=== PATIENT | male | born 1990 | race Caucasian/White ===

== ENCOUNTER 2019-11-11 06:18 | Day surgery (SDC) | payer OTHER, SELFPAY ==
[2019-11-04 14:25] VITALS: BMI 26.6
--- NOTE | 2019-11-10 10:25 | HO.ANESPROP2 ---
Documented by User: Destiny Venegas 11/10/19 10:27 HPI - Anesthesia Eval Consult details Narrative: 29yo M for hemmorhoidectomy [facility] Past Medical History Medical History Anemia Back pain Depression Hx of motion sickness Lab test negative for COVID-19 virus Murmur Post-operative nausea and vomiting Surgical History Surgical History H/O wisdom tooth extraction History of tonsillectomy Social History Social History Smoking Status: Former smoker Smoked in Last 30 Days: No Smoking Quit Date: 2017 Use of substances other than those prescribed or required for medical reasons: Yes Substance Use Frequency: Daily Advance Directives Information Provided: No Recently lost weight without trying: No Meds Allergies Allergy/AdvReac Type Severity Reaction Status Date / Time No Known Allergies Allergy Verified 11/04/19 14:45 Home Medications Medication Instructions Recorded Confirmed Type omeprazole [Prilosec] 20 mg PO DAILY 11/04/19 11/11/19 History Exam Exam Date and Time: November 10, 2019 1025 Height,Weight and Vital Signs: Height 5 ft 8 in Weight 79.379 kg Pertinent Lab Results Pertinent Lab Results: Laboratory Tests 08/06/19 08/06/19 08/20/19 15:48 15:48 11:47 WBC 7.1 Hgb 13.3 L Hct 40.3 L Plt Count 304 Sodium 139 Potassium 4.7 Chloride 105 Bicarbonate 27 Anion Gap 12 BUN 16 Creatinine 1.11 Estimated Creat Clear 95.0 Est GFR (Non-Af Amer) > 60 Total Bilirubin 0.5 Direct Bilirubin 0.3 AST 20 ALT 20 Alkaline Phosphatase 52 Total Protein 7.2 Albumin 4.6 Lipase 12 Coronavirus (PCR) NEGATIVE Assessment and Plan Assessment Anesthesia Assessment: Chart Reviewed Documented by User: Cooper Montanez 11/11/19 07:21 [facility] Past Medical History Medical History Anemia Back pain Depression Hx of motion sickness Lab test negative for COVID-19 virus Murmur Post-operative nausea and vomiting Surgical History Surgical History H/O wisdom tooth extraction History of tonsillectomy Social History Social History Smoking Status: Former smoker Smoked in Last 30 Days: No Smoking Quit Date: 2017 Use of substances other than those prescribed or required for medical reasons: Yes Substance Use Frequency: Daily Advance Directives Information Provided: No Recently lost weight without trying: No Meds Allergies Allergy/AdvReac Type Severity Reaction Status Date / Time No Known Allergies Allergy Verified 11/04/19 14:45 Home Medications Medication Instructions Recorded Confirmed Type omeprazole [Prilosec] 20 mg PO DAILY 11/04/19 11/11/19 History Exam Airway Mallampati Class: II TM Dist: >3cm Neck ROM: Full Heart: RRR
[2019-11-11] VITALS (7 sets, daily range): BP systolic 100–129; BP diastolic 43–85; PULSE 57–91; RESP 16; TEMP 36.2–36.8; O2SAT 95–100
[2019-11-11] MEDS: Scopolamine 1.5 MG PATCH.TD.3 TRANSDERMA (06:50)
[2019-11-11] MEDS: Lactated Ringers 1,000 ML 100 ML IVCONT (07:00)
--- NOTE | 2019-11-11 07:29 | MHC.SHP ---
Surgical H&P Section A The patient is an INPATIENT: Yes Changes since office visit: Yes Patient answered all questions; No Cold of Flu in the past 2 weeks, No New Medical Problems and No Changes in Medication The History & Physical has been completed within 30 days and I have reviewed it.: No Section B Chief Complaint: INTERNAL AND EXTERNAL HEMORRHOIDS Details of Present Illness: pain and bleeding with hemorrhoids for several months Relevant Family History (Specify if Yes): No Relevant Social History: None Present Medications: see Short Stay Collaborative assessment Medical History: No relevant PMH History of Previous Operations: No relevant previous surgery Allergies: Allergies Allergy/AdvReac Type Severity Reaction Status Date / Time No Known Allergies Allergy Verified 11/04/19 14:45 Review of Systems Sugical H&P ROS: Negative: Constitution, Cardiovascular, Respiratory, Neurological, Psychiatric, Hem-Onc, Allergic/Immunologic, Gastrointestinal, Genitourinary, Musculoskeletal, Integumentary, Endocrine and Eyes/Ears/Nose/Throat Exam Surgical H&P Exam: Normal: HEENT, Normal: Heart, Normal: Lungs, Normal: Extremities, Normal: Abdomen, Normal: Skin and Normal: Neurological Exam Comment: internal and external hemorrhoids Plan Diagnosis/Plan: Unchanged Patient has been examined and remains a candidate for the planned procedure
--- NOTE | 2019-11-11 08:28 | PM.OP ---
Brief Operative Note Date of procedure: 11/11/19 Pre-op diagnosis: hemorrhoids Post-op diagnosis: other (hemorrhoids, anal fissure) Procedure: EUA, hemorrhoidectomy, right lateral internal sphincterotomy Anesthesia: GLMA Surgeon: Alexander Hodge Estimated blood loss (mL): 10 Pathology: other (hemorrhoids, fissure biopsy) Condition: stable Disposition: PACU
[2019-11-11] MEDS: oxyCODONE HCl Immed Release 5 MG TABLET PO ×2 (09:01→09:08)
--- NOTE | 2019-11-11 09:47 | HO.POSTANES ---
Post Anesthesia Evaluation Post Anesthesia Evaluation Vital Signs: Vital Signs Temp Pulse Resp BP Pulse Ox 11/11/19 09:15 98.3 F 65 16 109/58 L 100 11/11/19 09:00 91 16 129/64 100 11/11/19 08:46 74 16 122/85 100 11/11/19 08:42 79 16 100/50 L 96 11/11/19 08:33 71 16 119/43 L 95 11/11/19 08:32 97.1 F 57 16 115/50 L 95 11/11/19 06:40 98.0 F 61 16 126/47 L 99 Anesthesia: General LMA Mental Status: Awake Pain Control: Satisfactory Nausea/Vomiting: None Hydration: Adequate Anesthesia-Related Issues: No Anes. Related Issues
--- NOTE | 2019-11-11 19:58 | OP_ITS ---
SURGEON: Alexander Hodge MD INDICATIONS: The patient is a 29-year-old male, who has had problems with pain with bowel movements as well as bleeding. Examination did show internal and external hemorrhoids and initial exam in the office showed these hemorrhoids on anoscopy. In view of his chronic symptoms he wanted to proceed with hemorrhoidectomy. He understood the technique of procedure. The patient is aware of the risks, benefits, and alternatives. PREOPERATIVE DIAGNOSIS: Internal and external hemorrhoids with bleeding and pain. POSTOPERATIVE DIAGNOSIS: PROCEDURE PERFORMED: Exam under anesthesia, hemorrhoidectomy, right lateral internal sphincterotomy, and biopsy of posterior midline anal fissure. ESTIMATED BLOOD LOSS: COMPLICATIONS: ANESTHESIA: ASSISTANTS: SPECIMENS: POSTOPERATIVE DIAGNOSES: 1. Internal and external hemorrhoids. 2. Posterior midline anal fissure. DESCRIPTION OF PROCEDURE: He was brought to the operating room and placed in prone Dago-Knife position under general anesthesia via endotracheal tube. The buttocks were retracted with white tape laterally. The surgical time-out was done. The perianal was prepped and draped in usual sterile fashion. The examination of the anal orifice revealed external hemorrhoidal column on the left side. I retracted the anal verge, and this showed a posterior midline fissure in the distal anoderm. I inserted a James-Lottie retractor and examined the anal canal circumferentially. Again, the hemorrhoidal column, a mix of internal and external, on the left side was seen. The posterior midline fissure was again noted in the distal anoderm just at the verge. There were no other lesions seen. There were no polyps or any indurated areas. I proceeded to therefore apply a grasper at the hemorrhoidal column on the left side. This Duenas grasper was used for retracting the hemorrhoidal column out of the field. I made a pamqew-ph-uogqu stitch at the pedicle of this column just past the dentate line using chromic 3-0 stitch. We made incision around this hemorrhoidal column of the perianal skin using blade #15. I excised this hemorrhoidal column above the plane of sphincters along this incision using Metzenbaum scissors with care being taken so as to make sure that we were staying above the plane of sphincters. This hemorrhoidal column was completely excised and sent as specimen. I closed this incision with running chromic 3-0 stitch. Hemostasis was ensured by additional hemostatic acsbth-ht-jswbu sutures as well. Since the patient had complained of significant pain with bowel movements, I decided to do a sphincterotomy because of the presence of posterior midline fissure, which appeared to be deep and scared. There was note of some sentinel pile as well distal to this fissure. I proceeded to palpate for the intersphincteric groove on the right anal verge. I made an incision in the perianal skin overlying this intersphincteric groove using blade #15. This was a short 5 mm incision. I bluntly dissected through the skin to define the internal sphincter fibers. I proceeded to apply this hemostat in the intersphincteric plane to protect the external sphincters and divided the intersphincteric muscles using a needle-tip cautery down to the level of the dentate line. I closed the short incision with running chromic 3-0 stitch. I then proceeded to biopsy the anal fissure by taking out part of the margin of the fissure itself using Metzenbaum scissors. I cauterized this with use of cautery to achieve hemostasis on this biopsy site. I then observed the entire canal for hemostasis. Once hemostasis was ensured, I have infiltrated the perianal area with Marcaine 0.5% for postop analgesia and the procedure was completed. The patient tolerated the procedure well and there were no complications noted. Initial and final counts sponge and instruments were correct. Estimated blood loss was minimal. The patient was extubated without difficulty in the operating room and transferred to the recovery room with stable vital signs. MD CANELO Tan/MONIQUE / [id number] REGINALDO
== END 2019-11-11 10:01 | disposition home or self-care (01) ==
PROVIDERS: Visit Provider Surgery
PROC: (CPT 46257; principal; 2019-11-11 07:30)
DX: K64.8 Other hemorrhoids (principal); K64.4 Residual hemorrhoidal skin tags; K60.2 Anal fissure, unspecified; D64.9 Anemia, unspecified; K21.9 Gastro-esophageal reflux disease without esophagitis; Z87.891 Personal history of nicotine dependence; Z79.899 Other long term (current) drug therapy
CPT/HCPCS: 46257; 46200; 88304; J0131; J1100; J1885; J2250; J2405; J3010

== ENCOUNTER 2020-01-31 12:22 | Emergency (ER) | payer MEDICAID, SELFPAY ==
[2020-01-31 12:54] VITALS: BP 156/91; PULSE 75; RESP 17; TEMP 36.4; O2SAT 98; BMI 26.6
--- NOTE | 2020-01-31 13:42 | XR_ITS ---
EXAMINATION: XR KNEE, LEFT CLINICAL INFORMATION: Infection COMPARISON: None TECHNIQUE: Four views of the left knee. FINDINGS: Bones and soft tissues are normal. No fracture or joint effusion. Alignment is anatomic. Joint spaces are well maintained. No abnormal soft tissue calcification. XR/XR knee LT 4V IMPRESSION: Normal left knee.
--- NOTE | 2020-01-31 13:43 | ED.EXTPRO ---
HPI - Extremity Problem General Chief complaint: Extremity Injury, Lower Stated complaint: knee pain, ?infected Time Seen by Provider: 01/31/20 13:42 Source: patient Mode of arrival: ambulatory Limitations: no limitations History of Present Illness HPI Narrative: Patient is a 29-year-old male no significant past medical history who states he has 3 days of left knee pain, swelling and redness. He states he thinks he has an infection. States he can walk on it but it is getting more painful each day. Denies trauma or previous injury or infection. Denies fevers. Related Data Home Medications Medication Instructions Recorded Confirmed omeprazole 20 mg PO DAILY 11/04/19 11/11/19 Previous Rx's Medication Instructions Recorded docusate sodium [Colace] 100 mg PO BID #60 cap 11/11/19 ibuprofen 600 mg PO Q6-8H PRN #30 tab 11/11/19 oxycodone-acetaminophen [Percocet] 1 tab PO Q4-6H PRN #30 tab 11/11/19 zmlmkmocz-vkmgenjbtcucqc-iwsa vera 1 applic FL BID #100 g 11/12/19 2.8 %-0.55 % rectal gel Allergies Allergy/AdvReac Type Severity Reaction Status Date / Time No Known Allergies Allergy Verified 11/04/19 14:45 Review of Systems Review of Systems: Yes all other systems are reviewed and are negative PMFSH Past Medical History Medical History Anemia Back pain Depression Hx of motion sickness Lab test negative for COVID-19 virus Murmur Post-operative nausea and vomiting Surgical History H/O wisdom tooth extraction History of tonsillectomy Social History Social History Smoking Status: Former smoker Advance Directives: No Advance Directives Information Provided: No Physical Exam Vital Signs: Vital Signs: Last Vital Signs Temp 97.5 F 01/31/20 12:54 Pulse 75 01/31/20 12:54 Resp 17 01/31/20 12:54 BP 156/91 H 01/31/20 12:54 Pulse Ox 98 01/31/20 12:54 Body Mass Index 26.6 Const: General: cooperative, healthy appearing, comfortable, no acute distress and well developed Nutritional Appearance: average body habitus and well nourished Orientation/consciousness: patient oriented x3 Eyes: General: appearance normal, both eyes and all related structures Resp: Effort & Inspection: normal respiratory effort and able to speak in complete sentences Neuro: General: patient oriented x3 Extrem: Left lower extremity: knee Details: abnormal to inspection, tenderness, swelling, abnormal ROM Details: pain with active ROM Details: with extension and with flexion and warmth; no lacerations and no ecchymosis Course Course Course Narrative: A 29-year-old male with no significant past medical history presenting with 3 days of left knee pain, warmth and tenderness. A likely a cellulitis but will get a x-ray and basic labs to rule out joint infection. Discharge Plan Discharge Prescriptions: No Action tcalpumrg-dkfhvfjtvatozp-tpbe 2.8-0.55 % gel 1 applic FL BID Qty: 100 RF: 0 omeprazole 20 mg Capsule,Delayed Release(Dr/Ec) 20 mg PO DAILY RF: 0 oxycodone-acetaminophen [Percocet] 5-325 mg tablet 1 tab PO Q4-6H PRN (Reason: pain) Qty: 30 RF: 0 ibuprofen 600 mg tablet 600 mg PO Q6-8H PRN (Reason: pain) Qty: 30 RF: 0 docusate sodium [Colace] 100 mg capsule 100 mg PO BID Qty: 60 RF: 2
[2020-01-31 14:09] LABS: Basophils Percent Auto 0.3 % (0-2); Eosinophils Absolute Auto 0.1 X10*3/uL (0.0-0.4); Eosinophils Percent Auto 0.7 % (0-4); Hematocrit 41.5 % (42-52); Hemoglobin 13.3 g/dl (14.0-18.0); Imm Gran Abs Auto 0.03 X10*3/uL (0.00-0.03); Imm Gran Pct Auto 0.3 % (0.0-0.4); Lymphocytes Absolute Auto 1.6 X10*3/uL (1.2-4.9); Lymphocytes Percent Auto 14.8 % (20-40); MANUAL DIFF FLAG NO; Mean Corpuscular Hemoglobin 30.1 pg (27.0-33.0); Mean Corpuscular Volume 93.9 fL (80-98); Mean Platelet Volume 10.1 fL (9.4-12.4); Monocytes Absolute Auto 0.9 X10*3/uL (0.1-1.2); Monocytes Percent Auto 8.3 % (2-11); Neutrophils Percent Auto 75.6 % (45-73); Platelet Count 260 X10*3/uL (160-400); Red Blood Count 4.42 X10*6/uL (4.60-5.80); Red Cell Distribution Width 12.3 % (11.0-16.0); White Blood Count 10.5 X10*3/uL (4.8-10.8)
[2020-01-31 14:34] LABS: Anion Gap 11 (12-20); Blood Urea Nitrogen 13 mg/dL (9-16); Calcium 9.2 mg/dL (8.4-10.2); Carbon Dioxide 30 mmol/L (22-29); Chloride 103 mmol/L (96-108); Creatinine Clr Calc Pharmacy 106.5; Estimated Glomerular Filt Rate > 60; Glucose Random 96 mg/dL (60-115); Potassium 4.9 mmol/l (3.3-5.1); Sodium 139 mmol/L (135-145)
== END 2020-01-31 15:24 | disposition home or self-care (01) ==
PROVIDERS: Physician Assistant; Emergency Provider Emergency Medicine Emergency Medical Services
DX: L03.116 Cellulitis of left lower limb (principal); M25.562 Pain in left knee
CPT/HCPCS: 36415; 73564; 80048; 85025; 99283

== ENCOUNTER 2020-03-19 13:35 | Outpatient (REF) | payer MEDICAID, SELFPAY ==
--- NOTE | ~2020-03-19 | XR_ITS ---
EXAMINATION: XR SHOULDER, LEFT CLINICAL INFORMATION: Strain COMPARISON: None TECHNIQUE: AP external rotation, Grashey, scapular Y, and axillary views of the left shoulder. FINDINGS: The bones and soft tissues are normal. No fracture. Glenohumeral and acromioclavicular alignment is anatomic with normal joint space. No abnormal soft tissue calcifications. XR/XR shoulder LT min 2V IMPRESSION: Normal left shoulder.
== END 2020-03-19 13:36 | disposition home or self-care (01) ==
LOC: HO.XRAY 13:35
PROVIDERS: Visit Provider Emergency Medicine
DX: S46.912A Strain of unspecified muscle, fascia and tendon at shoulder and upper arm level, left arm, initial encounter (principal)
CPT/HCPCS: 73030

== ENCOUNTER 2020-03-23 12:08 | Emergency (ER) | payer MEDICAID, SELFPAY ==
--- NOTE | ~2020-03-23 | CT_ITS ---
EXAMINATION: CT CERVICAL SPINE WITHOUT CONTRAST CLINICAL INFORMATION: Fall, trauma COMPARISON: CT head 03/23/2020, 09/07/2017 TECHNIQUE: Multidetector volumetric CT imaging of the cervical spine is performed without contrast in the axial plane. Additional 2D reformatted coronal and sagittal images are generated on the CT workstation and uploaded to PACS. This CT examination was performed using dose optimization techniques as appropriate, variously including the following: *Automated exposure control *Adjustment of mA and/or kV according to patient size (this includes techniques or standardized protocols for targeted exams where dose is matched to indication/reason for exam; i.e. extremities or head) *Use of iterative reconstruction technique DLP: 541 mGy-cm FINDINGS: There is no vertebral compression fracture, fracture line, spondylolisthesis, or prevertebral soft tissue swelling. The craniocervical junction appears normal. The odontoid appears intact. There is straightening of the cervical lordosis. There are no significant degenerative changes. There is no apical pneumothorax. CT/CT cervical spine wo con IMPRESSION: 1. No acute bony abnormality or prevertebral soft tissue swelling. 2. Straightening cervical lordosis which may related to mild muscle spasm.
--- NOTE | ~2020-03-23 | CT_ITS ---
EXAMINATION: CT HEAD WITHOUT CONTRAST CLINICAL INFORMATION: Fall, trauma COMPARISON: CT head noncontrast 09/07/2017 TECHNIQUE: Contiguous axial imaging was performed from the skull base to vertex without intravenous administration of contrast. Additional 2-D coronal and sagittal reformatted images are generated on the CT workstation and uploaded to PACS. This CT examination was performed using dose optimization techniques as appropriate, variously including the following: *Automated exposure control *Adjustment of mA and/or kV according to patient size (this includes techniques or standardized protocols for targeted exams where dose is matched to indication/reason for exam; i.e. extremities or head) *Use of iterative reconstruction technique DLP: 687 mGy-cm FINDINGS: There is no intracranial hemorrhage, hematoma, or extra-axial fluid collection. The ventricles are normal in size. There is no hydrocephalus, edema, or mass effect. The fitzgerald-white matter differentiation appears symmetric. There is no visible acute territorial infarct or mass lesion. The calvarium appears intact. There is no pneumocephalus or orbital emphysema. The visualized sinuses and middle ears and mastoid air cells show no significant mucosal thickening. There are no air-fluid levels. CT/CT head/brain wo con IMPRESSION: No acute intracranial abnormality.
[2020-03-23 12:15] VITALS: BP 139/74; PULSE 73; RESP 18; TEMP 36.4; O2SAT 95; BMI 26.6
--- NOTE | 2020-03-23 12:58 | ED_ITS ---
HPI - Fall General Chief Complaint: Fall <BRINA Feliz Last Filed: 03/23/20 18:11> Stated Complaint: FELL DOWN STAIRS NECK HEAD BACK INJ <BRINA Feliz Last Filed: 03/23/20 18:11> Time Seen by Provider: 03/23/20 12:58 <BRINA Feliz - Last Filed: 03/23/20 18:11> History of Present Illness HPI Narrative: Patient slipped and fell this morning sliding on ice and falling back hitting his head and neck against concrete steps, so complains of headache, neck pain as well as some low back pain, no numbness no weakness no tingling no changes to bowel or bladder no loss consciousness no vomiting no dizziness <BRINA Feliz Last Filed: 03/23/20 18:11> Related Data Home Medications: Home Medications Medication Instructions Recorded Confirmed omeprazole 20 mg PO DAILY 11/04/19 11/11/19 Previous Rx's Medication Instructions Recorded docusate sodium [Colace] 100 mg PO BID #60 cap 11/11/19 ibuprofen 600 mg PO Q6-8H PRN #30 tab 11/11/19 oxycodone-acetaminophen [Percocet] 1 tab PO Q4-6H PRN #30 tab 11/11/19 mkkgsnhow-bmmtzmcnxejsea-ufmj vera 1 applic MS BID #100 g 11/12/19 2.8 %-0.55 % rectal gel cephalexin [Keflex] 500 mg PO Q8H #20 cap 01/31/20 doxycycline hyclate 100 mg PO BID #14 cap 01/31/20 cyclobenzaprine 5 mg PO TID PRN #10 tab 03/23/20 ibuprofen 600 mg PO Q6H PRN #20 tab 03/23/20 oxycodone 5 mg PO Q6H PRN #10 cap 03/23/20 <BRINA Feliz Last Filed: 03/23/20 18:11> Allergies/Adverse Reactions: Allergies Allergy/AdvReac Type Severity Reaction Status Date / Time No Known Allergies Allergy Verified 03/23/20 12:15 <BRINA Feliz Last Filed: 03/23/20 18:11> Review of Systems Review of Systems: Positive for headache neck pain and back pain Negatives are no weakness no dizziness no confusion no loss of consciousness no retrograde amnesia no vision change no nausea no vomiting no numbness weakness o r paresthesias, no changes to bowel or bladder, no fever no chills no chest pain no shortness of breath no dysuria no abdominal pain <BRINA Feliz - Last Filed: 03/23/20 18:11> Yes all other systems are reviewed and are negative <BRINA Feliz - Last Filed: 03/23/20 18:11> PMFSH Past Medical History Source: nursing notes reviewed <BRINA Feliz - Last Filed: 03/23/20 18:11> Medical History: Medical History Anemia Back pain Depression Hx of motion sickness Lab test negative for COVID-19 virus Murmur Post-operative nausea and vomiting <BRINA Feliz - Last Filed: 03/23/20 18:11> Surgical History: Surgical History H/O wisdom tooth extraction History of tonsillectomy <BRINA Feliz - Last Filed: 03/23/20 18:11> Social History Social History: Social History Smoking Status: Former smoker Advance Directives: No Advance Directives Information Provided: Yes <BRINA Feliz - Last Filed: 03/23/20 18:11> Physical Exam Vital Signs: Vital Signs: Last Vital Signs Temp 97.6 F 03/23/20 12:15 Pulse 73 03/23/20 12:15 Resp 18 03/23/20 12:15 BP 139/74 03/23/20 12:15 Pulse Ox 95 03/23/20 12:15 Body Mass Index 26.6 <BRINA Feliz - Last Filed: 03/23/20 18:11> Vital Signs: Last Vital Signs Temp 97.6 F 03/23/20 12:15 Pulse 73 03/23/20 12:15 Resp 18 03/23/20 12:15 BP 139/74 03/23/20 12:15 Pulse Ox 95 03/23/20 12:15 Body Mass Index 26.6 <Brant Apodaca MD - Last Filed: 03/29/20 07:17> General appearance is no acute distress, cooperative, a and O x3 The head is normocephalic atraumatic there are no raccoon eyes no Hodgson signs no scalp hematoma, pupils equal round react to light, extraocular motions intact The neck has diffuse posterior tenderness and pain with movement the posterior tenderness includes the midline, no palpable deformities The chest is clear to auscultation bilaterally with full symmetric equal breath sounds, no chest wall tenderness no rib tenderness no pain with deep breath The heart rate and rhythm regular no murmur The abdomen is soft and nontender Extremities full range of motion x4 without tenderness swelling or deformity The skin no lacerations, no rashes Neuro cranial nerves 2-12 intact as tested, no facial asymmetry, cerebellar exam is normal, gait is normal balance is normal verbal interaction and comprehension are normal, there is no unilateral weakness, motor is 5/5 x4 in sensation is intact and symmetrical <BRINA Feliz - Last Filed: 03/23/20 18:11> Course Course Course Narrative: CT scan of head and neck were normal, and patient was discharged with diagnosis of concussion and neck strain and ambulated easily from the department <BRINA Feliz - Last Filed: 03/23/20 18:11> I have reviewed the chart <Brant Apodaca MD - Last Filed: 03/29/20 07:17> Discharge Plan Discharge Clinical Impression: Neck strain, Concussion with loss of consciousness <BRINA Feliz - Last Filed: 03/23/20 18:11> Patient Disposition: Home, Self-Care <BRINA Feliz - Last Filed: 03/23/20 18:11> Additional Instructions: CT scans of head and neck did not reveal any dangerous or concerning injury Follow with primary doctor as needed, physical therapy and chiropractor a sometimes helpful if neck pain continues but this will often get better on its own in just a few days Return any time any worse condition or any concerns <BRINA Feliz - Last Filed: 03/23/20 18:11> Prescriptions: New cyclobenzaprine 5 mg tablet 5 mg PO TID PRN (Reason: muscle spasm) Qty: 10 RF: 0 ibuprofen 600 mg tablet 600 mg PO Q6H PRN (Reason: pain) Qty: 20 RF: 0 oxycodone 5 mg capsule 5 mg PO Q6H PRN (Reason: pain) Qty: 10 RF: 0 No Action nfvsgfusf-litjlazpymvqke-lucr 2.8-0.55 % gel 1 applic MS BID Qty: 100 RF: 0 omeprazole 20 mg Capsule,Delayed Release(Dr/Ec) 20 mg PO DAILY RF: 0 oxycodone-acetaminophen [Percocet] 5-325 mg tablet 1 tab PO Q4-6H PRN (Reason: pain) Qty: 30 RF: 0 ibuprofen 600 mg tablet 600 mg PO Q6-8H PRN (Reason: pain) Qty: 30 RF: 0 docusate sodium [Colace] 100 mg capsule 100 mg PO BID Qty: 60 RF: 2 doxycycline hyclate 100 mg capsule 100 mg PO BID Qty: 14 RF: 0 cephalexin [Keflex] 500 mg capsule 500 mg PO Q8H Qty: 20 RF: 0 <BRINA Feliz - Last Filed: 03/23/20 18:11> Interventions: ED Discharge Assessment Last Done: 03/23/20 15:00 <BRINA Feliz - Last Filed: 03/23/20 18:11> Discharge Date/Time: 03/23/20 15:00 <BRINA Feliz - Last Filed: 03/23/20 18:11>
== END 2020-03-23 15:00 | disposition home or self-care (01) ==
PROVIDERS: Emergency Provider Emergency Medicine
DX: S16.1XXA Strain of muscle, fascia and tendon at neck level, initial encounter (principal); S06.0X9A Concussion with loss of consciousness of unspecified duration, initial encounter; W00.0XXA Fall on same level due to ice and snow, initial encounter; Y93.89 Activity, other specified; Y92.480 Sidewalk as the place of occurrence of the external cause; Y99.9 Unspecified external cause status
CPT/HCPCS: 70450; 72125; 99283; 99284

== ENCOUNTER → 2020-05-13 09:26 | Outpatient (BNVA) | payer MEDICAID, SELFPAY | PROVIDERS: PCP Nurse Practitioner Family; Visit Provider Physician Assistant | DX: M75.22 Bicipital tendinitis, left shoulder (principal) | CPT/HCPCS: 99202 ==

== ENCOUNTER 2020-07-01 07:00 | Outpatient (RCR) | payer MEDICAID, SELFPAY ==
--- NOTE | 2020-06-03 10:00 | MHC.PT.EP ---
[facility] [place] Office [place] Office [place] Office [address] Ella Ulloa [address] [phone] F: [phone] F: [phone] F: [phone] F: [phone] Physical Therapy Plan of Care Date of Evaluation: Date of Surgery: Diagnosis: left shoulder pain. Assessment: The patient arrived with reduced shoulder ROM, strength in his left UE, chest musculature, and with pressing and pushing motions. He has an asymmetrical clavicular/1st rib joint, and some muscle atrophy noted in the pec minor/major area. He is showing signs of a pectoralis minor/major strain. He was educated on posture improvements, movements, and positions to avoid to decrease aggravating his symptoms, and we will begin conservative treatment for a pectoralis muscle strain. Frequency and Duration: The patient will be seen 2x/week x 4 weeks Short Term Goals: . Pt to be able to report 50% improvement in functional reaching. - Pt to be able to report 50% less pain with getting dressed. Custodial Goals: 4 weeks - The patient to have greater than 160 degrees of flexion and abduction to show improved functional ROM. 4 weeks ? The patient to have 5/5 strength with flexion and abduction to demonstrate functional strength 4 weeks ? The patient to be able to return to all functional reaching, self care ADL's without any limitation from pain or loss of ROM. Treatment Plan: Modalities to reduce pain, spasms and effusion. Manual therapy to restore motion and function. Therapeutic exercise to improve strength and flexibility. Neuromuscular re-education for posture and balance. Therapeutic activities to return to functional activities of daily living. Electronically signed by: Natasha Cast PT DPT Please sign and return to therapist. Thank you for your referral.
--- NOTE | 2020-09-30 09:42 | MHC.PT.DC ---
[facility] [place] [facility] [place] [facility] [place] [facility] [address] Ella Ulloa [address] [facility] [phone] F: [phone] F: [phone] F: [phone] F: [phone] Physical Therapy Discharge Report Diagnosis: left shoulder pain. Date of Surgery: Date of Evaluation: 06/03/20 Date of Discharge: 09/05/20 Treatments to Date: 6 Cancellations to Date: No Shows to Date: Discharge Status: Patient Elected to Stop Recommend MD Follow-up Discharge Summary: The patient arrived frustrated by lack of progress. However, upon exam he has great muscular symmetry, great PROM, and relatively pain free motion without resistance. I am suspicious of thoracic or lower cervical disc derangement based on his pain presentation, and his improvement with cervical retractions and retraction with extension. He was given seated cervical retraction with extension. Electronically signed by: Natasha Cast PT DPT Please sign and return to therapist. Thank you for your referral.
== END 2020-09-30 07:00 | disposition home or self-care (01) ==
LOC: HO.PT 07:00
PROVIDERS: PCP General Practice; Visit Provider Physician Assistant
DX: M75.22 Bicipital tendinitis, left shoulder (principal)
CPT/HCPCS: 97110; 97112; 97140; 97162; 97530

== ENCOUNTER 2020-07-03 20:33 | Emergency (ER) | payer MEDICAID, SELFPAY ==
--- NOTE | ~2020-07-03 | XR_ITS ---
EXAMINATION: XR CHEST CLINICAL INFORMATION: Chest pain. COMPARISON: Chest x-ray 11/18/2018 TECHNIQUE: 2 views of the chest were obtained. FINDINGS: No significant abnormality is noted involving the heart, lungs, mediastinum, bony thorax or soft tissues. XR/XR chest 2V IMPRESSION: Unremarkable examination.
--- NOTE | ~2020-07-03 | XR_ITS ---
EXAMINATION: XR SHOULDER, LEFT CLINICAL INFORMATION: Pain. COMPARISON: Left shoulder radiographs dated 03/19/2020. TECHNIQUE: AP, Grashey, scapular Y views of the left shoulder. FINDINGS: The bones and soft tissues are normal. No fracture. Glenohumeral and acromioclavicular alignment is anatomic with normal joint space. No abnormal soft tissue calcifications. XR/XR shoulder LT min 2V IMPRESSION: Unremarkable examination.
[2020-07-03 20:34] VITALS: BP 142/58; PULSE 70; RESP 16; TEMP 36.9; O2SAT 99; BMI 26.6
--- NOTE | 2020-07-03 21:21 | ED.GENADULT ---
HPI - General Adult General Chief complaint: General Medical Stated complaint: shoulder pain Time Seen by Provider: 07/03/20 22:03 Source: patient Mode of arrival: ambulatory Limitations: no limitations History of Present Illness HPI narrative: 30-year-old male with past medical history of anemia, depression, being treated by Physical therapy for clavicular pain presents with arm and chest pain after physical therapy session. He does not report any chest pressure, shortness of breath, shortness of breath on exertion, worsening decreased range of motion, abdominal pain, abdominal distention, dysuria, hematuria, fevers, chills, nausea, vomiting, diarrhea, constipation, or edema. Onset (ago): week(s) Location: chest and upper extremity Radiation: non-radiation Severity: moderate Severity scale (1-10): 6 Quality: aching Pain Consistency: constant Relieving factors: immobilization and rest Exacerbating factors: movement Associated symptoms: denies other symptoms Treatments prior to arrival: other (Physical therapy) Related Data Home Medications Medication Instructions Recorded Confirmed omeprazole 20 mg PO DAILY 11/04/19 11/11/19 Previous Rx's Medication Instructions Recorded docusate sodium [Colace] 100 mg PO BID #60 cap 11/11/19 ibuprofen 600 mg PO Q6-8H PRN #30 tab 11/11/19 qfwjgxuye-chccopdqtsbgkd-qmkq vera 1 applic NV BID #100 g 11/12/19 2.8 %-0.55 % rectal gel cephalexin [Keflex] 500 mg PO Q8H #20 cap 01/31/20 doxycycline hyclate 100 mg PO BID #14 cap 01/31/20 ibuprofen 600 mg PO Q6H PRN #20 tab 03/23/20 Allergies Allergy/AdvReac Type Severity Reaction Status Date / Time No Known Allergies Allergy Verified 05/13/20 09:47 Review of Systems Review of Systems: Constitutional: No Fever, No Chills ENT/Mouth: No Ear Pain, No Hoarseness, No sore throat Eyes: No Eye Pain, No Swelling, No Redness, No Foreign Body Cardiovascular: No Chest Pain, No SOB Respiratory: No Cough, No Dyspnea Gastrointestinal: No Nausea, No Vomiting, No Diarrhea, No abdominal Pain Genitourinary: No Dysuria, No Hematuria Musculoskeletal: positive shoulder and pectoral pain, No Myalgias, No Joint Swelling Skin: No Skin lacerations, No rash Neuro: No Weakness, No Numbness, No Paresthesias, No Loss of Consciousness, No Dizziness, No Headache Psych: No Anxiety/Panic, No Depression Heme/Lymph: no easy bruising, no Lymphadenopathy Endocrine: No Polyuria, No Polydipsia Yes all other systems are reviewed and are negative [facility] Past Medical History Attestation statement: The following information was validated with the patient. Source: old records reviewed Medical History Anemia Back pain Depression Hx of motion sickness Lab test negative for COVID-19 virus Murmur Post-operative nausea and vomiting Surgical History H/O wisdom tooth extraction History of tonsillectomy Social History Social History Alcohol intake: unknown Patient Tobacco Use Status: Current everyday Tobacco user Smoked in Last 30 Days: Yes Use of substances other than those prescribed or required for medical reasons: Yes Substance Use Type: Marijuana Substance Use Frequency Other:: QUIT Advance Directives: No Current occupational status: unemployed Current occupation: rght handed Physical Exam Vital Signs: Vital Signs: Last Vital Signs Temp 98.5 F 07/03/20 20:34 Pulse 70 07/03/20 20:34 Resp 16 07/03/20 20:34 BP 142/58 H 07/03/20 20:34 Pulse Ox 99 07/03/20 20:34 Body Mass Index 26.6 Appearance: Alert. Oriented X3. No acute distress. Eyes: Pupils equal, round and reactive to light. ENT: Pharynx normal. Neck: Normal inspection. Neck supple. CVS: Normal heart rate and rhythm. Pulses normal. Respiratory: No respiratory distress. Breath sounds normal. Abdomen: Soft and nontender. Skin: Skin warm and dry. Normal skin color. Normal skin turgor. Extremities: No lower extremity edema. Neuro: No motor deficit. No sensory deficit. Course Course Course Narrative: 30-year-old male presents with shoulder and pectoral pain after physical therapy. Will order x-rays of shoulder, chest, and order an EKG. Chest and shoulder are negative for acute findings. EKG indicates Kathie Parkinson's White. When compared to prior EKG in 2019, EKG is with the same. 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 Patient was referred to physical therapist. Patient verbalizes understanding of and agrees plan of care discharge home. Medical Decision Making Differential Diagnosis Differential Diagnosis: Musculoskeletal pain Medical Records Medical records reviewed: Yes I reviewed the patient's medical records. Lab Data Lab results reviewed: Yes I reviewed the patient's lab results. Imaging Data Chest x-ray: Attestation: I personally reviewed and interpreted this imaging study as follows: Radiologist's impression: EXAMINATION: XR CHEST CLINICAL INFORMATION: Chest pain. COMPARISON: Chest x-ray 11/18/2018 TECHNIQUE: 2 views of the chest were obtained. FINDINGS: No significant abnormality is noted involving the heart, lungs, mediastinum, bony thorax or soft tissues. XR/XR chest 2V IMPRESSION: Unremarkable examination. Shoulder x-ray: Attestation: I personally reviewed and interpreted this imaging study as follows: Radiologist's impression: EXAMINATION: XR SHOULDER, LEFT CLINICAL INFORMATION: Pain. COMPARISON: Left shoulder radiographs dated 03/19/2020. TECHNIQUE: AP, Grashey, scapular Y views of the left shoulder. FINDINGS: The bones and soft tissues are normal. No fracture. Glenohumeral and acromioclavicular alignment is anatomic with normal joint space. No abnormal soft tissue calcifications. XR/XR shoulder LT min 2V IMPRESSION: Unremarkable examination. ECG Data Attestation: I personally reviewed and interpreted this ECG as follows: Prior ECG tracings: available for review Discharge Plan Discharge Clinical Impression: Musculoskeletal chest pain, Fcmss-Gjrkefdjn-Mctcy (WPW) syndrome Patient Disposition: Home, Self-Care Instructions: Musculoskeletal Pain (ED), Hnsug-Zprfyqkal-Qlhup Syndrome (ED) Additional Instructions: You were evaluated for chest and shoulder musculoskeletal pain. X-rays of the chest and shoulder are negative for acute findings. We did an EKG, EKG indicates Petar-Pvvtrkjyf-Chwwz syndrome. You must follow-up with Cardiology. Your EKG is the same as it was in 2019. Please follow-up with physical therapy as needed. Thank you for choosing this emergency department for evaluation. Please follow-up with primary care physician as needed. Return to the emergency department for any new, concerning, or worsening symptoms. Prescriptions: No Action bggxbilah-cwdfmoazvxmfxo-yrlm 2.8-0.55 % gel 1 applic NV BID Qty: 100 RF: 0 omeprazole 20 mg Capsule,Delayed Release(Dr/Ec) 20 mg PO DAILY RF: 0 ibuprofen 600 mg tablet 600 mg PO Q6-8H PRN (Reason: pain) Qty: 30 RF: 0 docusate sodium [Colace] 100 mg capsule 100 mg PO BID Qty: 60 RF: 2 doxycycline hyclate 100 mg capsule 100 mg PO BID Qty: 14 RF: 0 cephalexin [Keflex] 500 mg capsule 500 mg PO Q8H Qty: 20 RF: 0 ibuprofen 600 mg tablet 600 mg PO Q6H PRN (Reason: pain) Qty: 20 RF: 0 Referrals: Ney King MD [Physician] - 2 days (Drtld-Rvpbfxxal-Iaqsj syndrome) Discharge Date/Time: 07/03/20 23:06
--- NOTE | 2020-07-03 21:22 | ECG_ITS ---
Test Reason : CHEST WALL PAIN Blood Pressure : / mmHG Vent. Rate : 063 BPM Atrial Rate : 063 BPM P-R Int : 106 ms QRS Dur : 132 ms QT Int : 410 ms P-R-T Axes : 029 001 064 degrees QTc Int : 419 ms Normal sinus rhythm with sinus arrhythmia Tuzeq-Lbrnqdbgb-Pnbnv Abnormal ECG No significant changes when compared with the previous EKG of 03 jul 2020 Referred By: Veronica Lee Electronically Signed By:ALESSIA MCDERMOTT
--- NOTE | 2020-07-03 22:35 | PC.NURSE ---
PT EVALED BY PROVIDER. LUNGS CLEAR, RESP UNLABORED. CXR TAKEN. EKG TAKEN AND REVIEWED.
== END 2020-07-03 23:06 | disposition home or self-care (01) ==
PROVIDERS: Emergency Provider Internal Medicine
DX: M25.512 Pain in left shoulder (principal); M25.511 Pain in right shoulder; I45.6 Pre-excitation syndrome; R07.89 Other chest pain; F17.200 Nicotine dependence, unspecified, uncomplicated; Z71.6 Tobacco abuse counseling; F12.90 Cannabis use, unspecified, uncomplicated; Z79.899 Other long term (current) drug therapy
CPT/HCPCS: 71046; 73030; 93005; 99284

== ENCOUNTER → 2020-07-27 13:33 | Outpatient (BNVA) | payer MEDICAID, SELFPAY | PROVIDERS: Visit Provider Nurse Practitioner Family ==

== ENCOUNTER → 2020-07-29 09:29 | Outpatient (REF) | payer MEDICAID, SELFPAY ==
--- NOTE | 2020-07-29 11:43 | ECG_ITS ---
Hook-up date: 2020-07-29 09:40:00 Duration: 25:44:00 Test Indications: PRE-EXCITATION SYNDROME Medications: [id number] QRS complexes 1 Ventricular ectopics which represent <1 % of total QRS comp. * Supraventricular ectopics which represent % of total QRS comp. * Paced QRS complexs which represent % of total QRS comp. VENTRICULAR ECTOPY 1 Isolated 0 Bigeminal Cycles 0 Couplets 0 Runs 0 Beats in Runs * Beats LONGEST at * BPM at :: -- * Beats FASTEST at * BPM at :: -- SUPRAVENTRICULAR ECTOPY * Isolated * Couplets * Runs * Beats in Runs * Beats LONGEST at * BPM at :: -- * Beats FASTEST at * BPM at :: -- HEART RATES 46 MIN at 03:36:30 2020-07-30 81 AVG 209 MAX at 14:58:14 2020-07-29 LONGEST RR 1.5520 secs at 06:24:33 2020-07-30 S-T LEVELS Channel 1 - 128 mm at 09:40:00 2020-07-29 - 128 mm at 09:40:00 2020-07-29 Channel 2 - 128 mm at 09:40:00 2020-07-29 - 128 mm at 09:40:00 2020-07-29 Channel 3 - 128 mm at 02:85:91 -- - 128 mm at 02:85:91 Basic rhythm Normal sinus rhythm Qrqdq-Ebshatgxq-Cyztn pattern noted Narrow complex tachycardia noted, due to artefact p waves are not well identified. Patient did not report any symptoms in the diary Referred By: Nasrin Domingo Overread By: LIZ HARMON MD
== END ==
LOC: HO.CARD 09:29
PROVIDERS: Visit Provider Nurse Practitioner Family
DX: I45.6 Pre-excitation syndrome (principal)
CPT/HCPCS: 93226

== ENCOUNTER → 2020-08-03 14:07 | Outpatient (REF) | payer MEDICAID, SELFPAY ==
--- NOTE | 2020-08-03 14:38 | HM_ITS ---
TEST PERFORMED: Cardiac event monitoring. ENROLLMENT PERIOD: 08/03/2020 to 09/02/2020-30 days. INDICATION: Preexcitation syndrome. FINDINGS: In the above monitoring period, underlying rhythm was sinus. The rates ranged from 68 beats per minute to 125 beats per minute. There is a pre-excitation pattern seen in the EKG strips. There are several symptoms noted during this time including shortness of breath, palpitations, chest pain at different times. These primarily show sinus rhythm during the time of symptoms. There is some sinus tachycardia noted but otherwise no supraventricular or ventricular arrhythmias during the entire monitoring. CONCLUSION: Study shows underlying sinus rhythm, sinus tachycardia but no other arrhythmias. The patient's symptoms including chest pain, shortness of breath, palpitations correlate with sinus rhythm/sinus tachycardia. Ney King MD HS/MODL / [id number]
== END ==
LOC: HO.CARD 14:07
PROVIDERS: Visit Provider Nurse Practitioner Family
DX: I45.6 Pre-excitation syndrome (principal)
CPT/HCPCS: 93270

== ENCOUNTER → 2020-08-04 11:03 | Outpatient (REF) | payer MEDICAID, SELFPAY ==
--- NOTE | 2020-08-04 11:06 | CA_ITS ---
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 The visually estimated ejection fraction is between 55-60%. Diastolic function is normal for age. Right Ventricle Normal right ventricular cavity size and systolic function. Atria Both atria are normal in size. There is no evidence of interatrial shunt. Aortic Valve Normal aortic valve structure and function. There is no aortic valve stenosis. There is no aortic valve regurgitation. Mitral Valve Normal mitral valve structure and function. There is no mitral valve regurgitation. There is no mitral valve stenosis. Pulmonic Valve The pulmonic valve is likely normal. There is trace pulmonic valve regurgitation. Tricuspid Valve Normal tricuspid valve structure. There is trace tricuspid valve regurgitation. Tricuspid regurgitation envelope is inadequate for calculation of right ventricular systolic pressure. Great Vessels All visible segments of the aorta are normal in size. The pulmonary artery was not well visualized. Venous The inferior vena cava is normal in size and collapses greater than 50% with inspiration. Pericardium/Pleural There is no evidence of pericardial effusion. Prior Study Comparison No prior study available for comparison. Measurements M-Mode Liner Measurements Normals - Women/Men AOV Cusps: 2.30 1.5-2.6 cm/m2 2D Linear Measurements IVSd: 0.80 0.6-0.9/0.6-1.0 cm LVIDd: 5.81 3.9-5.3/4.2-5.9 cm LVIDd Index: 2.99 2.4-3.2/2.2-3.1 cm/m2 LVIDs: 3.93 2.0-3.6 cm LVPWd: 0.75 0.7-1.1 cm Ao Root: 2.60 2.1-3.5 cm LA Diam: 3.40 2.7-3.8/3.0-4.0 cm LAIDs Index: 1.75 1.5-2.3 cm/m2 LV Mass: 210.16 67-162/88-224 g LV Mass Index: 108.33 43-95/49-115 g/m2 LVOT Diam: 2.00 3.0+(-)1.3 cm 2D Systolic Function EF 4C: 54.80 >55% EF 2C: 57.30 >55% EF BiP: 56.90 >55% Mitral Valve MV Pk E: 0.83 MV PK A: 0.48 MV Decel Time: 218.00 E/A: 1.70 E'Lateral: 18.00 E'Medial: 9.90 E/E' Med: 8.40 E/E' Lat: 4.60 PHT: 64.00 MVA PHT: 3.44 Decel [place]: 3.79 Aortic Valve AoV Pk Yayo: 1.35 AoV Mn Yayo: 0.94 AoV VTI: 0.28 AoV Pk Grad: 7.00 Aov Mn Grad: 4.00 SAGE Cont.VTI: 2.17 LVOT LVOT Pk Yayo: 0.98 LVOT Mn Yayo: 0.73 LVOT VTI: 0.19 LVOT Pk Grad: 4.00 LVOT Mn Grad: 2.00 LVOT Diam: 2.00 LVOT Area: 3.14 Diastolic Function MV Pk E: 0.83 MV Pk A: 0.48 E/A: 1.70 E'Medial: 9.90 E/E' Med: 8.40 E' Laterial: 18.00 E/E' Lat: 4.60 Tricuspid Valve RA Press: 3.00 Great Vessels Aorta Ao Root-2D: 2.60 2.0-3.7 cm Ao Asc: 2.30 2.1-3.4 cm Ao Arch: 2.10 Pulmonary Valve PV Pk Yayo: 1.14 Peak PV Grad: 5.00 Updated in Other Vendor System with Status of Final Mario Oneal MD electronically signed on 08/04/2020 3:25:14 PM with status of Final
== END ==
LOC: HO.CARD 11:03
PROVIDERS: Visit Provider Nurse Practitioner Family
DX: I45.6 Pre-excitation syndrome (principal)
CPT/HCPCS: 93306

== ENCOUNTER 2020-08-05 18:38 | Outpatient (REF) | payer MEDICAID, SELFPAY ==
--- NOTE | ~2020-08-05 | MR_ITS ---
EXAMINATION: MRI LEFT SHOULDER WITHOUT CONTRAST CLINICAL INFORMATION: Left muscle strain COMPARISON: None. TECHNIQUE: MRI of the shoulder without contrast is performed on a 1.5 Marina high-field scanner. FINDINGS: ROTATOR CUFF: Intact. No muscle atrophy or fatty infiltration. BICEPS: Normal. CORACOACROMIAL ARCH: The undersurface of the acromion is flat with no subacromial spur. The acromioclavicular joint is normal. LABRUM/CAPSULE: No definite labral tear. There is a meniscoid variant of the superior labrum with a portion of the meniscal undersurface draped over the superior glenoid. There is also prominent capsular thickening projecting into the anterior aspect of the joint. This is demonstrated on axial image 15 and sagittal image 14. GLENOHUMERAL JOINT/MARROW: The humeral head is slightly subluxed posteriorly. No joint effusion. No fracture. ADDITIONAL FINDINGS: None. MR/MR shoulder LT wo con IMPRESSION: Anterior inferior capsular thickening projecting into the glenohumeral joint with slight posterior subluxation of the humeral head, correlate for symptoms of impingement. There is mild edema at the superior aspect, and a probable variant of the superior labrum with the undersurface draped over the superior glenoid. No rotator cuff tear. No acute abnormality.
== END 2020-08-05 18:39 | disposition home or self-care (01) ==
LOC: HO.MRI 18:38
PROVIDERS: Visit Provider Nurse Practitioner Primary Care
DX: S46.912D Strain of unspecified muscle, fascia and tendon at shoulder and upper arm level, left arm, subsequent encounter (principal)
CPT/HCPCS: 73221

== ENCOUNTER → 2020-09-16 14:07 | Outpatient (BNVA) | payer MEDICAID, SELFPAY | PROVIDERS: PCP Nurse Practitioner Family; Visit Provider Internal Medicine Cardiovascular Disease | DX: I45.6 Pre-excitation syndrome (principal); R07.89 Other chest pain; R00.2 Palpitations; F17.200 Nicotine dependence, unspecified, uncomplicated | CPT/HCPCS: 99212 ==

== ENCOUNTER 2020-10-01 13:14 | Outpatient (REF) | payer MEDICAID, SELFPAY ==
--- NOTE | ~2020-10-01 | XR_ITS ---
EXAMINATION: XR CLAVICLE, LEFT CLINICAL INFORMATION: Sternoclavicular joint pain COMPARISON: MRI left shoulder 08/05/2020, left shoulder radiographs 07/03/2020 TECHNIQUE: Two views of the left clavicle. FINDINGS: The clavicle is intact. The bones and soft tissues are normal. No fracture. Acromioclavicular joint alignment is anatomic. XR/XR clavicle LT IMPRESSION: Normal left clavicle.
== END 2020-10-01 13:15 | disposition home or self-care (01) ==
LOC: HO.XRAY 13:14
PROVIDERS: Absent Provider Nurse Practitioner Family; PCP Nurse Practitioner Family; Visit Provider Physician Assistant
DX: M89.8X1 Other specified disorders of bone, shoulder (principal); M79.18 Myalgia, other site; M75.22 Bicipital tendinitis, left shoulder
CPT/HCPCS: 73000; 99212

== ENCOUNTER 2020-11-14 13:15 | Emergency (ER) | payer MEDICAID, SELFPAY ==
--- NOTE | ~2020-11-14 | XR_ITS ---
EXAMINATION: RIGHT HAND AND RIGHT FOREARM. CLINICAL INFORMATION: Pain and swelling and injury. COMPARISON: None TECHNIQUE: 3 views right hand and 2 views right forearm FINDINGS: Right hand: There is no visible acute fracture, dislocation or subluxation. The soft tissues are normal. Right forearm: There is no visible acute fracture, dislocation or subluxation. The soft tissues are normal. XR/XR hand RT min 3V IMPRESSION: Unremarkable right hand and right forearm exam
--- NOTE | ~2020-11-14 | XR_ITS ---
EXAMINATION: RIGHT HAND AND RIGHT FOREARM. CLINICAL INFORMATION: Pain and swelling and injury. COMPARISON: None TECHNIQUE: 3 views right hand and 2 views right forearm FINDINGS: Right hand: There is no visible acute fracture, dislocation or subluxation. The soft tissues are normal. Right forearm: There is no visible acute fracture, dislocation or subluxation. The soft tissues are normal. XR/XR forearm RT 2V IMPRESSION: Unremarkable right hand and right forearm exam
[2020-11-14 13:23] VITALS: BP 133/70; PULSE 90; RESP 18; TEMP 37; O2SAT 99; BMI 28.8
--- NOTE | 2020-11-14 15:33 | ED_ITS ---
HPI - Extremity Problem General Chief complaint: Extremity Injury, Upper Stated complaint: rt hand injury Time Seen by Provider: 11/14/20 15:01 Source: patient Mode of arrival: ambulatory Limitations: no limitations History of Present Illness HPI Narrative: Patient presents to ED for right hand/right forearm pain after being hit by fast ball but trying to hit a baseball. 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 Patient denies hitting head or falling to the ground. Patient denies any loss of consciousness. Related Data Previous Rx's Medication Instructions Recorded naproxen 500 mg tablet 500 mg PO BID PRN #20 tab 11/14/20 Allergies Allergy/AdvReac Type Severity Reaction Status Date / Time No Known Allergies Allergy Verified 11/14/20 13:29 Review of Systems Review of Systems: Yes all other systems are reviewed and are negative Constitutional: Constitutional: Reports as per HPI and Reports no additional constitutional complaints Eyes: Eyes: Reports as per HPI and Reports no additional eye complaints ENT: Reports system reviewed and no additional complaints, except as documented and Reports as per HPI Cardiovascular: Cardiovascular: Reports as per HPI and Reports no additional cardiovascular complaints Respiratory: Respiratory: Reports as per HPI and Reports no additional respiratory complaints Genitourinary: Genitourinary: Reports no additional male genitourinary complaints and Reports as per HPI Musculoskeletal: Musculoskeletal: Reports no additional musculoskeletal complaints, Reports as per HPI and Reports arthralgias (right hand/forearm) Integumentary/Breasts: Skin/Breast: Reports system reviewed and no additional complaints, except as docu and Reports as per HPI Neurologic: Reports system reviewed and no additional complaints, except as documented and Reports as per HPI Psychiatric: Psychiatric: Reports no additional psychiatric complaints and Reports as per HPI [facility] Past Medical History Medical History Anemia Back pain Depression Hx of motion sickness Lab test negative for COVID-19 virus Murmur Post-operative nausea and vomiting WPW (Wothx-Difoglveg-Kdgjy syndrome) Surgical History H/O wisdom tooth extraction History of tonsillectomy Family History Family History Maternal Grandfather No problems noted. Maternal Grandmother No problems noted. Social History Social History Alcohol intake: unknown Patient Tobacco Use Status: Current everyday Tobacco user Advance Directives: No Advance Directives Information Provided: No Current occupational status: unemployed Current occupation: rght handed Physical Exam Vital Signs: Vital Signs: Last Vital Signs Temp 98.6 F 11/14/20 13:23 Pulse 90 11/14/20 13:23 Resp 18 11/14/20 13:23 BP 133/70 11/14/20 13:23 Pulse Ox 99 11/14/20 13:23 Body Mass Index 28.8 Const: General: cooperative, healthy appearing, comfortable, no acute distress, well developed, alert, awake and Physically active Orientation/consciousness: patient oriented x3 HENMT: Head: Yes normal to inspection, Yes No palpable skull fracture present, Yes normocephalic, Yes atraumatic and No abrasion Eyes: General: appearance normal, both eyes and all related structures Neck: Neck: Yes normal visual inspection, Yes full ROM, Yes no lymphadenopathy, Yes no meningeal signs, Yes trachea midline, Yes supple and No tender Chest: Chest palpation & inspection: normal inspection of the chest and normal palpation of entire chest wall Resp: Effort & Inspection: normal respiratory effort and able to speak in complete sentences Auscultation: clear to auscultation bilaterally Cardio: Jugular venous distension: no JVD Heart sounds: S1 normal heart sound present and S2 normal heart sound present GI: Inspection: Yes normal to inspection and No abdominal wall ecchymosis Palpation (GI): Soft to palpation, not firm, nontender, no guarding and not rigid : General: No CVA tenderness and Yes no CVA tenderness Back/Spine/Pelvis: Back: no CVA tenderness, No CVA tenderness and No ecchymosis Skin: General skin exam: no rashes or lesions noted and elasticity normal Neuro: General: patient oriented x3, gait normal, no meningeal signs and CN's II-XI intact bilaterally Cranial nerves: Yes CN's II-XII intact bilaterally Extrem: Hand/finger images: 1. abraions. Right upper extremity motor/neuro/vascular exam intact 2. ecchymosis/slight swelling 3. small subungal hematoma Psych: Appearance: grossly normal, well kempt and not disheveled Course Course Course Narrative: Patient sent for x-rays Reevaluation(s) Reevaluation #1: Forearm and hand x-ray came back negative for fracture. D iagnosis contusion and subungual hematoma. Patient placed in Marvin wrap and given NSAIDs. MDM - Extremity (Nontraumatic) MDM Narrative Medical decision making narrative: Subungual hematoma. Contusion Discharge Plan Discharge Clinical Impression: Contusion, Subungual hematoma of finger Patient Disposition: Home, Self-Care Instructions: Subungual Hematoma (ED), Contusion in Adults (ED) Additional Instructions: X-rays came back negative for fracture. Recommend rest, elevation, and ice. You will be discharged with NSAIDs. Return to the ED immediately for worsening pain, swelling, redness, fever, chills, bluish black discoloration, chest pain, shortness of breath, or any other concerning symptoms. Please follow up with PCP. Prescriptions: New naproxen 500 mg tablet 500 mg PO BID PRN (Reason: pain) Qty: 20 RF: 0 Stand Alone Forms: Work/School Release Interventions: ED Discharge Assessment Last Done: 11/14/20 16:53 Discharge Date/Time: 11/14/20 16:56 Print Language: Chinese
[2020-11-14] MEDS: Ibuprofen 800 MG TABLET PO (16:47)
== END 2020-11-14 16:56 | disposition home or self-care (01) ==
PROVIDERS: Emergency Provider Internal Medicine
DX: S60.10XA Contusion of unspecified finger with damage to nail, initial encounter (principal); W21.03XA Struck by baseball, initial encounter; Y93.64 Activity, baseball; Y92.9 Unspecified place or not applicable; Y99.9 Unspecified external cause status
CPT/HCPCS: 73090; 73130; 96372; 99283; 99284

== ENCOUNTER 2021-03-04 12:16 | Outpatient (REF) | payer MEDICAID, SELFPAY ==
--- NOTE | ~2021-03-04 | XR_ITS ---
EXAMINATION: XR WRIST, RIGHT CLINICAL INFORMATION: Pain right wrist. COMPARISON: None TECHNIQUE: PA, lateral, and oblique views of the right wrist. FINDINGS: The bones and soft tissues are normal. No fracture. Alignment is anatomic with normal joint spaces. No erosions or abnormal soft tissue calcifications. XR/XR wrist RT min 3V IMPRESSION: Unremarkable right wrist exam
== END 2021-03-04 12:17 | disposition home or self-care (01) ==
LOC: HO.XRAY 12:16
PROVIDERS: Absent Provider Nurse Practitioner Family; PCP Nurse Practitioner Family; Visit Provider Family Medicine
DX: M25.531 Pain in right wrist (principal)
CPT/HCPCS: 73110

== ENCOUNTER → 2021-04-18 10:55 | Outpatient (BNVA) | payer MEDICAID, SELFPAY | PROVIDERS: PCP Nurse Practitioner Family; Referring Provider Nurse Practitioner Family; Visit Provider Internal Medicine Cardiovascular Disease | DX: I45.6 Pre-excitation syndrome (principal) | CPT/HCPCS: 99212 ==

== ENCOUNTER 2022-02-12 17:02 | Emergency (ER) | payer BC, SELFPAY ==
--- NOTE | ~2022-02-12 | XR_ITS ---
EXAMINATION: XR SHOULDER, RIGHT CLINICAL INFORMATION: Right shoulder pain. COMPARISON: None TECHNIQUE: AP external rotation, Grashey, scapular Y, and axillary views of the right shoulder. FINDINGS: The bones and soft tissues are normal. No fracture. Glenohumeral and acromioclavicular alignment is anatomic with normal joint space. No abnormal soft tissue calcifications. XR/XR shoulder RT min 2V IMPRESSION: Normal right shoulder radiographs.
--- NOTE | ~2022-02-12 | XR_ITS ---
EXAMINATION: XR RIBS, RIGHT CLINICAL INFORMATION: right rib/side pain COMPARISON: None TECHNIQUE: 3 views of the right ribs were obtained. PA view of the chest. FINDINGS: Lungs are clear. No consolidation, pneumothorax, or pleural effusion. The cardiomediastinal silhouette and pulmonary vasculature are normal. Osseous structures are unremarkable. Ribs are intact. No fractures are identified. XR/XR ribs RT min 3V w CXR1V IMPRESSION: Normal chest and rib radiographs. No appreciable rib fractures.
[2022-02-12 17:18] VITALS: BP 138/63; PULSE 95; RESP 16; O2SAT 99; BMI 23.6
--- NOTE | 2022-02-12 17:18 | ED.GENADULT ---
HPI - General Adult General Chief complaint: Back Pain/Injury <BRINA Mathis - Last Filed: 02/12/22 17:24> Stated complaint: body pain <BRINA Mathis - Last Filed: 02/12/22 17:24> Time Seen by Provider: 02/12/22 18:37 <BRINA Mathis - Last Filed: 02/12/22 17:24> Source: patient <Veronica Lee NP - Last Filed: 02/12/22 22:41> Mode of arrival: ambulatory <Veronica Lee NP - Last Filed: 02/12/22 22:41> Limitations: no limitations <Veronica Lee NP - Last Filed: 02/12/22 22:41> History of Present Illness HPI narrative: 31-year-old male presents with 6 weeks of abnormal muscular skeletal pain, abnormal bruising, and unintentional weight loss. He does have a history of Enohj-Vaogvhsrn-Eirtj, and had a full workup with Cardiology. Patient states that he has not been able to workout in several weeks because of the pain, does not report any traumatic injury that would explain his bruising. <Veronica Lee NP - Last Filed: 02/12/22 22:41> Onset (ago): week(s) (6) <Veronica Lee NP - Last Filed: 02/12/22 22:41> Severity: moderate <Veronica Lee NP - Last Filed: 02/12/22 22:41> Quality: aching <Veronica Lee NP - Last Filed: 02/12/22 22:41> Pain Consistency: constant <Veronica Lee NP - Last Filed: 02/12/22 22:41> Relieving factors: none <Veronica Lee NP - Last Filed: 02/12/22 22:41> Exacerbating factors: movement <Veronica Lee NP - Last Filed: 02/12/22 22:41> Associated symptoms: denies other symptoms <Veronica Lee NP - Last Filed: 02/12/22 22:41> Treatments prior to arrival: none <Veronica Lee NP - Last Filed: 02/12/22 22:41> Related Data Home medications: Home Medications Medication Instructions Recorded Confirmed cholecalciferol (vitamin D3) 50 50 mcg PO DAILY 04/18/21 04/18/21 mcg (2,000 unit) capsule Previous Rx's Medication Instructions Recorded naproxen 500 mg tablet 500 mg PO BID PRN pain #20 tabs 11/14/20 <BRINA Mathis - Last Filed: 02/12/22 17:24> Allergies/adverse reactions: Allergies Allergy/AdvReac Type Severity Reaction Status Date / Time No Known Allergies Allergy Verified 11/14/20 13:29 <BRINA Mathis - Last Filed: 02/12/22 17:24> Review of Systems Review of Systems: Constitutional: No Fever, No Chills Cardiovascular: No Chest Pain, No SOB Respiratory: No Cough, No Dyspnea Gastrointestinal: No Nausea, No Vomiting, No Diarrhea, No abdominal Pain Genitourinary: No Dysuria, No Hematuria Musculoskeletal: positive muscular skeletal pain, positive Myalgias, No Joint Swelling Skin: No Skin lacerations, No rash Neuro: No Weakness, positive muscular under the right arm and chest wall Numbness, No Paresthesias, No Dizziness, No Headache Heme/Lymph: Positive easy bruising, no Lymphadenopathy Endocrine: No Polyuria, No Polydipsia <Veronica Lee NP - Last Filed: 02/12/22 22:41> Yes all other systems are reviewed and are negative <Veronica Lee NP - Last Filed: 02/12/22 22:41> PMFSH Past Medical History Attestation statement: The following information was validated with the patient. <Veronica Lee NP - Last Filed: 02/12/22 22:41> Source: old records reviewed <Veronica Lee NP - Last Filed: 02/12/22 22:41> Medical History: Medical History Anemia Back pain Depression Hx of motion sickness Lab test negative for COVID-19 virus Murmur Post-operative nausea and vomiting WPW (Gmnbt-Niakxogcz-Ztoct syndrome) <BRINA Mathis - Last Filed: 02/12/22 17:24> Surgical History: Surgical History H/O wisdom tooth extraction History of tonsillectomy <BRINA Mathis - Last Filed: 02/12/22 17:24> Family History Family History: Family History Maternal Grandfather No problems noted. Maternal Grandmother No problems noted. <BRINA Mathis - Last Filed: 02/12/22 17:24> Social History Social History: Social History Alcohol intake: unknown Patient Tobacco Use Status: Current everyday Tobacco user Advance Directives: No Advance Directives Information Provided: No Current occupational status: unemployed Current occupation: rght handed <BRINA Mathis - Last Filed: 02/12/22 17:24> Physical Exam ED Vital Signs: Vital Signs - 24 hr 02/12/22 17:18 Pulse Rate 95 Respiratory Rate 16 Blood Pressure 138/63 Pulse Oximetry 99 Oxygen Delivery Method Room Air BMI result Body Mass Index 23.6 <BRINA Mathis - Last Filed: 02/12/22 17:24> Vital Signs - 24 hr 02/12/22 17:18 Pulse Rate 95 Respiratory Rate 16 Blood Pressure 138/63 Pulse Oximetry 99 Oxygen Delivery Method Room Air BMI result Body Mass Index 23.6 <Veronica Lee NP - Last Filed: 02/12/22 22:41> Appearance: Alert. Oriented X3. No acute distress. Eyes: Pupils equal, round and reactive to light. ENT: Pharynx normal. Neck: Normal inspection. Neck supple. CVS: Normal heart rate and rhythm. Pulses normal. Respiratory: No respiratory distress. Breath sounds normal. Abdomen: Soft and nontender. Skin: Multiple linear petechial like bruising to his chest wall, arm, and back. Skin warm and dry. Normal skin turgor. Extremities: No lower extremity edema. Full range of motion to all extremities. Gait well-balanced well coordinated. Neuro: No motor deficit. No sensory deficit. Cranial nerves 2-12 intact. <Veronica Lee NP - Last Filed: 02/12/22 22:41> Course Course Course Narrative: RME17:18PM 31yoM presenting to the ED c c/o right axillary pain radiating to right anterior chest/right back area for weeks. Reports it feels numb . No dizziness, CP/SOB, palpitations, weakness or any other symptoms complaints or concerns at this time. Reports he has worked up by multiple people including physical therapy and they report is muscular. Although patient reports he thinks it is something else. Plan: Will obtain basic labs, right shoulder x-ray, right rib x-ray, EKg and PATIENT CAN BE SENT BACK TO THE WAITING ROOM TO BE EVALUATED IN THE ED <BRINA Mathis - Last Filed: 02/12/22 17:24> RME17:18PM 31yoM presenting to the ED c c/o right axillary pain radiating to right anterior chest/right back area for weeks. Reports it feels numb . No dizziness, CP/SOB, palpitations, weakness or any other symptoms complaints or concerns at this time. Reports he has worked up by multiple people including physical therapy and they report is muscular. Although patient reports he thinks it is something else. Plan: Will obtain basic labs, right shoulder x-ray, right rib x-ray, EKg and PATIENT CAN BE SENT BACK TO THE WAITING ROOM TO BE EVALUATED IN THE ED 31-year-old male presents for muscular skeletal concerns. States that he was evaluated at [facility] for a muscle strain to the chest wall and shoulder several weeks ago. He states that the pain has persisted and now is throughout his body. He also noted that he has lost some weight, and that he has some abnormal bruising to his upper body. His lab values are unremarkable, he does have a history of Oazkj-Qqyddafud-Khjkx, he was evaluated at his estate conservator, had a Holter monitor, Cardiology suggested ablation however he did not feel that he needed such an extreme measure at this time. After the lengthy discussion with his estate conservator, plan is for him to follow-up for monitoring. Over the past 6 weeks he is unable to work out, he does not smoke, does not drink alcohol, does not participate in illicit drugs, does not use anabolic steroids. He is concerned about the bruising, his inability to hold weight, and his overall feeling of unwellness. He does not have a primary care physician, I will refer to Dr. Adhikari to establish care. Considering patient's labs are unremarkable, with the exception of a mildly elevated CPK at 204, I feel that this patient would benefit from a sports medicine consult. I did inform is patient to search for Sports Medicine Facility as a specialize in athletes. It is concerning that he has these abnormal bruising, however he does not have a laboratory panel indicating leukemia multiple myeloma. I did discuss in detail, that he may need to wait several months prior to seeing a primary care physician. He does understand that if he has any cardiac concerns that he should return to the emergency department immediately. X-rays are negative for acute findings. Patient verbalized understanding of and agrees to plan of care discharge home. Verbalized understanding signs and symptoms indicating need for emergent intervention. <Veronica Lee NP - Last Filed: 02/12/22 22:41> Medical Decision Making Differential Diagnosis Differential Diagnoses: The differential diagnosis associated with the presentation includes <Veronica Lee NP - Last Filed: 02/12/22 22:41> Muscle strain, rhabdo <Veronica Lee NP - Last Filed: 02/12/22 22:41> Lab Data MDM Lab Attestation statement: I reviewed the patient's lab results. <Veronica Lee NP - Last Filed: 02/12/22 22:41> Result Diagrams: 02/12/22 17:50 02/12/22 17:50 <BRINA Mathis - Last Filed: 02/12/22 17:24> Labs: Lab Results 02/12/22 02/12/22 Range/Units 17:50 17:50 WBC 9.5 (4.8-10.8) X10*3/uL RBC 4.86 (4.60-5.80) X10*6/uL Hgb 14.5 (14.0-18.0) g/dl Hct 43.7 (42.0-52.0) % MCV 89.9 (80.0-98.0) fL MCH 29.8 (27.0-33.0) pg MCHC 33.2 (31.0-36.0) g/dl RDW 12.0 (11.0-16.0) % Plt Count 294 (160-400) X10*3/uL MPV 9.9 (9.4-12.4) fL Immature Gran % (Auto) 0.2 (0.0-0.4) % Neut % (Auto) 70.7 (45-73) % Lymph % (Auto) 21.9 (20-40) % [place] % (Auto) 6.2 (2-11) % Eos % (Auto) 0.4 (0-4) % Baso % (Auto) 0.6 (0-2) % Lymph # (Auto) 2.1 (1.2-4.9) X10*3/uL [place] # (Auto) 0.6 (0.1-1.2) X10*3/uL Eos # (Auto) 0.0 (0.0-0.4) X10*3/uL Baso # (Auto) 0.1 (0.0-0.2) X10*3/uL Abs Immat Gran (auto) 0.02 (0.00-0.03) X10*3/uL Absolute Neuts (auto) 6.7 (2.0-8.3) x10*3/uL Absolute Nucleated RBC 0.000 (0.0-0.012) X10*3/uL Nucleated RBC % (auto) 0.0 (0.0-0.2) /100WBC Sodium 141 (135-145) mmol/L Potassium 4.4 (3.3-5.1) mmol/L Chloride 104 (96-108) mmol/L Carbon Dioxide 29 (22-29) mmol/L Anion Gap 12 (12-20) BUN 17 H (9-16) mg/dL Creatinine 1.12 (0.5-1.4) mg/dL Estim Creat Clear Calc 92.4 Estimated GFR > 60 Random Glucose 95 (60-115) mg/dL Calcium 10.5 H D (8.4-10.2) mg/dL Magnesium 2.0 (1.6-2.6) mg/dL Total Bilirubin 1.0 (0.0-1.0) mg/dL AST 21 (5-37) U/L ALT 22 (0-40) U/L Alkaline Phosphatase 37 L (39-117) U/L Total Creatine Kinase 204 H (38-174) U/L Total Protein 7.7 (6.5-8.0) g/dL Albumin 5.1 H (3.5-5.0) g/dL <BRINA Mathis - Last Filed: 02/12/22 17:24> Lab Results 02/12/22 02/12/22 Range/Units 17:50 17:50 WBC 9.5 (4.8-10.8) X10*3/uL RBC 4.86 (4.60-5.80) X10*6/uL Hgb 14.5 (14.0-18.0) g/dl Hct 43.7 (42.0-52.0) % MCV 89.9 (80.0-98.0) fL MCH 29.8 (27.0-33.0) pg MCHC 33.2 (31.0-36.0) g/dl RDW 12.0 (11.0-16.0) % Plt Count 294 (160-400) X10*3/uL MPV 9.9 (9.4-12.4) fL Immature Gran % (Auto) 0.2 (0.0-0.4) % Neut % (Auto) 70.7 (45-73) % Lymph % (Auto) 21.9 (20-40) % [place] % (Auto) 6.2 (2-11) % Eos % (Auto) 0.4 (0-4) % Baso % (Auto) 0.6 (0-2) % Lymph # (Auto) 2.1 (1.2-4.9) X10*3/uL [place] # (Auto) 0.6 (0.1-1.2) X10*3/uL Eos # (Auto) 0.0 (0.0-0.4) X10*3/uL Baso # (Auto) 0.1 (0.0-0.2) X10*3/uL Abs Immat Gran (auto) 0.02 (0.00-0.03) X10*3/uL Absolute Neuts (auto) 6.7 (2.0-8.3) x10*3/uL Absolute Nucleated RBC 0.000 (0.0-0.012) X10*3/uL Nucleated RBC % (auto) 0.0 (0.0-0.2) /100WBC Sodium 141 (135-145) mmol/L Potassium 4.4 (3.3-5.1) mmol/L Chloride 104 (96-108) mmol/L Carbon Dioxide 29 (22-29) mmol/L Anion Gap 12 (12-20) BUN 17 H (9-16) mg/dL Creatinine 1.12 (0.5-1.4) mg/dL Estim Creat Clear Calc 92.4 Estimated GFR > 60 Random Glucose 95 (60-115) mg/dL Calcium 10.5 H D (8.4-10.2) mg/dL Magnesium 2.0 (1.6-2.6) mg/dL Total Bilirubin 1.0 (0.0-1.0) mg/dL AST 21 (5-37) U/L ALT 22 (0-40) U/L Alkaline Phosphatase 37 L (39-117) U/L Total Creatine Kinase 204 H (38-174) U/L Total Protein 7.7 (6.5-8.0) g/dL Albumin 5.1 H (3.5-5.0) g/dL <Veronica Lee NP - Last Filed: 02/12/22 22:41> Independent Interpretation I performed an independent interpretation of an: EKG and Plain X-Ray <Veronica Lee NP - Last Filed: 02/12/22 22:41> Interpretation: Vent. rate 62 BPM MI interval 88 ms QRS duration 128 ms QT/QTc 388/393 ms P-R-T axes 42 19 15 Sinus rhythm with short MI Non-specific intra-ventricular conduction block Nonspecific T wave abnormality Abnormal ECG When compared with ECG of 03-JUL-2020 22:00, Wizbo-Juzqzxwkr-Gjnyf is no longer Present 12-FEB-2022 17:42:08 <Veronica Lee NP - Last Filed: 02/12/22 22:41> Radiology Impression Discussion of test interpretation with radiology: I have reviewed the radiologist's reading. <Veronica Lee NP - Last Filed: 02/12/22 22:41> Radiologist Impression: EXAMINATION: XR SHOULDER, RIGHT CLINICAL INFORMATION: Right shoulder pain.? COMPARISON: None? TECHNIQUE: AP external rotation, Grashey, scapular Y, and axillary views of the right shoulder. FINDINGS: The bones and soft tissues are normal. No fracture. Glenohumeral and acromioclavicular alignment is anatomic with normal joint space. No abnormal soft tissue calcifications.? XR/XR shoulder RT min 2V IMPRESSION: Normal right shoulder radiographs. EXAMINATION: XR RIBS, RIGHT CLINICAL INFORMATION: right rib/side pain COMPARISON: None TECHNIQUE: 3 views of the right ribs were obtained. PA view of the chest. FINDINGS: Lungs are clear. No consolidation, pneumothorax, or pleural effusion. The cardiomediastinal silhouette and pulmonary vasculature are normal. Osseous structures are unremarkable. Ribs are intact. No fractures are identified. XR/XR ribs RT min 3V w CXR1V IMPRESSION: Normal chest and rib radiographs. No appreciable rib fractures <Veronica Lee NP - Last Filed: 02/12/22 22:41> External Record Review External record reviewed: Outpatient record and Prior outpatient labs <Veronica Lee NP - Last Filed: 02/12/22 22:41> Discharge Plan Discharge Clinical Impression: Myofascial pain, Abnormal weight loss, Abnormal bruising <BRINA Mathis - Last Filed: 02/12/22 17:24> Patient Disposition: Home, Self-Care <BRINA Mathis - Last Filed: 02/12/22 17:24> Instructions: Musculoskeletal Pain (ED) <BRINA Mathis - Last Filed: 02/12/22 17:24> Additional Instructions: You were evaluated for multiple concerns. Your x-rays of her shoulder and ribs are negative for acute findings. Your EKG does not indicate ST elevation or depression. Your lab unremarkable. You do have an elevated CPK level of 204. This is a mildly elevated level. I have referred you to Dr. Adhikari at the [place] [facility] on [facility] for primary care establishment. It is important that you follow-up with a primary care physician for Afaua-Rfifxnrpm-Sexjw, as well as your ongoing concerns of muscles pain, abnormal weight loss, and abnormal bruising. It may take a few months to get in to primary care physician, please be patient with this process. You may consider following up with a team sports sales associate. Sports medicine specialists are designed to assist athlete's. Thank you for choosing this emergency department for evaluation. Please follow-up with primary care physician as needed. Return to the emergency department for any new, concerning, or worsening symptoms. <BRINA Mathis - Last Filed: 02/12/22 17:24> Prescriptions: No Action naproxen 500 mg tablet 500 mg PO BID PRN (Reason: pain) Qty: 20 0RF cholecalciferol (vitamin D3) 50 mcg (2,000 unit) capsule 50 mcg PO DAILY <BRINA Mathis - Last Filed: 02/12/22 17:24> Referrals: Tk Adhikari MD [Physician] - 2 weeks (Establish primary care) <BRINA Mathis - Last Filed: 02/12/22 17:24> Interventions: ED Discharge Assessment Last Done: 02/12/22 19:16 <BRINA Mathis - Last Filed: 02/12/22 17:24> Discharge Date/Time: 02/12/22 19:17 <BRINA Mathis - Last Filed: 02/12/22 17:24>
--- NOTE | 2022-02-12 17:23 | ECG_ITS ---
Test Reason : RGHT SHOULDER NUMBNESS Blood Pressure : / mmHG Vent. Rate : 062 BPM Atrial Rate : 062 BPM P-R Int : 088 ms QRS Dur : 128 ms QT Int : 388 ms P-R-T Axes : 042 019 015 degrees QTc Int : 393 ms Atrial fibrillation preexcitation present - WPW syndrome Abnormal ECG When compared with ECG of 03-JUL-2020 22:00, Atrial fibrillation Present Referred By: Melinda Conway Electronically Signed By:Vivek Mercado
[2022-02-12 17:54] LABS: MANUAL DIFF FLAG NO
--- OUTSIDE RECORDS SUMMARY | 2022-02-12 17:54 | XMS_ITS | Continuity of Care Document ---
:1990 Author Organization [facility] Care Team Providers Name Role Phone DOD-[facility] Unavailable Unavailable Allergies, Adverse Reactions, Alerts Combined list of allergies from Department of Defense and Veterans Affairs facilities. It does not include entries that were removed or entered in error. Substance Category Reaction Severity Reaction Status Date Comments S ource type Reported No Known Drug Drug active Gen Allergies allergy allergy 6 Leonar d (disorder) (disorder) [place], [place] Immunizations Combined list of available immunizations from the Department of Defense and Veterans [facility] facilities. Immunization Series Date Administered Site Reaction Lot CVX Drug St atus Comments Source Given By Number Code Social Security Specialist varicella 2 02/13/ [id number] 21 Merck (MSD) complet varicella DoD virus vaccine 2017 ed virus vaccine measles, 1 12/09/ UNK 03 Unknown (UNK) Not [facility] mumps and 2016 Given mumps and rubella virus rubell a vaccine virus vaccine poliovirus 1 12/09/ [id number] 10 Sanofi complet rajwinder ioviru DoD vaccine, 2016 Pasteur (PMC) ed s inactivated vaccine, inactivat ed varicella 1 12/09/ [id number] 21 Merck (MSD) complet varicella DoD virus vaccine 2016 ed virus vaccine hepatitis B 1 UNK 43 Unknown (UNK) Not hepatitis DoD vaccine, 2016 Given B adult dosage vaccine , adult dosage hepatitis A 1 12/09/ MB3Y2 52 SmithKline complet hepatitis DoD vaccine, 2016 (SKB) ed A adult dosage vaccine , adult dosage meningococcal 1 12/09/ [id number] 114 Sanofi complet meningoco DoD polysaccharid 2016 Pasteur (PMC) ed ccal e (groups A, polysac ch C, Y and aride W-135) (groups diphtheria A, C, Y toxoid and conjugate W-135) vaccine diphtheri (MCV4P) a toxoid conjugate vaccine (MCV4P) tetanus 1 12/09/ [id number] 115 SmithKline complet teta nus DoD toxoid, 2015 (SKB) ed toxoid, reduced reduced diphtheria diphtheri toxoid, and a toxoid , acellular and pertu is acellular vaccine, pertussis adsorbed vaccine, adsorbed Influenza, 1 12/09/ [id number] 141 Seqirus (SEQ) comp let Influenza DoD seasonal, 2016 1A ed , injectable seasonal, injectabl e Encounters Combined list of: 1) Encounters from Department of Veterans Affairs facilities going back up to the last 18 months. 2) Encounters from the Department of Defense facilities going back up to 280 months. Location Location Encounter Encounter Reason Attending ADM DC Stat us Disposition Source Details Type Number For Provider Date Date Visit OUTPATIENT [id number] Notes CRYSTAL, 12/07 Releas ed w/o General Entered Limitations Moshe kt by: JAMES Canales Dec [place](IEP [address] [place] ------- s ------- Initial ------- Entry) ------- -- 81691 B3 DAY 1 OUTPATIENT [id number] Notes LISA, 12/07 Released w/o General Entered Limitations Le onard by: Susan Silva ISJENNI Pritchard Dec, 0720 [place] ------- Optomet ------- ry) ------- ------- -- OPTOMET RY SCREENI NG OUTPATIENT [id number] [facility], 12/08 Release d w/o General IDANIA Limitations Jaciel Hinson, [place](IEP Hearing Conserv ation Exam) OUTPATIENT [id number] Lisa ROJAS, 12/09 Releas ed w/o General Entered Limitations Moshe kt by: JAMES Canales S Dec [place](IEP 0[address] [place] ------- s ------- Initial ------- Entry) ------- -- 88565 B3 DAY 3 OUTPATIENT [id number] Lisa NOLAND 12/28 12/28 Releas ed w/o General Entered RAMONA Ward Limitations Moshe kt by: JOVANY Ferreira Dec [place] [address] [place], [address] [place](C-TM ------- C Er ------- Module) ------- ------- -- COLD SYMPTOM S OUTPATIENT [id number] Lisa CALDERON 01/03 01/03 Release d w/o General Entered Limitations Moshe kt by: JAMES Santa Dec, 0856 [place](C[place] ------- C Er ------- Module) ------- ------- -- FOOT PAIN/BA CK PAIN OUTPATIENT [id number] Lisa JACOBS 02/13 Released w/o General Entered Limitations Malinda rd by: JAMES Denise Feb [place](IEP 0746 [place] ------- s ------- Initial ------- Entry) ------- -- A CO 2-10 VARI OUTPATIENT [id number] Notes LIO LOGAN 04/29 04/29 Relea nuha General Entered with [place] by: Work/Duty Sravan HOFFMAN Limitations [facility] Y,JOVANY Apr, 0848 [place](C-[place] ------- C Er ------- Module) ------- ------- -- R KNEE PAIN Procedures Combined list of: 1) Procedures from Department of Veterans Affairs facilities going back up to the last 18 months, not all VA non-surgical procedures are included; 2) All procedures from the Department of Defense facilities. Procedure Procedure Type Code Date Perfomer Comments Sour e IMMUNIZATION DoD ADMINISTRATION 7 (INCLUDES PERCUTANEOUS, INTRADERMAL, SUBCUTANEOUS, OR INTRAMUSCULAR INJECTIONS); 1 VACCINE (SINGLE OR COMBINATION VACCINE/TOXOID) DISCHARGE DoD MEDICATIONS 6 RECONCILED WITH THE CURRENT MEDICATION LIST IN OUTPATIENT MEDICAL RECORD (COA) (RYAN) THERAPEUTIC, DoD PROPHYLACTIC, OR 6 DIAGNOSTIC INJECTION (SPECIFY SUBSTANCE OR DRUG); SUBCUTANEOUS OR INTRAMUSCULAR PURE TONE DoD AUDIOMETRY 6 (THRESHOLD); AIR ONLY SCREENING TEST OF Do D VISUAL ACUITY, 6 QUANTITATIVE, BILATERAL COLLECTION OF [facility] VENOUS BLOOD BY 6 VENIPUNCTURE Immunization Immunization 20968 Jen JACOBS Administration By Administration By 7 FUAD ISABEL Injection, One Injection, One Vaccine Vaccine Vaccines Viral Vaccines Viral 69599 Jen JACOBS Varicella (Active) Varicella (Active) 7 FUAD ISABEL A e /Interv Assess/Interv [id number] NUZHAT [facility] Discharge Meds Discharge Meds 6 TOBEN R Reconciled W/ Reconciled W/ Current Meds List Current Meds List Vaccines Adenovirus Vaccines Adenovirus 09523 Jen ROJAS Type 7 Live, For Type 7 Live, For 6 ASIA Oral Use Oral Use Vaccines Adenovirus Vaccines Adenovirus 98533 Jen ROJAS Type 4 Live, For Type 4 Live, For 6 ASIA Oral Use Oral Use Influenza Split CRYSTALJen PANCHAL Virus Vaccine 0.5mL 6 ASIA Dosage Intramuscular Vaccines Viral Vaccines Viral 45310 CRYSTALJen PANCHAL Polio, Inactivated Polio, Inactivated 6 [place] Physician Physician 99750 CRYSTALJen PANCHAL Supervised Supervised 6 ASIA Injection Injection Intramuscular Intramuscular Antibiotic Antibiotic Tdap Vaccine Tdap Vaccine 21367 CRYSTALJen PANCHAL 6 ASIA Vaccines Viral Vaccines Viral 97673 CRYSTALJen PANCHAL Varicella (Active) Varicella (Active) 6 ASIA Hepatitis A Vaccine Hepatitis A Vaccine 49035 Jen ROJAS Adult Dosage Adult Dosage 6 ASIA (Intramuscular Use) (Intramuscular Use) Immunization Immunization 55826 Jen ROJAS Administration By Administration By 6 ASIA Injection, Each Injection, Each Additional Vaccine Additional Vaccine Immunization Immunization 89260 Jen ROJAS Administration By Administration By 6 ASIA Injection, One Injection, One Vaccine Vaccine Meningococcal Jen ROJAS Polysaccharide 6 ASIA Diphtheria Toxoid Conjugate Vaccine Threshold Audiogram Threshold Audiogram 06537 Jen JIMENES (Pure Tone) (Pure Tone) 6 IDANIA M Venipuncture Venipuncture 96777 Jen ROJAS 6 AS[place] [address] Jen GONZALEZ Visual Acuity, Visual Acuity, 6 JOSH B Quantitative, Quantitative, Bilateral Bilateral Social History Combined list of available smoking, tobacco, and other social history from Department of Defense andVeterans Affairs facilities. Social History Type Response Date Comment Source This section is an empty social history section. DoD
--- OUTSIDE RECORDS SUMMARY | 2022-02-12 17:54 | XMS_ITS ---
:1990 Author Care Team Providers Name Role Phone WiseMinTyler Yao Primary Care Provider Unavailable Allergies Code Code System Name Reaction Severity Status Onset NKDA ? Medications Name Status Start Date Stop Date ? ? amoxicillin Active ? Not available azithromycin 250 mg tablet Active ? Not a vailable 4 tabs po Bactrim DS 800 mg-160 mg tablet Completed ? 06/01/2021 Take 1 tablet every 12 hours by oral route for 10 days. ceftriaxone 500 mg solution for injection Active ? Not available Take 500 mg by injection route. Problems None recorded. Procedures None recorded. Results Lab Results Date Name Specimen Result Interpretation Description Value Range Status Address ? 06/01/2021 CT + NG DNA, ? C.trachomatis ? (neg) Final [facility] PCR, Amp Probe Referen ce [facility]ervical Labor[facility] skye: [address], [place] ? ? ? N.gonorrhoeae ? (neg) Final [facility] Amp Probe Referen ce Laboratori es: [address], [place] ? ? ? chlam/GC Amp penis ? Final [facility] Probe Spec Refere nce Type Laboratori es: [address], [place] 06/01/2021 Culture, Urine ? Specimen clean ? Final [facility] Urine clean Description catch Refer ence catch (urine) Laborator ies: [address], [place] ? ? Urine ? Special none ? Final [facility] clean Requests Referenc e catch Laboratori es: [address], [place] ? ? Urine ? Culture no ? Final [facility] clean growth Reference catch Laboratori es: [address], [place] ? ? Urine ? Report Status final ? Final [facility] clean Reference catch 022 Laboratori es: [address], [place] 06/01/2021 Urinalysis, ? Leukocytes Negativ ? ? [facility] Dipstick e [place]: [address] [facility] ? ? ? Nitrite negativ ? ? [facility]st [facility] [place]: [address], [place] ? ? ? Urobilinogen 0.2-Nor ? ? By [facility] mal [place]: [address], [place] ? ? ? Protein 30 + ? ? [facility]st [facility] [place]: [address], [place] ? ? ? Ph 5.0 ? ? [facility] [place]: [address], [place] ? ? ? Blood Negativ ? ? Byst [facility] e(non-h [place] : [address], d) [place] ? ? ? Specific 1.025 ? ? [facility]st [facility] [place] : [address], [place] ? ? ? Ketone Large ? ? Byst [facility] (160) [place]: [address], [place] ? ? ? Bilirubin Negativ ? ? [facility]st [facility] e [place]: [address], [place] ? ? ? Glucose Negativ ? ? Byst [facility] e [place]: [address], [place] ? ? ? Appearance clear ? ? [facility] [place]: [address], [place] ? ? ? Color dark ? ? Byst [facility] yellow [place]: [address], [place] 02/20/2021 Culture, Abscess ? Specimen swab ? Final [facility] Superficial Description tailbon Reference Wound e Laboratori es: [address], [place] ? ? Abscess ? Special none ? Final [facility] Requests Referenc e Laboratori es: [address], [place] ? ? Abscess ? gram Stain ? ? Final [facility] Reference Laboratori es: [address], [place] ? ? Abscess ABNORMA Culture ? ? Final [facility] te L Reference Laboratori es: [address], [place] ? ? Abscess ? Report Status final ? Final [facility] Reference 022 Laboratori es: [address], [place] ? ? Abscess ? Organism ? ? Final [facility] te Reference Laboratori es: [address], [place] ? ? Abscess ? Method method ? Final [facility] min. Reference inhib. Laboratori es: conc. [address], ) [place] ? ? Abscess Suscept Ciprofloxacin ciprofl ? Final [facility] ible oxacin Reference suscept Laborator ies: ible [address], [place] ? ? Abscess Resista Clindamycin clindam ? Final [facility] nt ycin Reference resista Laborator ies: nt [address], [place] ? ? Abscess Resista Erythromycin erythro ? Final [facility] nt mycin Reference resista Laborator ies: nt [address], [place] ? ? Abscess Suscept Levofloxacin levoflo ? Final [facility] ible xacin Reference suscept Laborator ies: ible [address], [place] ? ? Abscess Suscept Linezolid linezol ? Final [facility] ible id Reference suscept Laborator ies: ible [address], [place] ? ? Abscess Resista Oxacillin oxacill ? Final [facility] nt in Reference resista Laborator ies: nt [address], [place] ? ? Abscess Suscept Rifampin ? ? Final [facility] ible Reference Laboratori es: [address], [place] ? ? Abscess Suscept Tetracycline tetracy ? Final [facility] ible wu Reference suscept Laborator ies: ible [address], [place] ? ? Abscess Suscept Trimeth/sulfa trimeth ? [facility] Reference ethox Laboratori es: suscept [address], [place] ? ? Abscess Suscept Vancomycin vancomy ? [facility] Reference suscept Laborator ies: ible [address], [place] Past Encounters Encounter Date Diagnosis Provider 06/01/2021 Increased Frequency of Urination; Tyler Wise MD: [address] [place] [address], Ph. 02/20/2021 Abscess Jaclyn olivas NP: [address] [place] [address], Ph. Social History Tobacco Smoking Status Never Smoker Vaccine List Notes: Not Covid Vaccinated Plan of Care Reminders Provider Appointments None recorded. ? ? Lab None recorded. ? ? Referral None recorded. ? ? Procedures None recorded. ? ? Surgeries None recorded. ? ? Imaging None recorded. ? ? Vitals 06/01/2021 09:43AM Established Patient Blood Pressure 137/80 mm[Hg] 02/20/2021 01:20PM New Patient Blood Pressure 131/71 mm[Hg]
[2022-02-12 17:57] LABS: Basophils Absolute Auto 0.1 X10*3/uL (0.0-0.2); Basophils Percent Auto 0.6 % (0-2); Eosinophils Percent Auto 0.4 % (0-4); Hematocrit 43.7 % (42.0-52.0); Hemoglobin 14.5 g/dl (14.0-18.0); Imm Gran Abs Auto 0.02 X10*3/uL (0.00-0.03); Imm Gran Pct Auto 0.2 % (0.0-0.4); Lymphocytes Absolute Auto 2.1 X10*3/uL (1.2-4.9); Lymphocytes Percent Auto 21.9 % (20-40); Mean Corpuscular HGB Conc 33.2 g/dl (31.0-36.0); Mean Corpuscular Hemoglobin 29.8 pg (27.0-33.0); Mean Corpuscular Volume 89.9 fL (80.0-98.0); Mean Platelet Volume 9.9 fL (9.4-12.4); Monocytes Absolute Auto 0.6 X10*3/uL (0.1-1.2); Monocytes Percent Auto 6.2 % (2-11); Neutrophils Absolute Auto 6.7 x10*3/uL (2.0-8.3); Neutrophils Percent Auto 70.7 % (45-73); Platelet Count 294 X10*3/uL (160-400); Red Blood Count 4.86 X10*6/uL (4.60-5.80); White Blood Count 9.5 X10*3/uL (4.8-10.8)
[2022-02-12 18:11] LABS: Alanine Aminotransferase 22 U/L (0-40); Albumin Level 5.1 g/dL (3.5-5.0); Alkaline Phosphatase 37 U/L (39-117); Anion Gap 12 (12-20); Aspartate Amino Transferase 21 U/L (5-37); Blood Urea Nitrogen 17 mg/dL (9-16); Calcium 10.5 mg/dL (8.4-10.2); Carbon Dioxide 29 mmol/L (22-29); Chloride 104 mmol/L (96-108); Creatinine Clr Calc Pharmacy 92.4; Estimated Glomerular Filt Rate > 60; Glucose Random 95 mg/dL (60-115); Potassium 4.4 mmol/L (3.3-5.1); Sodium 141 mmol/L (135-145); Total Protein 7.7 g/dL (6.5-8.0)
== END 2022-02-12 19:17 | disposition home or self-care (01) ==
PROVIDERS: Physician Assistant Medical; Emergency Provider Internal Medicine
DX: M54.50 Low back pain, unspecified (principal); M79.10 Myalgia, unspecified site; M25.511 Pain in right shoulder; R07.81 Pleurodynia; F17.200 Nicotine dependence, unspecified, uncomplicated; Z71.6 Tobacco abuse counseling; Z79.899 Other long term (current) drug therapy
CPT/HCPCS: 36415; 71101; 73030; 80053; 82550; 83735; 85025; 93005; 99284

== ENCOUNTER 2022-06-15 11:25 | Emergency (ER) | payer BC, SELFPAY ==
--- NOTE | ~2022-06-15 | XR_ITS ---
EXAMINATION: XR CHEST CLINICAL INFORMATION: Chest pain. COMPARISON: Chest radiograph on 09/24/2022. TECHNIQUE: Frontal view of the chest was obtained. FINDINGS: New focal hazy opacities in the left lower lobe. Otherwise, clear lungs. No pleural effusion or pneumothorax. Normal cardiomediastinal silhouette. No acute osseous abnormalities. XR/XR chest 1V IMPRESSION: New focal hazy opacities in the left lower lobe concerning for aspiration or pneumonia in the appropriate clinical context.
--- NOTE | 2022-06-15 11:33 | ECG_ITS ---
Test Reason : chest pain Blood Pressure : / mmHG Vent. Rate : 080 BPM Atrial Rate : 080 BPM P-R Int : 110 ms QRS Dur : 126 ms QT Int : 396 ms P-R-T Axes : 058 011 062 degrees QTc Int : 456 ms Normal sinus rhythm with sinus arrhythmia [id number] Abnormal ECG When compared with ECG of 12-FEB-2022 17:42, Wnzcf-[id number]-Wsnsj is now Present Referred By: Generic ED Physician Electronically Signed By:ALESSIA MCDERMOTT
--- NOTE | 2022-06-15 11:33 | MHC.EDTECH ---
EKG is delayed due to problems with machine, RN aware
[2022-06-15 11:34] VITALS: BP 121/70; PULSE 74; RESP 17; TEMP 36.7; O2SAT 97; BMI 25.7
--- NOTE | 2022-06-15 11:36 | ED.CHESTPAIN ---
HPI - Chest Pain General Chief Complaint: Chest Pain <BRINA Robertson Last Filed: 06/15/22 11:37> Stated Complaint: chest pain <BRINA Robertson Last Filed: 06/15/22 11:37> Time Seen by Provider: 06/15/22 12:14 <BRINA Robertson Last Filed: 06/15/22 11:37> Source: patient, RN notes reviewed and old records reviewed <BRINA Jean Baptiste Last Filed: 06/16/22 11:40> Mode of arrival: ambulatory <BRINA Jean Baptiste Last Filed: 06/16/22 11:40> History of Present Illness HPI narrative: 32-year-old male with a past medical history of anemia, WPW, SVT, presenting to the ED complaining substernal/right-sided chest pain/pressure with associated RUE numbness/tingling beginning around 07:30AM. Admits pain initially associated with SOB and lightheadedness, symptoms have been intermittent, improved at present. Denies fever, chills, cough, abdominal pain, nausea/vomiting, pedal edema <BRINA Jean Baptiste Last Filed: 06/16/22 11:40> MD complaint: chest heaviness and chest discomfort <BRINA Jean Baptiste Last Filed: 06/16/22 11:40> Related Data Home Medications: Home Medications Medication Instructions Recorded Confirmed cholecalciferol (vitamin D3) 50 50 mcg PO DAILY 04/18/21 04/18/21 mcg (2,000 unit) capsule Previous Rx's Medication Instructions Recorded naproxen 500 mg tablet 500 mg PO BID PRN pain #20 tabs 11/14/20 amoxicillin 500 mg capsule 1,000 mg PO TID 7 days #42 caps 06/15/22 azithromycin 250 mg tablet 250 mg PO DAILY 4 days #4 tabs 06/15/22 <BRINA Robertson Last Filed: 06/15/22 11:37> Allergies/Adverse Reactions: Allergies Allergy/AdvReac Type Severity Reaction Status Date / Time No Known Allergies Allergy Verified 11/14/20 13:29 <BRINA Robertson Last Filed: 06/15/22 11:37> Review of Systems Review of Systems: Constitutional: No Fever, No Chills, No Fatigue, No Malaise ENT/Mouth: No Ear Pain, No Nasal Congestion, No Sinus Pain, No Hoarseness, No sore throat, No Rhinorrhea, No Swallowing Difficulty Eyes: No Eye Pain, No Swelling, No Redness, No Vision Changes Cardiovascular: + Chest Pain, + SOB, No Dyspnea on Exertion, No Orthopnea, No Edema, No Palpitations Respiratory: No Cough, No Sputum, No Dyspnea Gastrointestinal: No Nausea, No Vomiting, No Diarrhea, No Constipation, No Abdominal pain Musculoskeletal: No joint pain, No Myalgias, No Joint Swelling Skin: No Skin Lesions, No rash Neuro: No Weakness, + Numbness, + Paresthesias, No Loss of Consciousness, No Dizziness, No Headache <BRINA Jean Baptiste - Last Filed: 06/16/22 11:40> Yes all other systems are reviewed and are negative <BRINA Jean Baptiste - Last Filed: 06/16/22 11:40> Constitutional: Constitutional: Reports as per HPI <BRINA Jean Baptiste - Last Filed: 06/16/22 11:40> [facility] Past Medical History Attestation statement: The following information was validated with the patient. <BRINA Jean Baptiste - Last Filed: 06/16/22 11:40> Source: old records reviewed <BRINA Jean Baptiste - Last Filed: 06/16/22 11:40> Medical History: Medical History Anemia Back pain Depression Hx of motion sickness Lab test negative for COVID-19 virus Murmur Post-operative nausea and vomiting WPW (Kvaxt-Rgehgdwpa-Qtbuh syndrome) <BRINA Robertson - Last Filed: 06/15/22 11:37> Surgical History: Surgical History H/O wisdom tooth extraction History of tonsillectomy <BRINA Robertson Last Filed: 06/15/22 11:37> Family History Family History: Family History Maternal Grandfather No problems noted. Maternal Grandmother No problems noted. <BRINA Robertson - Last Filed: 06/15/22 11:37> Social History Social History: Social History Alcohol intake: unknown Patient Tobacco Use Status: Current everyday Tobacco user Advance Directives: No Current occupational status: unemployed Current occupation: rght handed <BRINA Robertson - Last Filed: 06/15/22 11:37> Physical Exam Vital Signs: Vital Signs: Last Vital Signs Temp 97.7 F 06/15/22 16:00 Pulse 72 06/15/22 16:00 Resp 16 06/15/22 16:00 BP 124/70 06/15/22 16:00 Pulse Ox 97 06/15/22 16:00 O2 Del Method Room Air 06/15/22 16:00 BMI result Body Mass Index 25.7 <BRINA Robertson - Last Filed: 06/15/22 11:37> Vital Signs: Last Vital Signs Temp 97.7 F 06/15/22 16:00 Pulse 72 06/15/22 16:00 Resp 16 06/15/22 16:00 BP 124/70 06/15/22 16:00 Pulse Ox 97 06/15/22 16:00 O2 Del Method Room Air 06/15/22 16:00 BMI result Body Mass Index 25.7 <BRINA Jean Baptiste - Last Filed: 06/16/22 11:40> Const: General: cooperative, healthy appearing and no acute distress <BRINA Jean Baptiste - Last Filed: 06/16/22 11:40> Orientation/consciousness: patient oriented x3 <BRINA Jean Baptiste - Last Filed: 06/16/22 11:40> Limitations: no limitations <BRINA Jean Baptiste - Last Filed: 06/16/22 11:40> HEENT: Head: Yes normal to inspection and Yes atraumatic <BRINA Jean Baptiste Last Filed: 06/16/22 11:40> Ears: hearing grossly normal bilaterally <BRINA Jean Baptiste Last Filed: 06/16/22 11:40> General nose exam: Normal external nose present <BRINA Jean Baptiste - Last Filed: 06/16/22 11:40> Face and sinus: Yes normal facial exam <Elana Norton PA - Last Filed: 06/16/22 11:40> Eyes: General: appearance normal, both eyes and all related structures <Elana Norton PA - Last Filed: 06/16/22 11:40> EOM: EOMs intact bilaterally <Elana Norton PA - Last Filed: 06/16/22 11:40> Neck: Neck: Yes normal visual inspection and Yes no meningeal signs <Elana Norton PA - Last Filed: 06/16/22 11:40> Resp: Effort & Inspection: normal respiratory effort and no respiratory distress <Elana Norton PA - Last Filed: 06/16/22 11:40> Auscultation: clear to auscultation bilaterally, no crackles, no rhonchi and no wheezes <Elana Norton PA - Last Filed: 06/16/22 11:40> Cardio: Rate: regular rate <Elana Norton PA - Last Filed: 06/16/22 11:40> Heart sounds: S1 normal heart sound present and S2 normal heart sound present <Elana Norton PA - Last Filed: 06/16/22 11:40> GI: Inspection: Yes normal to inspection <BRINA Jean Baptiste - Last Filed: 06/16/22 11:40> Palpation (GI): Soft to palpation, nontender, no guarding and not rigid <Elana Norton PA - Last Filed: 06/16/22 11:40> Skin: Rashes: no rashes <Elana Norton PA - Last Filed: 06/16/22 11:40> Wounds: no wounds <Elana Norton PA - Last Filed: 06/16/22 11:40> Neuro: General: patient oriented x3, tone normal and no meningeal signs <Elana Norton PA - Last Filed: 06/16/22 11:40> Gait exam (Neuro): Normal gait present <Elana Norton PA - Last Filed: 06/16/22 11:40> Extrem: General: Yes normal to inspection, Yes no pedal edema and Yes no calf tenderness <BRINA Jean Baptiste - Last Filed: 06/16/22 11:40> Course Course Course Narrative: This is an RME: Additional HPI, ROS, PE not included below will be deferred to primary provider. 32 year old male hx of WPW ( untreated), SVT presents w/ substernal CP non radiating X few hours unable to to tell me what makes it better or worse. Patient smoke marijuanna. Plan- labs, ekg, trop <BRINA Robertson - Last Filed: 06/15/22 11:37> This is an RME: Additional HPI, ROS, PE not included below will be deferred to primary provider. 32 year old male hx of WPW ( untreated), SVT presents w/ substernal CP non radiating X few hours unable to to tell me what makes it better or worse. Patient smoke marijuanna. Plan- labs, ekg, trop -1313--no leukocytosis. Labs otherwise reassuring. Initial troponin negative XR chest 1V IMPRESSION: New focal hazy opacities in the left lower lobe concerning for aspiration or pneumonia in the appropriate clinical context. ? > will give p.o. Amoxicillin and Zithromax -1554-- repeat troponin equivocal, [place] unlikely Results discussed with patient including worrisome signs and symptoms and strict return precautions, and when to return to the emergency department. They verbalized understanding and feel safe for discharge at this time. <BRINA Jean Baptiste - Last Filed: 06/16/22 11:40> Medications Administered Discontinued Medications Generic Name Dose Route Start Last Admin Trade Name Freq PRN Reason Stop Dose Admin Amoxicillin 1,000 mg 06/15/22 13:15 06/15/22 13:35 Amoxicillin 500 Mg Capsule PO 06/15/22 13:16 1,000 mg ONCE ONE Administration Azithromycin 500 mg 06/15/22 13:15 06/15/22 13:35 Azithromycin 500 Mg Tablet PO 06/15/22 13:16 500 mg ONCE ONE Administration <BRINA Robertson - Last Filed: 06/15/22 11:37> Medications Administered Discontinued Medications Generic Name Dose Route Start Last Admin Trade Name Freq PRN Reason Stop Dose Admin Amoxicillin 1,000 mg 06/15/22 13:15 06/15/22 13:35 Amoxicillin 500 Mg Capsule PO 06/15/22 13:16 1,000 mg ONCE ONE Administration Azithromycin 500 mg 06/15/22 13:15 06/15/22 13:35 Azithromycin 500 Mg Tablet PO 06/15/22 13:16 500 mg ONCE ONE Administration <BRINA Jean Baptiste - Last Filed: 06/16/22 11:40> Medical Decision Making Medical Decision Making [facility] Narrative: 32-year-old male with a past medical history of anemia, WPW, SVT, presenting to the ED complaining substernal/right-sided chest pain/pressure with associated RUE numbness/tingling beginning around 07:30AM. On exam vital signs stable, NAD, nontoxic appearing, lungs CTA, abdomen soft/nontender, no pedal edema. EKG showing sinus rhythm with WPW. Concern for arrhythmia vs ACS. Lower suspicion for PE/CHF Patient states he used to follow with labor relations supervisor who recommended cardiac ablation however patient refused, does not currently take any medication, has not followed up in a while Plan: EKG, labs, CXR Please refer to course for remaining clinical decision making, interpretation of labs/imaging results, and discussions with consultants and/or family members. <BRNIA Jean Baptiste - Last Filed: 06/16/22 11:40> Differential Diagnosis Differential Diagnoses: The differential diagnosis associated with the presentation includes <BRINA Jean Baptiste - Last Filed: 06/16/22 11:40> As above <BRINA Jean Baptiste - Last Filed: 06/16/22 11:40> Lab Data [facility] Lab Attestation statement: I reviewed the patient's lab results. <BRINA Jean Baptiste - Last Filed: 06/16/22 11:40> Result Diagrams: 06/15/22 11:57 06/15/22 11:57 <BRINA Robertson - Last Filed: 06/15/22 11:37> Labs: Lab Results 06/15/22 06/15/22 06/15/22 Range/Units 11:57 11:57 11:57 WBC 5.7 (4.8-10.8) X10*3/uL RBC 4.75 (4.60-5.80) X10*6/uL Hgb 14.2 (14.0-18.0) g/dl Hct 42.1 (42.0-52.0) % MCV 88.6 (80.0-98.0) fL MCH 29.9 (27.0-33.0) pg MCHC 33.7 (31.0-36.0) g/dl RDW 11.7 (11.0-16.0) % Plt Count 277 (160-400) X10*3/uL MPV 9.9 (9.4-12.4) fL Immature Gran % (Auto) 0.3 (0.0-0.4) % Neut % (Auto) 49.0 (45-73) % Lymph % (Auto) 39.5 (20-40) % [place] % (Auto) 8.5 (2-11) % Eos % (Auto) 1.7 (0-4) % Baso % (Auto) 1.0 (0-2) % Lymph # (Auto) 2.3 (1.2-4.9) X10*3/uL [place] # (Auto) 0.5 (0.1-1.2) X10*3/uL Eos # (Auto) 0.1 (0.0-0.4) X10*3/uL Baso # (Auto) 0.1 (0.0-0.2) X10*3/uL Abs Immat Gran (auto) 0.02 (0.00-0.03) X10*3/uL Absolute Neuts (auto) 2.8 (2.0-8.3) x10*3/uL Absolute Nucleated RBC 0.000 (0.0-0.012) X10*3/uL Nucleated RBC % (auto) 0.0 (0.0-0.2) /100WBC Sodium 140 (135-145) mmol/L Potassium 4.1 (3.3-5.1) mmol/L Chloride 105 (96-108) mmol/L Carbon Dioxide 29 (22-29) mmol/L Anion Gap 10 L (12-20) BUN 20 H (9-16) mg/dL Creatinine 1.03 (0.5-1.4) mg/dL Estim Creat Clear Calc 99.6 Estimated GFR > 60 Random Glucose 90 (60-115) mg/dL Calcium 9.8 D (8.4-10.2) mg/dL Magnesium 1.9 (1.6-2.6) mg/dL Total Bilirubin 1.0 (0.0-1.0) mg/dL AST 24 (5-37) U/L ALT 26 (0-40) U/L Alkaline Phosphatase 39 (39-117) U/L Troponin I High Sens < 2.7 (<3.5-35.0) ng/L Total Protein 7.5 (6.5-8.0) g/dL Albumin 4.9 (3.5-5.0) g/dL Urine Opiates Screen (Not Detect) Urine Fentanyl Screen (Not Detect) Ur Barbiturates Screen (Not Detect) Ur Phencyclidine Scrn (Not Detect) Ur Amphetamines Screen (Not Detect) U Benzodiazepines Scrn (Not Detect) Urine Cocaine Screen (Not Detect) U Marijuana (THC) Screen (Not Detect) 06/15/22 06/15/22 Range/Units 13:39 15:03 WBC (4.8-10.8) X10*3/uL RBC (4.60-5.80) X10*6/uL Hgb (14.0-18.0) g/dl Hct (42.0-52.0) % MCV (80.0-98.0) fL MCH (27.0-33.0) pg MCHC (31.0-36.0) g/dl RDW (11.0-16.0) % Plt Count (160-400) X10*3/uL MPV (9.4-12.4) fL Immature Gran % (Auto) (0.0-0.4) % Neut % (Auto) (45-73) % Lymph % (Auto) (20-40) % [place] % (Auto) (2-11) % Eos % (Auto) (0-4) % Baso % (Auto) (0-2) % Lymph # (Auto) (1.2-4.9) X10*3/uL [place] # (Auto) (0.1-1.2) X10*3/uL Eos # (Auto) (0.0-0.4) X10*3/uL Baso # (Auto) (0.0-0.2) X10*3/uL Abs Immat Gran (auto) (0.00-0.03) X10*3/uL Absolute Neuts (auto) (2.0-8.3) x10*3/uL Absolute Nucleated RBC (0.0-0.012) X10*3/uL Nucleated RBC % (auto) (0.0-0.2) /100WBC Sodium (135-145) mmol/L Potassium (3.3-5.1) mmol/L Chloride (96-108) mmol/L Carbon Dioxide (22-29) mmol/L Anion Gap (12-20) BUN (9-16) mg/dL Creatinine (0.5-1.4) mg/dL Estim Creat Clear Calc Estimated GFR Random Glucose (60-115) mg/dL Calcium (8.4-10.2) mg/dL Magnesium (1.6-2.6) mg/dL Total Bilirubin (0.0-1.0) mg/dL AST (5-37) U/L ALT (0-40) U/L Alkaline Phosphatase (39-117) U/L Troponin I High Sens < 2.7 (<3.5-35.0) ng/L Total Protein (6.5-8.0) g/dL Albumin (3.5-5.0) g/dL Urine Opiates Screen Not Detected (Not Detect) Urine Fentanyl Screen Not Detected (Not Detect) Ur Barbiturates Screen Not Detected (Not Detect) Ur Phencyclidine Scrn Not Detected (Not Detect) Ur Amphetamines Screen Not Detected (Not Detect) U Benzodiazepines Scrn Not Detected (Not Detect) Urine Cocaine Screen Not Detected (Not Detect) U Marijuana (THC) Screen POSITIVE H (Not Detect) <BRINA Robertson - Last Filed: 06/15/22 11:37> Lab Results 06/15/22 06/15/22 06/15/22 Range/Units 11:57 11:57 11:57 WBC 5.7 (4.8-10.8) X10*3/uL RBC 4.75 (4.60-5.80) X10*6/uL Hgb 14.2 (14.0-18.0) g/dl Hct 42.1 (42.0-52.0) % MCV 88.6 (80.0-98.0) fL MCH 29.9 (27.0-33.0) pg MCHC 33.7 (31.0-36.0) g/dl RDW 11.7 (11.0-16.0) % Plt Count 277 (160-400) X10*3/uL MPV 9.9 (9.4-12.4) fL Immature Gran % (Auto) 0.3 (0.0-0.4) % Neut % (Auto) 49.0 (45-73) % Lymph % (Auto) 39.5 (20-40) % [place] % (Auto) 8.5 (2-11) % Eos % (Auto) 1.7 (0-4) % Baso % (Auto) 1.0 (0-2) % Lymph # (Auto) 2.3 (1.2-4.9) X10*3/uL [place] # (Auto) 0.5 (0.1-1.2) X10*3/uL Eos # (Auto) 0.1 (0.0-0.4) X10*3/uL Baso # (Auto) 0.1 (0.0-0.2) X10*3/uL Abs Immat Gran (auto) 0.02 (0.00-0.03) X10*3/uL Absolute Neuts (auto) 2.8 (2.0-8.3) x10*3/uL Absolute Nucleated RBC 0.000 (0.0-0.012) X10*3/uL Nucleated RBC % (auto) 0.0 (0.0-0.2) /100WBC Sodium 140 (135-145) mmol/L Potassium 4.1 (3.3-5.1) mmol/L Chloride 105 (96-108) mmol/L Carbon Dioxide 29 (22-29) mmol/L Anion Gap 10 L (12-20) BUN 20 H (9-16) mg/dL Creatinine 1.03 (0.5-1.4) mg/dL Estim Creat Clear Calc 99.6 Estimated GFR > 60 Random Glucose 90 (60-115) mg/dL Calcium 9.8 D (8.4-10.2) mg/dL Magnesium 1.9 (1.6-2.6) mg/dL Total Bilirubin 1.0 (0.0-1.0) mg/dL AST 24 (5-37) U/L ALT 26 (0-40) U/L Alkaline Phosphatase 39 (39-117) U/L Troponin I High Sens < 2.7 (<3.5-35.0) ng/L Total Protein 7.5 (6.5-8.0) g/dL Albumin 4.9 (3.5-5.0) g/dL Urine Opiates Screen (Not Detect) Urine Fentanyl Screen (Not Detect) Ur Barbiturates Screen (Not Detect) Ur Phencyclidine Scrn (Not Detect) Ur Amphetamines Screen (Not Detect) U Benzodiazepines Scrn (Not Detect) Urine Cocaine Screen (Not Detect) U Marijuana (THC) Screen (Not Detect) 06/15/22 06/15/22 Range/Units 13:39 15:03 WBC (4.8-10.8) X10*3/uL RBC (4.60-5.80) X10*6/uL Hgb (14.0-18.0) g/dl Hct (42.0-52.0) % MCV (80.0-98.0) fL MCH (27.0-33.0) pg MCHC (31.0-36.0) g/dl RDW (11.0-16.0) % Plt Count (160-400) X10*3/uL MPV (9.4-12.4) fL Immature Gran % (Auto) (0.0-0.4) % Neut % (Auto) (45-73) % Lymph % (Auto) (20-40) % [place] % (Auto) (2-11) % Eos % (Auto) (0-4) % Baso % (Auto) (0-2) % Lymph # (Auto) (1.2-4.9) X10*3/uL [place] # (Auto) (0.1-1.2) X10*3/uL Eos # (Auto) (0.0-0.4) X10*3/uL Baso # (Auto) (0.0-0.2) X10*3/uL Abs Immat Gran (auto) (0.00-0.03) X10*3/uL Absolute Neuts (auto) (2.0-8.3) x10*3/uL Absolute Nucleated RBC (0.0-0.012) X10*3/uL Nucleated RBC % (auto) (0.0-0.2) /100WBC Sodium (135-145) mmol/L Potassium (3.3-5.1) mmol/L Chloride (96-108) mmol/L Carbon Dioxide (22-29) mmol/L Anion Gap (12-20) BUN (9-16) mg/dL Creatinine (0.5-1.4) mg/dL Estim Creat Clear Calc Estimated GFR Random Glucose (60-115) mg/dL Calcium (8.4-10.2) mg/dL Magnesium (1.6-2.6) mg/dL Total Bilirubin (0.0-1.0) mg/dL AST (5-37) U/L ALT (0-40) U/L Alkaline Phosphatase (39-117) U/L Troponin I High Sens < 2.7 (<3.5-35.0) ng/L Total Protein (6.5-8.0) g/dL Albumin (3.5-5.0) g/dL Urine Opiates Screen Not Detected (Not Detect) Urine Fentanyl Screen Not Detected (Not Detect) Ur Barbiturates Screen Not Detected (Not Detect) Ur Phencyclidine Scrn Not Detected (Not Detect) Ur Amphetamines Screen Not Detected (Not Detect) U Benzodiazepines Scrn Not Detected (Not Detect) Urine Cocaine Screen Not Detected (Not Detect) U Marijuana (THC) Screen POSITIVE H (Not Detect) <BRINA Jean Baptiste Last Filed: 06/16/22 11:40> Independent Interpretation I performed an independent interpretation of an: EKG (EKG normal sinus rhythm with sinus arrhythmia at a rate of 80. MI interval 110. WPW appreciated. No STEMI) <BRINA Jean Baptiste Last Filed: 06/16/22 11:40> Radiology Impression Discussion of test interpretation with radiology: I have reviewed the radiologist's reading. <BRINA Jean Baptiste Last Filed: 06/16/22 11:40> External Record Review External record reviewed: Inpatient record, Office record, Outpatient record, Prior outpatient labs, Prior outpatient radiology, Primary care record and Outside ED record <BRINA Jean Baptiste Last Filed: 06/16/22 11:40> Tests considered The following testing was considered but not selected: As above <BRINA Jean Baptiste - Last Filed: 06/16/22 11:40> Discharge Plan Discharge Clinical Impression: Atypical chest pain, Pneumonia <BRINA Robertson Last Filed: 06/15/22 11:37> Patient Disposition: Home, Self-Care <BRINA Robertson Last Filed: 06/15/22 11:37> Instructions: Community Acquired Pneumonia (DC), Noncardiac Chest Pain (ED) <BRINA Robertson Last Filed: 06/15/22 11:37> Additional Instructions: your blood work is reassuring. x-ray is suggestive of pneumonia. Amoxicillin and Zithromax are antibiotics please take as prescribed please follow-up with your lap winder If symptoms persist, recur, have shortness of breath, weakness return to the ED <BRINA Robertson - Last Filed: 06/15/22 11:37> Prescriptions: New amoxicillin 500 mg capsule 1,000 mg PO TID 7 Days Qty: 42 0RF azithromycin 250 mg tablet 250 mg PO DAILY 4 Days Qty: 4 0RF Rx Instructions: start on day 2 of therapy No Action naproxen 500 mg tablet 500 mg PO BID PRN (Reason: pain) Qty: 20 0RF cholecalciferol (vitamin D3) 50 mcg (2,000 unit) capsule 50 mcg PO DAILY <BRINA Robertson Last Filed: 06/15/22 11:37> Referrals: [facility] [place] Cardiovascular Services [Provider Group] - 3 days Physician,None [Primary Care Provider] - <BRINA Robertson Last Filed: 06/15/22 11:37> Stand Alone Forms: Work/School Release <BRINA Robertson Last Filed: 06/15/22 11:37> Interventions: ED Discharge Assessment Last Done: 06/15/22 16:16 <BRINA Robertson Last Filed: 06/15/22 11:37> Discharge Date/Time: 06/15/22 16:17 <BRINA Robertson Last Filed: 06/15/22 11:37>
[2022-06-15 12:01] LABS: MANUAL DIFF FLAG NO
[2022-06-15 12:06] LABS: Basophils Absolute Auto 0.1 X10*3/uL (0.0-0.2); Eosinophils Absolute Auto 0.1 X10*3/uL (0.0-0.4); Eosinophils Percent Auto 1.7 % (0-4); Hematocrit 42.1 % (42.0-52.0); Hemoglobin 14.2 g/dl (14.0-18.0); Imm Gran Abs Auto 0.02 X10*3/uL (0.00-0.03); Imm Gran Pct Auto 0.3 % (0.0-0.4); Lymphocytes Absolute Auto 2.3 X10*3/uL (1.2-4.9); Lymphocytes Percent Auto 39.5 % (20-40); Mean Corpuscular HGB Conc 33.7 g/dl (31.0-36.0); Mean Corpuscular Hemoglobin 29.9 pg (27.0-33.0); Mean Corpuscular Volume 88.6 fL (80.0-98.0); Mean Platelet Volume 9.9 fL (9.4-12.4); Monocytes Absolute Auto 0.5 X10*3/uL (0.1-1.2); Monocytes Percent Auto 8.5 % (2-11); Neutrophils Absolute Auto 2.8 x10*3/uL (2.0-8.3); Platelet Count 277 X10*3/uL (160-400); Red Blood Count 4.75 X10*6/uL (4.60-5.80); Red Cell Distribution Width 11.7 % (11.0-16.0); White Blood Count 5.7 X10*3/uL (4.8-10.8)
[2022-06-15 12:22] LABS: Alanine Aminotransferase 26 U/L (0-40); Albumin Level 4.9 g/dL (3.5-5.0); Alkaline Phosphatase 39 U/L (39-117); Anion Gap 10 (12-20); Aspartate Amino Transferase 24 U/L (5-37); Blood Urea Nitrogen 20 mg/dL (9-16); Calcium 9.8 mg/dL (8.4-10.2); Carbon Dioxide 29 mmol/L (22-29); Chloride 105 mmol/L (96-108); Creatinine Clr Calc Pharmacy 99.6; Estimated Glomerular Filt Rate > 60; Glucose Random 90 mg/dL (60-115); Magnesium 1.9 mg/dL (1.6-2.6); Potassium 4.1 mmol/L (3.3-5.1); Sodium 140 mmol/L (135-145); Total Protein 7.5 g/dL (6.5-8.0)
[2022-06-15 12:31] LABS: Troponin-I High Sensitivity < 2.7 ng/L (<3.5-35.0)
[2022-06-15] MEDS: Azithromycin 500 MG TABLET PO (13:35)
[2022-06-15] MEDS: Amoxicillin 500 MG CAPSULE 1000 MG PO (13:35)
[2022-06-15 14:04] LABS: Amphetamine Screen Urine Not Detected (Not Detect); Barbiturates, Urine Not Detected (Not Detect); Benzodiazepines Screen Urine Not Detected (Not Detect); Cannabinoid Screen Urine POSITIVE (Not Detect); Cocaine Screen Urine Not Detected (Not Detect); Fentanyl, urine Not Detected (Not Detect); Opiate Screen Urine Not Detected (Not Detect); Phencyclidine Screen Urine Not Detected (Not Detect)
[2022-06-15 14:34] VITALS: BP 128/74; PULSE 55; RESP 19; TEMP 36.5; O2SAT 98
[2022-06-15 15:40] LABS: Troponin-I High Sensitivity < 2.7 ng/L (<3.5-35.0)
[2022-06-15 16:00] VITALS: BP 124/70; PULSE 72; RESP 16; TEMP 36.5; O2SAT 97
== END 2022-06-15 16:17 | disposition home or self-care (01) ==
PROVIDERS: Physician Assistant; Emergency Provider Emergency Medicine
DX: J18.9 Pneumonia, unspecified organism (principal); R07.89 Other chest pain; Z79.899 Other long term (current) drug therapy
CPT/HCPCS: 36415; 71045; 80053; 80307; 83735; 84484; 85025; 93005; 99283; 99284

== ENCOUNTER 2022-07-27 15:58 | Outpatient (REF) | payer BC, SELFPAY ==
--- NOTE | ~2022-07-27 | XR_ITS ---
EXAMINATION: XR CHEST CLINICAL INFORMATION: Recent pneumonia. Follow-up. COMPARISON: Chest radiographs 06/15/2022, 02/12/2022. TECHNIQUE: 2 frontal views and a lateral projection of the chest are obtained for 3 views. FINDINGS: There is no airspace consolidation or groundglass opacity. The ill-defined infiltrate left lower zone described on prior exam is not visualized. There are no air bronchograms. The costophrenic sulci are clear. The heart is normal in size. The hilar and mediastinal contours and visualized bony structures are unremarkable. XR/XR chest 2V IMPRESSION: Lungs clear.
== END 2022-07-27 15:59 | disposition home or self-care (01) ==
LOC: HO.XRAY 15:58
PROVIDERS: Absent Provider Registered Nurse; PCP Registered Nurse; Visit Provider Registered Nurse
DX: J18.9 Pneumonia, unspecified organism (principal)
CPT/HCPCS: 71046

== ENCOUNTER 2022-09-08 15:03 | Outpatient (REF) | payer BC, SELFPAY ==
[2022-09-08 15:34] LABS: MANUAL DIFF FLAG NO
[2022-09-08 17:50] LABS: Basophils Absolute Auto 0.1 X10*3/uL (0.0-0.2); Basophils Percent Auto 0.7 % (0-2); Eosinophils Absolute Auto 0.1 X10*3/uL (0.0-0.4); Eosinophils Percent Auto 1.4 % (0-4); Hematocrit 42.5 % (42.0-52.0); Hemoglobin 14.1 g/dl (14.0-18.0); Imm Gran Abs Auto 0.01 X10*3/uL (0.00-0.03); Imm Gran Pct Auto 0.1 % (0.0-0.4); Lymphocytes Absolute Auto 2.1 X10*3/uL (1.2-4.9); Lymphocytes Percent Auto 28.8 % (20-40); Mean Corpuscular HGB Conc 33.2 g/dl (31.0-36.0); Mean Corpuscular Hemoglobin 30.3 pg (27.0-33.0); Mean Corpuscular Volume 91.2 fL (80.0-98.0); Mean Platelet Volume 10.8 fL (9.4-12.4); Monocytes Absolute Auto 0.5 X10*3/uL (0.1-1.2); Monocytes Percent Auto 7.3 % (2-11); Neutrophils Absolute Auto 4.5 x10*3/uL (2.0-8.3); Neutrophils Percent Auto 61.7 % (45-73); Platelet Count 289 X10*3/uL (160-400); Red Blood Count 4.66 X10*6/uL (4.60-5.80); Red Cell Distribution Width 11.8 % (11.0-16.0); White Blood Count 7.2 X10*3/uL (4.8-10.8)
[2022-09-08 18:18] LABS: Alanine Aminotransferase 26 U/L (0-40); Albumin Level 4.9 g/dL (3.5-5.0); Alkaline Phosphatase 41 U/L (39-117); Anion Gap 14 (12-20); Aspartate Amino Transferase 28 U/L (5-37); Bilirubin Direct 0.2 mg/dL (0.0-0.5); Bilirubin Total 0.5 mg/dL (0.0-1.0); Blood Urea Nitrogen 20 mg/dL (9-16); C Reactive Protein < 0.04 mg/dL (< or = 0.50); Carbon Dioxide 25 mmol/L (22-29); Chloride 104 mmol/L (96-108); Estimated Glomerular Filt Rate > 60; Glucose Random 80 mg/dL (60-115); Potassium 4.1 mmol/L (3.3-5.1); Sodium 139 mmol/L (135-145); Total Protein 7.8 g/dL (6.5-8.0)
[2022-09-08 18:47] LABS: Erythrocyte Sedimentation Rate 1 MM/HR (0-15)
[2022-09-09 04:05] LABS: Syphilis Screen Nonreactive (Nonreactive)
[2022-09-09 04:09] LABS: HIV AB/AG Nonreactive (Nonreactive); HIV Num 1 0.05 S/CO (0.00-0.99)
[2022-09-09 05:19] LABS: CT PCR NOT DETECTED (Not Detect.); NG PCR NOT DETECTED (Not Detect.)
[2022-09-16 22:19] LABS: Calprotectin, Fecal 8 mcg/g
[2022-09-19 17:29] LABS: Pancreatic Elastase-1 >500 mcg/g
== END 2022-09-08 15:04 | disposition home or self-care (01) ==
LOC: HO.LAB 15:03
PROVIDERS: PCP Registered Nurse; Visit Provider Registered Nurse
DX: Z11.4 Encounter for screening for human immunodeficiency virus [HIV] (principal); R10.84 Generalized abdominal pain; K90.9 Intestinal malabsorption, unspecified; K52.9 Noninfective gastroenteritis and colitis, unspecified; Z20.2 Contact with and (suspected) exposure to infections with a predominantly sexual mode of transmission
CPT/HCPCS: 0353U; 80053; 82248; 82656; 83993; 85025; 85652; 86140; 86780; 87389

== ENCOUNTER 2022-10-12 16:26 | Emergency (ER) | payer BC, MEDICAID, SELFPAY ==
--- NOTE | ~2022-10-12 | XR_ITS ---
EXAMINATION: XR CHEST CLINICAL INFORMATION: Left elbow shoulder pain shortness of breath COMPARISON: Prior chest July 2022 TECHNIQUE: 2 views of the chest were obtained. FINDINGS: No significant abnormality is noted involving the heart, lungs, mediastinum, bony thorax or soft tissues. XR/XR chest 2V IMPRESSION: Unremarkable examination.
--- NOTE | ~2022-10-12 | XR_ITS ---
EXAMINATION: XR SHOULDER, LEFT CLINICAL INFORMATION: Left elbow shoulder pain and shortness of breath COMPARISON: X-ray the left shoulder June 2020 TECHNIQUE: AP external rotation, Grashey, scapular Y, and axillary views of the left shoulder. FINDINGS: The bones and soft tissues are normal. No fracture. Glenohumeral and acromioclavicular alignment is anatomic with normal joint space. No abnormal soft tissue calcifications. XR/XR shoulder LT min 2V IMPRESSION: Normal left shoulder.
--- NOTE | ~2022-10-12 | XR_ITS ---
EXAMINATION: XR ELBOW, LEFT CLINICAL INFORMATION: Atraumatic left elbow pain COMPARISON: None available. TECHNIQUE: AP, lateral, and oblique views of the left elbow. FINDINGS: The bones and soft tissues are normal. No fracture or joint effusion. Alignment is anatomic. Joint spaces are maintained. XR/XR elbow LT min 3V IMPRESSION: Normal left elbow.
[2022-10-12 16:33] VITALS: BP 94/64; PULSE 84; RESP 18; TEMP 37; O2SAT 100; BMI 25.8
--- NOTE | 2022-10-12 16:35 | ED.EXTPRO ---
HPI - Extremity Problem General Chief complaint: Extremity Injury, Upper Stated complaint: left arm elbow keeps looking up Related Data Home Medications Medication Instructions Recorded Confirmed cholecalciferol (vitamin D3) 50 50 mcg PO DAILY 04/18/21 04/18/21 mcg (2,000 unit) capsule Previous Rx's Medication Instructions Recorded naproxen 500 mg tablet 500 mg PO BID PRN pain #20 tabs 11/14/20 amoxicillin 500 mg capsule 1,000 mg (2 x 500 mg) PO TID 7 06/15/22 days #42 caps azithromycin 250 mg tablet 250 mg PO DAILY 4 days #4 tabs 06/15/22 Allergies Allergy/AdvReac Type Severity Reaction Status Date / Time No Known Allergies Allergy Verified 11/14/20 13:29 [facility] Past Medical History Medical History Anemia Back pain Depression Hx of motion sickness Lab test negative for COVID-19 virus Murmur Post-operative nausea and vomiting WPW (Caxlu-Njccctcsl-Djwuh syndrome) Surgical History H/O wisdom tooth extraction History of tonsillectomy Family History Family History Maternal Grandfather No problems noted. Maternal Grandmother No problems noted. Social History Social History Alcohol intake: unknown Patient Tobacco Use Status: Current everyday Tobacco user Advance Directives: No Advance Directives Information Provided: No Current occupational status: unemployed Current occupation: rght handed Physical Exam Vital Signs: Vital Signs: Last Vital Signs Temp 98.6 F 10/12/22 16:33 Pulse 84 10/12/22 16:33 Resp 18 10/12/22 16:33 BP 94/64 10/12/22 16:33 Pulse Ox 100 10/12/22 16:33 O2 Del Method Room Air 10/12/22 16:33 BMI result Body Mass Index 25.8 Course Course Course Narrative: JH 16:40PM 32yoM presenting to the ED c c/o of left elbow pain, hand numbness and sob concern its all related to his heart on and off for quite some time. Denies actual chest pain. Denies cocaine usage. Plan: Patient is stable he will be sent back to the waiting room to be evaluated the ED. Labs, EKG, chest x-ray, left shoulder and left elbow x-ray ordered at this time. Medical Decision Making Lab Data 10/12/22 17:04 10/12/22 17:04 Labs: Lab Results 10/12/22 Range/Units 17:04 WBC 6.9 (4.8-10.8) X10*3/uL RBC 4.70 (4.60-5.80) X10*6/uL Hgb 14.2 (14.0-18.0) g/dl Hct 42.0 (42.0-52.0) % MCV 89.4 (80.0-98.0) fL MCH 30.2 (27.0-33.0) pg MCHC 33.8 (31.0-36.0) g/dl RDW 11.7 (11.0-16.0) % Plt Count 271 (160-400) X10*3/uL MPV 9.9 (9.4-12.4) fL Immature Gran % (Auto) 0.1 (0.0-0.4) % Neut % (Auto) 64.0 (45-73) % Lymph % (Auto) 24.4 (20-40) % [place] % (Auto) 9.2 (2-11) % Eos % (Auto) 1.7 (0-4) % Baso % (Auto) 0.6 (0-2) % Lymph # (Auto) 1.7 (1.2-4.9) X10*3/uL [place] # (Auto) 0.6 (0.1-1.2) X10*3/uL Eos # (Auto) 0.1 (0.0-0.4) X10*3/uL Baso # (Auto) 0.0 (0.0-0.2) X10*3/uL Abs Immat Gran (auto) 0.01 (0.00-0.03) X10*3/uL Absolute Neuts (auto) 4.4 (2.0-8.3) x10*3/uL Absolute Nucleated RBC 0.000 (0.0-0.012) X10*3/uL Nucleated RBC % (auto) 0.0 (0.0-0.2) /100WBC PT 11.7 (11.1-13.3) SEC INR 1.0 (0.9-1.1) Sodium 142 (135-145) mmol/L Potassium 4.0 (3.3-5.1) mmol/L Chloride 105 (96-108) mmol/L Carbon Dioxide 31 H (22-29) mmol/L Anion Gap 10 L (12-20) BUN 18 H (9-16) mg/dL Creatinine 1.13 (0.5-1.4) mg/dL Estim Creat Clear Calc 90.7 Estimated GFR > 60 Random Glucose 68 (60-115) mg/dL Calcium 9.9 (8.4-10.2) mg/dL Magnesium 2.1 (1.6-2.6) mg/dL Total Bilirubin 0.7 (0.0-1.0) mg/dL AST 24 (5-37) U/L ALT 24 (0-40) U/L Alkaline Phosphatase 43 (39-117) U/L Troponin I High Sens < 2.7 (<3.5-35.0) ng/L Total Protein 7.5 (6.5-8.0) g/dL Albumin 4.7 (3.5-5.0) g/dL Discharge Plan Discharge Clinical Impression: Multiple complaints Patient Disposition: Elopement Prescriptions: No Action naproxen 500 mg tablet 500 mg PO BID PRN (Reason: pain) Qty: 20 0RF amoxicillin 500 mg capsule 1,000 mg PO TID 7 Days Qty: 42 0RF azithromycin 250 mg tablet 250 mg PO DAILY 4 Days Qty: 4 0RF Rx Instructions: start on day 2 of therapy cholecalciferol (vitamin D3) 50 mcg (2,000 unit) capsule 50 mcg PO DAILY Discharge Date/Time: 10/12/22 20:15
--- NOTE | 2022-10-12 16:36 | ECG_ITS ---
Test Reason : CHEST PAIN Blood Pressure : / mmHG Vent. Rate : 068 BPM Atrial Rate : 068 BPM P-R Int : 104 ms QRS Dur : 128 ms QT Int : 394 ms P-R-T Axes : 055 017 058 degrees QTc Int : 418 ms Normal sinus rhythm with sinus arrhythmia [id number] Abnormal ECG When compared with ECG of 15-JUN-2022 11:41, No significant change was found Referred By: Melinda Conway Electronically Signed By:HUY ANGELES
[2022-10-12 17:12] LABS: MANUAL DIFF FLAG NO
[2022-10-12 17:15] LABS: Basophils Percent Auto 0.6 % (0-2); Eosinophils Absolute Auto 0.1 X10*3/uL (0.0-0.4); Eosinophils Percent Auto 1.7 % (0-4); Hemoglobin 14.2 g/dl (14.0-18.0); Imm Gran Abs Auto 0.01 X10*3/uL (0.00-0.03); Imm Gran Pct Auto 0.1 % (0.0-0.4); Lymphocytes Absolute Auto 1.7 X10*3/uL (1.2-4.9); Lymphocytes Percent Auto 24.4 % (20-40); Mean Corpuscular HGB Conc 33.8 g/dl (31.0-36.0); Mean Corpuscular Hemoglobin 30.2 pg (27.0-33.0); Mean Corpuscular Volume 89.4 fL (80.0-98.0); Mean Platelet Volume 9.9 fL (9.4-12.4); Monocytes Absolute Auto 0.6 X10*3/uL (0.1-1.2); Monocytes Percent Auto 9.2 % (2-11); Neutrophils Absolute Auto 4.4 x10*3/uL (2.0-8.3); Platelet Count 271 X10*3/uL (160-400); Red Cell Distribution Width 11.7 % (11.0-16.0); White Blood Count 6.9 X10*3/uL (4.8-10.8)
[2022-10-12 17:20] LABS: Prothrombin Time 11.7 SEC (11.1-13.3)
[2022-10-12 17:27] LABS: Alanine Aminotransferase 24 U/L (0-40); Albumin Level 4.7 g/dL (3.5-5.0); Alkaline Phosphatase 43 U/L (39-117); Anion Gap 10 (12-20); Aspartate Amino Transferase 24 U/L (5-37); Bilirubin Total 0.7 mg/dL (0.0-1.0); Blood Urea Nitrogen 18 mg/dL (9-16); Calcium 9.9 mg/dL (8.4-10.2); Carbon Dioxide 31 mmol/L (22-29); Chloride 105 mmol/L (96-108); Creatinine Clr Calc Pharmacy 90.7; Estimated Glomerular Filt Rate > 60; Glucose Random 68 mg/dL (60-115); Magnesium 2.1 mg/dL (1.6-2.6); Sodium 142 mmol/L (135-145); Total Protein 7.5 g/dL (6.5-8.0)
[2022-10-12 17:42] LABS: Troponin-I High Sensitivity < 2.7 ng/L (<3.5-35.0)
== END 2022-10-12 20:15 | disposition left against medical advice (07) ==
LOC: HO.ED 19:48
PROVIDERS: Physician Assistant Medical; Emergency Provider Emergency Medicine; PCP Registered Nurse
DX: M79.602 Pain in left arm (principal); R20.0 Anesthesia of skin; R06.02 Shortness of breath; R07.89 Other chest pain; I49.9 Cardiac arrhythmia, unspecified; Z79.899 Other long term (current) drug therapy
CPT/HCPCS: 36415; 71046; 73030; 73080; 80053; 83735; 84484; 85025; 85610; 93005; 99283

== ENCOUNTER 2022-11-17 14:07 | Outpatient (REF) | payer BC, SELFPAY ==
[2022-11-20 13:44] LABS: Immunoglobulin A 182 mg/dL (47-310)
[2022-11-20 20:13] LABS: Transglutaminase IgA <1.0 U/mL
== END 2022-11-17 14:08 | disposition home or self-care (01) ==
LOC: HO.HHCL 14:07
PROVIDERS: Visit Provider Registered Nurse
DX: R10.9 Unspecified abdominal pain (principal); G89.29 Other chronic pain
CPT/HCPCS: 36415; 82784; 86364

== ENCOUNTER 2022-12-08 12:46 | Outpatient (REF) | payer BC, SELFPAY ==
--- NOTE | ~2022-12-08 | XR_ITS ---
EXAMINATION: XR ORBITS CLINICAL INFORMATION: Pain in both eyes. Questionable for body size. Patient has experienced working with metal. Pre-MRI COMPARISON: None available. TECHNIQUE: 4 views of the orbits were obtained. FINDINGS: No radiopaque foreign body is identified in the region of the orbits. Hazy opacities ethmoid sinus/nasal regions. XR/XR orbit min 4V IMPRESSION: No radiopaque foreign body is identified in the region of the orbits. Hazy opacities ethmoid sinus/nasal regions. CT scan or MRI would be more sensitive for further evaluation.
== END 2022-12-08 12:47 | disposition home or self-care (01) ==
LOC: HO.XRAY 12:46
PROVIDERS: PCP Registered Nurse; Visit Provider Internal Medicine
DX: H57.13 Ocular pain, bilateral (principal)
CPT/HCPCS: 70200

== ENCOUNTER 2023-01-15 15:29 | Emergency (ER) | payer OTHER, BC, SELFPAY ==
--- NOTE | ~2023-01-15 | XR_ITS ---
Examination: X-ray thoracic and cervical spine INDICATION: Injury. COMPARISON: Chest radiograph 10/28/2022, CT cervical spine 03/23/2020 TECHNIQUE: 3 views of the cervical spine and 3 views of the thoracic spine. FINDINGS: There is straightening of the normal cervical lordosis. Mild degenerative disc disease and spurring in the cervical spine without evidence for acute fracture. The prevertebral soft tissues are unremarkable. Lateral masses are symmetric. Normal alignment in the thoracic spine with preserved intervertebral disc spaces and vertebral body heights. Mediastinal structures and visualized lungs are unremarkable. XR/XR thoracic spine 3V IMPRESSION: No acute abnormality in the cervical or thoracic spine
--- NOTE | ~2023-01-15 | XR_ITS ---
Examination: X-ray thoracic and cervical spine INDICATION: Injury. COMPARISON: Chest radiograph 10/28/2022, CT cervical spine 03/23/2020 TECHNIQUE: 3 views of the cervical spine and 3 views of the thoracic spine. FINDINGS: There is straightening of the normal cervical lordosis. Mild degenerative disc disease and spurring in the cervical spine without evidence for acute fracture. The prevertebral soft tissues are unremarkable. Lateral masses are symmetric. Normal alignment in the thoracic spine with preserved intervertebral disc spaces and vertebral body heights. Mediastinal structures and visualized lungs are unremarkable. XR/XR cervical spine 3V IMPRESSION: No acute abnormality in the cervical or thoracic spine
[2023-01-15 15:36] VITALS: BP 144/84; PULSE 79; RESP 18; TEMP 36.5; O2SAT 99; BMI 26.1
--- NOTE | 2023-01-15 15:40 | ED_ITS ---
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 patient denies any loss of conscisouness or falling to the ground or bottom levels. patietn deneis any thing falling untto his body. Patient states no other complaints. patient denies any abdominal pain, pain in extremities, bloody urine, blood in stool, rectal bleeding, chest pain, shortness of breath, dizziness, headache, fever or chills. Related Data Home Medications Medication Instructions Recorded Confirmed cholecalciferol (vitamin D3) 50 50 mcg PO DAILY 04/18/21 04/18/21 mcg (2,000 unit) capsule Previous Rx's Medication Instructions Recorded naproxen 500 mg tablet 500 mg PO BID PRN pain #20 tabs 11/14/20 amoxicillin 500 mg capsule 1,000 mg (2 x 500 mg) PO TID 7 06/15/22 days #42 caps azithromycin 250 mg tablet 250 mg PO DAILY 4 days #4 tabs 06/15/22 naproxen 500 mg tablet 500 mg PO BID PRN pain 7 days #14 01/15/23 tabs Allergies Allergy/AdvReac Type Severity Reaction Status Date / Time No Known Allergies Allergy Verified 01/15/23 15:39 Review of Systems 2 Review of Systems: posterior neck and upper back pain. Yes all other systems are reviewed and are negative PMFSH Past Medical History Medical History Anemia Back pain Depression Hx of motion sickness Lab test negative for COVID-19 virus Murmur Post-operative nausea and vomiting WPW (Mudcs-Yjxbihufn-Deawu syndrome) Surgical History H/O wisdom tooth extraction History of tonsillectomy Family History Family History Maternal Grandfather No problems noted. Maternal Grandmother No problems noted. Social History Social History Alcohol intake: unknown Patient Tobacco Use Status: Current everyday Tobacco user Advance Directives: No Advance Directives Information Provided: No Current occupational status: unemployed Current occupation: rght handed Physical Exam ED Vital Signs: Vital Signs - 24 hr 01/15/23 15:36 Temperature 97.7 F Pulse Rate 79 Respiratory Rate 18 Blood Pressure 144/84 H Pulse Oximetry 99 Oxygen Delivery Method Room Air BMI result Body Mass Index 26.1 Const General: cooperative, healthy appearing, comfortable, no acute distress, well developed, alert and awake Orientation/consciousness: oriented to person, oriented to place, oriented to time and patient oriented x3 HENMT Head: Yes normal to inspection, Yes No palpable skull fracture present, Yes normocephalic, Yes atraumatic, No abrasion, No Acrocyanosis present, No Hodgson's sign, No contusion, No cranial bruits, No hematoma, No laceration, No occipital foramen tenderness, No palpable skull fracture, No raccoon eyes, No scalp lesion, No scalp tenderness, No Temporal artery tenderness present and No periorbital ecchymosis Eyes General: appearance normal, both eyes and all related structures Neck Neck: Yes normal visual inspection, Yes full ROM, Yes no lymphadenopathy, Yes no meningeal signs, Yes trachea midline, Yes supple, No anterior neck swelling and Yes tender (posterior cervical) Neck images: 2 1. Tenderness on palpation. Negative for any scalp tenderness on palpation. negative for crepitus, ecchymosis, or deformity Chest Chest palpation & inspection: normal inspection of the chest and normal palpation of entire chest wall Resp Effort & Inspection: normal respiratory effort and able to speak in complete sentences Auscultation: clear to auscultation bilaterally Cardio Jugular venous distension: no JVD Heart sounds: S1 normal heart sound present and S2 normal heart sound present GI Inspection: Yes normal to inspection Palpation (GI): Soft to palpation, not firm, nontender, no guarding and not rigid General: Yes no CVA tenderness Back/Spine/Pelvis Back: no CVA tenderness and back tenderness (thoracic spine tenderness) Skin General skin exam: no rashes or lesions noted and elasticity normal Neuro General: oriented to person, oriented to place, oriented to time, patient oriented x3, gait normal, tone normal, moves all extremities, Normal light touch and pain sensation, no meningeal signs, no focal motor deficits, CN's II-XI intact bilaterally and normal sensation to monofilament Extrem General: Yes normal to inspection, Yes full ROM and Yes capillary refill normal Psych Appearance: grossly normal, well kempt and not disheveled Course Course Course Narrative: Patient complains of neck and back pain, he was at work any stood up abruptly underneath a low ceiling area and smashed his neck and upper back into the hard surface and felt dizzy briefly and now complains of pain in the neck and upper back and is concerned that his vertebrae are out of line At this time he is neurologically intact no numbness weakness or tingling he had no loss of consciousness and x-rays of cervical spine and thoracic spine are ordered This is rapid medical exam in triage pending full evaluation by ER provider Medications Administered Discontinued Medications Generic Name Dose Route Start Last Admin Trade Name Freq PRN Reason Stop Dose Admin Acetaminophen 975 mg 01/15/23 18:40 01/15/23 18:44 Acetaminophen 325 Mg Tablet PO 01/15/23 18:41 975 mg ONCE ONE Administration Medical Decision Making Medical Decision Making [facility] Narrative: 32-year-old male WPW presents to ED for posterior neck upper back pain after bending down and standing up in hitting exterior neck upper back onto sheet metal. Patient was calling in duct. Patient denies falling to the ground or any other trauma. Patient denies any blurry vision, dizziness, headache, ringing in the ear, chest pain or shortness of breath no abdominal pain, trouble walking, rectal bleeding, vomiting blood, or blood in stool/urine. Negative for anterior lateral, temporal, or posterior scalp tenderness on palpation. Is negative for signs of blood or CSF in ears. Cervical spine x-ray and thoracic spine x-ray ordered in triage came back normal. Patient to follow up work connection. NO indication for head CT scan. Georgian HEad CT Score 0 Differential Diagnosis Differential Diagnoses: The differential diagnosis associated with the presentation includes (Cervical Spine fracture. throacic spine fracture) Admission/Observation Consideration of admission/observation: Escalation of care including admission/observation considered Independent Interpretation I performed an independent interpretation of an: Plain X-Ray Radiology Impression Discussion of test interpretation with radiology: I have reviewed the radiologist's reading. External Record Review External record reviewed: Other (Prior Visit) Discharge Plan Discharge Clinical Impression: Cervical spine pain, Pain in thoracic spine Patient Disposition: Home, Self-Care Instructions: Thoracic Pain (ED), Back Pain (ED), Acute Neck Pain (ED) Additional Instructions: You need to follow-up with work connection. Return to the ED immediately for any headache, dizziness, and nose bleed, clear liquid/ blood from ears, chest pain, shortness of breath, abdominal pain, altered mental status, rectal bleeding, vomiting blood, blood in urine, back pain, or any other concerning symptoms. Prescriptions: New naproxen 500 mg tablet 500 mg PO BID PRN (Reason: pain) 7 Days Qty: 14 0RF No Action naproxen 500 mg tablet 500 mg PO BID PRN (Reason: pain) Qty: 20 0RF amoxicillin 500 mg capsule 1,000 mg PO TID 7 Days Qty: 42 0RF azithromycin 250 mg tablet 250 mg PO DAILY 4 Days Qty: 4 0RF Rx Instructions: start on day 2 of therapy cholecalciferol (vitamin D3) 50 mcg (2,000 unit) capsule 50 mcg PO DAILY Referrals: Work Connection [Outside] (posterior neck pain thoraic knee pain due to incident at work) Stand Alone Forms: Work/School Release Interventions: ED Discharge Assessment Last Done: 01/15/23 19:09 Discharge Date/Time: 01/15/23 19:10 Print Language: Hebrew
--- OUTSIDE RECORDS SUMMARY | 2023-01-15 17:51 | XMS_ITS | Continuity of Care Document ---
Author Name Unknown Organization [facility] ter Address [address] [place] [id number]- Care Team Providers Care Tour Escort Name Role Phone Maximino Nickerson MD Primary Care Physician [phone] [facility] Date(s): 06/15/22 - 06/15/[address] [address]- Discharge Disposition: A-D/C Walkout Attending Physician: Not on Staff, Attending MD Admitting Physician: Not on Staff, Admitting MD Referring Physician: Not on Staff, Referring MD Allergies, Adverse Reactions, Alerts No Known Allergies Medications Excedrin Migraine 2 tablet, By Mouth, Every 6 hours, 0 Refills, Maintenance, 07/07/16 19:30:39 Start Date: 07/07/16 Status: Ordered Tylenol Cold & Flu Severe oral tablet 2 tablet, By Mouth, Every 4 hours, 0 Refills, Maintenance, 07/07/16 19:31:17 Start Date: 07/07/16 Status: Ordered Vital Signs Most recent to oldest [Reference Range]: 1 Oxygen Saturation [94-100 %] 100 % (06/15/22 11:00 AM) Pulse Rate [55-90 bpm] 62 bpm (06/15/22 11:00 AM) Mode of Delivery (Oxygen) Room air (06/15/22 11:00 AM) Social History Social History Type Response Smoking Status Current every day hua geoff entered on: 07/07/16 Sex Patient Care team information Care Team Personnel Name: Maximino Nickerson MD Position: S General Pediatrics MD Member Role: PCP Address: Address: [address] [place] [address] [facility] [place], [place] [address]
[2023-01-15] MEDS: Acetaminophen 325 MG TABLET 975 MG PO (18:44)
== END 2023-01-15 19:10 | disposition home or self-care (01) ==
PROVIDERS: Emergency Provider Emergency Medicine; PCP Registered Nurse
DX: Z04.2 Encounter for examination and observation following work accident (principal); M54.2 Cervicalgia; M54.6 Pain in thoracic spine
CPT/HCPCS: 72040; 72072; 99283

== ENCOUNTER 2023-01-17 15:13 | Outpatient (REF) | payer OTHER, BC, SELFPAY ==
--- NOTE | ~2023-01-17 | MR_ITS ---
EXAMINATION: MR BRAIN WITHOUT AND WITH CONTRAST CLINICAL INFORMATION: Worsening migraines. COMPARISON: Head CT dated 03/23/2020. TECHNIQUE: Multiplanar, multisequence imaging of the brain was performed before and after the intravenous administration of 8 mL of Gadavist. FINDINGS: No diffusion abnormalities are identified to suggest an acute infarct. The ventricles are normal in size. No mass effect or midline shift is seen. No brain parenchymal signal abnormality is noted. No extra-axial fluid collections are seen. The brainstem is normal. There is no abnormal parenchymal or leptomeningeal enhancement. There is a prominent developmental venous anomaly in the left cerebellar hemisphere. The gradient refocused acquisition demonstrates no pathologic magnetic susceptibility artifact to indicate underlying acute or chronic blood products. The craniovertebral junction, marrow signal, and midline structures are normal. The major intracranial flow voids at the level of the [place] are preserved. The dural venous sinus flow voids are maintained. The mastoid air cells and paranasal sinuses are well aerated. MR/MR head/brain wo/w con IMPRESSION: Left cerebellar developmental venous anomaly. Otherwise, normal MRI of the brain. No acute process.
--- NOTE | ~2023-01-17 | XR_ITS ---
EXAMINATION: XR ORBITS CLINICAL INFORMATION: MRI screening. COMPARISON: 12/08/2022 TECHNIQUE: 4 views of the orbits were obtained. FINDINGS: No radiopaque foreign body is identified in the region of the orbits. XR/XR pre mri screening IMPRESSION: No radiopaque foreign body is identified in the region of the orbits.
[2023-01-17] MEDS: gadobutroL 10 ML VIAL IVPUSH (17:21)
== END 2023-01-17 15:14 | disposition home or self-care (01) ==
LOC: HO.MRI 15:13
PROVIDERS: PCP Registered Nurse; Visit Provider Internal Medicine
DX: G43.109 Migraine with aura, not intractable, without status migrainosus (principal); H57.13 Ocular pain, bilateral
CPT/HCPCS: 70553; A9585

== ENCOUNTER 2023-04-09 14:22 | Emergency (ER) | payer BC, SELFPAY ==
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
--- NOTE | ~2023-04-09 | CT_ITS ---
EXAMINATION: CT ABDOMEN AND PELVIS WITH CONTRAST CLINICAL INFORMATION: No urination severe lower abdominal pain after trauma COMPARISON: Scrotal ultrasound 04/09/2023, CT abdomen pelvis 08/06/2019 TECHNIQUE: Multidetector volumetric images were obtained from the superior aspect of the liver through the pubic symphysis following administration 85 mL of Omnipaque 350 intravenous contrast. Sagittal and coronal reformatted images were obtained on the technologist's workstation. Oral contrast: No This CT examination was performed using dose optimization techniques as appropriate, variously including the following: *Automated exposure control *Adjustment of mA and/or kV according to patient size (this includes techniques or standardized protocols for targeted exams where dose is matched to indication/reason for exam; i.e. extremities or head) *Use of iterative reconstruction technique DLP: 465 mGy-cm FINDINGS: LUNG BASES: The visualized lung bases are unremarkable. Subpleural triangular nodular in the left lower lobe most likely an intrapulmonary lymph node (4:9). LIVER, GALLBLADDER, AND BILIARY TREE: The liver is normal in size, shape, and attenuation. No focal hepatic lesion or biliary ductal dilatation is present. The gallbladder is contracted but otherwise unremarkable with no evidence of radiopaque gallstones, gallbladder wall thickening, or obvious pericholecystic inflammatory changes. PANCREAS: Unremarkable. SPLEEN: Unremarkable. ADRENAL GLANDS: Unremarkable. KIDNEYS AND URETERS: The kidneys are normal in size, shape, and attenuation. No hydronephrosis, hydroureter, or calculi seen. No perinephric stranding. BLADDER: The bladder appears normal and is not optimally distended. No calculi, masses or hematomas. GASTROINTESTINAL TRACT: The small and large bowel are unremarkable. The appendix is unremarkable. ABDOMINAL WALL: No significant hernia is appreciated. LYMPH NODES: No retroperitoneal lymphadenopathy. VASCULAR: Unremarkable. PELVIC VISCERA: The prostate and seminal vesicles are unremarkable. No ascites is present OSSEOUS STRUCTURES: Unremarkable. There is minimal anterior wedging of T11, most likely chronic CT/CT abdomen pelvis w IV con IMPRESSION: 1. A cause for the patient's lower abdominal pain has not been found. 2. Incidental note made of a contracted gallbladder, minimal anterior wedging of T11, and a probable intrapulmonary lymph node in the left lower lobe. Fleischner guidelines do not apply to patients under 35 years of age.
[2023-04-09 14:27] VITALS: BP 134/78; PULSE 92; RESP 19; TEMP 36.6; O2SAT 99; BMI 25.8
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
[2023-04-09] MEDS: 0.9 % Sodium Chloride 1,000 ML 999 ML IV (15:24)
[2023-04-09 15:26] LABS: MANUAL DIFF FLAG NO
[2023-04-09 15:27] LABS: Basophils Absolute Auto 0.1 X10*3/uL (0.0-0.2); Basophils Percent Auto 0.6 % (0-2); Eosinophils Absolute Auto 0.1 X10*3/uL (0.0-0.4); Hematocrit 39.2 % (42.0-52.0); Hemoglobin 12.9 g/dl (14.0-18.0); Imm Gran Abs Auto 0.02 X10*3/uL (0.00-0.03); Imm Gran Pct Auto 0.2 % (0.0-0.4); Lymphocytes Absolute Auto 1.8 X10*3/uL (1.2-4.9); Lymphocytes Percent Auto 19.7 % (20-40); Mean Corpuscular HGB Conc 32.9 g/dl (31.0-36.0); Mean Corpuscular Hemoglobin 30.4 pg (27.0-33.0); Mean Corpuscular Volume 92.5 fL (80.0-98.0); Mean Platelet Volume 10.1 fL (9.4-12.4); Monocytes Absolute Auto 0.8 X10*3/uL (0.1-1.2); Monocytes Percent Auto 9.1 % (2-11); Neutrophils Absolute Auto 6.2 x10*3/uL (2.0-8.3); Neutrophils Percent Auto 69.4 % (45-73); Platelet Count 249 X10*3/uL (160-400); Red Blood Count 4.24 X10*6/uL (4.60-5.80); Red Cell Distribution Width 12.2 % (11.0-16.0)
[2023-04-09] MEDS: Ketorolac Tromethamine 15 MG/ML VIAL IVPUSH (15:27)
[2023-04-09 15:45] LABS: Alanine Aminotransferase 33 U/L (0-40); Albumin Level 4.3 g/dL (3.5-5.0); Alkaline Phosphatase 46 U/L (39-117); Anion Gap 10 (12-20); Aspartate Amino Transferase 30 U/L (5-37); Bilirubin Direct 0.2 mg/dL (0.0-0.5); Bilirubin Total 0.6 mg/dL (0.0-1.0); Blood Urea Nitrogen 15 mg/dL (9-16); Calcium 9.1 mg/dL (8.4-10.2); Carbon Dioxide 31 mmol/L (22-29); Chloride 106 mmol/L (96-108); Creatinine Clr Calc Pharmacy 103.6; Estimated Glomerular Filt Rate > 60; Glucose Random 60 mg/dL (60-115); Lipase 31 U/L (8-78); Magnesium 1.9 mg/dL (1.6-2.6); Potassium 3.9 mmol/L (3.3-5.1); Sodium 143 mmol/L (135-145); Total Protein 6.9 g/dL (6.5-8.0)
[2023-04-09] MEDS: iohexoL 350 MG/ML 100 ML INFUS..BTL IV (17:25)
[2023-04-09 20:10] LABS: Appearance Urine Clear; Color Urine Yellow; Glucose Urine UA Negative (Negative); Leukocyte Esterase Urine Negative (Negative); Nitrite Urine Negative (Negative); PH 6.5 (5.0-9.0); Specific Gravity - Urine >= 1.030 (1.005-1.025); Urine Blood Negative (Negative); Urine Ketones Negative (Negative); Urine Protein Negative (Neg-Trace)
[2023-04-10 02:54] LABS: CT PCR NOT DETECTED (Not Detect.); NG PCR NOT DETECTED (Not Detect.)
== END 2023-04-09 20:18 | disposition home or self-care (01) ==
PROVIDERS: Emergency Medicine; Physician Assistant Medical; Emergency Provider Emergency Medicine Emergency Medical Services; PCP Registered Nurse
DX: R10.30 Lower abdominal pain, unspecified (principal); R10.2 Pelvic and perineal pain
CPT/HCPCS: 0353U; 36415; 74177; 76870; 80048; 80076; 81003; 83690; 83735; 85025; 93975; 96361; 96374; 99283; 99284; J1885; Q9967

== ENCOUNTER 2023-05-10 06:30 | Outpatient (REF) | payer BC, SELFPAY | END 2023-05-10 06:31 | disposition home or self-care (01) | LOC: HO.HOSX 06:30 | PROVIDERS: Visit Provider Physician Assistant | DX: Z13.89 Encounter for screening for other disorder (principal) ==

== ENCOUNTER 2023-06-19 14:50 | Outpatient (REF) | payer BC, SELFPAY ==
[2023-06-19 15:59] LABS: MANUAL DIFF FLAG NO
[2023-06-19 16:06] LABS: Basophils Absolute Auto 0.1 X10*3/uL (0.0-0.2); Basophils Percent Auto 0.9 % (0-2); Eosinophils Absolute Auto 0.1 X10*3/uL (0.0-0.4); Eosinophils Percent Auto 0.8 % (0-4); Hematocrit 41.3 % (42.0-52.0); Imm Gran Abs Auto 0.01 X10*3/uL (0.00-0.03); Imm Gran Pct Auto 0.2 % (0.0-0.4); Lymphocytes Absolute Auto 2.1 X10*3/uL (1.2-4.9); Lymphocytes Percent Auto 32.6 % (20-40); Mean Corpuscular HGB Conc 33.9 g/dl (31.0-36.0); Mean Corpuscular Hemoglobin 30.2 pg (27.0-33.0); Mean Corpuscular Volume 89.2 fL (80.0-98.0); Mean Platelet Volume 10.5 fL (9.4-12.4); Monocytes Absolute Auto 0.5 X10*3/uL (0.1-1.2); Monocytes Percent Auto 7.2 % (2-11); Neutrophils Absolute Auto 3.7 x10*3/uL (2.0-8.3); Neutrophils Percent Auto 58.3 % (45-73); Platelet Count 269 X10*3/uL (160-400); Red Blood Count 4.63 X10*6/uL (4.60-5.80); Red Cell Distribution Width 11.9 % (11.0-16.0); White Blood Count 6.4 X10*3/uL (4.8-10.8)
[2023-06-19 16:36] LABS: Alanine Aminotransferase 23 U/L (0-40); Albumin Level 4.8 g/dL (3.5-5.0); Alkaline Phosphatase 42 U/L (39-117); Anion Gap 14 (12-20); Aspartate Amino Transferase 21 U/L (5-37); Blood Urea Nitrogen 13 mg/dL (9-16); Calcium 10.1 mg/dL (8.4-10.2); Carbon Dioxide 27 mmol/L (22-29); Chloride 102 mmol/L (96-108); Estimated Glomerular Filt Rate > 60; Glucose Random 72 mg/dL (60-115); Sodium 139 mmol/L (135-145); Total Protein 7.7 g/dL (6.5-8.0)
== END 2023-06-19 14:51 | disposition home or self-care (01) ==
LOC: HO.HHCL 14:50
PROVIDERS: Visit Provider Registered Nurse
DX: R10.9 Unspecified abdominal pain (principal); G89.29 Other chronic pain
CPT/HCPCS: 36415; 80053; 85025

== ENCOUNTER 2023-07-24 16:00 | Outpatient (RCR) | payer BC, SELFPAY | END 2023-08-03 09:07 | disposition home or self-care (01) | LOC: HO.PT 16:00 | PROVIDERS: PCP Registered Nurse; Visit Provider Registered Nurse | DX: M23.51 Chronic instability of knee, right knee (principal) | CPT/HCPCS: 97110; 97112; 97140; 97162; 97535 ==

== ENCOUNTER 2023-07-28 12:12 | Emergency (ER) | payer BC, SELFPAY ==
--- NOTE | ~2023-07-28 | CT_ITS ---
EXAMINATION: CT HEAD WITHOUT CONTRAST CLINICAL INFORMATION: Altered mental status COMPARISON: CT head 03/23/2020. Correlation MRI 01/17/2023 TECHNIQUE: Contiguous axial imaging was performed from the skull base to vertex without intravenous administration of contrast. This CT examination was performed using dose optimization techniques as appropriate, variously including the following: *Automated exposure control *Adjustment of mA and/or kV according to patient size (this includes techniques or standardized protocols for targeted exams where dose is matched to indication/reason for exam; i.e. extremities or head) *Use of iterative reconstruction technique DLP: 633 mGy-cm FINDINGS: There is no evidence of acute intracranial hemorrhage or edematous territorial infarction. No abnormal mass effect or midline shift is seen. Ramos to white matter differentiation is well preserved. No abnormal extra-axial fluid collections are identified. The ventricles are normal in size. No abnormal attenuation in the brain parenchyma. No acute calvarial fracture.. Left maxillary sinus mucosal thickening and fluid level. Right maxillary sinus mucosal thickening/mucocele. Remainder of the paranasal sinuses and mastoid air cells are well-aerated. CT/CT head/brain wo IV con IMPRESSION: No CT evidence of acute intracranial hemorrhage or edematous large vessel territorial infarction. Left maxillary sinus mucosal thickening and effusion.
[2023-07-28 12:14] VITALS: BP 145/71; PULSE 93; RESP 19; TEMP 36.6; O2SAT 99; BMI 25.1
--- NOTE | 2023-07-28 12:15 | ED.GENADULT ---
HPI - General Adult General Chief complaint: Headache Stated complaint: Migraine 3 days Time Seen by Provider: 07/28/23 12:53 Source: patient and family (Mother) Mode of arrival: ambulatory Limitations: no limitations History of Present Illness ED Provider: DR. Jones HPI narrative: 33-year-old male came in for evaluation of headache, sore throat, photophobia, nausea, and vomiting. Patient with history of migraine most of his life, presented with severe headache for the past 3 days, patient also complaining of sore throat, complaining of neck pain patient has chronic neck pain that he sees chiropractor for, nausea and vomiting. No other sick contacts, no recent travel. Related Data Home Medications ?Medication ?Instructions ?Recorded ?Confirmed cholecalciferol (vitamin D3) 50 50 mcg PO DAILY 04/18/21 04/18/21 mcg (2,000 unit) capsule Previous Rx's ?Medication ?Instructions ?Recorded naproxen 500 mg tablet 500 mg PO BID PRN pain #20 tabs 11/14/20 amoxicillin 500 mg capsule 1,000 mg (2 x 500 mg) PO TID 7 06/15/22 days #42 caps azithromycin 250 mg tablet 250 mg PO DAILY 4 days #4 tabs 06/15/22 naproxen 500 mg tablet 500 mg PO BID PRN pain 7 days #14 01/15/23 tabs ibuprofen 400 mg tablet 400 mg PO TID PRN fever or pain 04/09/23 #30 tabs morphine 15 mg immediate release 15 mg PO Q6H PRN pain #10 tabs 04/09/23 tablet ondansetron 4 mg disintegrating 4 mg PO Q6-8H PRN nausea and 04/09/23 tablet vomiting #14 tabs amoxicillin 875 mg-potassium 1 tab PO BID #14 tabs 07/28/23 clavulanate 125 mg tablet Allergies Allergy/AdvReac Type Severity Reaction Status Date / Time No Known Allergies Allergy Verified 07/28/23 12:16 Review of Systems Review of Systems: All other systems are reviewed and are negative Constitutional: Reports as per HPI and Reports no additional constitutional complaints Eyes: Reports as per HPI and Reports no additional eye complaints Reports system reviewed and no additional complaints, except as documented Cardiovascular: Reports as per HPI and Reports no additional cardiovascular complaints Respiratory: Reports as per HPI and Reports no additional respiratory complaints Gastrointestinal: Reports as per HPI and Reports no additional gastrointestinal complaints Genitourinary: Reports no additional female genitourinary complaints Musculoskeletal: Reports no additional musculoskeletal complaints Skin/Breast: Reports system reviewed and no additional complaints, except as docu Psychiatric: Reports no additional psychiatric complaints Endocrine: Reports no additional endocrine complaints Hematologic/Lymphatic: Reports no additional hematologic/lymphatic complaints Allergic/Immunologic: Reports no additional allergic/immunologic complaints Reports system reviewed and no additional complaints, except as documented and Reports Abnormal speech present [facility] Past Medical History Medical History WPW (Whgcc-Yoktgfsjy-Arsjg syndrome) Post-operative nausea and vomiting Back pain Anemia Lab test negative for COVID-19 virus Depression Hx of motion sickness Murmur Surgical History History of tonsillectomy H/O wisdom tooth extraction Family History Family History Maternal Grandfather No problems noted. Maternal Grandmother No problems noted. Social History Social History Alcohol intake: unknown Patient Tobacco Use Status: Current everyday Tobacco user Advance Directives: No Advance Directives Information Provided: No Current occupational status: unemployed Current occupation: rght handed Physical Exam ED Vital Signs: Vital Signs - 24 hr 07/28/23 12:14 07/28/23 14:03 Temperature 98 F Pulse Rate 93 90 Respiratory Rate 19 14 Blood Pressure 145/71 H 142/79 H Pulse Oximetry 99 99 Oxygen Delivery Method Room Air BMI result Body Mass Index 25.1 Vital signs have been reviewed and appear to be correct. Blood pressure elevated. Heart rate normal. Respiratory rate normal. Temperature normal. Oxygen saturation normal. Appearance: Alert. Oriented X3. No acute distress. Head: Normal external exam. Normocephalic. Atraumatic. No Hodgson signs noted. No raccoon eyes noted Eyes: PERRLA. EOMI. Conjunctiva and sclera normal. Eyelids normal. ENT: TM's Normal. Pharyngeal erythema, with white exudate, no abscess. Uvula midline. Moist mucous membranes. No trismus noted. No drooling noted. No muffled voice noted. Neck: Normal inspection. Neck supple. FROM. No adenopathy. Thyroid Normal. No meningeal signs. No neck mass noted. CVS: Normal heart rate and rhythm. Heart sound normal. No murmurs noted. Pulses normal throughout. Respiratory: No respiratory distress. Painless inspiration. Breath sounds normal. No wheezes/rales/rhonchi noted. Chest nontender. No accessory muscle usage noted or decreased air movement noted. Abdomen: Soft and nontender. Bowel sounds normal in all 4 quadrants. No distention noted. No organomegaly noted. No visible injury noted. Back: No CVA tenderness. Full range of motion noted. Skin: Skin warm and dry. Normal skin color. Normal skin turgor. No rashes/lesions/lacerations noted. Extremities: No lower extremity edema. Extremities exhibit normal range of motion. Extremities nontender. Neuro: Oriented X 3. Cranial nerve exam: II-XII are grossly intact No motor deficit. No sensory deficit. Reflexes normal. Course Course Course Narrative: This is a rapid medical exam performed by Nadeem Boo NP: Additional HPI, ROS, PE not included below will be deferred to primary provider. Patient is a 33-year-old male with history of WPW, migraines presenting to the ED with complaint of headache, sore throat, subjective fevers for past 3 days. VS WNL in triage. Plan: strep and viral swabs Reevaluation(s) Reevaluation #1: 33-year-old male with chronic history of migraine came in with 3 days' history of severe headache and acute on chronic neck pain with photophobia. Patient also tested positive for strep pharyngitis. No significant improvement after was given IV fluids with Benadryl and Zofran. Therefore lumbar puncture was considered I explained to the patient risks can benefit of performing the lumbar puncture, patient initially agreed and signed a consent, patient was prepared for the procedure in the setting position, after the area sterilely cleaned and draped lidocaine was given in his pace, while lumbar puncture needle going through his back patient got diaphoretic and very nervous had left leg numbness patient asked to stop the procedure immediately and unsafe least started to move, I removed the lumbar needle from the patient's back and stop the procedure. Patient was laid on his back, tried to discuss with the patient the importance of doing the procedure to rule out meningitis which could be a life-threatening condition patient adamantly refused the procedure. Patient had a detailed intact neurological exam after the attempted procedure. Patient's headache feels better, able to look at the light now, no neurological deficit, patient was instructed to return if any worsening of his symptoms including fever, chills, photophobia, neck stiffness. Will discharge the patient on Augmentin for strep pharyngitis. Time: 16:03 Medications Administered Discontinued Medications Generic Name Dose Route Start Last Admin Trade Name Kel PRN Reason Stop Dose Admin Amoxicillin/Clavulanate Potassium 875 mg 07/28/23 13:12 07/28/23 13:34 Amoxicillin/Potassium Clav 875 Mg Tablet PO 07/28/23 13:13 875 mg ONCE ONE Administration Diphenhydramine HCl 50 mg 07/28/23 13:12 07/28/23 13:35 Diphenhydramine Hcl 50 Mg/Ml Vial IVPUSH 07/28/23 13:13 50 mg ONCE ONE Administration Sodium Chloride 1,000 mls @ 999 mls/hr 07/28/23 13:12 07/28/23 13:35 Ns IV 07/28/23 14:12 999 mls/hr .Q1H1M ONE Administration Morphine Sulfate 1 mg 07/28/23 14:30 07/28/23 14:46 Morphine Sulfate 2 Mg/Ml Cartridge IVPUSH 07/28/23 14:31 1 mg ONCE ONE Administration Protocol Ondansetron HCl 4 mg 07/28/23 13:12 07/28/23 13:34 Ondansetron Hcl 4 Mg/2 Ml Vial IVPUSH 07/28/23 13:13 4 mg ONCE ONE Administration Procedures Lumbar Puncture Time Out Performed: Yes Patient Position: upright Skin Prep: Povidone-Iodine 1% Local Anesthetic: lidocaine 2% Amount of anesthesia used (mL): 5 Spinal Needle Gauge: 20G Interspace Used: L4-L5 Complications: other (Patient develop vasovagal reaction and became diaphoretic and anxious asked to stop the procedure and procedure was not completed.) Medical Decision Making Differential Diagnosis Differential Diagnoses: The differential diagnosis associated with the presentation includes (Strep pharyngitis, migraine, viral infection, tension headache, intracranial bleed, meningitis.) Admission/Observation Consideration of admission/observation: Escalation of care including admission/observation considered Lab Data MDM Lab Attestation statement: I reviewed the patient's lab results. Labs: Lab Results 07/28/23 Range/Units 12:23 Influenza Type A (PCR) NEGATIVE (Negative) Influenza Type B (PCR) NEGATIVE (Negative) RSV RNA Qual (PCR) NEGATIVE (Negative) SARS-CoV-2 RNA (RT-PCR) NEGATIVE (Negative) S. pyogenes GrpA SRINIVASA Positive A (Negative) Independent Interpretation I performed an independent interpretation of an: CT Scan (Head:No CT evidence of acute intracranial hemorrhage or edematous large vessel territorial infarction. Left maxillary sinus mucosal thickening and effusion.) Radiology Impression Discussion of test interpretation with radiology: I have reviewed the radiologist's reading. Discharge Plan Discharge Clinical Impression: Acute streptococcal pharyngitis, Headache Patient Disposition: Home, Self-Care Instructions: Strep Throat (ED), Acute Headache (ED) Prescriptions: New amoxicillin-pot clavulanate 875-125 mg tablet 1 tab PO BID Qty: 14 0RF No Action naproxen 500 mg tablet 500 mg PO BID PRN (Reason: pain) Qty: 20 0RF naproxen 500 mg tablet 500 mg PO BID PRN (Reason: pain) 7 Days Qty: 14 0RF amoxicillin 500 mg capsule 1,000 mg PO TID 7 Days Qty: 42 0RF azithromycin 250 mg tablet 250 mg PO DAILY 4 Days Qty: 4 0RF Rx Instructions: start on day 2 of therapy ibuprofen 400 mg tablet 400 mg PO TID PRN (Reason: fever or pain) Qty: 30 0RF morphine 15 mg tablet 15 mg PO Q6H PRN (Reason: pain) Qty: 10 0RF Rx Instructions: The patient may ask for partial fill; Partial Fill upon patient request. ondansetron 4 mg tablet,disintegrating 4 mg PO Q6-8H PRN (Reason: nausea and vomiting) Qty: 14 0RF cholecalciferol (vitamin D3) 50 mcg (2,000 unit) capsule 50 mcg PO DAILY Referrals: Cara Schuler, MANUFACTURE SPECIALIST [Primary Care Provider] - Print Language: Estonian
[2023-07-28 12:49] LABS: IDNOW Serial# 08D9AD1C; Strep A Nucleic Acid Positive (Negative)
[2023-07-28 13:22] LABS: Influenza A PCR NEGATIVE (Negative); Influenza B PCR NEGATIVE (Negative); Resp Syncy Virus RNA Qual PCR NEGATIVE (Negative); SARS COV2 PCR INHOUSE NEGATIVE (Negative)
[2023-07-28] MEDS: ondansetron HCL 4 MG/2 ML VIAL IVPUSH (13:34)
[2023-07-28] MEDS: Amoxicillin/Potassium Clav 875 MG TABLET PO (13:34)
[2023-07-28] MEDS: 0.9 % Sodium Chloride 1,000 ML 999 ML IV (13:35)
[2023-07-28] MEDS: diphenhydrAMINE HCL 50 MG/ML VIAL IVPUSH (13:35)
[2023-07-28 14:03] VITALS: BP 142/79; PULSE 90; RESP 14; O2SAT 99
[2023-07-28] MEDS: Morphine Sulfate 2 MG/ML CARTRIDGE 1 MG IVPUSH (14:46)
[2023-07-28 17:11] VITALS: BP 115/46; PULSE 76; RESP 16; TEMP 37; O2SAT 98
--- OUTSIDE RECORDS SUMMARY | 2023-08-02 07:09 | XMS_ITS | Continuity of Care Document ---
Author Organization [facility] Address [address] [place] [address]- Care Team Providers Care Employee Placement Specialist Name Role Phone GangaCara whyte NP Primary Care Physician Encounter [facility] Date(s): 01/22/23 - 02/21/23 [facility] [address] [place] [address]- Attending Physician: Pham Arevalo Admitting Physician: Pham Arevalo Referring Physician: Pham Arevalo Allergies, Adverse Reactions, Alerts No Known Allergies Medications Excedrin Migraine 2 tablet, By Mouth, Every 6 hours, 0 Refills, Maintenance, 07/07/16 19:30:39 Start Date: 07/07/16 Status: Ordered Golytely - oral powder for reconstitution 4,000 mL, By Mouth, Once, until 4 liters are consumed or the rectal effluent is clear, # 4,000 mL, 0 Refills, Soft Stop, 01/22/23 9:09:00 EST, [facility]/pharmacy #[id number], Partial fill upon patient request ifthe prescription is for a schedule II opioid drug.,... Start Date: 01/22/23 Status: Ordered Tylenol Cold & Flu Severe oral tablet 2 tablet, By Mouth, Every 4 hours, 0 Refills, Maintenance, 07/07/16 19:31:17 Start Date: 07/07/16 Status: Ordered Social History Social History Type Response Smoking Status Former smoker, quit more than 30 days ago entered on: 01/22/23 Sex Patient Care team information Care Team Personnel Name: Cara Schuler NP Position: Reference Physician Member Role: PCP Address: Address: [address] [place] [address] [place] [address]- Care Team Related Persons Name: NICKI ALTMAN Address: home [address] [place] [address]
--- OUTSIDE RECORDS SUMMARY | 2023-08-02 07:09 | XMS_ITS | Continuity of Care Document ---
Author Organization [facility] Address [address] [place] [address]- Care Team Providers Care Hoe Runner Name Role Phone Cara Schuler NP Primary Care Physician Encounter [facility] ACCT R [id number] Date(s): 01/08/23 - 03/28/23 [facility] [address] [place] [address]- Attending Physician: Randall Sultana Referring Physician: Cara Schuler NP Allergies, Adverse Reactions, Alerts No Known Allergies Medications Excedrin Migraine 2 tablet, By Mouth, Every 6 hours, 0 Refills, Maintenance, 07/07/16 19:30:39 Start Date: 07/07/16 Status: Ordered Golytely - oral powder for reconstitution 4,000 mL, By Mouth, Once, until 4 liters are consumed or the rectal effluent is clear, # 4,000 mL, 0 Refills, Soft Stop, 01/22/23 9:09:00 EST, [facility]/pharmacy #[id number], Partial fill upon patient request ifthe [...] Reference Physician Member Role: PCP Address: Address: [address] [place] [address]- Care Team Related Persons Name: NICKI ALTMAN Address: home [address] [place] [address]
--- OUTSIDE RECORDS SUMMARY | 2023-08-02 07:09 | XMS_ITS | Continuity of Care Document ---
Author Organization [facility] Address [address] [place] [address]- Care Team Providers Care Electro Mechanical Designer Name Role Phone Cara Schuler NP Primary Care Physician Encounter [facility] ACCT R [id number] Date(s): 02/26/23 - 03/28/23 [facility] [address] [place] [address]- Attending Physician: Pham Arevalo Admitting Physician: Pham [...] 0 Refills, Soft Stop, 01/22/23 9:09:00 EST, [facility]/pharmacy #[id number], Partial fill upon patient request ifthe [...] Reference Physician Member Role: PCP Address: Address: [address] [place] [address] [place] [address]- Care Team Related Persons Name: NICKI ALTMAN Address: home [address] [place] [address]
== END 2023-07-28 17:12 | disposition home or self-care (01) ==
PROVIDERS: Registered Nurse Emergency; Emergency Provider Emergency Medicine; PCP Registered Nurse
DX: J02.0 Streptococcal pharyngitis (principal); R51.9 Headache, unspecified; Z03.818 Encounter for observation for suspected exposure to other biological agents ruled out; F17.210 Nicotine dependence, cigarettes, uncomplicated; F17.200 Nicotine dependence, unspecified, uncomplicated
CPT/HCPCS: 0241U; 70450; 87651; 96374; 96375; 99283; 99284; J1200; J2270; J2405

== ENCOUNTER 2023-07-30 01:02 | Emergency (ER) | payer BC, SELFPAY ==
[2023-07-30 01:11] VITALS: BP 132/69; PULSE 66; RESP 16; TEMP 36.4; O2SAT 100; BMI 25.4
--- NOTE | 2023-07-30 04:22 | ED_ITS ---
HPI - General Adult General Chief complaint: Extremity Problem Stated complaint: right leg numb after lumbar puncture Time Seen by Provider: 07/30/23 04:22 History of Present Illness ED Provider: Amanda DANIELLE narrative: The patient is a 33-year-old male with a history of migraine headaches. He was in the emergency room 2 days ago on July 27 with a migraine headache that was more severe than his usual migraines. During that visit he was also complaining of a sore throat and was found to be strep throat positive. Because of the severity was headache he had a head CT that showed no acute findings. Additionally there was an attempt at a spinal tap to help evaluate the headache. During the attempt at the spinal tap the patient experienced paresthesias down the right leg and the patient ultimately did not wish to proceed with the additional attempts at the spinal tap. The patient was ultimately discharged from the emergency room. The patient returns to the emergency room because he continues to have a sense of discomfort in the right leg and a sense of numbness and tingling in the foot. He feels he is limping when he walks. He is worried he will have permanent damage from the spinal tap. The patient is taking the antibiotics that were prescribed for his strep throat. His headache is not as bad today. Related Data Home Medications ?Medication ?Instructions ?Recorded ?Confirmed cholecalciferol (vitamin D3) 50 50 mcg PO DAILY 04/18/21 04/18/21 mcg (2,000 unit) capsule Previous Rx's ?Medication ?Instructions ?Recorded naproxen 500 mg tablet 500 mg PO BID PRN pain #20 tabs 11/14/20 amoxicillin 500 mg capsule 1,000 mg (2 x 500 mg) PO TID 7 06/15/22 days #42 caps azithromycin 250 mg tablet 250 mg PO DAILY 4 days #4 tabs 06/15/22 naproxen 500 mg tablet 500 mg PO BID PRN pain 7 days #14 01/15/23 tabs ibuprofen 400 mg tablet 400 mg PO TID PRN fever or pain 04/09/23 #30 tabs morphine 15 mg immediate release 15 mg PO Q6H PRN pain #10 tabs 04/09/23 tablet ondansetron 4 mg disintegrating 4 mg PO Q6-8H PRN nausea and 04/09/23 tablet vomiting #14 tabs amoxicillin 875 mg-potassium 1 tab PO BID #14 tabs 07/28/23 clavulanate 125 mg tablet Allergies Allergy/AdvReac Type Severity Reaction Status Date / Time No Known Allergies Allergy Verified 07/30/23 01:14 Review of Systems Review of Systems: Yes all other systems are reviewed and are negative [facility] Past Medical History Medical History WPW (Pbaer-Mojxacvcl-Opqbn syndrome) Post-operative nausea and vomiting Back pain Anemia Lab test negative for COVID-19 virus Depression Hx of motion sickness Murmur Surgical History History of tonsillectomy H/O wisdom tooth extraction Family History Family History Maternal Grandfather No problems noted. Maternal Grandmother No problems noted. Social History Social History Alcohol intake: unknown Patient Tobacco Use Status: Current everyday Tobacco user Advance Directives: No Advance Directives Information Provided: No Current occupational status: unemployed Current occupation: rght handed Physical Exam ED Vital Signs: Vital Signs - 24 hr 07/30/23 01:11 Temperature 97.6 F Pulse Rate 66 Respiratory Rate 16 Blood Pressure 132/69 Pulse Oximetry 100 Oxygen Delivery Method Room Air BMI result Body Mass Index 25.4 HENMT Other: The patient is awake and alert, pleasant and cooperative. He does not appear in acute distress. Eyes Other: Pupils are round equal, conjunctivae are clear Neck Other: The patient is moving his neck easily Resp Effort & Inspection: normal respiratory effort Back/Spine/Pelvis Other: The lower back is unremarkable to inspection. Skin Other: The skin is dry and unremarkable. Neuro Other: The patient is awake, alert, cooperative. Pupils are round equal, the face is symmetrical, speech is normal, he moves his extremities normally. He walks with a slight limp but has 5/5 strength in all 4 limbs. He has 1+ reflexes at the knees and the ankles. Reflexes are symmetrical. Toes go down bilaterally. He reports slightly altered sensation in the right leg compared to the left. Medical Decision Making Medical Decision Making MDM Narrative: The patient is a 33-year-old male who was in the emergency room a day and a half ago for a headache. As part of his headache evaluation he had a negative head CT which was being followed by a spinal tap. During the attempted the spinal tap the patient experienced shooting discomfort down his right leg and the procedure was ultimately abandoned. He continues to have symptoms in the right leg that concern him a great deal and so he came to the emergency room. On my exam the patient walks with a slight limp but overall has good strength in the right leg. His reflexes are symmetrical at the knees and the ankles. His toes go down bilaterally. He reports some slightly abnormal sensation in the right leg compared to the left. However overall he seems neurologically intact. I explained to the patient that I thought it was very unlikely that the attempt at the spinal tap would result in any kind of permanent damage. I explained that I thought his symptoms would be likely to resolve on their own over the next several days. The patient will be given a work note so he can rest over the next couple of days. He remains concerned about these symptoms and so he will be given the contact information for the neurology office. He has a primary care doctor at the [facility]. Discharge Plan Discharge Clinical Impression: Paresthesia of right leg, Migraine headache Patient Disposition: Home, Self-Care Additional Instructions: I believe that the symptoms you are experiencing after the spinal tap yesterday will not be long-term. I anticipate that these symptoms should get better after a few days. Please rest and take it easy over the next couple of days. I have provided the name and number of the neurology office. Please contact the office in the morning to try to make a follow up appointment to discuss your symptoms further. Return to the emergency room if significantly worse. Prescriptions: No Action naproxen 500 mg tablet 500 mg PO BID PRN (Reason: pain) Qty: 20 0RF naproxen 500 mg tablet 500 mg PO BID PRN (Reason: pain) 7 Days Qty: 14 0RF amoxicillin 500 mg capsule 1,000 mg PO TID 7 Days Qty: 42 0RF azithromycin 250 mg tablet 250 mg PO DAILY 4 Days Qty: 4 0RF Rx Instructions: start on day 2 of therapy ibuprofen 400 mg tablet 400 mg PO TID PRN (Reason: fever or pain) Qty: 30 0RF morphine 15 mg tablet 15 mg PO Q6H PRN (Reason: pain) Qty: 10 0RF Rx Instructions: The patient may ask for partial fill; Partial Fill upon patient request. ondansetron 4 mg tablet,disintegrating 4 mg PO Q6-8H PRN (Reason: nausea and vomiting) Qty: 14 0RF amoxicillin-pot clavulanate 875-125 mg tablet 1 tab PO BID Qty: 14 0RF cholecalciferol (vitamin D3) 50 mcg (2,000 unit) capsule 50 mcg PO DAILY Referrals: Carmen Gaines MD [Physician] - (Post LP right leg paresthesias, migraine headache) Cara Scuhler FNP [Primary Care Provider] - (migraine headaches) Stand Alone Forms: Work/School Release Print Language: Icelandic
[2023-07-30 04:56] VITALS: BP 122/76; PULSE 83; RESP 16; TEMP 36.6; O2SAT 99
== END 2023-07-30 04:57 | disposition home or self-care (01) ==
PROVIDERS: Emergency Provider Emergency Medicine; PCP Registered Nurse
DX: R20.2 Paresthesia of skin (principal); G43.909 Migraine, unspecified, not intractable, without status migrainosus; M79.604 Pain in right leg; F17.200 Nicotine dependence, unspecified, uncomplicated; Z79.899 Other long term (current) drug therapy
CPT/HCPCS: 99282; 99284

== ENCOUNTER 2023-08-28 08:18 | Outpatient (REF) | payer BC, SELFPAY ==
--- NOTE | 2023-08-28 08:20 | EMG_ITS ---
Right tibial and peroneal motor studies were performed. Right superficial peroneal, sural, and median and lateral mixed plantar sensory studies were performed. Tibial H-reflex was obtained and muscle examination was done with a needle. IMPRESSION: Mild sensory and motor peripheral neuropathy with no evidence of radiculopathy. MD SILVERIO Stauffer/MONIQUE / [id number]
== END 2023-08-28 08:19 | disposition home or self-care (01) ==
LOC: HO.NEURO 08:18
PROVIDERS: PCP Registered Nurse; Visit Provider Registered Nurse
DX: R29.898 Other symptoms and signs involving the musculoskeletal system (principal)
CPT/HCPCS: 95886; 95910

== ENCOUNTER 2023-10-24 12:24 | Outpatient (REF) | payer BC, SELFPAY ==
[2023-10-24 14:33] LABS: Vitamin B12 790 pg/mL (200-900)
[2023-10-25 19:03] LABS: Lyme Abs Screen <0.90 index
== END 2023-10-24 12:25 | disposition home or self-care (01) ==
LOC: HO.LAB 12:24
PROVIDERS: PCP Registered Nurse; Visit Provider Psychiatry & Neurology Neurology
DX: G62.9 Polyneuropathy, unspecified (principal)
CPT/HCPCS: 82607; 82746; 86617; 86618

== ENCOUNTER 2023-11-04 07:45 | Emergency (ER) | payer BC, SELFPAY ==
[2023-11-04 07:59] VITALS: BP 111/51; PULSE 65; RESP 18; TEMP 36.4; O2SAT 99; BMI 26.8
--- NOTE | 2023-11-04 09:07 | ED_ITS ---
HPI - General Adult General Chief complaint: Back Pain/Injury Stated complaint: back/shoulder/neck pain Time Seen by Provider: 11/04/23 09:03 Source: patient Mode of arrival: ambulatory Limitations: no limitations History of Present Illness ED Provider: anastasiya DANIELLE narrative: Patient is a 33-year-old male with history of WPW, chronic back pain, depression presenting to the ED with complaint of upper back and neck pain since last night. Denies fall or other trauma. Was lifting weights at the gym but did only biceps/triceps. Denies radiation of pain down his arms. Denies numbness o r tingling to extremities. Pain worse with movement. Did not take any OTC medications at home for his symptoms. MD complaint: neck and back pain Onset (ago): day(s) Location: neck and back Severity: severe Quality: aching Pain Consistency: constant Relieving factors: rest Exacerbating factors: movement Associated symptoms: denies other symptoms Treatments prior to arrival: none Related Data Home Medications ?Medication ?Instructions ?Recorded ?Confirmed cholecalciferol (vitamin D3) 50 50 mcg PO DAILY 04/18/21 04/18/21 mcg (2,000 unit) capsule Previous Rx's ?Medication ?Instructions ?Recorded naproxen 500 mg tablet 500 mg PO BID PRN pain #20 tabs 11/14/20 amoxicillin 500 mg capsule 1,000 mg (2 x 500 mg) PO TID 7 06/15/22 days #42 caps azithromycin 250 mg tablet 250 mg PO DAILY 4 days #4 tabs 06/15/22 naproxen 500 mg tablet 500 mg PO BID PRN pain 7 days #14 01/15/23 tabs ibuprofen 400 mg tablet 400 mg PO TID PRN fever or pain 04/09/23 #30 tabs morphine 15 mg immediate release 15 mg PO Q6H PRN pain #10 tabs 04/09/23 tablet ondansetron 4 mg disintegrating 4 mg PO Q6-8H PRN nausea and 04/09/23 tablet vomiting #14 tabs amoxicillin 875 mg-potassium 1 tab PO BID #14 tabs 07/28/23 clavulanate 125 mg tablet cyclobenzaprine 10 mg tablet 10 mg PO TID PRN muscle spasm #10 11/04/23 tabs lidocaine 5 % topical patch 1 patch topical DAILY #15 ea 09/29/24 Allergies Allergy/AdvReac Type Severity Reaction Status Date / Time No Known Allergies Allergy Verified 11/04/23 08:01 Review of Systems Review of Systems: As per HPI. Yes all other systems are reviewed and are negative Constitutional: Constitutional: Reports as per HPI [facility] Past Medical History Medical History WPW (Ebhto-Ebkvwnouw-Mzreb syndrome) Post-operative nausea and vomiting Back pain Anemia Lab test negative for COVID-19 virus Depression Hx of motion sickness Murmur Surgical History History of tonsillectomy H/O wisdom tooth extraction Family History Family History Maternal Grandfather No problems noted. Maternal Grandmother No problems noted. Social History Social History Alcohol intake: former Patient Tobacco Use Status: Current everyday Tobacco user Advance Directives: No Advance Directives Information Provided: No Do you have a plan to hurt others: No Plan Current occupational status: unemployed Current occupation: rght handed Physical Exam ED Vital Signs: Vital Signs - 24 hr 11/04/23 07:59 Temperature 97.6 F Pulse Rate 65 Respiratory Rate 18 Blood Pressure 111/51 L Pulse Oximetry 99 Oxygen Delivery Method Room Air BMI result Body Mass Index 26.8 Vital signs have been reviewed and appear to be correct. Blood pressure normal. Heart rate normal. Respiratory rate normal. Temperature normal. Oxygen saturation normal. Const General: cooperative, healthy appearing and no acute distress Orientation/consciousness: oriented to person, oriented to place, oriented to time and patient oriented x3 Limitations: no limitations [facility] Head: Yes normocephalic and Yes atraumatic Ears: external ears normal General nose exam: Normal external nose present Face and sinus: Yes face symmetric Mouth: oropharynx normal and moist mucous membranes Throat: Yes uvula midline Eyes Pupils: Equal, round and reactive pupils present Neck Neck: Yes normal visual inspection, Yes full ROM, Yes no lymphadenopathy, Yes no meningeal signs, Yes trachea midline, Yes supple and No anterior neck swelling Resp Effort & Inspection: normal respiratory effort and able to speak in complete sentences Auscultation: clear to auscultation bilaterally Cardio Rate: regular rate Rhythm: regular rhythm Heart sounds: S1 normal heart sound present and S2 normal heart sound present GI Palpation (GI): Soft to palpation and nontender Auscultation: normoactive bowel sounds General: Yes no CVA tenderness Back/Spine/Pelvis Back: no CVA tenderness Cervical Spine: normal cervical lordosis, cervical ROM normal, cervical muscular tenderness (laterally bilat), No Cervical spine tenderness and No step off deformity Thoracic/Lumbar Spine: thoracic and lumbar spine normal to inspection, thoraco- lumbar ROM normal, pain with thoraco-lumbar ROM, paraspinal muscle tenderness bilaterally in the upper thoracic, No thoracic spinal tenderness and No lumbar spinal tenderness Skin General skin exam: elasticity normal and turgor normal Neuro General: oriented to person, oriented to place, oriented to time, patient oriented x3, gait normal, tone normal, moves all extremities, Normal light touch and pain sensation, no meningeal signs, no focal motor deficits, CN's II-XI intact bilaterally and deep tendon reflexes 2+ bilaterally Cranial nerves: Yes Equal, round and reactive pupils present Cognition (Neuro): normal cognition Motor exam (neuro): 5/5 motor strength present throughout, Normal motor muscle tone present throughout and Motor abnormalities not present Extrem General: Yes full ROM, Yes no pedal edema and Yes no calf tenderness Right upper extremity: shoulder/upper arm Details: normal ROM Left upper extremity: shoulder/upper arm Details: normal ROM Psych Mental Status: mental status grossly normal Affect: normal affect Thought process: Normal thought process present Medications Administered Discontinued Medications Generic Name Dose Route Start Last Admin Trade Name Freq PRN Reason Stop Dose Admin Cyclobenzaprine HCl 10 mg 11/04/23 09:37 11/04/23 09:48 Cyclobenzaprine Hcl 10 Mg Tablet PO 11/04/23 09:38 10 mg ONCE ONE Administration Ketorolac Tromethamine 30 mg 11/04/23 09:37 11/04/23 09:48 Ketorolac Tromethamine 30 Mg/Ml Vial IM 11/04/23 09:38 Not Given ONCE ONE Medical Decision Making Medical Decision Making MDM Narrative: Patient is a 33-year-old male with history of WPW, chronic back pain, depression presenting to the ED with complaint of upper back and neck pain since last night. On exam patient is awake, A+Ox3, VS WNL, afebrile, normal neurological exam without focal deficits, physical exam findings as above. Given reported symptoms and physical exam findings, initial differential includes muscle strain, cervical radiculopathy. Unlikely fracture/subluxation as patient denies trauma and is without midline tenderness. Patient stating that he feels the pain is in his spine, offered CT c-spine which patient refused. Recommended follow up with neurosurgery, rheumatology, and pain management. Patient states he has seen neurosurgery and rheumatology without answers regarding his chronic pain. Recommended follow up with pain management. Patient requesting MRI, advised no red flag findings on exam warranting MRI at this time in the ED. Advised patient to follow up with PCP. Patient agreeable to treatment with cyclobenzaprine and lidocaine patches at this time and will follow up with pain management. Return precautions discussed. Differential Diagnosis Differential Diagnoses: The differential diagnosis associated with the presentation includes As per [facility] External Record Review External record reviewed: Inpatient record, Office record and Outpatient record Prescription Management I considered prescription management with: Pain Medication and Other Discharge Plan Discharge Clinical Impression: Cervical muscle strain Patient Disposition: Home, Self-Care Instructions: Cervical Strain (DC) Additional Instructions: You were evaluated in the emergency department with complaint of neck and back pain. We recommend taking 600mg ibuprofen or 650mg Tylenol. If necessary, you can alternate these medications every three hours. For example, at noon take Tylenol, then at 3:00 take ibuprofen, then at 6:00 take Tylenol, etc. You are also being prescribed a muscle relaxer which you can use up to every 8 hours as needed. You are being prescribed topical lidocaine patches which you can wear for up to 12 hours in a 24 hour period. Do not apply heat directly over the patches. You should follow up with your primary care provider as you may require physical therapy to improve your symptoms. You are being referred to pain management as well, call their office to schedule an appointment. Return to the emergency department if you develop worsening neck pain or stiffness, new weakness, numbness, or tingling to your arm, fever, severe headaches, or any other concerning symptoms. Prescriptions: New cyclobenzaprine 10 mg tablet 10 mg PO TID PRN (Reason: muscle spasm) Qty: 10 0RF lidocaine 5 % adhesive patch,medicated 1 patch topical DAILY Qty: 15 0RF Rx Instructions: leave on most painful area for up to 12 hrs No Action naproxen 500 mg tablet 500 mg PO BID PRN (Reason: pain) Qty: 20 0RF naproxen 500 mg tablet 500 mg PO BID PRN (Reason: pain) 7 Days Qty: 14 0RF amoxicillin 500 mg capsule 1,000 mg PO TID 7 Days Qty: 42 0RF azithromycin 250 mg tablet 250 mg PO DAILY 4 Days Qty: 4 0RF Rx Instructions: start on day 2 of therapy ibuprofen 400 mg tablet 400 mg PO TID PRN (Reason: fever or pain) Qty: 30 0RF morphine 15 mg tablet 15 mg PO Q6H PRN (Reason: pain) Qty: 10 0RF Rx Instructions: The patient may ask for partial fill; Partial Fill upon patient request. ondansetron 4 mg tablet,disintegrating 4 mg PO Q6-8H PRN (Reason: nausea and vomiting) Qty: 14 0RF amoxicillin-pot clavulanate 875-125 mg tablet 1 tab PO BID Qty: 14 0RF cholecalciferol (vitamin D3) 50 mcg (2,000 unit) capsule 50 mcg PO DAILY Referrals: Marco Antonio Guerra MD [Physician] - Print Language: Upper Sorbian
[2023-11-04] MEDS: Cyclobenzaprine HCl 10 MG TABLET PO (09:48)
[2023-11-04 10:42] VITALS: BP 111/51; PULSE 65; RESP 18; TEMP 36.4; O2SAT 99
== END 2023-11-04 10:45 | disposition home or self-care (01) ==
PROVIDERS: Emergency Provider Emergency Medicine Emergency Medical Services; PCP Registered Nurse
DX: S16.1XXA Strain of muscle, fascia and tendon at neck level, initial encounter (principal); X50.0XXA Overexertion from strenuous movement or load, initial encounter; Y93.89 Activity, other specified; Y92.89 Other specified places as the place of occurrence of the external cause; Y99.8 Other external cause status
CPT/HCPCS: 96372; 99283; 99284

== ENCOUNTER 2023-11-25 18:27 | Outpatient (REF) | payer BC, SELFPAY ==
--- NOTE | ~2023-11-25 | MR_ITS ---
EXAMINATION: MR LUMBAR SPINE WITHOUT CONTRAST CLINICAL INFORMATION: Lumbar radicular symptoms. Had lumbar puncture 4 months prior, now complaining of low back pain, [id number] in the right greater than left lower extremities. COMPARISON: No prior available. TECHNIQUE: Multiplanar multisequence MR imaging of the lumbar spine was done without IV contrast. Examination was performed on a 1.5 Marina Siemens magnet, utilizing standard sequences. FINDINGS: CORONAL ALIGNMENT: -Normal. SAGITTAL ALIGNMENT: - Normal. LUMBOSACRAL JUNCTION: -Normal. There are 5 kek-wfw-pebwzin lumbar-type vertebral bodies. VERTEBRAL BODIES/BONE MARROW: -There is no compression deformity, or evidence of bone marrow edema or abnormal infiltrating bone marrow signal. -No endplate changes. -Normal marrow signal. DISCS: -Normal in height and signal throughout. SPINAL CANAL: -No abnormal developmental findings. CONUS MEDULLARIS: -Terminates at superior endplate of L2. Morphology and signal is normal. INTRADURAL NERVE ROOTS: - Normal in appearance. Normal distribution. No masses, clumping, or other abnormality. Axial Disc Space Images: T12-L1: No central canal or neural foraminal narrowing. Normal facets. L1-L2: No central canal or neural foraminal narrowing. Normal facets. L2-L3: No central canal or neural foraminal narrowing. Normal facets. L3-L4: Minimal physiologic disc bulging. There are subtle superimposed bilateral foraminal protrusions of disc material resulting in mild bilateral neural foraminal narrowing. No central canal narrowing. Normal facets. L4-L5: There is a shallow concentric bulging disc present, with annular fissuring in the left subarticular recess, minimally indenting upon the ventral thecal sac but not contacting nerve roots. Minimal hypertrophic facet degenerative changes. Findings result in minimal central canal narrowing, and mild to moderate bilateral neural foraminal narrowing. L5-S1: Shallow concentric bulging disc with a tiny central annular fissure, minimally extending into both foraminal zones. Mild facet degeneration bilaterally. Normal ligaments. No significant central canal narrowing. Mild to moderate bilateral neural foraminal narrowing. IMAGED SI JOINTS: -Minimal degenerative changes. PARAVERTEBRAL AND INCLUDED EXTRASPINAL SOFT TISSUES: -Normal in appearance. Aorta is normal in caliber. MR/MR lumbar spine wo con IMPRESSION: 1. No significant abnormal findings in the thecal sac related to lumbar puncture complication be identified. No evidence of CSF leak, nerve root clumping, or hemorrhage. There is no significant nerve root compression or central canal stenosis. 2. Mild to moderate neural foraminal stenosis bilaterally at L4-5 and L5-S1 due to shallow disc bulges coupled with mild hypertrophic facet changes. 3. No marrow signal abnormalities or alignment abnormalities. No significant disc degeneration noted. Electronically signed by: Lamine Altamirano MD 12/21/2023 11:16 AM ISAIAS
== END 2023-11-25 18:28 | disposition home or self-care (01) ==
LOC: HO.MRI 18:27
PROVIDERS: PCP Registered Nurse; Visit Provider Psychiatry & Neurology Neurology
DX: M54.16 Radiculopathy, lumbar region (principal)
CPT/HCPCS: 72148

== ENCOUNTER → 2023-11-25 18:41 | Outpatient (BNV) | payer BC, SELFPAY | PROVIDERS: PCP Registered Nurse; Visit Provider Radiology Diagnostic Radiology | DX: M54.16 Radiculopathy, lumbar region (principal) | CPT/HCPCS: 72148 ==

== ENCOUNTER 2023-12-07 14:02 | Outpatient (AMB) | payer BC, SELFPAY ==
[2023-12-07 14:13] VITALS: BP 134/63; PULSE 68; O2SAT 97; BMI 26.6
--- NOTE | 2023-12-07 14:13 | MHC.OFFVIS ---
Vital Signs 12/07/23 14:13 Height 5 ft 8 in Weight 175 lb BMI 26.6 BP 134/63 Blood Pressure Location Rt brachial Position Sitting Pulse 68 Pulse Source Pulse Oximeter Pulse Oximetry (%) 97 Oxygen Delivery Method Room Air Intake Visit Reasons: BACK/SHOULDER/NECK PAIN/ED REFERRA Allergies No Known Allergies Allergy (Verified 12/07/23 14:14) Medication List - Last Reconciled 12/07/23 by Jemima Sheridan azithromycin 250 mg PO DAILY 4 days cholecalciferol (vitamin D3) 50 mcg PO DAILY cyclobenzaprine 10 mg PO TID PRN ibuprofen 400 mg PO TID PRN lidocaine 5% 1 patch topical DAILY naproxen 500 mg PO BID PRN ondansetron 4 mg PO Q6-8H PRN HPI Comments Details: Neymar is a very pleasant 33-year-old male who presents the office today for evaluation management of his chronic pain. He has been suffering with this pain for approximately 7 years. He states it started after he went to [employer] for the . Courses bilateral neck tightness down into his shoulders. Suffers migraines, some of these he believes are related to this neck stiffness. He also endorses migraines that is settle around his left eye that occur a couple times a week He has attempted physical therapy multiple times over the years, most recently was less than 1 year ago and he continues to do the home exercise program without improvement of his symptoms Pain today is rated as a 6/10, constant throughout the day and night. He has tried muscle relaxers, Tylenol, nonsteroidal anti-inflammatory medications all without relief. Was recently given cyclobenzaprine in the emergency room states this provided him some relief but made him sleepy. Denies radiation of the pain down either arm Patient states he has been evaluated by Rheumatology, Neurology and physiatry in hopes of finding a diagnosis. He was told he as fibromyalgia by one doctor and soon told he does not have fibromyalgia by another doctor so he does not believe. In terms of muscle damage condition is described as aching, spasming, hot, burning, stabbing, sharp, shooting, dull, tingling, pins needles Past negatively impacting patient's enjoyment of life, general activity, mood, normal work, recreational activities, sleep Denies current use of anticoagulants Denies devices, pacemaker or defibrillator COUNT INCLUDES [facility] Medical History WPW (Ecbqj-Wdjynacdd-Ryjfy syndrome) Post-operative nausea and vomiting Back pain Anemia Lab test negative for COVID-19 virus Depression Hx of motion sickness Murmur Surgical History History of tonsillectomy H/O wisdom tooth extraction Family History Maternal Grandfather No problems noted. Maternal Grandmother No problems noted. Social History Alcohol intake: former Patient Tobacco Use Status: Current everyday Tobacco user Current occupational status: unemployed Current occupation: rght handed Review of Systems Const All systems reviewed & are unremarkable except as noted in HPI and below Physical Exam Vital Signs: Last Vital Signs Pulse 68 12/07/23 14:13 BP 134/63 12/07/23 14:13 Pulse Ox 97 12/07/23 14:13 Oxygen Delivery Method Room Air 12/07/23 14:13 BMI result Body Mass Index 26.6 General: awake, alert, oriented. Answers questions appropriately. Fully engaged in examination. Skin: warm, dry, intact HEENT: Normocephalic. Hearing intact. Cardiac: External chest normal in appearance. Respiratory: No cough, audible wheezing or stridor. Abdomen: without gross distension. MS: No obvious swelling or deformities. Able to transition from sit to stand unassisted. Ambulates with bilaterally normal heel strike and toe off Full cervical range of motion Tenderness to palpation upper middle trapezius with palpable taut bands and trigger points No midline cervical tenderness Neurological: Oriented to person, place, time and situation. Thought process intact. No gait abnormalities appreciated. Psychiatric: Appropriate mood and affect. Good judgment and insight. Results Reviewed Results Reviewed: 01/15/23: X-ray cervical spine FINDINGS: There is straightening of the normal cervical lordosis. Mild degenerative disc disease and spurring in the cervical spine without evidence for acute fracture. The prevertebral soft tissues are unremarkable. Lateral masses are symmetric. Normal alignment in the thoracic spine with preserved intervertebral disc spaces and vertebral body heights. Mediastinal structures and visualized lungs are unremarkable. IMPRESSION: No acute abnormality in the cervical or thoracic spine Assessment & Plan Assessment & Plan (1) Myofascial pain: Code(s): M79.18 - Myalgia, other site Category: Medical (2) Migraine headache: Code(s): G43.909 - Migraine, unspecified, not intractable, without status migrainosus Category: Medical (3) Trapezius muscle strain: Code(s): S46.819A - Strain of other muscles, fascia and tendons at shoulder and upper arm level, unspecified arm, initial encounter Category: Medical (4) Chronic neck pain: Code(s): M54.2 - Cervicalgia; G89.29 - Other chronic pain Category: Medical Plan Neymar is a very pleasant 33-year-old male who presented to the office today for evaluation management of his chronic neck pain Tizanidine 2 mg p.o. 3 times daily as needed. Discontinue cyclobenzaprine. Patient advised on cautions for use. Amitriptyline 10 mg daily at bedtime, after one-week may increase to 20 mg daily at bedtime. Will schedule for an office trigger point injections of his upper and middle trapezius Also discussed potential for left trochlear nerve block. Patient continues with migraines on the left eye despite amitriptyline will plan for trochlear nerve block. All questions and concerns were answered outpatient visit with the plan. Follow up after injections, sooner needed Medications: New tizanidine Discontinue Flexeril. No driving while taking this medication. May cause drowsiness. Do not take with alcohol or other [employer] Depressants. 2 mg PO TID PRN 90 tabs 1RF muscle spasticity amitriptyline 10 mg daily at bedtime x1 week, then may increase to 20 mg daily at bedtime 10 mg PO BEDTIME 60 tabs 3RF Discontinued cyclobenzaprine Discontinued Reason: Doctor's Order 10 mg PO TID PRN 10 tabs 0RF muscle spasm Coding Level of Care Code New Pt Level 4 (81851) Complex EM visit Add On G2211 Diagnoses Myofascial pain M79.18 Migraine headache G43.909 Trapezius muscle strain S46.819A Chronic neck pain M54.2; G89.29
== END 2023-12-07 14:55 | disposition home or self-care (01) ==
LOC: HO.PMC 14:02
PROVIDERS: PCP Registered Nurse; Visit Provider Registered Nurse Emergency
DX: M79.18 Myalgia, other site (principal); G43.909 Migraine, unspecified, not intractable, without status migrainosus; S46.819A Strain of other muscles, fascia and tendons at shoulder and upper arm level, unspecified arm, initial encounter; M54.2 Cervicalgia; G89.29 Other chronic pain
CPT/HCPCS: 99204

== ENCOUNTER → 2023-12-07 14:02 | Outpatient (BNVA) | payer BC, SELFPAY | PROVIDERS: PCP Registered Nurse; Visit Provider Registered Nurse Emergency ==

== ENCOUNTER 2024-01-02 16:43 | Outpatient (REF) | payer BC, SELFPAY | END 2024-01-02 16:44 | disposition home or self-care (01) | LOC: HO.HHCLNP 16:43 | PROVIDERS: Visit Provider Emergency Medicine | DX: J02.9 Acute pharyngitis, unspecified (principal) | CPT/HCPCS: 87070 ==

== ENCOUNTER → 2024-02-29 13:35 | Outpatient (BNVA) | payer BC, SELFPAY | PROVIDERS: PCP Registered Nurse; Visit Provider Registered Nurse Emergency ==

== ENCOUNTER 2024-03-28 13:36 | Outpatient (AMB) | payer BC, SELFPAY ==
--- NOTE | 2024-03-28 13:43 | MHC.OFFVIS ---
Vital Signs 03/28/24 13:49 Height 5 ft 8 in Weight 194 lb BMI 29.5 BP 129/71 Blood Pressure Location Lt brachial Position Sitting Pulse 62 Pulse Source Pulse Oximeter Pulse Oximetry (%) 100 Oxygen Delivery Method Room Air Intake Visit Reasons: Discuss EMG Results Intake Note: Pain today 5/10 Brick Off Bearer Required: No Accompanied by: Self / Same As Patient Allergies No Known Allergies Allergy (Verified 02/29/24 13:51) HPI Comments Details: Patient presents back to the office today for follow-up, review recent EMG EMG reviewed, results as per below He has been taking gabapentin 300 mg twice daily. 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 Therefore he takes 300 mg when he gets home from work and 300 mg at bedtime. Reports worsening paresthesias when he wakes up in throughout the daytime. Prior: Patient presents back to the office today for follow-up, new complaint of right upper extremity paresthesias Reports 5 weeks of numbness, burning, tingling of the right arm from the lateral elbow down to the hand. Reports numbness of the fingers. Does endorse some referred pain from the elbow up into the axilla on the left anteriorly. Denies inciting injury, fall, trauma. Patient is right-hand dominant. Works in construction full-time also very active at the gym. Less than 1 year ago completed physical therapy for his neck pain. He continues with home exercise program. Pain is worse when he wakes up after sleeping in a supine position. Prior: Neymar is a very pleasant 33-year-old male who presents the office today for evaluation management of his chronic pain. He has been suffering with this pain for approximately 7 years. He states it started after he went to [employer] for the [employer]. Courses bilateral neck tightness down into his shoulders. Suffers migraines, some of these he believes are related to this neck stiffness. He also endorses migraines that is settle around his left eye that occur a couple times a week He has attempted physical therapy multiple times over the years, most recently was less than 1 year ago and he continues to do the home exercise program without improvement of his symptoms Pain today is rated as a 6/10, constant throughout the day and night. He has tried muscle relaxers, Tylenol, nonsteroidal anti-inflammatory medications all without relief. Was recently given cyclobenzaprine in the emergency room states this provided him some relief but made him sleepy. Denies radiation of the pain down either arm Patient states he has been evaluated by Rheumatology, Neurology and physiatry in hopes of finding a diagnosis. He was told he as fibromyalgia by one doctor and soon told he does not have fibromyalgia by another doctor so he does not believe. In terms of muscle damage condition is described as aching, spasming, hot, burning, stabbing, sharp, shooting, dull, tingling, pins needles Past negatively impacting patient's enjoyment of life, general activity, mood, normal work, recreational activities, sleep Denies current use of anticoagulants Denies devices, pacemaker or defibrillator [facility] Medical History WPW (Sfrrn-Zfxfqjyph-Jrovz syndrome) Post-operative nausea and vomiting Back pain Anemia Lab test negative for COVID-19 virus Depression Hx of motion sickness Murmur Surgical History History of tonsillectomy H/O wisdom tooth extraction Family History Maternal Grandfather No problems noted. Maternal Grandmother No problems noted. Social History Alcohol intake: former Patient Tobacco Use Status: Current everyday Tobacco user Current occupational status: unemployed Current occupation: rght handed Review of Systems Const All systems reviewed & are unremarkable except as noted in HPI and below Physical Exam Vital Signs: Last Vital Signs Pulse 62 03/28/24 13:49 BP 129/71 03/28/24 13:49 Pulse Ox 100 03/28/24 13:49 Oxygen Delivery Method Room Air 03/28/24 13:49 BMI result Body Mass Index 29.5 General: awake, alert, oriented. Answers questions appropriately. Fully engaged in examination. Skin: warm, dry, intact HEENT: Normocephalic. Hearing intact. Cardiac: External chest normal in appearance. Respiratory: No cough, audible wheezing or stridor. Abdomen: without gross distension. MS: No obvious swelling or deformities. Neurological: Oriented to person, place, time and situation. Thought process intact. No gait abnormalities appreciated. Psychiatric: Appropriate mood and affect. Good judgment and insight. Results Reviewed Results Reviewed: 03/11/24 EMG Right median and ulnar motor and sensory studies were performed. Right radial sensory study was performed and paraspinal muscles were tested with a needle. Right median and lateral antecubital brachial sensory studies were also performed. IMPRESSION: Mild to moderate right median neuropathy across carpal tunnel. 01/15/23: X-ray cervical spine FINDINGS: There is straightening of the normal cervical lordosis. Mild degenerative disc disease and spurring in the cervical spine without evidence for acute fracture. The prevertebral soft tissues are unremarkable. Lateral masses are symmetric. Normal alignment in the thoracic spine with preserved intervertebral disc spaces and vertebral body heights. Mediastinal structures and visualized lungs are unremarkable. IMPRESSION: No acute abnormality in the cervical or thoracic spine Assessment & Plan Assessment & Plan (1) Carpal tunnel syndrome of right wrist: Code(s): G56.01 - Carpal tunnel syndrome, right upper limb Category: Medical (2) Arm paresthesia, right: Code(s): R20.2 - Paresthesia of skin Category: Medical (3) Neuropathy: Code(s): G62.9 - Polyneuropathy, unspecified Category: Medical Plan EMG reviewed, results as per above Continue with gabapentin, 300 mg in the afternoon, 600 mg at bedtime. No prescription for duloxetine 20 mg p.o. twice daily. Ibuprofen 600 mg p.o. 3 times daily as needed. Patient advised on cautions for use. Takes sparingly, do not take with any other nonsteroidal anti-inflammatory medications. Referral placed for Dr. Sullivan, hand surgery All questions and concerns were answered, patient agrees with the plan. Follow up in 6 weeks, sooner if needed Orders: Referrals Hand Surgery Referral G56.01 - Carpal tunnel syndrome, right upper limb Medications: New duloxetine 20 mg PO BID 60 caps 2RF Changed From ibuprofen 400 mg PO TID PRN 30 tabs 0RF fever or pain To ibuprofen 600 mg PO TID PRN 60 tabs 1RF fever or pain Discontinued naproxen Discontinued Reason: Doctor's Order 500 mg PO BID PRN 20 tabs 0RF pain Coding Level of Care Code Est Pt Level 3 (48920) Complex EM visit Add On G2211 Diagnoses Carpal tunnel syndrome of right wrist G56.01 Arm paresthesia, right R20.2 Neuropathy G62.9
[2024-03-28 13:49] VITALS: BP 129/71; PULSE 62; O2SAT 100; BMI 29.5
--- OUTSIDE RECORDS SUMMARY | 2024-03-28 14:07 | XMS_ITS | Encounter Summary ---
Author Organization [employer] Address [address] [place] [address] 7t [place] [address] Care Team Providers Care Business Systems Advisor Name Role Phone Cara Schuler Primary Care Provider [phone] Encounter Details Date Type Department Care Team (Latest Contact Info) Description 08/30/2020 Abstract [facility] Dental, Provider, DDS Social History Tobacco Use Types Packs/Day Years Used Date Smoking Tobacco: Never Assessed Sex and Gender Information Value Date Recorded Sex Assigned at Male 12/05/2021 10:37 AM EDT Legal Sex Male 3:54 PM EDT Gender Identity Male 12/05/2021 10:37 AM EDT Sexual Orientation Straight 12/05/2021 10 :37 AM EDT documented as of this encounter Plan of Treatment Not on file documented as of this encounter Visit Diagnoses Not on filedocumented in this encounter Care Teams Business Systems Advisor Relationship Specialty Start Date End Date Cara Schuler FNP [address] [place] [id number] PCP - General Family Medicine 10/03/21 documented as of this encounter
--- OUTSIDE RECORDS SUMMARY | 2024-03-28 14:07 | XMS_ITS | Encounter Summary ---
Author Organization [employer] Address [address] [facility] 7t [place] [address] Care Team Providers Care Maintenance Mechanic Engine Name Role Phone Cara Schuler Primary Care Provider [phone] Encounter Details Date Type Department Care Team ([facility] st Contact Info) Description 07/18/2022 Telephone [facility] MEDICINE [address] [place], [place] [phone] Cara Schuler FNP [address] [place], [place] [phone] Social History Tobacco Use Types Packs/Day Years Used Date Smoking Tobacco: Never Assessed Sex and Gender Information Value Date Recorded Sex Assigned at Male 12/05/2021 10:37 AM EDT Legal Sex Male 3:54 PM EDT Gender Identity Male 12/05/2021 10:37 AM EDT Sexual Orientation Straight 12/05/2021 10 :37 AM EDT documented as of this encounter Miscellaneous Notes * Telephone Encounter - Lilo Rao - 07/18/2022 12:05 PM EDT Tc from pt requesting a referral for [facility] . Also is requesting an appt to get an ed followup. States was at [facility] back in June regarding heart condition and was advised to see his dr and a cardiology. Please call to clarify . documented in this encounter Plan of Treatment Not on file documented as of this encounter Visit Diagnoses Not on filedocumented in this encounter Care Teams Maintenance Mechanic Engine Relationship Specialty Start Date End Date Cara Schuler FNP [address] [place] [address] PCP - General Family Medicine 10/03/21 documented as of this encounter
--- OUTSIDE RECORDS SUMMARY | 2024-03-28 14:07 | XMS_ITS | Clinical Summary ---
Author Organization [employer] Address [address] [facility] 7t [place] [address] Care Team Providers Care Carpenter Helper Maintenance Name Role Phone Cara Schuler TRIM SETTER HELPER Primary Care Provider [phone] Allergies No known active allergies Medications cholecalciferol (Vitamin D-3) 50 MCG (1999) capsule take 1 by oral route every day 90 capsule 3 Active Additional Information Patient not taking.Reported on 07/26/2022 fluticasone (Flonase) 50 MCG/ACT nasal sprayIndication s:Rhinosinusiti s Administer 1 spray into each nostril in the morning. 16 g 2 3 Active ibuprofen 400 MG tablet Take 1 tablet (400 mg) by mouth every 6 (six) hours if needed for moderate pain or fever for up to 30 doses. 30 tablet 4 Active acetaminophen (Tylenol) 500 MG tablet Take 2 tablets (1,000 mg) by mouth every 6 (six) hours if needed for moderate pain or fever. 40 tablet 4 Active Active Problems Problem Noted Date Diagnosed Date Recurrent right knee instability 03/05/2023 Assessment & Plan (03/05/2023 9:37 AM EST): ?? Concern for possible meniscal tear ?? Will order MRI and pending results refer to ortho as indicated Healthcare maintenance 11/29/2022 Overview (11/29/2022): Declines all vaccines Pt advised of risks of foregoing immunization including worsening disease severity, increased risk of transmission, and Patient works with metals/construction/building. Advised of tetanus risk. Declines Tdbooster Assessment & Plan (03/05/2023 9:50 AM EST): - Encouraged regular aerobic exercise within initial goal of 30 minute walk 3x/week - Encouraged balanced diet with a variety of fruits, vegetables, and lean meats. Chronic abdominal pain 10/26/2022 Overview (03/05/2023): ? ? Initial labs - CBC, CMP, TSH, CRP, sed rate, fecal calprotectin, and fecal pancreatic enzymes all WNL 10/2022. Assessment & Plan (03/05/2023 9:50 AM EST): ?? Continue to monitor sx ?? Follow up as scheduled with GI ?? ED precautions reviewed to include worsening abdominal pain and fever Assessment & Plan (11/29/2022 1:12 PM EDT): Healthcare mainten Oayyq-Mgrvndgmz-Zuojk pattern 07/06/2020 Overview (10/26/2022): Kdfpf-tgjwipgpr-Djscc-reports previously seen by cardiac process improvement analyst who offered ablation which patient declined. No hx of syncope. No chest pain or palpitations Assessment & Plan (03/05/2023 9:46 AM EST): ?? Pt agree to referral back to process improvement analyst for follow up. Will submit referral back to Dr. Vences at [facility] Resolved Problems Problem Noted Date Diagnosed Date Resolved Date Hospital discharge follow-up 07/26/2022 10/26/2022 Assessment & Plan (07/26/2022 4:32 PM EDT): Made appointment with PCP for TP and chronic conditions. Ordered Chest XR due to pervious pneumonia diagnosis on 06/15. Encounters Date Type Department Care Team Description 01/25/2024 Telephone [facility] MEDICINE [address] [place] [address] [facility] Feb Recall 01/02/2024 9:00 AM EST Office Visit [facility] WALK-IN [address] [address] Orlin Heredia MD Pharyngitis, unspecified etiology (Primary Dx); Sore throat from Last 3 Months Immunizations Name Administration Dates Next Due Td (adult), 5 Lf tetanus tox oid, preservative free, adsorbed 07/08/2012 Social History Tobacco Use Types Packs/Day Years Used Date Smoking Tobacco: Former Cigarettes Smokeless Tobacco: Never Alcohol Use Standard Drinks/Week Comments Never 0 (1 standard drink = 0.6 oz pur e alcohol) Alcohol Answer Date Recorded Frequency of Alcohol Consumption Not on file 03/02/2023 Average Number of Drinks Not on file 024 Frequency of Binge Drinking Not on file 02/06 Score 0 03/02/2023 Depression Answer Date Recorded Patient Health Questionnaire-9 Score 0 03/02/2023 Patient Health Questionnaire-9 Score 0 03/02/2023 Last PHQ-9: Questionnaire Data Not on file 0 03/02/2023 Housing Stability Answer Date Recorded What is your housing situation today? I have carrie schulte 11/20/[address] you li ve. Do you have problems with any of the following? None of the above 11/20/2022 Food Insecurity Answer Date Recorded Within the past 12 months, y ou worried that your food would run out before you got money to buy more: Never True 11/20/2022 Within the past 12 months,th e food you bought just didn't last and you didn't have enough money to get more: Never True Transportation Answer Date Recorded In the past 12 months, has l ack of transportation kept you from medical appts, meetings, work or from getting things needed for daily living? Yes, it has kept me from medical appointments or getting medications. 03/02/2023 Utilities Answer Date Recorded In the past 12 months, has t he electric, gas, oil or water company threatened to shut off services in your home? No 11/20/2022 Depression Answer Date Recorded Patient Health Questionnaire-2 Score 0 03/02/2023 Sex and Gender Information Value Date Recorded Sex Assigned at Male 12/05/2021 10:37 AM EDT Legal Sex Male 3:54 PM EDT Gender Identity Male 12/05/2021 10:37 AM EDT Sexual Orientation Straight 12/05/2021 10 :37 AM EDT Last Filed Vital Signs Vital Sign Reading Time Taken Comments Blood Pressure 140/69 01/02/2024 8:43 AM EST Pulse 65 01/02/2024 8:43 AM EST Temperature 36.3 ??C (97.4 ??F) 01/02/2024 8:43 AM ES T Respiratory Rate 18 01/02/2024 8:43 AM EST Oxygen Saturation 97% 01/02/2024 8:43 AM EST Inhaled Oxygen Concentration - - Weight 83.5 kg (184 lb) 01/02/2024 8:43 AM EST Height 170.2 cm (5' 7 ) 07/30/2023 11:34 AM EDT Body Mass Index 28.82 07/30/2023 11:34 AM EDT Plan of Treatment Health Maintenance Due Date Last Done Comments Alcohol/Substance Use Screening 2002 Family Planning (PISQ) 2005 Hepatitis B Vaccines (1 of 3 - 19+ 3-dose series) 2009 DTaP/Tdap/Td Vaccines (1 - Tdap) 07/09/2012 07/08/2012 Dental Oral Exam 02/17/2021 08/16/2020 Dental Prophylaxis 03/03/2021 08/30/2020 Dental X-Ray: Bitewings 08/17/2021 08/16/2020 Dental X-Ray: Full Mouth 08/18/2023 08/16/2020 COVID-19 Vaccine (1 - 2023-2 5 season) 2023 Influenza Vaccine (#1) 2023 Depression Screening 03/02/2024 03/02/2023, 03/02/2023 SDOH Screening 03/02/2024 03/02/2023 Tobacco Screening 01/01/2025 01/02/2024 Zoster Vaccines (1 of 2) 2040 RSV Patients and Patients Aged 60 years or older (1 - 1-dose 75+ series) 2065 Hepatitis C Screening Completed 07/20/2020 HIV Screening Completed 09/08/2022, 07/20/2020 HIB Vaccines Aged Out No longer eligi ble based on patient's age to complete this topic HPV Vaccines Aged Out No longer eligi ble based on patient's age to complete this topic Hepatitis A Vaccines Aged Out No long er eligible based on patient's age to complete this topic IPV Vaccines Aged Out No longer eligi ble based on patient's age to complete this topic Meningococcal Vaccine Aged Out No theersa cira eligible based on patient's age to complete this topic Pneumococcal Vaccine: Pediatrics (0 to 5 Years) and At-Risk Patients (6 to 49) Years) Aged Out No longer eligible b ased on patient's age to complete this topic RSV under 20 months Aged Out No longe r eligible based on patient's age to complete this topic Rotavirus Vaccines Aged Out No longer eligible based on patient's age to complete this topic Procedures Procedure Name Priority Date/Time Associated Diagnosis Comments POCT RAPID STREP A Routine 01/02/2024 8: 49 AM EST Sore throat CULTURE, THROAT Routine 01/02/2024 12:00 AM EST Pharyngitis, unspecified etiology HIV ANTIBODY/ANTIGEN ([place] DPH) Routine 09/08/2022 3:31 PM EDT PROPHYLAXIS - ADULT Routine 08/30/2020 1 2:00 AM EDT INTRAORAL - COMPLETE SERIES OF RADIOGRAPHIC IMAGES Routine 08/16/2020 12:00 AM EDT COMPREHENSIVE ORAL EVALUATION - NEW OR ESTABLISHED PATIENT Routine 08/16/2020 12:00 AM EDT ZZZ HISTORICAL HEPATITIS C AB W/REFL TO HCV RNA, QN, PCR Routine 07/20/2020 4:17 PM EDT from Last 3 Months or Most Recently Relevant to Health Maintenance Results * POCT rapid strep A manually resulted (01/02/2024 8:49 AM EST) Rapid Strep A Screen Negative Negative, None Detected Swab 01/02/2024 8:49 AM EST Orlin Heredia MD POINT OF CARE TEST ENTER/EDIT OR DERABLES Final Result * Culture, Throat (01/02/2024 12:00 AM EST) Throat Structure of anterior portion of neck / Unknown 01/02/2024 01/02/2024 Comment:Throat Narrative [facility] - 01/04/2024 8:31 AM EST Throat Culture No Group A Beta-hemolytic Streptococci isolated. Specimen Source: Throat Orlin Heredia MD LAB MICROBIOLOGY - GENERAL ORDER FEMI Final Result Performing Organization Address [facility]/ZIP Co de Phone Number [facility] [address] [place] [address] [phone] * HIV Ab/Ag ([facility]) (09/08/2022 3:31 PM EDT) HIV AB/AG Nonreactive Nonreactive [facility] Comment:HIV-1 p24 Ag and/or HIV-1/HIV-2 Ab not detected.A test result that is nonreactive does not exclude thepossibility of exposure to or infection with HIV-1 and/orHIV-2. Nonreactive results in this assay for individualswith prior exposure to HIV-1 and/or HIV-2 may be due toantigen and antibody levels that are below the limit ofdetection of this assay.The [employer] Teacher HIV Ag/Ab Combo assay result andsupplemental assay results should be interpreted inconjunction with the patient's clinical presentation,history and other laboratory results. If the results areinconsistent with clinical evidence, additional testing issuggested to confirm the result. 09/08/2022 3:31 PM EDT 09/08/2022 3:31 PM EDT [facility] TRIM SETTER HELPER LAB BLOOD ORDERABLES Final Re sult Performing Organization Address City/[facility]/ZIP Co de Phone Number [facility] [address] [place] [address] [phone] * HEPATITIS C AB W/REFL TO HCV RNA, QN, PCR (07/20/2020 4:17 PM EDT) HEPATITIS C ANTIBODY NON-REACT [facility] NON-REACT [facility] INDEX 0.03 <1.00 [facility] Comment: ?? HCV antibody was non-reactive. There is no laboratory ?? evidence of HCV infection. ?? In most cases, no further action is required. However, if recent HCV exposure is suspected, a test for HCV RNA (test code 47363) is suggested. ?? For additional information please refer to http://education.[employer]/faq/JZK48m3 (This link is being provided for informational/ educational purposes only.) ?? 07/20/2020 4:17 PM EDT us [facility] HISTORICAL/NON ORDERABLE LABS Final Result [facility] [address] from Last 3 Months or Most Recently Relevant to Health Maintenance Insurance [employer] [facility] [employer] STAND ADULT Care Teams Carpenter Helper Maintenance Relationship Specialty Start Date End Date Cara Schuler FNP [address] [place] [id number] PCP - General Family Medicine 10/03/21
--- OUTSIDE RECORDS SUMMARY | 2024-03-28 14:07 | XMS_ITS | Encounter Summary ---
Author Organization [employer] Address [address] [facility] 7t [place] [address] Care Team Providers Care Procurement Analyst Name Role Phone Cara Schuler [facility] Primary Care Provider [phone] Reason for Visit * Reason Onset Date Comments Results 10/19/2022 Encounter Details Date Type Department Care Team ([facility] st Contact Info) Description 10/19/2022 Telephone [facility] MEDICINE [address] [place], [place] [phone] [facility] [address] [place] [address] Results Social History Tobacco Use Types Packs/Day Years [...] the past 12 months, has t he [employer], gas, oil or water company threatened to [...] encounter Miscellaneous Notes * Telephone Encounter - Zee Soares - 10/19/2022 3:17 PM EDT Tc from pt requesting lab , EKG and XRAY results. Please contact at [phone] documented in this encounter Plan of Treatment Not on file documented as of this encounter Visit Diagnoses Not on filedocumented in this encounter Additional Health Concerns Assessment Noted Time PHQ-9 Depression Total Score: 0 09/01/19 23 3:57 PM EDT documented as of this encounter Care Teams Procurement Analyst Relationship Specialty Start Date End Date Cara Schuler FNP [address] [place] [address] PCP - General Family Medicine 10/03/21 documented as of this encounter
--- OUTSIDE RECORDS SUMMARY | 2024-03-28 14:07 | XMS_ITS | Encounter Summary ---
Author Organization [employer] Address [address] [place] [address] [address] [place] [address] Care Team Providers Care Security And Privacy Consultant Name Role Phone Ganga Cara AUTOMATIC EMBROIDERY MACHINE TENDER Primary Care Provider [phone] Encounter Details Date Type Department Care Team (Late st Contact Info) Description 07/18/2022 Abstract [facility] MEDICINE [address] [place] [address] Cara Schuler FNP [address] [place] [address] Social History Tobacco Use Types Packs/Day Years [...] on filedocumented in this encounter Care Teams Security And Privacy Consultant Relationship Specialty Start Date End Date Cara Schuler FNP [address] [place] [address] PCP - General Family Medicine 10/03/21 documented as of this encounter
--- OUTSIDE RECORDS SUMMARY | 2024-03-28 14:07 | XMS_ITS | Encounter Summary ---
Author Organization [employer] Address [address] [place] [address] [address] [place] [address] Care Team Providers Care Panel Raiser Operator Name Role Phone Ganga Cara [employer]OR [employer] Primary Care Provider [phone] Encounter Details Date Type Department Care Team (Late st Contact Info) Description 07/18/2022 Abstract [facility] MEDICINE [address] [place] [address] Cara Schuler FNP [address] [place] [address] Social History Tobacco Use Types Packs/Day Years [...] on filedocumented in this encounter Care Teams Panel Raiser Operator Relationship Specialty Start Date End Date Cara Schuler FNP [address] [place] [address] PCP - General Family Medicine 10/03/21 documented as of this encounter
--- OUTSIDE RECORDS SUMMARY | 2024-03-28 14:07 | XMS_ITS | Clinical Summary ---
Author Organization [facility] Address [address] [place] [address] Care Team Providers Care Stitch Burnisher Name Role Phone Gissel Gordon MD Primary Care Provider Surgical History Surgery Date Site/Laterality Comments TONSILLECTOMY PROCEDURE: HISTORICAL TONSILLECTOMY Medical History Medical History Date Comments Migraine headache 09/24/2017 DX:Migraine he adache History of tobacco abuse 09/24/2017 DX:Hist ory of tobacco abuse; COMMENT: 12 years, quit 09/05/2017 Marijuana use 09/24/2017 DX:Marijuana use Family History Medical History Relation Name Comments Allergies Brother 1 Ulcerative Coli tis Allergies Brother 2 No Known Problems Father Coronary artery disease Maternal Grandfather Coronary artery disease Maternal Grandmother Other: B12 def Mother Relation Name Status Comments Brother 1 Alive Brother 2 Alive Father Alive Maternal Grandfather Maternal Grandmother Mother Alive Social History Tobacco Use Types Packs/Day Years Used Date Smoking Tobacco: Former Cigarettes Q uit: 09/05/2017 Smokeless Tobacco: Never Alcohol Use Standard Drinks/Week Comments Yes 2 (1 standard drink = 0.6 oz pur e alcohol) Sex and Gender Information Value Date Recorded Sex Assigned at Not on file Legal Sex Male 4:46 PM EST Gender Identity Not on file Sexual Orientation Not on file Obstetrics History Last Filed Vital Signs Vital Sign Reading Time Taken Comments Blood Pressure 118/60 03/01/2023 1:29 PM EST Pulse 60 03/01/2023 1:29 PM EST Temperature - - Respiratory Rate - - Oxygen Saturation - - Inhaled Oxygen Concentration - - Weight 84.4 kg (186 lb) 03/01/2023 1:29 PM EST Height 172.7 cm (5' 8 ) 03/01/2023 1:29 PM EST Body Mass Index 28.28 03/01/2023 1:29 PM EST Plan of Treatment Health Maintenance Due Date Last Done Comments Depression Screening 01/04/2022 HIV Screening 01/04/2022 Hepatitis C Screening 01/04/2022 Social Influencers of Health Screening 01/04/2022 COVID-19 Vaccine ( season) 2023 Influenza Vaccine (#1) 2023 6, 12/05/2007, 01/09/2003 DTaP,Tdap,and Td Vaccines (8 - Td or Tdap) 12/09/2025 12/10/2015, 12/05/2007, 03/07/2002, Additional history exists HIB Vaccines Completed 07/28/1991, 02/05, 1990, Additional history exists Hepatitis B Vaccines Completed 06/20/1995, 10/24/1994, 06/05/1994 MMR Vaccines Completed 06/20/1995, 07/28/1991 Hepatitis A Vaccines Aged Out 12/10/2015 No long er eligible based on patient's age to complete this topic IPV Vaccines Completed 12/10/2015, 06/05, 03/29/1992, Additional history exists Meningococcal ACWY Vaccine Aged Out 12/10/2015, No longer eligible based on patient's age to complete this topic Varicella Vaccines Completed 02/14/2016, 1 02/08/2015, 12/05/2007, Additional history exists HPV Vaccines Aged Out No longer eligi ble based on patient's age to complete this topic Meningococcal B Vacine Aged Out No lo nger eligible based on patient's age to complete this topic Pneumococcal Vaccine: Pediatrics (0 to 5 Years) and At-Risk Patients (6 to 64 Years) Aged Out No longer eligible based on patient's age to complete this topic RSV Immunization Patients Under 20 months Aged Out No longer eligible based on patient's age to complete this topic Care Teams Stitch Burnisher Relationship Specialty Start Date End Date Gissel Gordon MD [address] [place] [phone] PCP - General 02/12/23
--- OUTSIDE RECORDS SUMMARY | 2024-03-28 14:07 | XMS_ITS | Encounter Summary ---
Author Organization [facility] Address [address] [place] [address] [address] [place] [address] Care Team Providers Care Steam Fitter Name Role Phone [facility] Primary Care Provider [phone] Reason for Visit * Reason Onset Date Comments Results 09/21/2022 Encounter Details Date Type Department Care Team ([facility] st Contact Info) Description 09/21/2022 Telephone [facility] [address] [place], [place] [phone] [place] [facility] [address] [place] [address] Results Social History Tobacco Use Types Packs/Day Years Used Date Smoking Tobacco: Former Cigarettes Smokeless Tobacco: Never Alcohol Use Standard Drinks/Week Comments Never 0 (1 standard drink = 0.6 oz pur e alcohol) Depression Answer Date Recorded Patient Health Questionnaire-9 Score 0 08/31/2022 Depression Answer Date Recorded Patient Health Questionnaire-2 Score 0 08/31/2022 Sex and Gender Information Value Date Recorded Sex Assigned at Male 12/05/2021 10:37 AM EDT Legal Sex Male 3:54 PM EDT Gender Identity Male 12/05/2021 10:37 AM EDT Sexual Orientation Straight 12/05/2021 10 :37 AM EDT documented as of this encounter Miscellaneous Notes * Telephone Encounter - Sebastian De Luna RN - 09/22/2022 4:30 PM EDT T/C to pt. For below message. Pt. Also schedule for tele. visit on 10/27/2022.pt. verbally agreed and understood. Please let patient know that current stool studies are all negative. Please schedule telehealth follow up next to discuss next steps with patient. Thank yoU! * Telephone Encounter - Sebastian De Luna RN - 09/21/2022 4:16 PM EDT Please review and advice for lab result. * Telephone Encounter - Lilo Rao - 09/21/2022 3:16 PM EDT Tc from pt requesting results that were done for his stool and urine . documented in this encounter Plan of Treatment Not on file documented as of this encounter Visit Diagnoses Not on filedocumented in this encounter Additional Health Concerns Assessment Noted Time PHQ-9 Depression Total Score: 0 09/01/19 23 3:57 PM EDT documented as of this encounter Care Teams Steam Fitter Relationship Specialty Start Date End Date Cara Schuler FNP [address] [place] [phone] PCP - General Family Medicine 10/03/21 documented as of this encounter
== END 2024-03-28 14:21 | disposition home or self-care (01) ==
PROVIDERS: PCP Registered Nurse; Visit Provider Registered Nurse Emergency
DX: G56.01 Carpal tunnel syndrome, right upper limb (principal); R20.2 Paresthesia of skin; G62.9 Polyneuropathy, unspecified
CPT/HCPCS: 99213

== ENCOUNTER → 2024-03-28 13:36 | Outpatient (BNVA) | payer BC, SELFPAY | PROVIDERS: PCP Registered Nurse; Visit Provider Registered Nurse Emergency ==

== ENCOUNTER 2024-05-17 16:08 | Emergency (ER) | payer BC, SELFPAY ==
--- NOTE | ~2024-05-17 | US_ITS ---
CLINICAL HISTORY: RLQ tenderness US abdomen limited Comparison: None Findings: Appendix is not visualized in the right lower quadrant. IMPRESSION: Nonvisualization of the appendix. This document has been electronically signed by: Neville Lee MD on 05/17/2024 17:44:49
--- NOTE | ~2024-05-17 | CT_ITS ---
CLINICAL HISTORY: sharp RLQ pain, r o appy CT abdomen and pelvis with contrast Comparison: US - US APPENDIX - 05/17/24 17:[address]/REG/[place] - CT ABDOMEN PELVIS W IV CON - 04/09/23 17:20 EST Findings: The lung bases are clear. The gallbladder and solid organs are within normal limits. No renal stones. No bowel obstruction, pneumoperitoneum, or pneumatosis. Pelvic contents unremarkable. Normal appendix. The bones are intact. IMPRESSION: No acute findings. Negative for appendicitis. This document has been electronically signed by: Jd Serrano MD on 05/17/2024 19:41:25
[2024-05-17 16:17] VITALS: BP 142/72; PULSE 72; RESP 16; TEMP 36.2; O2SAT 100; BMI 28.9
--- NOTE | 2024-05-17 16:18 | ED.GENADULT ---
HPI - General Adult General Chief complaint: Abdominal Pain Stated complaint: lower abd and back pain Time Seen by Provider: 05/17/24 17:36 Source: patient Mode of arrival: ambulatory Limitations: no limitations History of Present Illness ED Provider: JOSE DOUGLASS PA-C HPI narrative: 34 year old male with pmhx significant for WPW, depression, anemia presents to the ED today for evaluation of RLQ abdominal pain x4 days. Reports pain is sharp and has been constant since onset. No radiation. He has not trialed any OTC medication for his pain. Reports associated decreased appetite. No nausea or vomiting. Denies diarrhea or constipation however reports a change is his BMs. Endorses yellow color to his stool. Denies fever, chills, rashes, urinary sx, testicular pain. Denies history of abdominal surgeries. Denies concern for STIs. Related Data Home Medications ?Medication ?Instructions ?Recorded ?Confirmed cholecalciferol (vitamin D3) 50 50 mcg PO DAILY 04/18/21 12/07/23 mcg (2,000 unit) capsule Previous Rx's ?Medication ?Instructions ?Recorded azithromycin 250 mg tablet 250 mg PO DAILY 4 days #4 tabs 06/15/22 ondansetron 4 mg disintegrating 4 mg PO Q6-8H PRN nausea and 04/09/23 tablet vomiting #14 tabs lidocaine 5 % topical patch 1 patch topical DAILY #15 ea 11/04/23 amitriptyline 10 mg tablet 10 mg PO BEDTIME #60 tabs 12/07/23 tizanidine 2 mg tablet 2 mg PO TID PRN muscle spasticity 12/07/23 #90 tabs gabapentin 300 mg capsule 300 mg PO TID #90 caps 02/29/24 duloxetine 20 mg capsule,delayed 20 mg PO BID #60 caps 03/28/24 release ibuprofen 600 mg tablet 600 mg PO TID PRN fever or pain 03/28/24 #60 tabs Allergies Allergy/AdvReac Type Severity Reaction Status Date / Time No Known Allergies Allergy Verified 05/17/24 16:21 Review of Systems Review of Systems: Yes all other systems are reviewed and are negative [facility] Past Medical History Attestation statement: The following information was validated with the patient. Source: old records reviewed and nursing notes reviewed Medical History WPW (Towwv-Mzjspjqyf-Gbmje syndrome) Post-operative nausea and vomiting Back pain Anemia Lab test negative for COVID-19 virus Depression Hx of motion sickness Murmur Surgical History History of tonsillectomy H/O wisdom tooth extraction Family History Family History Maternal Grandfather No problems noted. Maternal Grandmother No problems noted. Social History Social History Alcohol intake: former Patient Tobacco Use Status: Current everyday Tobacco user Smoked in Last 30 Days: No Use of substances other than those prescribed or required for medical reasons: No Advance Directives: No Advance Directives Information Provided: No Do you have a plan to hurt others: No Plan Current occupational status: unemployed Current occupation: rght handed Physical Exam ED Vital Signs: Vital Signs - 24 hr 05/17/24 16:17 05/17/24 20:04 Temperature 97.1 F 97.8 F Pulse Rate 72 76 Respiratory Rate 16 18 Blood Pressure 142/72 H 138/76 Pulse Oximetry 100 100 Oxygen Delivery Method Room Air Room Air BMI result Body Mass Index 28.9 Hypertensive General: Well appearing, in no acute distress. Skin: Warm, dry, intact. No rashes or lesions. Head: Normocephalic, atraumatic. EENT: Hearing is intact b/l. Conjunctiva clear. PERRLA. EOM intact. Moist mucous membranes.? Neck: Supple without LAD Cardiac: Chest wall symmetric. RRR Lungs: Normal respiratory effort without accessory muscle use. CTA bilaterally Abdomen: soft, nondistended, tender to palpation of right lower quadrant without rebound or guarding. Active bowel sounds x4. no cvat. negative phillip sign. Back: No midline spinous or paraspinal tenderness. No step off deformity. Ext: Upper and lower extremities atraumatic, without tenderness, deformity, swelling or erythema. Full ROM throughout. Neuro: AOx3. Normal speech. Ambulating with steady gait. Psych: Appropriate mood and affect. Responds appropriately to questions. Course Course Course Narrative: This is a rapid medical exam performed by Nadeem Boo NP: Additional HPI, ROS, PE not included below will be deferred to primary provider. Patient is a 34-year-old male presenting to the ED with complaint of RLQ abdominal pain x 4 days. Pain radiating to lower back. Denies fevers. Denies prior abdominal surgeries. Plan: labs, UA, u/s Reevaluation(s) Reevaluation #1: 1834 -- CBC without leukocytosis or left shift. No anemia. H&H stable. Chemistry without acute electrolyte abnormality requiring intervention. No COLLEEN. Liver function at baseline. appendix US without visualization of the appendix. UA pending. CT pending. declining any pain medication at this time. Reevaluation #2: Patient received in sign-out at change of shift pending CT scan. Radiology report shows no acute intra abdominal pathology. The patient does have a mild right-sided stool burden. I discussed this with the patient including treatment options, but he will be stable for discharge. Time: 20:13 Medications Administered Discontinued Medications Generic Name Dose Route Start Last Admin Trade Name Freq PRN Reason Stop Dose Admin Iohexol 85 ml 05/17/24 18:39 05/17/24 18:39 Iohexol 350 Mg/Ml 100 Ml Infus..Btl IV 05/17/24 18:40 85 ml ONCE ONE Administration Medical Decision Making Medical Decision Making MDM Narrative: 34 year old male with pmhx significant for WPW, depression, anemia presents to the ED today for evaluation of RLQ abdominal pain x4 days. patient is hypertensive, vitals are otherwise wnl. he is nontoxic appearing and in NAD. on exam, he is well-appearing, no acute distress. Abdomen is soft, nondistended, tender to palpation of right lower quadrant without rebound or guarding. Negative Phillip's sign. Active bowel sounds x4. No CVAT. no palpable inguinal hernia. Differential diagnoses: appendicitis, diverticulitis, diverticulosis, UTI, constipation, hernia Abdominal exam without peritoneal signs. No evidence of acute abdomen at this time. Well appearing. Low suspicion for acute hepatobiliary disease (including acute cholecystitis), acute infectious processes (pneumonia, hepatitis, pyelonephritis), vascular catastrophe, bowel obstruction or viscus perforation, testicular torsion, orchitis, epidydymitis. Presentation not consistent with other acute, emergent causes of abdominal pain at this time. Plan: labs, UA, CT AP, serial reassessment Declines any pain control at this time. Differential Diagnosis Differential Diagnoses: The differential diagnosis associated with the presentation includes as above. Admission/Observation Consideration of admission/observation: Escalation of care including admission/observation considered Lab Data MDM Lab Attestation statement: I reviewed the patient's lab results. as above. 05/17/24 16:27 05/17/24 16:27 Labs: Lab Results 05/17/24 05/17/24 Range/Units 16:27 18:25 WBC 6.4 (4.8-10.8) X10*3/uL RBC 4.90 (4.60-5.80) X10*6/uL Hgb 14.7 (14.0-18.0) g/dl Hct 42.4 (42.0-52.0) % MCV 86.5 (80.0-98.0) fL MCH 30.0 (27.0-33.0) pg MCHC 34.7 (31.0-36.0) g/dl RDW 11.6 (11.0-16.0) % Plt Count 299 (160-400) X10*3/uL MPV 9.8 (9.4-12.4) fL Immature Gran % (Auto) 0.3 (0.0-0.4) % Neut % (Auto) 58.8 (45-73) % Lymph % (Auto) 30.7 (20-40) % [place] % (Auto) 8.5 (2-11) % Eos % (Auto) 1.1 (0-4) % Baso % (Auto) 0.6 (0-2) % Lymph # (Auto) 2.0 (1.2-4.9) X10*3/uL [place] # (Auto) 0.5 (0.1-1.2) X10*3/uL Eos # (Auto) 0.1 (0.0-0.4) X10*3/uL Baso # (Auto) 0.0 (0.0-0.2) X10*3/uL Abs Immat Gran (auto) 0.02 (0.00-0.03) X10*3/uL Absolute Neuts (auto) 3.8 (2.0-8.3) x10*3/uL Absolute Nucleated RBC 0.000 (0.0-0.012) X10*3/uL Nucleated RBC % (auto) 0.0 (0.0-0.2) /100WBC Sodium 139 (135-145) mmol/L Potassium 4.1 (3.3-5.1) mmol/L Chloride 103 (96-108) mmol/L Carbon Dioxide 27 (22-29) mmol/L Anion Gap 13 (12-20) BUN 15 (9-16) mg/dL Creatinine 1.13 (0.5-1.4) mg/dL Estim Creat Clear Calc 98.3 Estimated GFR > 60 Random Glucose 87 (60-115) mg/dL Calcium 9.6 (8.4-10.2) mg/dL Total Bilirubin 0.9 (0.0-1.0) mg/dL AST 30 (5-37) U/L ALT 45 H (0-40) U/L Alkaline Phosphatase 48 (39-117) U/L Total Protein 7.6 (6.5-8.0) g/dL Albumin 4.8 (3.5-5.0) g/dL Urine Color Yellow Urine Appearance Clear Urine pH 8.5 (5.0-9.0) Ur Specific [place] 1.020 (1.005-1.025) Urine Protein Negative (Neg-Trace) mg/dL Urine Glucose (UA) Negative (Negative) mg/dL Urine Ketones Negative (Negative) mg/dL Urine Blood Negative (Negative) Urine Nitrite Negative (Negative) Ur Leukocyte Esterase Negative (Negative) Independent Interpretation I performed an independent interpretation of an: Ultrasound and CT Scan Interpretation: US appendix w/o visualization of the appendix. CT a/p Radiology Impression Discussion of test interpretation with radiology: I have reviewed the radiologist's reading. External Record Review External record reviewed: Inpatient record Social Determinants Patient?s care significantly limited by Social Determinants of Health including: Other Social Determinant of Health Critical Care Time Critical Care Time Critical Care Time: No Discharge Plan Discharge Clinical Impression: Abdominal pain Patient Disposition: Home, Self-Care Instructions: Abdominal Pain (ED) Additional Instructions: Your workup in the ER today was reassuring. This includes your blood work, urinalysis and CT scan. You may use ibuprofen/Tylenol as needed for pain. Follow-up with your primary doctor, return for new or worsening symptoms Prescriptions: No Action azithromycin 250 mg tablet 250 mg PO DAILY 4 Days Qty: 4 0RF Rx Instructions: start on day 2 of therapy ondansetron 4 mg tablet,disintegrating 4 mg PO Q6-8H PRN (Reason: nausea and vomiting) Qty: 14 0RF lidocaine 5 % adhesive patch,medicated 1 patch topical DAILY Qty: 15 0RF Rx Instructions: leave on most painful area for up to 12 hrs cholecalciferol (vitamin D3) 50 mcg (2,000 unit) capsule 50 mcg PO DAILY tizanidine 2 mg tablet 2 mg PO TID PRN (Reason: muscle spasticity) Qty: 90 1RF Rx Instructions: Discontinue Flexeril. No driving while taking this medication. May cause drowsiness. Do not take with alcohol or other WOOL HANDLER Depressants. amitriptyline 10 mg tablet 10 mg PO BEDTIME Qty: 60 3RF Rx Instructions: 10 mg daily at bedtime x1 week, then may increase to 20 mg daily at bedtime gabapentin 300 mg capsule 300 mg PO TID Qty: 90 3RF ibuprofen 600 mg tablet 600 mg PO TID PRN (Reason: fever or pain) Qty: 60 1RF duloxetine 20 mg capsule,delayed release(DR/EC) 20 mg PO BID Qty: 60 2RF Print Language: Czech
[2024-05-17 16:30] LABS: MANUAL DIFF FLAG NO
[2024-05-17 16:33] LABS: Basophils Percent Auto 0.6 % (0-2); Eosinophils Absolute Auto 0.1 X10*3/uL (0.0-0.4); Eosinophils Percent Auto 1.1 % (0-4); Hematocrit 42.4 % (42.0-52.0); Hemoglobin 14.7 g/dl (14.0-18.0); Imm Gran Abs Auto 0.02 X10*3/uL (0.00-0.03); Imm Gran Pct Auto 0.3 % (0.0-0.4); Lymphocytes Percent Auto 30.7 % (20-40); Mean Corpuscular HGB Conc 34.7 g/dl (31.0-36.0); Mean Corpuscular Volume 86.5 fL (80.0-98.0); Mean Platelet Volume 9.8 fL (9.4-12.4); Monocytes Absolute Auto 0.5 X10*3/uL (0.1-1.2); Monocytes Percent Auto 8.5 % (2-11); Neutrophils Absolute Auto 3.8 x10*3/uL (2.0-8.3); Neutrophils Percent Auto 58.8 % (45-73); Platelet Count 299 X10*3/uL (160-400); Red Cell Distribution Width 11.6 % (11.0-16.0); White Blood Count 6.4 X10*3/uL (4.8-10.8)
[2024-05-17 16:49] LABS: Alanine Aminotransferase 45 U/L (0-40); Albumin Level 4.8 g/dL (3.5-5.0); Alkaline Phosphatase 48 U/L (39-117); Anion Gap 13 (12-20); Aspartate Amino Transferase 30 U/L (5-37); Bilirubin Total 0.9 mg/dL (0.0-1.0); Blood Urea Nitrogen 15 mg/dL (9-16); Calcium 9.6 mg/dL (8.4-10.2); Carbon Dioxide 27 mmol/L (22-29); Chloride 103 mmol/L (96-108); Creatinine Clr Calc Pharmacy 98.3; Estimated Glomerular Filt Rate > 60; Glucose Random 87 mg/dL (60-115); Potassium 4.1 mmol/L (3.3-5.1); Sodium 139 mmol/L (135-145); Total Protein 7.6 g/dL (6.5-8.0)
--- OUTSIDE RECORDS SUMMARY | 2024-05-17 18:03 | XMS_ITS | Encounter Summary ---
Author Organization [facility] [facility] Address [address] [facility] [address] [place] [address] Care Team Providers Care Otolaryngologist Name Role Phone Cara Schuler SIDE SEAM MACHINE OPERATOR Primary Care Provider [phone] Encounter Details Date Type Department Care Team (Late st Contact Info) Description 05/17/2024 Orders Only GENERIC EXTERNAL DATA DEPARTMENT Provider, Generic External Data Social History Tobacco Use Types Packs/Day Years [...] as of this encounter Plan of Treatment Upcoming Encounters Date Type Department Care Team (Late st Contact Info) Description 06/19/2024 9:45 AM EDT Office Visit [facility] [address] [place] [phone] Gissel Gordon MD [address] [place], [place] [phone] documented as of this encounter Procedures Procedure Name Priority Date/Time Associated Diagnosis Comments US PELVIS APPENDIX Routine 05/17/2024 5: 44 PM EDT CBC WITH AUTO DIFFERENTIAL Routine 05/17/2024 4:27 PM EDT COMPREHENSIVE METABOLIC PANEL Routine 05/17/2024 4:27 PM EDT documented in this encounter Results * US Pelvis Appendix (05/17/2024 5:44 PM EDT) Anatomical Region Laterality Modality Pelvis Ultrasound 05/17/2024 5:44 PM EDT Narrative 05/17/2024 5:46 PM EDT ? [facility] ?[address] ?[place] [address] ? Ultrasound Report ? Signed ? Patient: Malick Avanzato,Neymar ?MR#: ?? [id number] ? : 1990 ?Acct:[id number] ? Age/Sex: 34 / M ?ADM Date: 04/12/25 ? Loc: HO.ED ? Attending Dr: ? Ordering Physician: Lizzy Boo NP ?? Date of Service: 05/17/24 ?? Procedure(s): US appendix ?? Accession Number(s): [id number] ? cc: Lizzy Boo NP; Cara Schuler SIDE SEAM MACHINE OPERATOR ? CLINICAL HISTORY: RLQ tenderness ? US abdomen limited ? Comparison: None ? Findings: ?? Appendix is not visualized in the right lower quadrant. ? IMPRESSION: ?? Nonvisualization of the appendix. ? This document has been electronically signed by: Neville Lee MD on ?? 05/17/2024 17:44:49 ? Dictated By: ?Neville Lee MD ? Signed By: ?<Electronically signed by Neville Lee MD in OV> ? 05/17/24 1746 ? DD/ 174 ? TD/TT: 05/17/241743 ? Big Data Platform Architect: ? Procedure Note Donotamadeointerpreter, Image - 05/17/2024 [place] [id number] Ultrasound Report Signed Patient: Buddy OrozcoonyMR#: [id number] : 1990Acct:[id number] Age/Sex: 34 / MADM Date: 05/17/24 Loc: HO.ED Attending Dr: Ordering Physician: Lizzy Boo NP Date of Service: 05/17/24 Procedure(s): US appendix Accession Number(s): [id number] cc: Lizzy Boo LEHR STRIPPER; [facility] CLINICAL HISTORY: RLQ tenderness US abdomen limited Comparison: None Findings: Appendix is not visualized in the right lower quadrant. IMPRESSION: Nonvisualization of the appendix. This document has been electronically signed by: Neville Lee MD on 05/17/2024 17:44:49 Dictated By: Neville Lee MD Signed By: <Electronically signed by Neville Lee MD in OV> 05/17/241745 DD/ 43 TD/TT: 05/17/241743 Big Data Platform Architect: us [facility] External Provider IMG US PROCEDURES Edited Result - Final * (ABNORMAL) Comprehensive Metabolic Panel (05/17/2024 4:27 PM EDT) Sodium 139 135 - 145 mmol/L [facility] Potassium 4.1 3.3 - 5.1 mmol/L [facility] Chloride 103 96 - 108 mmol/L [facility] Carbon Dioxide 27 22 - 29 mmol/L [facility] Anion Gap 13 12 - 20 [facility] Urea Nitrogen (BUN) 15 9 - 16 mg/dL [facility] Creatinine, Serum 1.13 0.5 - 1.4 mg/dL [facility] Creatinine Clr Calc Pharmacy 98.3 [facility] Comment:eGFR (calculated fro m the MDRD study equation) and eCrCl(calculated from the Cockcroft-Gault equation) are based ondifferent parameters and may not yield comparable results.If eCrCl result is absurd, please check patient'sheight/weight. Estimated Glomerular Filt Rate >60 [facility] Comment:Chronic Kidney Disea se: Estimated GFR < 60 mL/min/1.56j1Hoeghk Kidney Disease: Estimated GFR < 15 mL/min/1.73m2 Glucose 87 60 - 115 mg/dL [facility] Calcium 9.6 8.4 - 10.2 mg/dL [facility] Bilirubin, Total 0.9 0.0 - 1.0 mg/dL [facility] Aspartate Amino Transferase 30 5 - 37 U/L [facility] Alanine Aminotransferase 45(H) 0 - 40 U/L [facility] Total Protein 7.6 6.5 - 8.0 g/dL [facility] Albumin Level 4.8 3.5 - 5.0 g/dL [facility] Alkaline Phosphatase 48 39 - 117 U/L [facility] 05/17/2024 4:27 PM EDT 05/17/2024 4:29 PM EDT us Generic External Data Provider LAB BLOOD ORDERAB LES Final Result [facility] [address] [place] [address] [phone] * CBC auto differential (05/17/2024 4:27 PM EDT) White Blood Count 6.4 4.8 - 10.8 X10*3/uL [facility] Red Blood Count 4.90 4.60 - 5.80 X10*6/uL [facility] Hemoglobin 14.7 14.0 - 18.0 g/dl [facility] Hematocrit 42.4 42.0 - 52.0 % [facility] Mean Corpuscular Volume 86.5 80.0 - 98.0 fL [facility] Mean Corpuscular Hemoglobin 30.0 27.0 - 33.0 pg [facility] Mean Corpuscular HGB Conc 34.7 31.0 - 36.0 g/dl [facility] Red Cell Distribution Width 11.6 11.0 - 16.0 % [facility] Platelet Count 299 160 - 400 X10*3/uL [facility] Mean Platelet Volume 9.8 9.4 - 12.4 fL [facility] Neutrophils Percent Auto 58.8 45 - 73 % [facility] Imm Gran Pct Auto 0.3 0.0 - 0.4 % [facility] Lymphocytes Percent Auto 30.7 20 - 40 % [facility] Monocytes Percent Auto 8.5 2 - 11 % [facility] Eosinophils Percent Auto 1.1 0 - 4 % [facility] Basophils Percent Auto 0.6 0 - 2 % [facility] NRBC Pct Auto 0.0 0.0 - 0.2 /100WBC [facility] Neutrophils Absolute Auto 3.8 2.0 - 8.3 x10*3/uL [facility] Imm Gran Abs Auto 0.02 0.00 - 0.03 X10*3/uL [facility] Lymphocytes Absolute Auto 2.0 1.2 - 4.9 X10*3/uL [facility] Monocytes Absolute Auto 0.5 0.1 - 1.2 X10*3/uL [facility] Eosinophils Absolute Auto 0.1 0.0 - 0.4 X10*3/uL [facility] Basophils Absolute Auto 0.0 0.0 - 0.2 X10*3/uL [facility] NRBC Abs Auto 0.000 0.0 - 0.012 X10*3/uL [facility] 05/17/2024 4:27 PM EDT 05/17/2024 4:29 PM EDT us Generic External Data Provider LAB BLOOD ORDERAB LES Final Result [facility] [address] [place] [address] [phone] documented in this encounter Visit Diagnoses Not on filedocumented in this encounter Additional Health Concerns Assessment Noted Time PHQ-9 Depression Total Score: 0 03/02/19 24 3:01 PM EST documented as of this encounter Care Teams Otolaryngologist Relationship Specialty Start Date End Date Cara Schuler FNP [address] [place] [phone] PCP - General Family Medicine 10/03/21 documented as of this encounter
--- OUTSIDE RECORDS SUMMARY | 2024-05-17 18:03 | XMS_ITS | Clinical Summary ---
Author Organization [facility] [facility] Address [address] [place] [address] Care Team Providers Care Bottom Bleacher Name Role Phone Gissel Gordon MD Primary [...] COVID-19 Vaccine ( season) 2023 Influenza Vaccine (Season Ended) 2024 12/10/2015, 12/05/2007, 01/09/2003 DTaP,Tdap,and Td Vaccines (8 - [...] age to complete this topic Meningococcal B Vaccine Aged Out No l onger eligible based on patient's age to complete this topic Pneumococcal Vaccine: Pediatrics (0 to 5 Years) and At-Risk Patients (6 to 64 Years) Aged Out No longer eligible based on patient's age to complete this topic RSV Immunization Patients Under 20 months Aged Out No longer eligible based on patient's age to complete this topic Care Teams Bottom Bleacher Relationship Specialty Start Date End Date Gissel Gordon MD [address] [place] [phone] PCP - General 02/12/23
--- OUTSIDE RECORDS SUMMARY | 2024-05-17 18:03 | XMS_ITS | Encounter Summary ---
Author Organization [facility] [facility] Address [address] [place] [address] 7t [place] [address] Care Team Providers Care Dry Kiln Feeder Name Role Phone Cara Schuler Primary Care Provider [phone] Encounter Details Date Type Department Care Team (Late st Contact Info) Description 07/18/2022 Abstract [facility] MEDICINE [address] [place] [address] Cara Schuler FNP [address] [place] [address] Social History Tobacco Use Types Packs/Day Years [...] Description 06/19/2024 9:45 AM EDT Office Visit [facility] [address] [place] [address] Gissel Gordon MD [address] [place] [address] documented as of this encounter Visit Diagnoses Not on filedocumented in this encounter Care Teams Dry Kiln Feeder Relationship Specialty Start Date End Date Cara Schuler FNP [address] [place] [address] PCP - General Family Medicine 10/03/21 documented as of this encounter
--- OUTSIDE RECORDS SUMMARY | 2024-05-17 18:03 | XMS_ITS | Encounter Summary ---
Author Organization [employer] Address [address] [place] [address] [address] [place] [address] Care Team Providers Care Rotoprinter Name Role Phone Ganga [facility] Primary Care Provider [phone] Reason for Visit * Reason Onset Date Comments Results 09/21/2022 Encounter Details Date Type Department Care Team ([facility] st Contact Info) Description 09/21/[address] [facility]INE [address] [place], [place] [phone] [place] [facility] [address] [place] [address] Results Social History Tobacco Use Types Packs/Day [...] documented in this encounter Plan of Treatment Upcoming Encounters Date Type Department Care Team (Late st Contact Info) Description 06/19/2024 9:45 AM EDT Office Visit [facility] [address] [place] [address] Gissel Gordon MD [address] [place] [address] documented as of this encounter Visit Diagnoses Not on filedocumented in this encounter Additional Health Concerns Assessment Noted Time PHQ-9 Depression Total Score: 0 09/01/19 23 3:57 PM EDT documented as of this encounter Care Teams Rotoprinter Relationship Specialty Start Date End Date Cara Schuler FNP [address] [place] [address] PCP - General Family Medicine 10/03/21 documented as of this encounter
--- OUTSIDE RECORDS SUMMARY | 2024-05-17 18:03 | XMS_ITS | Encounter Summary ---
Author Organization [employer] Address [address] [place] [address] 7[address] [place] [address] Care Team Providers Care Outpatient Case Manager Name Role Phone Cara Schuler Primary Care Provider [phone] Encounter Details Date Type Department Care Team (Late st Contact Info) Description 07/18/2022 Abstract [facility] MEDICINE [address] [place] [address] Cara Schuler FNP [address] [place] [address] Social History Tobacco Use Types Packs/Day Years [...] Description 06/19/2024 9:45 AM EDT Office Visit [facility] [address] [place] [address] Gissel Gordon MD [address] [place] [address] documented as of this encounter Visit Diagnoses Not on filedocumented in this encounter Care Teams Outpatient Case Manager Relationship Specialty Start Date End Date Cara Schuler FNP [address] [place] [phone] PCP - General Family Medicine 10/03/21 documented as of this encounter
--- OUTSIDE RECORDS SUMMARY | 2024-05-17 18:03 | XMS_ITS | Encounter Summary ---
Author Organization [employer] Address [address] [place] [address] 7t [place] [address] Care Team Providers Care Paster Supervisor Name Role Phone Cara Schuler Primary Care Provider [phone] Encounter Details Date Type Department Care Team (Latest Contact Info) Description 08/30/2020 Abstract [facility] CONVERSIONS Dental, Provider, DDS Social History Tobacco [...] Upcoming Encounters Date Type Department Care Team ( st Contact Info) Description 06/19/2024 9:45 AM EDT Office Visit [facility] MEDICINE [address] [place] [address] Gissel Gordon MD [address] [place] [address] documented as of this encounter Visit Diagnoses Not on filedocumented in this encounter Care Teams Paster Supervisor Relationship Specialty Start Date End Date Cara Schuler FNP [address] [place] [address] PCP - General Family Medicine 10/03/21 documented as of this encounter
--- OUTSIDE RECORDS SUMMARY | 2024-05-17 18:03 | XMS_ITS | Encounter Summary ---
Author Organization [employer] Address [address] [place] [address] Care Team Providers Care Mask Former Name Role Phone Cara Schuler [facility] Primary Care Provider [phone] Encounter Details Date Type Department Care Team (Late st Contact Info) Description 07/18/2022 Telephone [facility] MEDICINE [address] [place] [address] [phone] Ganga, [address] [phone] Social History Tobacco Use Types Packs/Day Years [...] get an ed followup. States was at [facility] back in June regarding heart condition and was advised to see his dr and a cardiology. Please call to clarify . documented in this encounter Plan of Treatment Upcoming Encounters Date Type Department Care Team (Late st Contact Info) Description 06/19/2024 9:45 AM EDT Office Visit [facility] MEDICINE [address] [place] [address] Gissel Gordon MD [address] [place], [place] [phone] documented as of this encounter Visit Diagnoses Not on filedocumented in this encounter Care Teams Mask Former Relationship Specialty Start Date End Date Cara Schuler FNP [address] [place] [address] PCP - General Family Medicine 10/03/21 documented as of this encounter
[2024-05-17 18:35] LABS: Appearance Urine Clear; Color Urine Yellow; Glucose Urine UA Negative (Negative); Leukocyte Esterase Urine Negative (Negative); Nitrite Urine Negative (Negative); PH 8.5 (5.0-9.0); Urine Blood Negative (Negative); Urine Ketones Negative (Negative); Urine Protein Negative (Neg-Trace)
[2024-05-17] MEDS: iohexoL 350 MG/ML 100 ML INFUS..BTL 85 ML IV (18:39)
[2024-05-17 20:04] VITALS: BP 138/76; PULSE 76; RESP 18; TEMP 36.6; O2SAT 100
[2024-05-17 20:18] VITALS: BP 138/76; PULSE 76; RESP 18; TEMP 36.6; O2SAT 100
== END 2024-05-17 20:18 | disposition home or self-care (01) ==
PROVIDERS: Registered Nurse Emergency; Emergency Provider Emergency Medicine Emergency Medical Services; PCP Registered Nurse
DX: R10.31 Right lower quadrant pain (principal); R10.2 Pelvic and perineal pain; Z79.899 Other long term (current) drug therapy; F17.210 Nicotine dependence, cigarettes, uncomplicated
CPT/HCPCS: 36415; 74177; 76705; 80053; 81003; 85025; 99284; Q9967

== ENCOUNTER → 2024-05-17 16:19 | Outpatient (BNV) | payer BC, SELFPAY | PROVIDERS: Emergency Provider Emergency Medicine Emergency Medical Services; PCP Registered Nurse; Visit Provider Nuclear Medicine | DX: R10.31 Right lower quadrant pain (principal) | CPT/HCPCS: 74177; 76705 ==

== ENCOUNTER 2024-06-06 13:46 | Outpatient (AMB) | payer BC, SELFPAY ==
[2024-06-06 13:58] VITALS: BMI 28.9
--- NOTE | 2024-06-06 13:58 | A.OFFVIS_ITS ---
Vital Signs 06/06/24 13:58 Height 5 ft 8 in Weight 190 lb BMI 28.9 Intake Visit Reasons: PRESCRIPTION CLERK LENSES- Carpal tunnel syndrome, right Wrist/Hand Intake Note: Neymar 34 yr old male right hand dominant, presents today for B/L hand CTS. States his right is worse. States when he lays down his arms and fingers go numb, daily. He has constant numbness in his fingers. CTS started to get worse a few years ago. Hx of neuropathy on his right leg and lumbar puncture. EMG done. 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 States his right is worse. States when he lays down his arms and fingers go numb, daily. He has constant numbness in his fingers. CTS started to get worse a few years ago. Hx of neuropathy on his right leg and lumbar puncture. EMG done. IMPRESSION: Mild to moderate right median neuropathy across carpal tunnel [facility] Medical History WPW (Qszit-Jliblnutm-Rgoql syndrome) Post-operative nausea and vomiting Back pain Anemia Lab test negative for COVID-19 virus Depression Hx of motion sickness Murmur Surgical History History of tonsillectomy H/O wisdom tooth extraction Family History Maternal Grandfather No problems noted. Maternal Grandmother No problems noted. Social History (Updated 06/06/24 @ 14:00 by CHRISTOPHER Villatoro) Alcohol intake: former Patient Tobacco Use Status: Current everyday Tobacco user Current occupational status: unemployed Current occupation: right handed/ construction Review of Systems Const All systems reviewed & are unremarkable except as noted in HPI and below Physical Exam Vital Signs: BMI result Body Mass Index 28.9 Extrem Other: Neuro: Decreased sensation in the median nerve distribution of the right hand. Normal sensation to all other digits in the right hand today. Normal sensation in the tips of all digits of the left hand today. No thenar or intrinsic wasting. Good APB muscle firing and good finger cross. Vascular: Capillary refill brisk. ROM: Patient can make a fist and extend all their digits. Skin: No lacerations or abrasions noted. General: No ecchymosis. No erythema or evidence of infection. Assessment & Plan Assessment & Plan (1) Carpal tunnel syndrome of right wrist: Code(s): G56.01 - Carpal tunnel syndrome, right upper limb Category: Medical Plan 1. Carpal tunnel syndrome, right Intermittent, daily, worse at night I educated the patient about the condition. I discussed both operative and nonoperative treatment options. The patient would like to proceed with surgery. The risks and benefits of operative treatment were discussed with the patient and the patient wishes to proceed with surgery. These risks include, but are not limited to, risk of damage to blood vessels, nerves, tendons, infection, recurrence, incomplete relief of preoperative symptoms, persistent pain, possible need for further surgery, and the risks associated with regional blocks and/or anesthesia. Plan is to take the patient to the operating room at some point in the next few weeks for the following procedures: 1. Right carpal tunnel release under local All of the preoperative paperwork including the consent was discussed today. All of the patient's questions were answered in the clinic today. The patient understands that they will be in contact with our surgical services director to discuss scheduling their procedure. Patient denies diabetes, blood thinners, asthma, heart issues, lung issues, kidney issues, or current smoking. Coding Level of Care Code New Pt Level 4 (97833) Diagnoses Carpal tunnel syndrome of right wrist G56.01
--- OUTSIDE RECORDS SUMMARY | 2024-06-06 14:02 | XMS_ITS | Clinical Summary ---
Author Organization [facility] Address [address] [place] [address] Care Team Providers Care It Quality Analyst Name Role Phone Gissel Gordon MD Primary Care Provider [phone] Surgical History Surgery Date Site/Laterality Comments TONSILLECTOMY [...] age to complete this topic Care Teams It Quality Analyst Relationship Specialty Start Date End Date Gissel Gordon MD [address] [place] [phone] PCP - General 02/12/23
--- OUTSIDE RECORDS SUMMARY | 2024-06-06 14:02 | XMS_ITS | Encounter Summary ---
Author Organization [employer] Address [address] [place] [address] [address]t [place] [address] Care Team Providers Care Travel Counselor Automobile Club Name Role Phone Cara Schuler Primary Care Provider [phone] Encounter Details Date Type Department Care Team (Latest Contact Info) Description 08/30/2020 Abstract [facility] CONVERSIONS Dental, Provider, DDS Social History Tobacco [...] Description 06/19/2024 9:45 AM EDT Office Visit [facility] MEDICINE [address] [place] [address] Gissel Gordon MD [address] [place] [address] documented as of this encounter Visit Diagnoses Not on filedocumented in this encounter Care Teams Travel Counselor Automobile Club Relationship Specialty Start Date End Date Cara Schuler FNP [address] [place] [address] PCP - General Family Medicine 10/03/21 documented as of this encounter
--- OUTSIDE RECORDS SUMMARY | 2024-06-06 14:02 | XMS_ITS | Encounter Summary ---
Author Organization [employer] Address [address] [place] [address] [address] [place] [address] Care Team Providers Care Recruitment Consultant Name Role Phone Ganga [facility] Primary Care Provider [phone] Reason for Visit * Reason Onset Date Comments Results 09/21/2022 Encounter Details Date Type Department Care Team ([facility] st Contact Info) Description 09/21/[address] [facility] MEDICINE [address] [place], [place] [phone] [place] [facility] [address] [place] [address] Results Social History Tobacco Use Types Packs/Day [...] Description 06/19/2024 9:45 AM EDT Office Visit [facility] MEDICINE [address] [place] [address] Gissel Gordon MD [address] [place] [address] documented as of this encounter Visit Diagnoses Not on filedocumented in this encounter Additional Health Concerns Assessment Noted Time PHQ-9 Depression Total Score: 0 09/01/19 23 3:57 PM EDT documented as of this encounter Care Teams Recruitment Consultant Relationship Specialty Start Date End Date Cara Schuler FNP [address] [place] [address] PCP - General Family Medicine 10/03/21 documented as of this encounter
--- OUTSIDE RECORDS SUMMARY | 2024-06-06 14:02 | XMS_ITS | Encounter Summary ---
Author Organization [employer] Address [address] [facility] [address] [place] [address] Care Team Providers Care Home Health Physical Therapist Name Role Phone Cara Schuler [facility] Primary Care Provider [phone] Encounter Details Date Type Department Care Team (Late st Contact Info) Description 07/18/2022 Telephone [facility] MEDICINE [address] [place] [address] [phone] Ganga, [facility] [address] [place], [place] [phone] Social History Tobacco Use Types Packs/Day Years [...] get an ed followup. States was at [facility] back in June regarding heart condition and was advised to see his dr and a cardiology. Please call to clarify . documented in this encounter Plan of Treatment Upcoming Encounters Date Type Department Care Team (Late st Contact Info) Description 06/19/2024 9:45 AM EDT Office Visit [facility] MEDICINE [address] [place] [address] Gissel Gordon MD [address] [place], [place] [phone] documented as of this encounter Visit Diagnoses Not on filedocumented in this encounter Care Teams Home Health Physical Therapist Relationship Specialty Start Date End Date Cara Schuler FNP [address] [place] [address] PCP - General Family Medicine 10/03/21 documented as of this encounter
--- OUTSIDE RECORDS SUMMARY | 2024-06-06 14:02 | XMS_ITS | Encounter Summary ---
Author Organization [employer] Address [address] [place] [address] [address] [place] [address] Care Team Providers Care Educational Adviser Name Role Phone Cara Schuler Primary Care Provider [phone] Encounter Details Date Type Department Care Team (Late st Contact Info) Description 07/18/2022 Abstract [facility] MEDICINE [address] [place] [address] Cara Schuler FNP [address] [place] [address] Social History Tobacco Use Types Packs/Day Years [...] 9:45 AM EDT Office Visit [facility] MEDICINE [address] [place] [address] Gissel Gordon MD [address] [place] [address] documented as of this encounter Visit Diagnoses Not on filedocumented in this encounter Care Teams Educational Adviser Relationship Specialty Start Date End Date Cara Schuler FNP [address] [place] [address] PCP - General Family Medicine 10/03/21 documented as of this encounter
--- OUTSIDE RECORDS SUMMARY | 2024-06-06 14:02 | XMS_ITS | Clinical Summary ---
Author Organization [employer] Address [address] [facility] [address] [place] [address] Care Team Providers Care Surface To Air Weapons Officer Name Role Phone Cara Schuler PSYCHIATRIC AIDE INSTRUCTOR Primary Care Provider [phone] Allergies No known active allergies Medications cholecalciferol [...] pain or fever. 40 tablet 4 Active acetaminophen (Tylenol) 500 MG tablet Take 2 tablets (1,000 mg) by mouth every 6 (six) hours if needed for moderate pain or fever for up to 25 doses. 30 tablet 5 Active ibuprofen 400 MG tablet Take 1 tablet (400 mg) by mouth every 6 (six) hours if needed for moderate pain or fever for up to 30 doses. 30 tablet 5 Active nicotine (Nicoderm CQ) 14 MG/24HR patch Place 1 patch on the skin 1 (one) time each day at the same time. 42 patch 5 07/05/19 25 Active nicotine (Nicoderm CQ) 7 MG/24HR patch Place 1 patch on the skin 1 (one) time each day at the same time. 14 patch 5 06/23/19 25 Active nicotine polacrilex (Commit) 2 MG lozenge Dissolve 1 lozenge (2 mg) in the mouth if needed for smoking cessation. 100 lozenge 5 06/23/19 25 Active Active Problems Problem Noted Date Diagnosed [...] & Plan (11/29/2022 1:12 PM EDT): Healthcare anay HigueraRjcrt-Oaeachsdp-Dzqxq pattern 07/06/2020 Overview (10/26/2022): Guzeg-bkcejxibh-Xagoo-reports previously seen by cardiac parboiler who offered ablation which patient declined. No hx of syncope. No chest pain or palpitations Assessment & Plan (03/05/2023 9:46 AM EST): ?? Pt agree to referral back to parboiler for follow up. Will submit referral back to Dr. Vences at [facility] Resolved Problems Problem Noted Date Diagnosed Date Resolved Date Hospital discharge follow-up 07/26/2022 10/26/2022 Assessment & Plan (07/26/2022 4:32 PM EDT): Made appointment with PCP for TP and chronic conditions. Ordered Chest XR due to pervious pneumonia diagnosis on 06/15. Encounters Date Type Department Care Team Description 05/23/2024 10:20 AM EDT Office Visit [facility] [address] [place] [phone] Orlin Heredia MD RLQ abdominal pain (Primary Dx); Other tobacco product nicotine dependence, uncomplicated 05/23/2024 Travel 05/17/2024 Orders Only GENERIC EXTERNAL DATA DEPARTMENT Provider, Generic External Data from Last 3 Months Immunizations Name Administration Dates Next Due Td (adult), 5 Lf tetanus tox oid, preservative free, adsorbed 07/08/2012 Social History Tobacco Use Types Packs/Day Years Used Date Smoking Tobacco: Former Cigarettes Smokeless Tobacco: Never Tobacco Cessation:Counseling Given: Not Answered Alcohol Use Standard Drinks/Week Comments Never 0 [...] Sign Reading Time Taken Comments Blood Pressure 136/78 05/23/2024 9:52 AM EDT Pulse 66 05/23/2024 9:52 AM EDT Temperature 36.7 ??C (98 ??F) 05/23/2024 9:52 AM EDT Respiratory Rate 17 05/23/2024 9:52 AM EDT Oxygen Saturation 97% 01/02/2024 8:43 AM EST Inhaled Oxygen Concentration - - Weight 83 kg (183 lb) 05/23/2024 9:52 AM EDT Height 170.2 cm (5' 7 ) 05/23/2024 9:52 AM EDT Body Mass Index 28.66 05/23/2024 9:52 AM EDT Plan of Treatment Upcoming Encounters Date Type Department Care Team (Late st Contact Info) Description 06/19/2024 9:45 AM EDT Office Visit [facility] [address] [place] [address] Gissel Gordon MD [address] [place], [place] [phone] Health Maintenance Due Date Last Done Comments [...] 03/02/2023 SDOH Screening 03/02/2024 03/02/2023 Tobacco Screening 05/23/2025 05/23/2024 Zoster Vaccines (1 of 2) 2040 RSV [...] this topic Meningococcal Vaccine Aged Out No theresa cira eligible based on patient's age to [...] Procedure Name Priority Date/Time Associated Diagnosis Comments CT ABDOMEN PELVIS W CONTRAST Routine 05/17/2024 7:41 PM EDT URINALYSIS WITH REFLEX MICROSCOPIC Routine 05/17/2024 6:25 PM EDT US PELVIS APPENDIX Routine 05/17/2024 5: 44 PM EDT COMPREHENSIVE METABOLIC PANEL Routine 05/17/2024 4:27 PM EDT CBC WITH AUTO DIFFERENTIAL Routine 05/17/2024 4:27 PM EDT HIV ANTIBODY/ANTIGEN ([place] D[facility]) Routine 09/08/2022 3:31 [...] Recently Relevant to Health Maintenance Results * CT Abdomen Pelvis w/ Contrast (05/17/2024 7:41 PM EDT) Anatomical Region Laterality Modality Body, Pelvis, Abdomen Computed T omography 05/17/2024 7:41 PM EDT Narrative 05/17/2024 7:42 PM EDT ? [facility] ?[address] ?[place] [address] ? CT Scan Report ? Signed ? Patient: Malick Avanzato,Neymar ?MR#: ?? [id number] ? : 1990 ?Acct:[id number] ? Age/Sex: 34 / M ?ADM Date: 04/12/25 ? Loc: HO.ED ? Attending Dr: ? Ordering Physician: Asya Fitzpatrick ?? Date of Service: 05/17/24 ?? Procedure(s): CT abdomen pelvis w IV con ?? Accession Number(s): [id number] ? cc: Asya Fitzpatrick; Cara Schuler PSYCHIATRIC AIDE INSTRUCTOR ? Report Number: ?? [id number]: Total DLP = ??456.00 mGy-cm ? CLINICAL HISTORY: sharp RLQ pain, r o appy ? CT abdomen and pelvis with contrast ? Comparison: US - US APPENDIX - 05/17/24 17:03 EDT ?? CT/REG/FL - CT ABDOMEN PELVIS W IV CON - 04/09/23 17:20 EST ? Findings: ?? The lung bases are clear. ? The gallbladder and solid organs are within normal limits. No renal ?? stones. ?? No bowel obstruction, pneumoperitoneum, or pneumatosis. ? Pelvic contents unremarkable. Normal appendix. ?? The bones are intact. ? IMPRESSION: ?? No acute findings. Negative for appendicitis. ? This document has been electronically signed by: Jd Serrano MD on ?? 05/17/2024 19:41:25 ? Dictated By: ?Jd Serrano MD ? Signed By: ?<Electronically signed by Jd Serrano MD in OV> ? 05/17/241941 ? DD/ 40 ? TD/TT: 05/17/241940 ? Prototype Carpenter: ? Procedure Note Danya Rojas - 05/17/[address] [place] [address] [address] Scan Report Signed Patient: Buddy OrozcoonyMR#: [id number] : 1990Acct:[id number] Age/Sex: 34 / MADM Date: 05/17/24 Loc: HO.ED Attending Dr: Ordering Physician: Asya Fitzpatrick Date of Service: 05/17/24 Procedure(s): CT abdomen pelvis w IV con Accession Number(s): [id number] cc: Asya Fitzpatrick; [facility] Report Number: [id number]: Total DLP = 456.00 mGy-cm CLINICAL HISTORY: sharp RLQ pain, r o appy CT abdomen and pelvis with contrast Comparison: US - US APPENDIX - 05/17/24 17:[address]/REG/FL - CT ABDOMEN PELVIS W IV CON - 04/09/23 17:20 EST Findings: The lung bases are clear. The gallbladder and solid organs are within normal limits. No renal stones. No bowel obstruction, pneumoperitoneum, or pneumatosis. Pelvic contents unremarkable. Normal appendix. The bones are intact. IMPRESSION: No acute findings. Negative for appendicitis. This document has been electronically signed by: Jd Serrano MD on 05/17/2024 19:41:25 Dictated By: Jd Serrano MD Signed By: <Electronically signed by Jd Serrano MD in OV> 05/17/241941 DD/ 40 TD/TT: 05/17/241940 Prototype Carpenter: [facility] External Provider IMG CT PROCEDURES Final Result * Urinalysis w/reflex microscopic (05/17/2024 6:25 PM EDT) Color Urine Yellow [facility] Appearance Urine Clear [facility] PH 8.5 5.0 - 9.0 [facility] Glucose Urine UA Negative Negative mg/dL [facility] Urine Blood Negative Negative [facility] Specific [place] - Urine 1.020 1.005 - 1.025 [facility] Urine Protein Negative Neg-Trace mg/dL [facility] Urine Ketones Negative Negative mg/dL [facility] Nitrite Urine Negative Negative [facility] Leukocyte Esterase Urine Negative Negative [facility] 05/17/2024 6:25 PM EDT 05/17/2024 6:29 PM EDT Narrative [facility] - 05/17/2024 6:36 PM EDT Urine, Clean Catch Generic External Data Provider LAB URINE ORDERAB LES Final Result [facility] [address] [place] [address] [phone] * US Pelvis Appendix (05/17/2024 5:44 PM EDT) Anatomical Region Laterality Modality Pelvis Ultrasound 05/17/2024 5:44 PM EDT Narrative 05/17/2024 5:46 PM EDT ? [facility] ?[address] ?[place] [address] ? Ultrasound Report ? Signed ? Patient: Malick Avanzato,Neymar ?MR#: ?? [id number] ? : 1990 ?Acct:[id number] ? Age/Sex: 34 / M ?ADM Date: 05/17/24 ? Loc: HO.ED ? Attending Dr: ? Ordering Physician: Lizzy Boo NP ?? Date of Service: 05/17/24 ?? Procedure(s): US appendix ?? Accession Number(s): [id number] ? cc: Lizzy Boo NP; Cara Schuler PSYCHIATRIC AIDE INSTRUCTOR ? CLINICAL HISTORY: RLQ tenderness ? US [...] in OV> ? 05/17/24 1746 ? DD/ 1744 ? TD/TT: 05/17/24 1744 ? Prototype Carpenter: ? Procedure Note Donizaiah, Image - 05/17/2024 [place] [address] Ultrasound Report Signed Patient: Buddy OrozcoonyMR#: [id number] : 1990Acct:[id number] Age/Sex: 34 / MADM Date: 05/17/24 Loc: HO.ED Attending Dr: Ordering Physician: Lizzy Boo NP Date of Service: 05/17/24 Procedure(s): US appendix Accession Number(s): [id number] cc: Lizzy Boo INKER MACHINE; [facility] CLINICAL HISTORY: RLQ tenderness US abdomen limited Comparison: None Findings: Appendix is not visualized in the right lower quadrant. IMPRESSION: Nonvisualization of the appendix. This document has been electronically signed by: Neville Lee MD on 05/17/2024 17:44:49 Dictated By: Neville Lee MD Signed By: <Electronically signed by Neville Lee MD in OV> 05/17/241745 DD/ 43 TD/TT: 05/17/241743 Prototype Carpenter: us [facility] External Provider IMG US PROCEDURES Edited Result - Final * CBC auto differential (05/17/2024 4:27 PM EDT) White Blood Count 6.4 4.8 - 10.8 X10*3/uL [facility] Red Blood Count 4.90 4.60 - 5.80 X10*6/uL [facility] Hemoglobin 14.7 14.0 - 18.0 g/dl [facility] Hematocrit 42.4 42.0 - 52.0 % [facility] Mean Corpuscular Volume 86.5 80.0 - 98.0 fL [facility] Mean Corpuscular Hemoglobin 30.0 27.0 - 33.0 pg [facility] Mean Corpuscular HGB Conc 34.7 31.0 - 36.0 g/dl [facility] Red Cell Distribution Width 11.6 11.0 - 16.0 % [facility] Platelet Count 299 160 - 400 X10*3/uL [facility] Mean Platelet Volume 9.8 9.4 - 12.4 fL [facility] Neutrophils Percent Auto 58.8 45 - 73 % [facility] Imm Gran Pct Auto 0.3 0.0 - 0.4 % [facility] Lymphocytes Percent Auto 30.7 20 - 40 % [facility] Monocytes Percent Auto 8.5 2 - 11 % [facility] Eosinophils Percent Auto 1.1 0 - 4 % [facility] Basophils Percent Auto 0.6 0 - 2 % [facility] NRBC Pct Auto 0.0 0.0 - 0.2 /100WBC [facility] Neutrophils Absolute Auto 3.8 2.0 - 8.3 x10*3/uL [facility] Imm Gran Abs Auto 0.02 0.00 - 0.03 X10*3/uL [facility] Lymphocytes Absolute Auto 2.0 1.2 - 4.9 X10*3/uL [facility] Monocytes Absolute Auto 0.5 0.1 - 1.2 X10*3/uL [facility] Eosinophils Absolute Auto 0.1 0.0 - 0.4 X10*3/uL [facility] Basophils Absolute Auto 0.0 0.0 - 0.2 X10*3/uL [facility] NRBC Abs Auto 0.000 0.0 - 0.012 X10*3/uL [facility] 05/17/2024 4:27 PM EDT 05/17/2024 4:29 PM EDT us Generic External Data Provider LAB BLOOD ORDERAB LES Final Result [facility] [address] [place] [address] [phone] * (ABNORMAL) Comprehensive Metabolic Panel (05/17/2024 4:27 PM EDT) Sodium 139 135 - 145 mmol/L [facility] Potassium 4.1 3.3 - 5.1 mmol/L [facility] Chloride 103 96 - 108 mmol/L [facility] Carbon Dioxide 27 22 - 29 mmol/L [facility] Anion Gap 13 12 - 20 [facility] Urea Nitrogen (BUN) 15 9 - 16 mg/dL [facility] Creatinine, Serum 1.13 0.5 - 1.4 mg/dL [facility] Creatinine Clr Calc Pharmacy 98.3 [facility] Comment:eGFR (calculated fro m the MDRD study equation) and eCrCl(calculated from the Cockcroft-Gault equation) are based ondifferent parameters and may not yield comparable results.If eCrCl result is absurd, please check patient'sheight/weight. Estimated Glomerular Filt Rate >60 [facility] Comment:Chronic Kidney Disea se: Estimated GFR < 60 mL/min/1.94j1Ieryzi Kidney Disease: Estimated GFR < 15 mL/min/1.73m2 Glucose 87 60 - 115 mg/dL [facility] Calcium 9.6 8.4 - 10.2 mg/dL [facility] Bilirubin, Total 0.9 0.0 - 1.0 mg/dL [facility] Aspartate Amino Transferase 30 5 - 37 U/L [facility] Alanine Aminotransferase 45(H) 0 - 40 U/L [facility] Total Protein 7.6 6.5 - 8.0 g/dL [facility] Albumin Level 4.8 3.5 - 5.0 g/dL [facility] Alkaline Phosphatase 48 39 - 117 U/L [facility] 05/17/2024 4:27 PM EDT 05/17/2024 4:29 PM EDT us Generic External Data Provider LAB BLOOD ORDERAB LES Final Result Performing Organization Address [facility]/ZIP Co de Phone Number [facility] [address] [place] [phone] * HIV Ab/Ag ([facility]) (09/08/2022 3:31 PM EDT) HIV AB/AG Nonreactive Nonreactive [facility] Comment:HIV-1 p24 Ag and/or HIV-1/HIV-2 Ab not detected.A test result that is nonreactive does not exclude thepossibility of exposure to or infection with HIV-1 and/orHIV-2. Nonreactive results in this assay for individualswith prior exposure to HIV-1 and/or HIV-2 may be due toantigen and antibody levels that are below the limit ofdetection of this assay.The [employer] Analyst HIV Ag/Ab Combo assay result andsupplemental assay results should be interpreted inconjunction with the patient's clinical presentation,history and other laboratory results. If the results areinconsistent with clinical evidence, additional testing issuggested to confirm the result. 09/08/2022 3:31 PM EDT 09/08/2022 3:31 PM EDT [facility] BLOOD ORDERABLES Final Re sult Performing Organization Address City/[facility]/ZIP Co de Phone Number [facility] [address] [place] [phone] [phone] * HEPATITIS C AB W/REFL TO HCV RNA, QN, PCR (07/20/2020 4:17 PM EDT) HEPATITIS C ANTIBODY NON-REACT MARIANNA NON-REACT MARIANNA [facility] INDEX 0.03 <1.00 [facility] Comment: ?? HCV antibody was non-reactive. There is no laboratory ?? evidence of HCV infection. ?? In most cases, no further action is required. However, if recent HCV exposure is suspected, a test for HCV RNA (test code 78493) is suggested. ?? For additional information please refer to http://[employer]/faq/IEK76a8 (This link is being provided for informational/ educational purposes only.) ?? 07/20/2020 4:17 PM EDT Snow Read PSYCHIATRIC AIDE INSTRUCTOR HISTORICAL/NON ORDERABLE LABS Final Result [facility] [address] from Last 3 Months or Most Recently Relevant to Health Maintenance Insurance [facility]ICA[facility] STAND ADULT Care Teams Surface To Air Weapons Officer Relationship Specialty Start Date End Date Cara Schuler FNP [address] [place] [phone] PCP - General Family Medicine 10/03/21
--- OUTSIDE RECORDS SUMMARY | 2024-06-06 14:02 | XMS_ITS | Encounter Summary ---
Author Organization [employer] Address [address] [place] [address] [address] [place] [address] Care Team Providers Care Customer Advisor Name Role Phone Cara Schuler Primary Care Provider [phone] Encounter Details Date Type Department Care Team (Late st Contact Info) Description 07/18/2022 Abstract [facility] MEDICINE [address] [place] [address] Cara Schuler FNP [address] [place] [phone] Social History Tobacco Use Types Packs/Day Years [...] Description 06/19/2024 9:45 AM EDT Office Visit [facility] MED[facility] [address] [place] [address] Gissel Gordon MD [address] [place] [address] documented as of this encounter Visit Diagnoses Not on filedocumented in this encounter Care Teams Customer Advisor Relationship Specialty Start Date End Date Cara Schuler FNP [address] [place] [phone] PCP - General Family Medicine 10/03/21 documented as of this encounter
== END 2024-06-06 14:38 | disposition home or self-care (01) ==
LOC: HO.HOS 13:46
PROVIDERS: PCP Registered Nurse
DX: G56.01 Carpal tunnel syndrome, right upper limb (principal)
CPT/HCPCS: 99204

== ENCOUNTER → 2024-06-06 13:46 | Outpatient (BNVA) | payer BC, SELFPAY | PROVIDERS: PCP Registered Nurse ==

== ENCOUNTER 2024-06-13 11:00 | Outpatient (AMB) | payer BC, SELFPAY ==
--- NOTE | 2024-06-13 11:14 | A.OFFVIS_ITS ---
Vital Signs 06/13/24 11:20 Height 5 ft 8 in Weight 195 lb BMI 29.6 BP 144/64 H Blood Pressure Location Lt brachial Position Sitting Pulse 68 Intake Visit Reasons: RLQ ABD PAIN Intake Note: Patient is seen in office for evaluation of right upper quadrant pain. Pt c/o: pain in the right side of the abdomen, onset 2 months, went to ER twice, painful to sit, walk, lift, bend, lay down on stomach, denies n/v/d/c CT:05/17/24 Geodetic Advisor Required: No Accompanied by: Self / Same As Patient Allergies No Known Allergies Allergy (Verified 06/13/24 11:18) HPI Comments Details: 34-year-old male patient presenting for evaluation of right lower quadrant abdominal pain. The pain has been present for approximately 2 months in his necessitated 2 visits to the emergency department without any diagnosis. He underwent evaluation with CT abdomen and pelvis and ultrasound which apparently revealed no evidence of hernia. He reports the pain is mainly along the lateral side of the rectus muscle where he feels a hard lump along this edge in the right lower quadrant. He reports doing heavy lifting at work but also enjoys going to the gym with lifting weights. Lifting does seem to make the pain worse. He denies any fever, chills, nausea, vomiting, or difficulties with the bowels. [facility] Medical History WPW (Vykdi-Erpjvnkja-Nblgp syndrome) Post-operative nausea and vomiting Back pain Anemia Lab test negative for COVID-19 virus Depression Hx of motion sickness Murmur Surgical History History of tonsillectomy H/O wisdom tooth extraction Family History Maternal Grandfather No problems noted. Maternal Grandmother No problems noted. Social History Alcohol intake: former Patient Tobacco Use Status: Current everyday Tobacco user Current occupational status: unemployed Current occupation: right handed/ construction Review of Systems Const All systems reviewed & are unremarkable except as noted in HPI and below Physical Exam Vital Signs: Last Vital Signs Pulse 68 06/13/24 11:20 BP 144/64 H 06/13/24 11:20 BMI result Body Mass Index 29.6 Const General: cooperative and no acute distress Nutritional Appearance: well nourished Orientation/consciousness: patient oriented x3 Limitations: no limitations HEENT Head: Yes normocephalic and Yes atraumatic Ears: hearing grossly normal bilaterally Resp Effort & Inspection: normal respiratory effort, no audible wheezes, no cough and no respiratory distress Cardio Jugular venous distension: no JVD GI Other: Soft and nondistended, tenderness with a ridge located to the right of the rectus muscle but no definite spigelian hernias identified. No changes noted with Valsalva. No right inguinal hernias appreciated. Inspection: Yes normal to inspection Skin Other: Warm, dry, no rash Neuro General: patient oriented x3 Extrem General: Yes no clubbing, cyanosis or edema Assessment & Plan Assessment & Plan (1) Right lower quadrant abdominal pain: Code(s): R10.31 - Right lower quadrant pain Category: Medical Plan 34-year-old male patient presenting with complaints of right lower quadrant abdominal pain with a painful ridge located lateral to the rectus muscle of the right lower quadrant. Examination reveals a tender cord which is the lateral aspect of the right rectus muscle which may indicate an underlying muscle strain/spasm causing the patient's abdominal pain. No hernias appreciated with Valsalva maneuvers. Review a CT abdomen and pelvis performed on 05/17/2024 reveals a small indirect right inguinal hernia containing fat when compared to the left side. This is not clinically significant does not seem to be causing the pain in the upper abdomen. His exam is most consistent with a muscle strain from heavy lifting. I recommended a period of rest and relaxation with symptomatic relief using ibuprofen and warm compresses. He should return in 1 month for follow-up examination. Coding Level of Care Code New Pt Level 4 (73043) Diagnoses Right lower quadrant abdominal pain R10.31
[2024-06-13 11:20] VITALS: BP 144/64; PULSE 68; BMI 29.6
--- OUTSIDE RECORDS SUMMARY | 2024-06-13 11:31 | XMS_ITS | Clinical Summary ---
Author Organization [employer] [facility] Address [address] [place] [address] Care Team Providers Care Cupola Melting Supervisor Name Role Phone Gissel Gordon MD Primary Care Provider [phone] Surgical History Surgery Date Site/Laterality Comments TONSILLECTOMY [...] age to complete this topic Care Teams Cupola Melting Supervisor Relationship Specialty Start Date End Date Gissel Gordon MD [address] [place] [phone] PCP - General 02/12/23
--- OUTSIDE RECORDS SUMMARY | 2024-06-13 11:31 | XMS_ITS | Encounter Summary ---
Author Organization [employer] Address [address] [place] [address] [address], [place] [address] Care Team Providers Care Supervisor Nutritional Yeast Name Role Phone Cara Schuler Primary Care Provider [phone] Encounter Details Date Type Department Care Team (Late st Contact Info) Description 07/18/2022 Abstract [facility] MEDICINE [address] [place] [phone] Cara Schuler FNP [address] [place] [address] Social History Tobacco Use Types Packs/Day Years [...] Description 06/19/2024 9:45 AM EDT Office Visit [facility] MEDICINE [address] [place] [address] Gissel Gordon MD [address] [place] [address] documented as of this encounter Visit Diagnoses Not on filedocumented in this encounter Care Teams Supervisor Nutritional Yeast Relationship Specialty Start Date End Date Cara Schuler FNP [address] [place] [address] PCP - General Family Medicine 10/03/21 documented as of this encounter
--- OUTSIDE RECORDS SUMMARY | 2024-06-13 11:31 | XMS_ITS | Encounter Summary ---
Author Organization [employer] Address [address] [place] [address] [address], [place] [address] Care Team Providers Care Information Delivery Analyst Name Role Phone [facility] Primary Care Provider Reason for Visit * Reason Onset Date Comments Results 09/21/2022 Encounter Details Date Type Department Care Team ([facility] Contact Info) Description 09/21/2022 Telephone [facility] [address] [place], [place] [phone] [place] [facility] [address] [place] [address] Results Social History Tobacco Use Types Packs/Day [...] 06/19/2024 9:45 AM EDT Office Visit [facility] [address] [place] [address] Gissel Gordon MD [address] [place] [address] documented as of this encounter Visit Diagnoses Not on filedocumented in this encounter Additional Health Concerns Assessment Noted Time PHQ-9 Depression Total Score: 0 09/01/19 23 3:57 PM EDT documented as of this encounter Care Teams Information Delivery Analyst Relationship Specialty Start Date End Date Cara Schuler FNP [address] [place] [address] PCP - General Family Medicine 10/03/21 documented as of this encounter
--- OUTSIDE RECORDS SUMMARY | 2024-06-13 11:31 | XMS_ITS | Encounter Summary ---
Author Organization [employer] Address [address] [place] [address] [address] [address] Care Team Providers Care Racking Technician Name Role Phone Cara Schuler Primary Care Provider [phone] Encounter Details Date Type Department Care Team (Late st Contact Info) Description 07/18/2022 Abstract [facility] [address] [place] [address] Cara Schuler FNP [address] [place] [address] Social History Tobacco Use Types Packs/Day Years [...] Description 06/19/2024 9:45 AM EDT Office Visit [facility] [address] [place] [address] Gissel Gordon MD [address] [place] [address] documented as of this encounter Visit Diagnoses Not on filedocumented in this encounter Care Teams Racking Technician Relationship Specialty Start Date End Date Cara Schuler FNP [address] [place] [address] PCP - General Family Medicine 10/03/21 documented as of this encounter
--- OUTSIDE RECORDS SUMMARY | 2024-06-13 11:31 | XMS_ITS | Clinical Summary ---
Author Organization [employer] Address [address] [facility] 7t [place] [address] Care Team Providers Care Emt P Name Role Phone Cara Schuler BALLING HEAD TENDER Primary Care Provider [phone] Allergies No known active allergies Medications cholecalciferol [...] & Plan (11/29/2022 1:12 PM EDT): Healthcare maindeuce Znjrx-Jufzzpnfn-Pgjje pattern 07/06/2020 Overview (10/26/2022): Eaaui-vrdjbueio-Htyyn-reports previously seen by cardiac animal cruelty investigation supervisor who offered ablation which patient declined. No hx of syncope. No chest pain or palpitations Assessment & Plan (03/05/2023 9:46 AM EST): ?? Pt agree to referral back to animal cruelty investigation supervisor for follow up. Will submit referral back to Dr. Vences at [facility] Resolved Problems Problem Noted Date Diagnosed Date Resolved Date Hospital discharge follow-up 07/26/2022 10/26/2022 Assessment & Plan (07/26/2022 4:32 PM EDT): Made appointment with PCP for TP and chronic conditions. Ordered Chest XR due to pervious pneumonia diagnosis on 06/15. Encounters Date Type Department Care Team Description 06/11/2024 Patient Outreach [facility] [address] [place] [address] Cara Schuler FNP Pre-visit Planning ((Unable to reach for PVP screening, LVM)) 05/23/2024 10:20 AM EDT Office Visit [facility] [address] [place] [address] Orlin Heredia MD RLQ abdominal pain (Primary [...] Description 06/19/2024 9:45 AM EDT Office Visit [facility] [address] [place] [address] Gissel Gordon MD [address] [place] [address] Health Maintenance Due Date Last Done Comments [...] EDT Narrative 05/17/2024 7:42 PM EDT ? [facility] ?[address] ?[place] [address] ? CT Scan Report ? Signed ? Patient: Malick Avanzato,Neymar ?MR#: ?? [id number] ? : 1990 ?Acct:[id number] ? Age/Sex: 34 / M ?ADM Date: 04/12/25 ? Loc: HO.ED ? Attending Dr: ? Ordering Physician: Asya Fitzpatrick ?? Date of Service: 05/17/24 ?? Procedure(s): CT abdomen pelvis w IV con ?? Accession Number(s): [id number] ? cc: Asya Fitzpatrick; GalenaCara BALLING HEAD TENDER ? Report Number: ?? [id number]: Total DLP = ??456.00 mGy-cm ? CLINICAL HISTORY: sharp RLQ pain, r o appy ? CT abdomen and pelvis with contrast ? Comparison: US - US APPENDIX - 05/17/24 17:03 EDT ?? CT/REG/AL - CT ABDOMEN PELVIS W IV CON [...] by Jd Serrano MD in OV> ? 05/17/24 1942 ? DD/ 40 ? TD/TT: 05/17/241940 ? Torch Burner: ? Procedure Note Danya Rojas - 05/17/[address] [place] [address] [address] Scan Report Signed Patient: Buddy OrozcoonyMR#: [id number] : 1990Acct:[id number] Age/Sex: 34 / MADM Date: 05/17/24 Loc: HO.ED Attending Dr: Ordering Physician: Asya Fitzpatrick Date of Service: 05/17/24 Procedure(s): CT abdomen pelvis w IV con Accession Number(s): [id number] cc: Asya Fitzpatrick; GalenaCara BALLING HEAD TENDER Report Number: [id number]: Total DLP = 456.00 mGy-cm CLINICAL HISTORY: sharp RLQ pain, r o appy CT abdomen and pelvis with contrast Comparison: US - US APPENDIX - 05/17/24 17:[address]/REG/AL - CT ABDOMEN PELVIS W IV CON [...] in OV> 05/17/241941 DD/ 40 TD/TT: 05/17/241940 Torch Burner: [facility] External Provider IMG CT PROCEDURES Final Result * Urinalysis w/reflex microscopic (05/17/2024 6:25 PM EDT) Color Urine Yellow [facility] Appearance Urine Clear [facility] PH 8.5 5.0 - 9.0 [facility] Glucose Urine UA Negative Negative mg/dL [facility] Urine Blood Negative Negative [facility] Specific [place] - Urine 1.020 1.005 - 1.025 [facility] Urine Protein Negative Neg-Trace mg/dL [facility] Urine Ketones Negative Negative mg/dL [facility] Nitrite Urine Negative Negative [facility] Leukocyte Esterase Urine Negative Negative [facility] 05/17/2024 6:25 PM EDT 05/17/2024 6:29 PM EDT Narrative [facility] - 05/17/2024 6:36 PM EDT Urine, Clean Catch Generic External Data Provider LAB URINE ORDERAB LES Final Result [facility] [address] [place] [phone] * US Pelvis Appendix (05/17/2024 5:44 PM EDT) Anatomical Region Laterality Modality Pelvis Ultrasound 05/17/2024 5:44 PM EDT Narrative 05/17/2024 5:46 PM EDT ? [facility] ?[address] ?[place] [address] ? Ultrasound Report ? Signed ? Patient: Malick Avanzato,Neymar ?MR#: ?? [id number] ? : 1990 ?Acct:[id number] ? Age/Sex: 34 / M ?ADM Date: 05/17/24 ? Loc: HO.ED ? Attending Dr: ? Ordering Physician: Lizzy Boo NP ?? Date of Service: 05/17/24 ?? Procedure(s): US appendix ?? Accession Number(s): [id number] ? cc: Lizzy Boo NP; Cara Schuler BALLING HEAD TENDER ? CLINICAL HISTORY: RLQ tenderness ? US [...] in OV> ? 05/17/24 1746 ? DD/ 43 ? TD/TT: 05/17/241743 ? Torch Burner: ? Procedure Note Danya Rojas - 05/17/2024 [place] [address] Ultrasound Report Signed Patient: Buddy OrozcoonyMR#: [id number] : 1990Acct:[id number] Age/Sex: 34 / MADM Date: 05/17/24 Loc: HO.ED Attending Dr: Ordering Physician: Lizzy Boo NP Date of Service: 05/17/24 Procedure(s): US appendix Accession Number(s): [id number] cc: Lizzy Boo NP; [facility] CLINICAL HISTORY: RLQ tenderness US abdomen limited Comparison: None Findings: Appendix is not visualized in the right lower quadrant. IMPRESSION: Nonvisualization of the appendix. This document has been electronically signed by: Neville Lee MD on 05/17/2024 17:44:49 Dictated By: Neville Lee MD Signed By: <Electronically signed by Neville Lee MD in OV> 05/17/241745 DD/ 43 TD/TT: 05/17/241743 Torch Burner: us [facility] External Provider IMG US PROCEDURES Edited Result - Final * CBC auto differential (05/17/2024 4:27 PM EDT) White Blood Count 6.4 4.8 - 10.8 X10*3/uL [facility] Red Blood Count 4.90 4.60 - 5.80 X10*6/uL [facility] Hemoglobin 14.7 14.0 - 18.0 g/dl [facility] Hematocrit 42.4 42.0 - 52.0 % [facility] Mean Corpuscular Volume 86.5 80.0 - 98.0 fL [facility] Mean Corpuscular Hemoglobin 30.0 27.0 - 33.0 pg [facility] Mean Corpuscular HGB Conc 34.7 31.0 - 36.0 g/dl [facility] Red Cell Distribution Width 11.6 11.0 - 16.0 % [facility] Platelet Count 299 160 - 400 X10*3/uL [facility] Mean Platelet Volume 9.8 9.4 - 12.4 fL [facility] Neutrophils Percent Auto 58.8 45 - 73 % [facility] Imm Gran Pct Auto 0.3 0.0 - 0.4 % [facility] Lymphocytes Percent Auto 30.7 20 - 40 % [facility] Monocytes Percent Auto 8.5 2 - 11 % [facility] Eosinophils Percent Auto 1.1 0 - 4 % [facility] Basophils Percent Auto 0.6 0 - 2 % [facility] NRBC Pct Auto 0.0 0.0 - 0.2 /100WBC [facility] Neutrophils Absolute Auto 3.8 2.0 - 8.3 x10*3/uL [facility] Imm Gran Abs Auto 0.02 0.00 - 0.03 X10*3/uL [facility] Lymphocytes Absolute Auto 2.0 1.2 - 4.9 X10*3/uL [facility] Monocytes Absolute Auto 0.5 0.1 - 1.2 X10*3/uL [facility] Eosinophils Absolute Auto 0.1 0.0 - 0.4 X10*3/uL [facility] Basophils Absolute Auto 0.0 0.0 - 0.2 X10*3/uL [facility] NRBC Abs Auto 0.000 0.0 - 0.012 X10*3/uL [facility] 05/17/2024 4:27 PM EDT 05/17/2024 4:29 PM EDT us Generic External Data Provider LAB BLOOD ORDERAB LES Final Result [facility] [address] [place] [phone] * (ABNORMAL) Comprehensive Metabolic Panel (05/17/2024 4:27 PM EDT) Sodium 139 135 - 145 mmol/L [facility] Potassium 4.1 3.3 - 5.1 mmol/L [facility] Chloride 103 96 - 108 mmol/L [facility] Carbon Dioxide 27 22 - 29 mmol/L [facility] Anion Gap 13 12 - 20 [facility] Urea Nitrogen (BUN) 15 9 - 16 mg/dL [facility] Creatinine, Serum 1.13 0.5 - 1.4 mg/dL [facility] Creatinine Clr Calc Pharmacy 98.3 [facility] Comment:eGFR (calculated fro m the MDRD study equation) and eCrCl(calculated from the Cockcroft-Gault equation) are based ondifferent parameters and may not yield comparable results.If eCrCl result is absurd, please check patient'sheight/weight. Estimated Glomerular Filt Rate >60 [facility] Comment:Chronic Kidney Disea se: Estimated GFR < 60 mL/min/1.22r3[place] Kidney Disease: Estimated GFR < 15 mL/min/1.73m2 Glucose 87 60 - 115 mg/dL [facility] Calcium 9.6 8.4 - 10.2 mg/dL [facility] Bilirubin, Total 0.9 0.0 - 1.0 mg/dL [facility] Aspartate Amino Transferase 30 5 - 37 U/L [facility] Alanine Aminotransferase 45(H) 0 - 40 U/L [facility] Total Protein 7.6 6.5 - 8.0 g/dL [facility] Albumin Level 4.8 3.5 - 5.0 g/dL [facility] Alkaline Phosphatase 48 39 - 117 U/L [facility] 05/17/2024 4:27 PM EDT 05/17/2024 4:29 PM EDT us Generic External Data Provider LAB BLOOD ORDERAB LES Final Result [facility] [address] [place] [phone] [phone] * HIV Ab/Ag ([facility]) (09/08/2022 3:31 PM EDT) HIV AB/AG Nonreactive Nonreactive [facility] Comment:HIV-1 p24 Ag and/or HIV-1/HIV-2 Ab not detected.A test result that is nonreactive does not exclude thepossibility of exposure to or infection with HIV-1 and/orHIV-2. Nonreactive results in this assay for individualswith prior exposure to HIV-1 and/or HIV-2 may be due toantigen and antibody levels that are below the limit ofdetection of this assay.The [employer]inter HIV Ag/Ab Combo assay result andsupplemental assay results should be interpreted inconjunction with the patient's clinical presentation,history and other laboratory results. If the results areinconsistent with clinical evidence, additional testing issuggested to confirm the result. 09/08/2022 3:31 PM EDT 09/08/2022 3:31 PM EDT [facility] BALLING HEAD TENDER LAB BLOOD ORDERABLES Final Re sult [facility] [address] [place] [address] [phone] * HEPATITIS C AB W/REFL TO HCV RNA, QN, PCR (07/20/2020 4:17 PM EDT) HEPATITIS C ANTIBODY NON-REACT [facility] NON-REACT [facility] INDEX 0.03 <1.00 [facility] Comment: ?? HCV antibody was non-reactive. There is no laboratory ?? evidence of HCV infection. ?? In most cases, no further action is required. However, if recent HCV exposure is suspected, a test for HCV RNA (test code 57147) is suggested. ?? For additional information please refer to http://education.[employer]/faq/RHT41h9 (This link is being provided for informational/ educational purposes only.) ?? 07/20/2020 4:17 PM EDT [facility] BALLING HEAD TENDER HISTORICAL/NON ORDERABLE LABS Final Result Performing Organization Address [facility] Co de Phone Number [facility] [address] from Last 3 Months or Most Recently Relevant to Health Maintenance Insurance BS [facility] AD[facility] Care Teams Emt P Relationship Specialty Start Date End Date Cara Schuler FNP [address] [place] [phone] PCP - General Family Medicine 10/03/21
--- OUTSIDE RECORDS SUMMARY | 2024-06-13 11:31 | XMS_ITS | Encounter Summary ---
Author Organization [employer] Address [address] [facility] [place] [address] Care Team Providers Care Community Service Worker Name Role Phone [facility] Primary Care Provider [phone] Reason for Visit * Reason Comments Pre-visit Planning (Unable to reach for PVP screening, LVM) Encounter Details Date Type Department Care Team ([facility] Contact Info) Description 06/11/2024 Patient Outreach [facility] [address] [place], [place] [phone] [facility] [address] [place] [address] Pre-visit Planning ((Unable to reach for PVP screening, LVM)) Social History Tobacco Use Types Packs/Day Years [...] t he electric, gas, oil or water [employer] threatened to shut off services in your home? No 11/20/2022 Depression Answer Date Recorded Patient Health Questionnaire-2 Score 0 03/02/2023 Sex and Gender Information Value Date Recorded Sex Assigned at Male 12/05/2021 10:37 AM EDT Legal Sex Male 3:54 PM EDT Gender Identity Male 12/05/2021 10:37 AM EDT Sexual Orientation Straight 12/05/2021 10 :37 AM EDT documented as of this encounter Progress Notes * Leslie Rao - 06/11/2024 2:43 PM EDT CC Leslie. Placed outbound call to patient to complete pre-visit planning. No answer at this time. Patient name and were not confirmed. CC left voicemail requesting return call. Direct contact information provided. documented in this encounter Plan of Treatment Upcoming Encounters Date Type Department Care Team (Late st Contact Info) Description 06/19/2024 9:45 AM EDT Office Visit [facility] [address] [place] [address] Gissel Gordon MD [address] [place] [address] documented as of this encounter Visit Diagnoses Not on filedocumented in this encounter Additional Health Concerns Assessment Noted Time PHQ-9 Depression Total Score: 0 03/02/19 24 3:01 PM EST documented as of this encounter Care Teams Community Service Worker Relationship Specialty Start Date End Date Cara Schuler FNP [address] [place] [address] PCP - General Family Medicine 10/03/21 documented as of this encounter
--- OUTSIDE RECORDS SUMMARY | 2024-06-13 11:31 | XMS_ITS | Encounter Summary ---
Author Organization [employer] Address [address] [place] [address] [address] [address] Care Team Providers Care Occupational Nurse Name Role Phone Cara Schuler Primary Care Provider [phone] Encounter Details Date Type Department Care Team (Latest Contact Info) Description 08/30/2020 Abstract [facility] Dental, Provider, DDS Social History Tobacco [...] Description 06/19/2024 9:45 AM EDT Office Visit [facility] MEDICINE [address] [place] [address] Gissel Gordon MD [address] [place] [address] documented as of this encounter Visit Diagnoses Not on filedocumented in this encounter Care Teams Occupational Nurse Relationship Specialty Start Date End Date Cara Schuler FNP [address] [place] [address] PCP - General Family Medicine 10/03/21 documented as of this encounter
--- OUTSIDE RECORDS SUMMARY | 2024-06-13 11:31 | XMS_ITS | Encounter Summary ---
Author Organization [employer] Address [address] [facility] 7t [place] [address] Care Team Providers Care Horticultural Therapist Name Role Phone Cara Schuler [facility] Primary Care Provider [phone] Encounter Details Date Type Department Care Team (Late st Contact Info) Description 07/18/2022 Telephone [facility] [address] [place] [address] [phone] [place], Cara [address] [phone] Social History Tobacco Use Types Packs/Day Years [...] get an ed followup. States was at [facility] back in June regarding heart condition and was advised to see his dr and a cardiology. Please call to clarify . documented in this encounter Plan of Treatment Upcoming Encounters Date Type Department Care Team (Late st Contact Info) Description 06/19/2024 9:45 AM EDT Office Visit [facility] [address] [place] [address] Gissel Gordon MD [address] [place] [address] documented as of this encounter Visit Diagnoses Not on filedocumented in this encounter Care Teams Horticultural Therapist Relationship Specialty Start Date End Date Cara Schuler FNP [address] [place] [address] PCP - General Family Medicine 10/03/21 documented as of this encounter
== END 2024-06-13 11:33 | disposition home or self-care (01) ==
LOC: HO.HGS 11:01
PROVIDERS: PCP Registered Nurse; Visit Provider Surgery
DX: R10.31 Right lower quadrant pain (principal)
CPT/HCPCS: 99204

== ENCOUNTER → 2024-06-13 11:00 | Outpatient (BNVA) | payer BC, SELFPAY | PROVIDERS: PCP Registered Nurse; Visit Provider Surgery ==

== ENCOUNTER 2024-06-19 10:32 | Outpatient (REF) | payer BC, SELFPAY ==
--- OUTSIDE RECORDS SUMMARY | 2024-06-19 11:42 | XMS_ITS | Encounter Summary ---
Author Organization [employer] Address [address] [place] [address] [address] [address] Care Team Providers Care Assurance Senior Manager Name Role Phone [facility] Primary Care Provider [phone] Reason for Visit * Reason Onset Date Comments Results 09/21/2022 Encounter Details Date Type Department Care Team ([facility] Contact Info) Description 09/21/2022 Telephone [facility] [address] [place], [place] [phone] [place] [facility] [address] [place] [address] Results Social History Tobacco Use Types Packs/Day [...] Care Team (Late st Contact Info) Description 08/11/2024 11:15 AM EDT Telemedicine [facility] MEDICINE [address] [place] [phone] [place] [address] [address] 09/05/2024 1:15 PM EDT Office Visit [facility] MED[facility]INE [address] [place] [phone] Cara Schuler [address] [address] documented as of this encounter Visit Diagnoses Not on filedocumented in this encounter Additional Health Concerns Assessment Noted Time PHQ-9 Depression Total Score: 0 09/01/19 23 3:57 PM EDT documented as of this encounter Care Teams Assurance Senior Manager Relationship Specialty Start Date End Date Cara Schuler FNP [address] [place] [address] PCP - General Family Medicine 10/03/21 documented as of this encounter
--- OUTSIDE RECORDS SUMMARY | 2024-06-19 11:42 | XMS_ITS | Encounter Summary ---
Author Organization [employer] Address [address] [place] [address] [place], [place] [address] Care Team Providers Care Medical Director Occupational Health Name Role Phone Cara Schuler Primary Care Provider [phone] Encounter Details Date Type Department Care Team (Late st Contact Info) Description 07/18/2022 Abstract [facility] MEDICINE [address] [place] [phone] Cara Schuler FNP [address] [place] [address] Social History Tobacco Use Types Packs/Day Years [...] Info) Description 08/11/2024 11:15 AM EDT Telemedicine [facility]INE [address] [place] [phone] Cara Schuler FNP [address] [place] [address] 09/05/2024 1:15 PM EDT Office Visit [address] [address] Cara Schuler FNP [address] [place] [address] documented as of this encounter Visit Diagnoses Not on filedocumented in this encounter Care Teams Medical Director Occupational Health Relationship Specialty Start Date End Date Cara Schuler FNP [address] [place] [address] PCP - General Family Medicine 10/03/21 documented as of this encounter
--- OUTSIDE RECORDS SUMMARY | 2024-06-19 11:42 | XMS_ITS | Encounter Summary ---
Author Organization [employer] Address [address] [facility] 7t [place] [address] Care Team Providers Care Animal Nutrition Consultant Name Role Phone [facility] Primary Care Provider Reason for Visit * Reason Onset Date Comments Letter for School/Work 06/19/2024 Encounter Details Date Type Department Care Team ([facility] st Contact Info) Description 06/19/2024 Telephone [facility] [address] [place], [place] [phone] [place] [facility] [address] [place] [address] Letter for School/Work Social History Tobacco Use Types Packs/Day Years [...] housing situation today? I have carrie schulte 06/19/[address] you li ve. Do you have problems with any of the following? None of the above 06/19/2024 Food Insecurity Answer Date Recorded Within the past 12 months, y ou worried that your food would run out before you got money to buy more: Never True 06/19/2024 Within the past 12 months,th e food you bought just didn't last and you didn't have enough money to get more: Never True Transportation Answer Date Recorded In the past 12 months, has l ack of transportation kept you from medical appts, meetings, work or from getting things needed for daily living? No 06/19/2024 Utilities Answer Date Recorded In the past 12 months, has t he electric, gas, oil or water company threatened to shut off services in your home? No 06/19/2024 Depression Answer Date Recorded Patient Health Questionnaire-2 Score 0 06/19/2024 Internet Access Answer Date Recorded Internet Access Q1 No 06/19/2024 Internet Access Q2 I do not want or need it 06/05 Sex and Gender Information Value Date Recorded Sex Assigned at Male 12/05/2021 10:37 AM EDT Legal Sex Male 3:54 PM EDT Gender Identity Male 12/05/2021 10:37 AM EDT Sexual Orientation Straight 12/05/2021 10 :37 AM EDT documented as of this encounter Functional Status * Over the past 2 weeks, how often have you been bothered by any of the following problems? Question Answer Date of Assessment Author Little interest or pleasure in doing things Not at all 06/19/2024 9:48 AM EDT Hedy Mistry [place] Feeling down, depressed, or hopeless Not at all 06/19/2024 9:48 AM EDT Hedy Mistry MA Patient Health Questionnaire-2 Score 0 06/19/2024 9:48 AM EDT Donovan Mistry [place] documented as of this encounter Miscellaneous Notes * Telephone Encounter - Zulay Kee - 06/19/2024 10:26 AM EDT LETTER FOR WORK NEEDED documented in this encounter Plan of Treatment Upcoming Encounters Date Type Department Care Team (Late st Contact Info) Description 08/11/2024 11:15 AM EDT Telemedicine [facility] [address] [place] [address] aCra Schuler FNP [address] [place] [address] 09/05/2024 1:15 PM EDT Office Visit [facility] [address] [place] [address] Cara Schuler FNP [address] [place] [address] documented as of this encounter Visit Diagnoses Not on filedocumented in this encounter Additional Health Concerns Assessment Noted Time PHQ-9 Depression Total Score: 0 03/02/19 24 3:01 PM EST documented as of this encounter Care Teams Animal Nutrition Consultant Relationship Specialty Start Date End Date Cara Schuler FNP [address] [place] [address] PCP - General Family Medicine 10/03/21 documented as of this encounter
--- OUTSIDE RECORDS SUMMARY | 2024-06-19 11:42 | XMS_ITS | Encounter Summary ---
Author Organization [employer] Address [address] [place] [address] Care Team Providers Care Gauge Maker Apprentice Name Role Phone Cara Schuler ACETYLENE TORCH SOLDERER Primary Care Provider [phone] Encounter Details Date Type Department Care Team (Latest Contact Info) Description 06/19/2024 Travel Social History Tobacco Use Types Packs/Day Years [...] [place] documented as of this encounter Plan of Treatment Upcoming Encounters Date Type Department Care Team (Late st Contact Info) Description 08/11/2024 11:15 AM EDT Telemedicine [facility] [address] [place] [phone] [place] [facility] [address] [place] [address] 09/05/2024 1:15 PM EDT Office Visit [facility] [address] [place] [address] [place] [address] [address] documented as of this encounter Visit Diagnoses Not on filedocumented in this encounter Additional Health Concerns Assessment Noted Time PHQ-9 Depression Total Score: 0 03/02/19 24 3:01 PM EST documented as of this encounter Care Teams Gauge Maker Apprentice Relationship Specialty Start Date End Date [place] DEACON Marroquin [address] [place] [address] PCP - General Family Medicine 10/03/21 documented as of this encounter
--- OUTSIDE RECORDS SUMMARY | 2024-06-19 11:42 | XMS_ITS | Encounter Summary ---
Author Organization [employer] Address [address] [place] [address] [address] [place] [address] Care Team Providers Care Yarn Mercerizer Operator Name Role Phone Cara Schuler Primary Care Provider [phone] Encounter Details Date Type Department Care Team (Latest Contact Info) Description 08/30/2020 Abstract [facility] CONVERSIONS Dental, Provider, DDS Social History Tobacco [...] Care Team ( st Contact Info) Description 08/11/2024 11:15 AM EDT Telemedicine [facility] MEDICINE [address] [place] [address] Cara Schuler FNP [address] [place] [address] 09/05/2024 1:15 PM EDT Office Visit [facility] [address] [place] [address] Cara Schuler FNP [address] [place] [phone] documented as of this encounter Visit Diagnoses Not on filedocumented in this encounter Care Teams Yarn Mercerizer Operator Relationship Specialty Start Date End Date Cara Schuler FNP [address] [place] [address] PCP - General Family Medicine 10/03/21 documented as of this encounter
--- OUTSIDE RECORDS SUMMARY | 2024-06-19 11:42 | XMS_ITS | Encounter Summary ---
Author Organization [employer] Address [address] [place] [address] [place], [place] [address] Care Team Providers Care Shrub Grower Name Role Phone Cara Schuler Primary Care Provider [phone] Encounter Details Date Type Department Care Team (Late st Contact Info) Description 07/18/2022 Abstract [facility] [address] [place] [address] Cara Schuler FNP [address] [place] [phone] Social History Tobacco Use Types Packs/Day Years [...] Info) Description 08/11/2024 11:15 AM EDT Telemedicine [facility] [address] [place] [address] Craa Schuler FNP [address] [place] [phone] 09/05/2024 1:15 PM EDT Office Visit [address] [address] Cara Schuler FNP [address] [place] [address] documented as of this encounter Visit Diagnoses Not on filedocumented in this encounter Care Teams Shrub Grower Relationship Specialty Start Date End Date Cara Schuler FNP [address] [place] [phone] PCP - General Family Medicine 10/03/21 documented as of this encounter
--- OUTSIDE RECORDS SUMMARY | 2024-06-19 11:42 | XMS_ITS | Clinical Summary ---
Author Organization [facility] Address [address] [place] [address] Care Team Providers Care Administrative Hearing Officer Name Role Phone Gissel Gordon MD Primary [...] age to complete this topic Care Teams Administrative Hearing Officer Relationship Specialty Start Date End Date Gissel Gordon MD [address] [place] [phone] PCP - General 02/12/23
--- OUTSIDE RECORDS SUMMARY | 2024-06-19 11:42 | XMS_ITS | Encounter Summary ---
Author Organization [employer] Address [address] [facility] 7[address] [place] [address] Care Team Providers Care Rehab Nurse Name Role Phone Cara Schuler MOBILE DEVELOPER Primary Care Provider [phone] Reason for Visit * Reason Comments Annual Exam Encounter Details Date Type Department Care Team ([facility] st Contact Info) Description 06/19/2024 9:45 AM EDT Office Visit [facility] [address] [place], [place] [phone] Gissel Gordon MD [address] [place] [address] Chronic bilateral low back pain without sciatica (Primary Dx); Pain in other joint; Encounter for preventative adult health care examination; Elevated liver function tests; Screen for STD (sexually transmitted disease) Social History Tobacco Use Types Packs/Day Years [...] AM EDT documented as of this encounter Last Filed Vital Signs Vital Sign Reading Time Taken Comments Blood Pressure 127/73 06/19/2024 9:48 AM EDT Pulse 63 06/19/2024 9:48 AM EDT Temperature 36.7 ??C (98 ??F) 06/19/2024 9:48 AM EDT Respiratory Rate - - Oxygen Saturation 100% 06/19/2024 9:48 AM EDT Inhaled Oxygen Concentration - - Weight 87.3 kg (192 lb 6 oz) 06/19/2024 9:48 AM EDT Height 172.7 cm (5' 8 ) 06/19/2024 9:48 AM EDT Body Mass Index 29.25 06/19/2024 9:48 AM EDT documented in this encounter Functional Status * Over the [...] Info) Description 08/11/2024 11:15 AM EDT Telemedicine [facility] [address] [place] [phone] [facility] [address] [place] [address] 09/05/2024 1:15 PM EDT Office Visit [facility] [address] [place] [address] [facility] [address] [place] [address] Scheduled Orders Name Type Priority Associated Diagnoses Orde r Schedule Testosterone, Free (Dialysis) And Total, MS Lab Routine Encounter for preventative adult health care examination Expected: 06/19/2024 (Approximate), Expires: 06/19/2025 Chlamydia/N. Gonorrhoeae RNA, TMA, Urogenitial Microbiology Routine Screen for STD (sexually transmitted disease) Ordered: 06/19/2024 Syphilis Screen Lab Routine Screen for STD (sexually transmitted disease) Expected: 06/19/2024 (Approximate), Expires: 06/19/2025 TSH with Reflex to Free T4 Lab Routine Chronic bilateral low back pain without sciatica Expected: 06/19/2024 (Approximate), Expires: 06/19/2025 T-SPOT??.TB Lab Routine Screen for STD (sexually transmitted disease) Expected: 06/19/2024 (Approximate), Expires: 06/19/2025 Vitamin D, 25-Hydroxy, Total, Immunoassay Lab Routine Pain in other joint Expected: 06/19/2024 (Approximate), Expires: 06/19/2025 Lipid Panel with Reflex to Direct LDL Lab Routine Elevated liver function tests Expected: 06/19/2024 (Approximate), Expires: 06/19/2025 HIV-1/2 Antigen and Antibodies, Fourth Generation, with Reflexes Lab Routine Elevated liver function tests Expected: 06/19/2024 (Approximate), Expires: 06/19/2025 Hepatitis Panel, General Lab Routine Elevated liver function tests Expected: 06/19/2024 (Approximate), Expires: 06/19/2025 CBC auto differential Lab Routine Pain in other joint Expected: 06/19/2024 (Approximate), Expires: 06/19/2025 Comprehensive Metabolic Panel Lab Routine Elevated liver function tests Expected: 06/19/2024 (Approximate), Expires: 06/19/2025 Gamma Glutamyl Transferase (GGT) Lab Routine Elevated liver function tests Expected: 06/19/2024 (Approximate), Expires: 06/19/2025 documented as of this encounter Visit Diagnoses Diagnosis Chronic bilateral low back pain without sciatica- Primary Pain in other joint Encounter for preventative adult health care examination Elevated liver function tests Other abnormal blood chemistry Screen for STD (sexually transmitted disease) Screening examination for venereal disease documented in this encounter Additional Health Concerns Assessment Noted Time PHQ-9 Depression Total Score: 0 03/02/19 24 3:01 PM EST documented as of this encounter Care Teams Rehab Nurse Relationship Specialty Start Date End Date [place] [address] [place] [phone] PCP - General Family Medicine 10/03/21 documented as of this encounter
--- OUTSIDE RECORDS SUMMARY | 2024-06-19 11:42 | XMS_ITS | Encounter Summary ---
Author Organization [employer] Address [address] [facility] 7[address] [place] [address] Care Team Providers Care Supervisor Publications Name Role Phone Cara Schuler [facility] Primary Care Provider [phone] Encounter Details Date Type Department Care Team (Late st Contact Info) Description 07/18/2022 Telephone [facility] [address] [place] [phone] Cara Schuler [address] [phone] Social History Tobacco Use Types Packs/Day Years [...] get an ed followup. States was at [facility] [place] regarding heart condition and was advised to see his dr and a cardiology. Please call to clarify . documented in this encounter Plan of Treatment Upcoming Encounters Date Type Department Care Team (Late st Contact Info) Description 08/11/2024 11:15 AM EDT Telemedicine [facility] [address] [place] [address] [place] [address] Cara Schuler FNP [address] [facility] [place] [address] 09/05/2024 1:15 PM EDT Office Visit [facility] [address] [facility] [place] [address] Cara Schuler FNP [address] [place] [address] documented as of this encounter Visit Diagnoses Not on filedocumented in this encounter Care Teams Supervisor Publications Relationship Specialty Start Date End Date Cara Schuler FNP [facility] [place] [address] PCP - General Family Medicine 10/03/21 documented as of this encounter
--- OUTSIDE RECORDS SUMMARY | 2024-06-19 11:42 | XMS_ITS | Clinical Summary ---
Author Organization [employer] Address [address] [facility] [address] [place] [address] Care Team Providers Care Engineering Coordinator Name Role Phone Cara Schuler [employer] Primary Care Provider [phone] Allergies No known active allergies Medications cholecalcifer ol (Vitamin D-3) 50 MCG (1999) capsule take 1 by oral route every day 90 capsule 06/17/19 23 Active Additional Information Patient not taking.Reported on 07/26/2022 fluticasone (Flonase) 50 MCG/ACT nasal sprayIndicati ons:Rhinosinu sitis Administer 1 spray into each nostril in the morning. 16 g 2 12/05/19 23 Active ibuprofen 400 MG tablet Take 1 tablet (400 mg) by mouth every 6 (six) hours if needed for moderate pain or fever for up to 30 doses. 30 tablet 01/02/20 24 Active ibuprofen 400 MG tablet Take 1 tablet (400 mg) by mouth every 6 (six) hours if needed for moderate pain or fever for up to 30 doses. 30 tablet 05/24/19 25 Active nicotine (Nicoderm CQ) 21 MG/24HR patch Place 1 patch on the skin 1 (one) time each day at the same time. 42 patch 1 06/20/19 25 025 Active nicotine polacrilex (Commit) 2 MG lozenge Dissolve 1 lozenge (2 mg) in the mouth if needed for smoking cessation. 100 lozenge 06/20/19 25 025 Active cyclobenzapri ne (Flexeril) 10 MG tablet Take 1 tablet (10 mg) by mouth at bedtime for 10 days. 10 tablet 06/20/19 25 025 Active acetaminophen (Tylenol) 500 MG tablet Take 2 tablets (1,000 mg) by mouth every 6 (six) hours if needed for moderate pain or fever for up to 25 doses. 30 tablet 06/20/19 25 Active acetaminophen (Tylenol) 500 MG tablet Take 2 tablets (1,000 mg) by mouth every 6 (six) hours if needed for moderate pain or fever. 40 tablet 01/02/20 24 Discontinued acetaminophen (Tylenol) 500 MG tablet Take 2 tablets (1,000 mg) by mouth every 6 (six) hours if needed for moderate pain or fever for up to 25 doses. 30 tablet 05/24/19 Discontinued nicotine (Nicoderm CQ) 14 MG/24HR patch Place 1 patch on the skin 1 (one) time each day at the same time. 42 patch 05/24/19 Discontinued nicotine (Nicoderm CQ) 7 MG/24HR patch Place 1 patch on the skin 1 (one) time each day at the same time. 14 patch 05/24/19 Discontinued nicotine polacrilex (Commit) 2 MG lozenge Dissolve 1 lozenge (2 mg) in the mouth if needed for smoking cessation. 100 lozenge 05/24/19 Discontinued(Re order (will not trigger notification to Pharmacy)) Active Problems Problem Noted Date Diagnosed Date Chronic bilateral low back pain without sciatica 06/19/2024 Joint pain 06/19/2024 Recurrent right knee instability 03/05/2023 Assessment & Plan (03/05/2023 9:37 AM EST): ?? Concern for possible meniscal tear ?? Will order MRI and pending results refer to ortho as indicated Encounter for preventative adult health care exa mination 11/29/2022 Overview (11/29/2022): Declines all vaccines Pt [...] Plan (11/29/2022 1:12 PM EDT): Healthcare mainten Holur-Lagrxktyr-Ujkkp pattern 07/06/2020 Overview (10/26/2022): Mopxq-xsiiulevr-Bomsb-reports previously seen by cardiac coating machine feeder who offered ablation which patient declined. No hx of syncope. No chest pain or palpitations Assessment & Plan (03/05/2023 9:46 AM EST): ?? Pt agree to referral back to coating machine feeder for follow up. Will submit referral back to Dr. Vences at [facility] Resolved Problems Problem Noted Date Diagnosed Date Resolved Date Hospital discharge follow-up 07/26/2022 10/26/2022 Assessment & Plan (07/26/2022 4:32 PM EDT): Made appointment with PCP for TP and chronic conditions. Ordered Chest XR due to pervious pneumonia diagnosis on 06/15. Encounters Date Type Department Care Team Description 06/19/2024 9:45 AM EDT Office Visit [facility] [address] [place] [phone] Gissel Gordon MD Chronic bilateral low back pain without sciatica (Primary Dx); Pain in other joint; Encounter for preventative adult health care examination; Elevated liver function tests; Screen for STD (sexually transmitted disease) 06/19/2024 Telephone [facility] [address] [place] [address] Cara Schuler FNP Letter for School/Work 06/19/2024 Telephone [facility] [address] [facility] [place] [address] Cara Scuhler FNP Letter for School/Work 06/19/2024 Travel 06/11/2024 Patient Outreach [facility] [address] [place] [address] Cara Schuler FNP Pre-visit Planning ((Unable to reach for PVP screening, LVM)) 05/23/2024 10:20 AM EDT Office Visit [facility] [address] [place] [address] Orlin Heredia MD RLQ abdominal pain (Primary Dx); Other tobacco product nicotine dependence, uncomplicated 05/23/2024 Travel 05/17/2024 Orders Only GENERIC EXTERNAL DATA DEPARTMENT Provider, Generic External Data from Last 3 Months Immunizations Immunization Administration Dates Next Due Td (adult), 5 [...] ??F) 06/19/2024 9:48 AM EDT Respiratory Rate 17 05/23/2024 9:52 AM EDT Oxygen Saturation 100% 06/19/2024 9:48 AM EDT Inhaled Oxygen Concentration - - Weight 87.3 kg (192 lb 6 oz) 06/19/2024 9:48 AM EDT Height 172.7 cm (5' 8 ) 06/19/2024 9:48 AM EDT Body Mass Index 29.25 06/19/2024 9:48 AM EDT Plan of Treatment Upcoming Encounters Date Type Department Care Team (Late st Contact Info) Description 08/11/2024 11:15 AM EDT Telemedicine [facility] [address] [place] [phone] [place] F[place] [address] [place] [address] 09/05/2024 1:15 PM EDT Office Visit [facility] [address] [place] [phone] [place], [place], [employer] [address] [place] [address] Health Maintenance Due Date Last Done Comments Alcohol/Substance Use Screening 2002 Family Planning (PISQ) 2005 IPV Vaccines (2 of 3 - Adult catch-up series) 01/07/2016 12/10/2015 Dental Oral Exam 02/17/2021 08/16/2020 Dental Prophylaxis 03/03/2021 08/30/2020 Dental X-Ray: Bitewings 08/17/2021 08/16/2020 Dental X-Ray: Full Mouth 08/18/2023 08/16/2020 COVID-19 Vaccine ( season) 2023 Influenza Vaccine (#1) 2023 6, 12/05/2007, 01/09/2003 Depression Screening 06/19/2025 06/19/2024, 03/02/19 24 SDOH Screening 06/19/2025 06/19/2024 Tobacco Screening 06/19/2025 06/19/2024 DTaP/Tdap/Td Vaccines (9 - Td or Tdap) 12/09/2025 12/10/2015, 07/08/2012, 12/05/2007, Additional history exists Zoster Vaccines (1 of 2) 2040 RSV Patients and Patients Aged 60 years or older (1 - 1-dose 75+ series) 2065 HIB Vaccines Completed 07/28/1991, 02/05, 1990, Additional history exists Hepatitis B Vaccines Completed 06/20/1995, 10/24/1994, 06/05/1994 Hepatitis A Vaccines Aged Out 12/10/2015 No long er eligible based on patient's age to complete this topic Meningococcal Vaccine Aged Out 12/10/2015, 007 No longer eligible based on patient's age to complete this topic Hepatitis C Screening Completed 07/20/2020 HIV Screening Completed 09/08/2022, 07/20/2020 HPV Vaccines Aged Out No longer eligi ble based on patient's age to complete this topic Meningococcal B Vaccine Aged Out No l onger eligible based on patient's age to complete this topic Pneumococcal Vaccine: Pediatrics (0 to 5 Years) and At-Risk Patients (6 to 49) Years) Aged Out No longer eligible based [...] EDT Narrative 05/17/2024 7:42 PM EDT ? [facility] ?[address] ?[place] [address] ? CT Scan Report ? Signed ? Patient: Malick Avanzato,Neymar ?MR#: ?? [id number] ? : 1990 ?Acct:[id number] ? Age/Sex: 34 / M ?ADM Date: 05/17/24 ? Loc: HO.ED ? Attending Dr: ? Ordering Physician: Asya Fitzpatrick ?? Date of Service: 05/17/24 ?? Procedure(s): CT abdomen pelvis w IV con ?? Accession Number(s): [id number] ? cc: Asya Fitzpatrick; Cara Schuler [employer] ? Report Number: ?? [id number]: Total DLP = ??456.00 mGy-cm ? CLINICAL HISTORY: sharp RLQ pain, r o appy ? CT abdomen and pelvis with contrast ? Comparison: US - US APPENDIX - 05/17/24 17:03 EDT ?? CT/REG/[place] - CT ABDOMEN PELVIS W IV CON [...] ? DD/ 40 ? TD/TT: 05/17/241940 ? Hcc Coders: ? Procedure Note Danya Rojas - 05/17/[address] [address] [address] Scan Report Signed Patient: Buddy OrozcoonyMR#: [id number] : 1990Acct:[id number] Age/Sex: 34 / MADM Date: 05/17/24 Loc: HO.ED Attending Dr: Ordering Physician: Asya Fitzpatrick Date of Service: 05/17/24 Procedure(s): CT abdomen pelvis w IV con Accession Number(s): [id number] cc: Asya Fitzpatrick; [facility] Report Number: [id number]: Total DLP = 456.00 mGy-cm CLINICAL HISTORY: sharp RLQ pain, r o appy CT abdomen and pelvis with contrast Comparison: US - US APPENDIX - 05/17/24 17:[address]/REG/[place] - CT ABDOMEN PELVIS W IV CON [...] in OV> 05/17/241941 DD/ 40 TD/TT: 05/17/241940 Hcc Coders: [facility] [employer] [facility] External Provider IMG CT PROCEDURES Final Result * Urinalysis w/reflex microscopic (05/17/2024 6:25 PM EDT) Color Urine Yellow [facility] Appearance Urine Clear [facility] PH 8.5 5.0 - 9.0 [facility] Glucose Urine UA Negative Negative mg/dL [facility] Urine Blood Negative Negative [facility] Specific [place] - Urine 1.020 1.005 - 1.025 [facility] Urine Protein Negative Neg-Trace mg/dL [facility] Urine Ketones Negative Negative mg/dL [facility] Nitrite Urine Negative Negative [facility] Leukocyte Esterase Urine Negative Negative [facility] 05/17/2024 6:25 PM EDT 05/17/2024 6:29 PM EDT Narrative [facility] - 05/17/2024 6:36 PM EDT Urine, Clean Catch us Generic External Data Provider LAB URINE ORDERAB LES Final Result [facility] [address] [place] [address] [phone] * US Pelvis Appendix (05/17/2024 5:44 PM EDT) Anatomical Region Laterality Modality Pelvis Ultrasound 05/17/2024 5:44 PM EDT Narrative 05/17/2024 5:46 PM EDT ? [facility] ?[address] ?[place] [address] ? Ultrasound Report ? Signed ? Patient: Neymar Orozco ?MR#: ?? [id number] ? : 1990 ?Acct:[id number] ? Age/Sex: 34 / M ?ADM Date: 05/17/24 ? Loc: HO.ED ? Attending Dr: ? Ordering Physician: Lizzy Boo NP ?? Date of Service: 05/17/24 ?? Procedure(s): US appendix ?? Accession Number(s): [id number] ? cc: Lizzy Boo NP; Cara Schuler [employer] ? CLINICAL HISTORY: RLQ tenderness ? US [...] DD/ 1744 ? TD/TT: 05/17/24 1744 ? Hcc Coders: ? Procedure Note Crystal, Image - 05/17/[address] [address] Ultrasound Report Signed Patient: Buddy OrozcoonyMR#: [id number] : 1990Acct:[id number] Age/Sex: 34 / MADM Date: 05/17/24 Loc: HO.ED Attending Dr: Ordering Physician: Lizzy Boo NP Date of Service: 05/17/24 Procedure(s): US appendix Accession Number(s): [id number] cc: Lizzy Boo PHOTO LAB SPECIALIST; [facility] CLINICAL HISTORY: RLQ tenderness US abdomen limited Comparison: None Findings: Appendix is not visualized in the right lower quadrant. IMPRESSION: Nonvisualization of the appendix. This document has been electronically signed by: Neville Lee MD on 05/17/2024 17:44:49 Dictated By: Neville Lee MD Signed By: <Electronically signed by Neville Lee MD in OV> 05/17/241745 DD/ 43 TD/TT: 05/17/241743 Hcc Coders: us [facility] External Provider IMG US PROCEDURES Edited Result - Final * CBC auto differential (05/17/2024 4:27 PM EDT) White Blood Count 6.4 4.8 - 10.8 X10*3/uL [facility] Red Blood Count 4.90 4.60 - 5.80 X10*6/uL [facility] Hemoglobin 14.7 14.0 - 18.0 g/dl [facility] Hematocrit 42.4 42.0 - 52.0 % [facility] Mean Corpuscular Volume 86.5 80.0 - 98.0 fL [facility] Mean Corpuscular Hemoglobin 30.0 27.0 - 33.0 pg [facility] Mean Corpuscular HGB Conc 34.7 31.0 - 36.0 g/dl [facility] Red Cell Distribution Width 11.6 11.0 - 16.0 % [facility] Platelet Count 299 160 - 400 X10*3/uL [facility] Mean Platelet Volume 9.8 9.4 - 12.4 fL [facility] Neutrophils Percent Auto 58.8 45 - 73 % [facility] Imm Gran Pct Auto 0.3 0.0 - 0.4 % [facility] Lymphocytes Percent Auto 30.7 20 - 40 % [facility] Monocytes Percent Auto 8.5 2 - 11 % [facility] Eosinophils Percent Auto 1.1 0 - 4 % [facility] Basophils Percent Auto 0.6 0 - 2 % [facility] NRBC Pct Auto 0.0 0.0 - 0.2 /100WBC [facility] Neutrophils Absolute Auto 3.8 2.0 - 8.3 x10*3/uL [facility] Imm Gran Abs Auto 0.02 0.00 - 0.03 X10*3/uL [facility] Lymphocytes Absolute Auto 2.0 1.2 - 4.9 X10*3/uL [facility] Monocytes Absolute Auto 0.5 0.1 - 1.2 X10*3/uL [facility] Eosinophils Absolute Auto 0.1 0.0 - 0.4 X10*3/uL [facility] Basophils Absolute Auto 0.0 0.0 - 0.2 X10*3/uL [facility] NRBC Abs Auto 0.000 0.0 - 0.012 X10*3/uL [facility] 05/17/2024 4:27 PM EDT 05/17/2024 4:29 PM EDT us Generic External Data Provider LAB BLOOD ORDERAB LES Final Result [facility] [address] [place] [phone] * (ABNORMAL) Comprehensive Metabolic Panel (05/17/2024 4:27 PM EDT) Sodium 139 135 - 145 mmol/L [facility] Potassium 4.1 3.3 - 5.1 mmol/L [facility] Chloride 103 96 - 108 mmol/L [facility] Carbon Dioxide 27 22 - 29 mmol/L [facility] Anion Gap 13 12 - 20 [facility] Urea Nitrogen (BUN) 15 9 - 16 mg/dL [facility] Creatinine, Serum 1.13 0.5 - 1.4 mg/dL [facility] Creatinine Clr Calc Pharmacy 98.3 [facility] Comment:eGFR (calculated fro m the MDRD study equation) and eCrCl(calculated from the Cockcroft-Gault equation) are based ondifferent parameters and may not yield comparable results.If eCrCl result is absurd, please check patient'sheight/weight. Estimated Glomerular Filt Rate >60 [facility] Comment:Chronic Kidney Disea se: Estimated GFR < 60 mL/min/1.71f9Erigst Kidney Disease: Estimated GFR < 15 mL/min/1.73m2 Glucose 87 60 - 115 mg/dL [facility] Calcium 9.6 8.4 - 10.2 mg/dL [facility] Bilirubin, Total 0.9 0.0 - 1.0 mg/dL [facility] Aspartate Amino Transferase 30 5 - 37 U/L [facility] Alanine Aminotransferase 45(H) 0 - 40 U/L [facility] Total Protein 7.6 6.5 - 8.0 g/dL [facility] Albumin Level 4.8 3.5 - 5.0 g/dL [facility] Alkaline Phosphatase 48 39 - 117 U/L [facility] 05/17/2024 4:27 PM EDT 05/17/2024 4:29 PM EDT us Generic External Data Provider LAB BLOOD ORDERAB LES Final Result [facility] [address] [place] [phone] * HIV Ab/Ag ([facility]) (09/08/2022 3:31 PM EDT) HIV AB/AG Nonreactive Nonreactive [facility] Comment:HIV-1 p24 Ag and/or HIV-1/HIV-2 Ab not detected.A test result that is nonreactive does not exclude thepossibility of exposure to or infection with HIV-1 and/orHIV-2. Nonreactive results in this assay for individualswith prior exposure to HIV-1 and/or HIV-2 may be due toantigen and antibody levels that are below the limit ofdetection of this assay.[facility] HIV Ag/Ab Combo assay result andsupplemental assay results should be interpreted inconjunction with the patient's clinical presentation,history and other laboratory results. If the results areinconsistent with clinical evidence, additional testing issuggested to confirm the result. 09/08/2022 3:31 PM EDT 09/08/2022 3:31 PM EDT [facility] [employer] LAB BLOOD ORDERABLES Final Re sult [facility] [address] [place] [phone] * HEPATITIS C AB W/REFL TO HCV RNA, QN, PCR (07/20/2020 4:17 PM EDT) HEPATITIS C ANTIBODY NON-REACT MARIANNA NON-REACT MARIANNA [facility] INDEX 0.03 <1.00 [facility] Comment: ?? HCV antibody was non-reactive. There is no laboratory ?? evidence of HCV infection. ?? In most cases, no further action is required. However, if recent HCV exposure is suspected, a test for HCV RNA (test code 19329) is suggested. ?? For additional information please refer to http://education.Daily Dealy/faq/ZJW18l9 (This link is being provided for informational/ educational purposes only.) ?? 07/20/2020 4:17 PM EDT [place] [employer] HISTORICAL/NON ORDERABLE LABS Final Result [facility] [address] from Last 3 Months or Most Recently Relevant to Health Maintenance Insurance [facility] STAND ADULT [address] [place] [phone] Care Teams Engineering Coordinator Relationship Specialty Start Date End Date Cara Schuler FNP [address] [place] [phone] PCP - General Family Medicine 10/03/21
--- OUTSIDE RECORDS SUMMARY | 2024-06-19 11:42 | XMS_ITS | Encounter Summary ---
Author Organization [employer] Address [address] [facility] [address] [place] [address] Care Team Providers Care Questioned Documents Examiner Name Role Phone [facility] Primary Care Provider [phone] Reason for Visit * Reason Onset Date Comments Letter for School/Work 06/19/2024 Encounter Details Date Type Department Care Team ([facility] st Contact Info) Description 06/19/2024 Telephone [facility] [address] [place], [place] [phone] [facility] [address] [place] [address] Letter for School/Work Social History Tobacco Use [...] Telephone Encounter - Zulay Kee - 06/19/2024 10:28 AM EDT LETTER FOR WORK NEEDED documented in this encounter Plan of Treatment Upcoming Encounters Date Type Department Care Team (Late st Contact Info) Description 08/11/2024 11:15 AM EDT Telemedicine [facility] [address] [place] [address] Cara Schuler FNP [address] [place] [address] 09/05/2024 1:15 PM EDT Office Visit [facility] [address] [place] [address] Cara Schuler FNP [address] [place] [address] documented as of this encounter Visit Diagnoses Not on filedocumented in this encounter Additional Health Concerns Assessment Noted Time PHQ-9 Depression Total Score: 0 03/02/19 24 3:01 PM EST documented as of this encounter Care Teams Questioned Documents Examiner Relationship Specialty Start Date End Date Cara Schuler FNP [address] [place] [address] PCP - General Family Medicine 10/03/21 documented as of this encounter
[2024-06-19 11:44] LABS: MANUAL DIFF FLAG NO
[2024-06-19 11:46] LABS: Basophils Percent Auto 0.7 % (0-2); Eosinophils Absolute Auto 0.2 X10*3/uL (0.0-0.4); Eosinophils Percent Auto 3.3 % (0-4); Hematocrit 42.9 % (42.0-52.0); Hemoglobin 14.2 g/dl (14.0-18.0); Imm Gran Abs Auto 0.01 X10*3/uL (0.00-0.03); Imm Gran Pct Auto 0.2 % (0.0-0.4); Lymphocytes Absolute Auto 1.6 X10*3/uL (1.2-4.9); Lymphocytes Percent Auto 28.7 % (20-40); Mean Corpuscular HGB Conc 33.1 g/dl (31.0-36.0); Mean Corpuscular Hemoglobin 29.6 pg (27.0-33.0); Mean Corpuscular Volume 89.4 fL (80.0-98.0); Mean Platelet Volume 10.5 fL (9.4-12.4); Monocytes Absolute Auto 0.6 X10*3/uL (0.1-1.2); Monocytes Percent Auto 11.6 % (2-11); Neutrophils Absolute Auto 3.1 x10*3/uL (2.0-8.3); Neutrophils Percent Auto 55.5 % (45-73); Platelet Count 286 X10*3/uL (160-400); Red Cell Distribution Width 12.1 % (11.0-16.0); White Blood Count 5.5 X10*3/uL (4.8-10.8)
[2024-06-19 12:25] LABS: Alanine Aminotransferase 47 U/L (0-40); Albumin Level 4.6 g/dL (3.5-5.0); Alkaline Phosphatase 47 U/L (39-117); Anion Gap 12 (12-20); Aspartate Amino Transferase 24 U/L (5-37); Bilirubin Total 0.8 mg/dL (0.0-1.0); Blood Urea Nitrogen 19 mg/dL (9-16); Calcium 9.9 mg/dL (8.4-10.2); Carbon Dioxide 29 mmol/L (22-29); Chloride 104 mmol/L (96-108); Cholesterol 201 mg/dL (<200); Estimated Glomerular Filt Rate > 60; Glucose Random 85 mg/dL (60-115); HDL Cholesterol 67 mg/dL (>40); LDL Cholesterol Calculated 120 mg/dL (<100); Potassium 4.6 mmol/L (3.3-5.1); Sodium 140 mmol/L (135-145); Total Protein 7.3 g/dL (6.5-8.0); Triglycerides 70 mg/dL (<150)
[2024-06-19 12:29] LABS: Syphilis Screen Nonreactive (Nonreactive)
[2024-06-19 12:35] LABS: Gamma Glutamyl Transpeptidase 21 U/L (11-51)
[2024-06-19 12:38] LABS: HBS Num1 386.13 mIU/mL (0-7.99); HBc Num1 0.16 S/CO (0.00-0.79); HBsAGNum1 0.33 S/CO (0.00-0.99); HIV AB/AG Nonreactive (Nonreactive); HIV Num 1 0.05 S/CO (0.00-0.99); Hepatitis B Core Antibody Nonreactive (Nonreactive); Hepatitis B Surface Antigen Negative (Negative); TSH reflex Free T4 0.88 uIU/mL (0.32-4.0); Vitamin D 25-OH Total 28.6 ng/mL (>30); ~HepC Num1 0.06 S/CO (0.00-0.79); ~Hepatitis A Antibody IgM Nonreactive (Nonreactive); ~Hepatitis B Surface Antibody REACTIVE (Nonreactive); ~Hepatitis C Antibody Nonreactive (Nonreactive)
[2024-06-19 13:02] LABS: Reflex LDLD? No
[2024-06-23 04:39] LABS: TS Negative Control Passed; TS Panel A 0; TS Panel B 0; TS Positive Control Passed; TSpotTB Negative (Negative)
[2024-06-23 21:43] LABS: Testosterone, Free 76.4 pg/mL (35.0-155.0); Testosterone, Total 490 ng/dL (250-1100)
== END 2024-06-19 10:33 | disposition home or self-care (01) ==
LOC: HO.HHCL 10:32
PROVIDERS: Visit Provider Internal Medicine
DX: Z00.00 Encounter for general adult medical examination without abnormal findings (principal); M54.50 Low back pain, unspecified; G89.29 Other chronic pain; Z11.3 Encounter for screening for infections with a predominantly sexual mode of transmission; R79.89 Other specified abnormal findings of blood chemistry; M25.559 Pain in unspecified hip
CPT/HCPCS: 36415; 80053; 80061; 82306; 82977; 84402; 84403; 84443; 85025; 86481; 86704; 86706; 86709; 86780; 86803; 87340; 87389

== ENCOUNTER 2024-07-29 15:02 | Outpatient (AMB) | payer BC, SELFPAY ==
--- NOTE | 2024-07-29 15:04 | MHC.OFFVIS ---
Vital Signs 07/29/24 15:11 Height 5 ft 8 in Weight 195 lb BMI 29.6 BP 141/65 H Blood Pressure Location Rt brachial Position Sitting Pulse 84 Intake Visit Reasons: possible abd tear/hernia Intake Note: Patient is seen in office for one month follow up visit, following right upper quadrant pain. Pt c/o: feels constant pressure. Would like to have imaging. 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 The pain has been present for approximately 2 months in his necessitated 2 visits to the emergency department without any diagnosis. He underwent evaluation with CT abdomen and pelvis and ultrasound which apparently revealed no evidence of hernia. He reports the pain is mainly along the lateral side of the rectus muscle where he feels a hard lump along this edge in the right lower quadrant. He reports doing heavy lifting at work but also enjoys going to the gym with lifting weights. Lifting does seem to make the pain worse. He denies any fever, chills, nausea, vomiting, or difficulties with the bowels. Since his last visit he continues to have the same pain in the right lower quadrant and into the pubis. He has avoided the gym and this is making him depressed. He is still working which involves heavy lifting which does seem to aggravate the pain. He denies any nausea or vomiting in his bowels are normal as well. There has been no significant change in his symptoms since last month. [facility] Medical History WPW (Khqnu-Zqlcockow-Sbqxh syndrome) Post-operative nausea and vomiting Back pain Anemia Lab test negative for COVID-19 virus Depression Hx of motion sickness Murmur Surgical History History of tonsillectomy H/O wisdom tooth extraction Family History Maternal Grandfather No problems noted. Maternal Grandmother No problems noted. Social History Alcohol intake: former Patient Tobacco Use Status: Current everyday Tobacco user Current occupational status: unemployed Current occupation: right handed/ construction Review of Systems Const All systems reviewed & are unremarkable except as noted in HPI and below Physical Exam Vital Signs: Last Vital Signs Pulse 84 07/29/24 15:11 BP 141/65 H 07/29/24 15:11 BMI result Body Mass Index 29.6 Const General: cooperative and no acute distress Nutritional Appearance: well nourished Orientation/consciousness: patient oriented x3 Limitations: no limitations HEENT Head: Yes normocephalic and Yes atraumatic Ears: hearing grossly normal bilaterally Resp Effort & Inspection: normal respiratory effort, no audible wheezes, no cough and no respiratory distress Cardio Jugular venous distension: no JVD GI Other: Soft and nondistended, tenderness with a ridge located to the right of the rectus muscle but no definite spigelian hernias identified. No changes noted with Valsalva. No right inguinal hernias appreciated. Inspection: Yes normal to inspection Skin Other: Warm, dry, no rash Neuro General: patient oriented x3 Extrem General: Yes no clubbing, cyanosis or edema Assessment & Plan Assessment & Plan (1) Right lower quadrant abdominal pain: Code(s): R10.31 - Right lower quadrant pain Category: Medical (2) Pubic bone pain: Code(s): M89.9 - Disorder of bone, unspecified Category: Medical Plan 34-year-old male patient presenting with complaints of right lower quadrant abdominal pain with a painful ridge located lateral to the rectus muscle of the right lower quadrant. Examination reveals a tender cord which is the lateral aspect of the right rectus muscle which may indicate an underlying muscle strain/spasm causing the patient's abdominal pain. No hernias appreciated with Valsalva maneuvers. Review a CT abdomen and pelvis performed on 05/17/2024 reveals a small indirect right inguinal hernia containing fat when compared to the left side. This is not clinically significant does not seem to be causing the pain in the upper abdomen. His symptoms have not improved with rest and relaxation therefore I recommended imaging with a MRI of the pelvis. He will return following the study to review the results and discuss treatment options. If this test is normal we discussed a possible referral to physical therapy and/or pain management. He expressed understanding and agrees with the plan. Orders: Orders MR pelvis wo/w con Today M89.9 - Disorder of bone, unspecified, R10.31 - Right lower quadrant pain Coding Level of Care Code Est Pt Level 3 (14542) Diagnoses Right lower quadrant abdominal pain R10.31 Pubic bone pain M89.9
[2024-07-29 15:11] VITALS: BP 141/65; PULSE 84; BMI 29.6
--- OUTSIDE RECORDS SUMMARY | 2024-07-29 18:17 | XMS_ITS | Encounter Summary ---
Author Organization [employer] Address [address] [place] [address] [address] [address] Care Team Providers Care Production Packager Name Role Phone Ganga, Cara [facility] Primary Care Provider [phone] Reason for Visit * Reason Onset Date Comments Results 09/21/2022 Encounter Details Date Type Department Care Team ([facility] st Contact Info) Description 09/21/2022 Telephone [facility] MEDICINE [address] [place], [place] [phone] [place] [facility] [address] [place] [address] Results Social History Tobacco Use Types Packs/Day [...] Info) Description 08/11/2024 11:15 AM EDT Telemedicine [facility] MEDICINE [address] [place] [address] [place] [facility] [address] [place] [address] 09/05/2024 1:15 PM EDT Office Visit [facility] MEDICINE [address] [place] [id number] Cara Schuler [address] [address] documented as of this encounter Visit Diagnoses Not on filedocumented in this encounter Additional Health Concerns Assessment Noted Time PHQ-9 Depression Total Score: 0 09/01/19 23 3:57 PM EDT documented as of this encounter Care Teams Production Packager Relationship Specialty Start Date End Date Cara Schuler FNP [address] [place] [id number] PCP - General Family Medicine 10/03/21 documented as of this encounter
== END 2024-07-29 15:16 | disposition home or self-care (01) ==
LOC: HO.HGS 15:02
PROVIDERS: PCP Registered Nurse; Visit Provider Surgery
DX: R10.31 Right lower quadrant pain (principal); M89.9 Disorder of bone, unspecified
CPT/HCPCS: 99213

== ENCOUNTER 2024-08-31 12:00 | Outpatient (REF) | payer BC, SELFPAY ==
--- NOTE | ~2024-08-31 | XR_ITS ---
CLINICAL HISTORY: Injury to eye R O foreign body orbits MRI Screening XR PRE MRI SCREENING Comparison: None provided Findings: No acute fractures. Paranasal sinuses and mastoids are clear. No radiopaque foreign body. IMPRESSION: 1. No metallic foreign bodies in the orbits. This document has been electronically signed by: Danilo Mcdaniel MD on 08/31/2024 12:54:47
--- NOTE | ~2024-08-31 | MR_ITS ---
EXAMINATION: MR PELVIS WITHOUT THEN WITH IV CONTRAST HISTORY: R10.31 - Right lower quadrant pain. TECHNIQUE: Axial T1, fat-suppressed T1, and fat-suppressed T2, and sagittal and coronal T2-weighted MR images of the pelvis were obtained. Subsequently, fat suppressed axial and sagittal T1-weighted images were obtained after the intravenous administration of 9 mL Gadavist. COMPARISON: Correlation is made with an unenhanced CT of the pelvis dated 05/17/2024. FINDINGS: There is mild asymmetry at the insertion of the rectus abdominal muscles on the pubic symphysis, the left being more prominent on the right. No abnormal muscular or bone marrow signal intensity is identified, however to suggest a tear. No inguinal hernia is identified. Bone marrow signal intensity is normal. There is no infiltrate or effusion. There is no ascites or pelvic lymphadenopathy. The urinary bladder and prostate are unremarkable. The visualized bowel loops are unremarkable. MR/MR pelvis wo/w con IMPRESSION: Mild asymmetry of the insertion of the rectus abdominal muscles, of certain significance, without evidence of a tear. Electronically signed by: Brendon Dubon MD 09/01/2024 08:29 AM EDT
--- OUTSIDE RECORDS SUMMARY | 2024-08-31 12:05 | XMS_ITS | Clinical Summary ---
Author Organization [facility] [employer] [facility] Address [address] [place] [address] Care Team Providers Care Oracle Adf Consultant Name Role Phone Gissel Gordon MD Primary Care Provider [phone] Surgical History Surgery Date Site/Laterality Comments TONSILLECTOMY [...] Health Maintenance Due Date Last Done Comments HIV Screening 01/04/2022 Hepatitis C Screening 01/04/2022 Social Influencers of Health Screening 01/04/2022 COVID-19 Vaccine ( season) 2023 Depression Screening 02/06/2024 Influenza Vaccine (#1) 2024 6, 12/05/2007, 01/09/2003 DTaP,Tdap,and Td Vaccines (8 [...] 5 Years) and At-Risk Patients (6 to 49 Years) Aged Out No longer eligible based on patient's age to complete this topic RSV Immunization Patients Under 20 months Aged Out No longer eligible based on patient's age to complete this topic Care Teams Oracle Adf Consultant Relationship Specialty Start Date End Date Gissel Gordon MD [address] [place] [phone] PCP - General 02/12/23
== END 2024-08-31 12:01 | disposition home or self-care (01) ==
LOC: HO.MRI 12:00
PROVIDERS: PCP Registered Nurse; Visit Provider Surgery
DX: R10.31 Right lower quadrant pain (principal); M89.8X8 Other specified disorders of bone, other site
CPT/HCPCS: 72197; A9585

== ENCOUNTER → 2024-08-31 12:08 | Outpatient (BNV) | payer BC, SELFPAY | PROVIDERS: PCP Registered Nurse; Visit Provider Radiology Diagnostic Radiology | DX: R10.31 Right lower quadrant pain (principal) | CPT/HCPCS: 72197 ==

== ENCOUNTER 2024-09-11 15:27 | Outpatient (AMB) | payer BC, SELFPAY ==
--- OUTSIDE RECORDS SUMMARY | 2024-09-11 15:29 | XMS_ITS | Clinical Summary ---
Author Organization [employer] [facility] Address [address] [place] [address] Care Team Providers Care Escrow Manager Name Role Phone Gissel Gordon MD Primary Care Provider [phone] Surgical History Surgery Date Site/Laterality Comments TONSILLECTOMY [...] age to complete this topic Care Teams Escrow Manager Relationship Specialty Start Date End Date Gissel Gordon MD [address] [place] [phone] PCP - General 02/12/23
--- OUTSIDE RECORDS SUMMARY | 2024-09-11 15:29 | XMS_ITS | Encounter Summary ---
Author Organization [employer] Address [address] [place] [address] [address] [address] Care Team Providers Care Cutting Room Supervisor Name Role Phone Leland Cara [facility] Primary Care Provider [phone] Reason for Visit * Reason Onset Date Comments Results 09/21/2022 Encounter Details Date Type Department Care Team ([facility] st Contact Info) Description 09/21/[address] [facility] MEDICINE [address] [place], [place] [phone] [facility] [address] [place] [address] Results Social History Tobacco Use Types Packs/Day [...] Care Team (Late st Contact Info) Description 10/17/2024 10:15 AM EDT Office Visit [facility] MEDICINE [address] [place] [address] Cara Schuler [facility] [address] [place] [address] documented as of this encounter Visit Diagnoses Not on filedocumented in this encounter Additional Health Concerns Assessment Noted Time PHQ-9 Depression Total Score: 0 09/01/19 23 3:57 PM EDT documented as of this encounter Care Teams Cutting Room Supervisor Relationship Specialty Start Date End Date Cara Schuler FNP [address] [place] [address] PCP - General Family Medicine 10/03/21 documented as of this encounter
[2024-09-11 15:46] VITALS: BP 130/82; BMI 29.6
--- NOTE | 2024-09-11 15:46 | MHC.OFFVIS ---
Vital Signs 09/11/24 15:46 Height 5 ft 8 in Weight 194 lb 14.218 oz BMI 29.6 BP 130/82 Blood Pressure Location Lt brachial Position Sitting Intake Visit Reasons: MRI results, Right lower quadrant abdominal pain Intake Note: Patient is seen in office for MRI results, following right lower quadrant pain. Pt c/o: here for results denies any changes MRI:08/31/24 Allergies No Known Allergies Allergy (Verified 07/29/24 15:09) Medication List - Last Reconciled 09/12/24 by Bob Levy MD cholecalciferol (vitamin D3) 50 mcg PO DAILY gabapentin 300 mg PO TID ibuprofen 600 mg PO TID PRN lidocaine 5% 1 patch topical DAILY ondansetron 4 mg PO Q6-8H PRN HPI Comments Details: 34-year-old male patient presenting for evaluation of right lower quadrant abdominal pain. The pain has been present for approximately 2 months in his necessitated 2 visits to the emergency department without any diagnosis. He underwent evaluation with CT abdomen and pelvis and ultrasound which apparently revealed no evidence of hernia. He reports the pain is mainly along the lateral side of the rectus muscle where he feels a hard lump along this edge in the right lower quadrant. He reports doing heavy lifting at work but also enjoys going to the gym with lifting weights. Lifting does seem to make the pain worse. He denies any fever, chills, nausea, vomiting, or difficulties with the bowels. Patient continues to have some mild discomfort in the right lower quadrant along the margin of the rectus abdominis muscle. The pain in his better with rest but does increase after working out. A MRI of the pelvis was performed on 08/31/2024. This revealed mild asymmetry of the insertion of the rectus muscles of uncertain significance without evidence of a tear. No other suspicious findings were identified. The findings were reviewed with the patient today. Images were reviewed with the patient as well. [facility] Medical History WPW (Xiuwd-Fpsnsqrml-Krmcc syndrome) Post-operative nausea and vomiting Back pain Anemia Lab test negative for COVID-19 virus Depression Hx of motion sickness Murmur Surgical History History of tonsillectomy H/O wisdom tooth extraction Family History Maternal Grandfather No problems noted. Maternal Grandmother No problems noted. Social History Alcohol intake: former Patient Tobacco Use Status: Current everyday Tobacco user Current occupational status: unemployed Current occupation: right handed/ construction Review of Systems Const All systems reviewed & are unremarkable except as noted in HPI and below Physical Exam Vital Signs: Last Vital Signs BP 130/82 09/11/24 15:46 BMI result Body Mass Index 29.6 Const General: cooperative and no acute distress Nutritional Appearance: well nourished Orientation/consciousness: patient oriented x3 Limitations: no limitations HEENT Head: Yes normocephalic and Yes atraumatic Ears: hearing grossly normal bilaterally Resp Effort & Inspection: normal respiratory effort, no audible wheezes, no cough and no respiratory distress Cardio Jugular venous distension: no JVD GI Other: Soft and nondistended, tenderness with a ridge located to the right of the rectus muscle but no definite spigelian hernias identified. No changes noted with Valsalva. No right inguinal hernias appreciated. Inspection: Yes normal to inspection Skin Other: Warm, dry, no rash Neuro General: patient oriented x3 Extrem General: Yes no clubbing, cyanosis or edema Assessment & Plan Assessment & Plan (1) Right lower quadrant abdominal pain: Code(s): R10.31 - Right lower quadrant pain Category: Medical (2) Pubic bone pain: Code(s): M89.9 - Disorder of bone, unspecified Category: Medical Plan 34-year-old male patient presenting with complaints of right lower quadrant abdominal pain with a painful ridge located lateral to the rectus muscle of the right lower quadrant. Examination reveals a tender cord which is the lateral aspect of the right rectus muscle which may indicate an underlying muscle strain/spasm causing the patient's abdominal pain. No hernias appreciated with Valsalva maneuvers. Review of MRI dated 08/31/2024 revealed mild changes in the rectus abdominis muscle but no evidence of hernia or muscle tear. No surgical intervention is required at this time. The patient was encouraged to gradually increase his lifting over the next several weeks and should follow up as needed. Coding Level of Care Code Est Pt Level 3 (23388) Diagnoses Right lower quadrant abdominal pain R10.31 Pubic bone pain M89.9
== END 2024-09-11 16:13 | disposition home or self-care (01) ==
LOC: HO.HGS 15:28
PROVIDERS: PCP Registered Nurse; Visit Provider Surgery
DX: R10.31 Right lower quadrant pain (principal); M89.9 Disorder of bone, unspecified
CPT/HCPCS: 99213

== ENCOUNTER 2024-09-19 13:52 | Outpatient (AMB) | payer BC, SELFPAY ==
--- OUTSIDE RECORDS SUMMARY | 2024-09-19 13:55 | XMS_ITS | Clinical Summary ---
Author Organization [employer] [facility] Address [address] [place] [address] Care Team Providers Care Environmental Science Instructor Name Role Phone Gissel Gordon MD Primary [...] age to complete this topic Care Teams Environmental Science Instructor Relationship Specialty Start Date End Date Gissel Gordon MD [address] [place] [phone] PCP - General 02/12/23
--- OUTSIDE RECORDS SUMMARY | 2024-09-19 13:55 | XMS_ITS | Encounter Summary ---
Author Organization [email or web address] Address [address] [place] [address] [address] [address] Care Team Providers Care Cage Unloader Name Role Phone Ganga, Cara [facility] Primary Care Provider [phone] Reason for Visit * Reason Onset Date Comments Results 09/21/2022 Encounter Details Date Type Department Care Team ([facility] st Contact Info) Description 09/21/2022 Telephone [facility] MEDICINE [address] [place], [place] [phone] [facility] [address] [place] [address] Results Social History Tobacco Use Types Packs/Day [...] Thank yoU! * Telephone Encounter - Sebastian D eLuna RN - 09/21/2022 4:16 PM EDT Please review and advice for lab result. * Telephone Encounter - Lilo Rao - 09/21/2022 3:16 PM EDT Tc from pt requesting results that were done for his stool and urine . documented in this encounter Plan of Treatment Upcoming Encounters Date Type Department Care Team (Late st Contact Info) Description 10/17/2024 10:15 AM EDT Office Visit [facility] MEDICINE [address] [place] [address] Cara Schuler [facility] [address] [place] [address] documented as of this encounter Visit Diagnoses Not on filedocumented in this encounter Additional Health Concerns Assessment Noted Time PHQ-9 Depression Total Score: 0 09/01/19 23 3:57 PM EDT documented as of this encounter Care Teams Cage Unloader Relationship Specialty Start Date End Date Cara Schuler FNP [address] [place] [address] PCP - General Family Medicine 10/03/21 documented as of this encounter
[2024-09-19 13:56] VITALS: BP 133/70; PULSE 84; RESP 16; O2SAT 96
--- NOTE | 2024-09-19 13:56 | A.OFFVIS_ITS ---
Vital Signs 09/19/24 13:56 Height 5 ft 8 in Weight 197 lb BMI 30.0 BP 133/70 Blood Pressure Location Rt brachial Position Sitting Respiration 16 Pulse 84 Pulse Source Pulse Oximeter Pulse Oximetry (%) 96 Oxygen Delivery Method Room Air Intake Visit Reasons: CHRONIC BILATERAL LOW BACK PAIN Front End Application Developer Required: No Accompanied by: Self / Same As Patient Allergies No Known Allergies Allergy (Verified 09/19/24 13:59) HPI Comments Details: The patient is a 34-year-old male presenting with chronic back pain and associated conditions. 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 Physical activity exacerbates the pain, while rest provides relief. Degenerative disc disease is also present, contributing to his back pain, and he has been advised to avoid heavy lifting and engage in low-impact exercises. Peripheral neuropathy of the right leg is diagnosed, with numbness and pain extending from the foot to the entire leg, confirmed by a nerve conduction study. Carpal tunnel syndrome is reported, with numbness and pain in both arms, especially upon waking, and nerve conduction studies have been performed. The patient experiences frequent migraine headaches, for which he has been prescribed amitriptyline, but he is dissatisfied with the side effects and often uses Excedrin, potentially affecting his liver. - Onset: Chronic, with exacerbations related to physical activity - Quality: Described as a squeezing sensation in the spine - Location: Entire back, including neck and lumbar regions - Radiation: Pain extends to the right leg - Exacerbating factors: Physical activity, heavy lifting - Relieving factors: Rest, avoidance of heavy lifting - Interference: Affects ability to engage in physical activities and work - Affect: Pain impacts daily activities and mood, causing frustration and fatigue - Analgesia: Currently using ibuprofen and Excedrin; prescribed gabapentin and amitriptyline but not taken regularly due to side effects - Adverse Effects: Liver inflammation possibly due to medication use - Activities of Daily Living: Pain limits physical activity and work performance - Aberrant Drug Related Behaviors: Avoids regular use of prescribed medications due to side effects [facility] Medical History WPW (Aglkf-Avpqemvdq-Riqdu syndrome) Post-operative nausea and vomiting Back pain Anemia Lab test negative for COVID-19 virus Depression Hx of motion sickness Murmur Surgical History History of tonsillectomy H/O wisdom tooth extraction Family History Maternal Grandfather No problems noted. Maternal Grandmother No problems noted. Social History Alcohol intake: former Patient Tobacco Use Status: Current everyday Tobacco user Current occupational status: unemployed Current occupation: right handed/ construction Review of Systems Const Details: - Musculoskeletal: Reports chronic back pain, neck pain, and stiffness - Neurological: Reports peripheral neuropathy in the right leg and carpal tunnel syndrome in both arms - Gastrointestinal: Reports liver inflammation - Neurological: Reports frequent migraines Physical Exam Vital Signs: Last Vital Signs Pulse 84 09/19/24 13:56 Resp 16 09/19/24 13:56 BP 133/70 09/19/24 13:56 Pulse Ox 96 09/19/24 13:56 Oxygen Delivery Method Room Air 09/19/24 13:56 BMI result Body Mass Index 30.0 General: awake, alert, oriented. Answers questions appropriately. Fully engaged in examination. Skin: warm, dry, intact HEENT: Normocephalic. Hearing intact. Cardiac: External chest normal in appearance. Respiratory: No cough, audible wheezing or stridor. Abdomen: without gross distension. MS: No obvious swelling or deformities. Able to transition from sit to stand unassisted. Ambulates with bilaterally normal heel strike and toe off Full cervical range of motion Tenderness to palpation upper middle trapezius with palpable taut bands and trigger points No midline cervical tenderness Neurological: Oriented to person, place, time and situation. Thought process intact. No gait abnormalities appreciated. Psychiatric: Appropriate mood and affect. Good judgment and insight. Results Reviewed Results Reviewed: 11/2023 EXAMINATION: MR LUMBAR SPINE WITHOUT CONTRAST FINDINGS: CORONAL ALIGNMENT: -Normal. SAGITTAL ALIGNMENT: - Normal. LUMBOSACRAL JUNCTION: -Normal. There are 5 gga-fke-gjqhkek lumbar-type vertebral bodies. VERTEBRAL BODIES/BONE MARROW: -There is no compression deformity, or evidence of bone marrow edema or abnormal infiltrating bone marrow signal. -No endplate changes. -Normal marrow signal. DISCS: -Normal in height and signal throughout. SPINAL CANAL: -No abnormal developmental findings. CONUS MEDULLARIS: -Terminates at superior endplate of L2. Morphology and signal is normal. INTRADURAL NERVE ROOTS: - Normal in appearance. Normal distribution. No masses, clumping, or other abnormality. Axial Disc Space Images: T12-L1: No central canal or neural foraminal narrowing. Normal facets. L1-L2: No central canal or neural foraminal narrowing. Normal facets. L2-L3: No central canal or neural foraminal narrowing. Normal facets. L3-L4: Minimal physiologic disc bulging. There are subtle superimposed bilateral foraminal protrusions of disc material resulting in mild bilateral neural foraminal narrowing. No central canal narrowing. Normal facets. L4-L5: There is a shallow concentric bulging disc present, with annular fissuring in the left subarticular recess, minimally indenting upon the ventral thecal sac but not contacting nerve roots. Minimal hypertrophic facet degenerative changes. Findings result in minimal central canal narrowing, and mild to moderate bilateral neural foraminal narrowing. L5-S1: Shallow concentric bulging disc with a tiny central annular fissure, minimally extending into both foraminal zones. Mild facet degeneration bilaterally. Normal ligaments. No significant central canal narrowing. Mild to moderate bilateral neural foraminal narrowing. IMAGED SI JOINTS: -Minimal degenerative changes. PARAVERTEBRAL AND INCLUDED EXTRASPINAL SOFT TISSUES: -Normal in appearance. Aorta is normal in caliber. IMPRESSION: 1. No significant abnormal findings in the thecal sac related to lumbar puncture complication be identified. No evidence of CSF leak, nerve root clumping, or hemorrhage. There is no significant nerve root compression or central canal stenosis. 2. Mild to moderate neural foraminal stenosis bilaterally at L4-5 and L5-S1 due to shallow disc bulges coupled with mild hypertrophic facet changes. 3. No marrow signal abnormalities or alignment abnormalities. No significant disc degeneration noted. 03/11/24 EMG Right median and ulnar motor and sensory studies were performed. Right radial sensory study was performed and paraspinal muscles were tested with a needle. Right median and lateral antecubital brachial sensory studies were also performed. IMPRESSION: Mild to moderate right median neuropathy across carpal tunnel. 01/15/23: X-ray cervical spine FINDINGS: There is straightening of the normal cervical lordosis. Mild degenerative disc disease and spurring in the cervical spine without evidence for acute fracture. The prevertebral soft tissues are unremarkable. Lateral masses are symmetric. Normal alignment in the thoracic spine with preserved intervertebral disc spaces and vertebral body heights. Mediastinal structures and visualized lungs are unremarkable. IMPRESSION: No acute abnormality in the cervical or thoracic spine Assessment & Plan Assessment & Plan (1) Myofascial pain: Code(s): M79.18 - Myalgia, other site Category: Medical (2) Chronic neck pain: Code(s): M54.2 - Cervicalgia; G89.29 - Other chronic pain Category: Medical (3) Migraine headache: Code(s): G43.909 - Migraine, unspecified, not intractable, without status migrainosus Category: Medical (4) Trapezius muscle strain: Code(s): S46.819A - Strain of other muscles, fascia and tendons at shoulder and upper arm level, unspecified arm, initial encounter Category: Medical Plan The plan involves prescribing Flexeril for muscle spasms and advising against the use of Tylenol due to liver concerns. The patient is encouraged to engage in low-impact exercises and core strengthening once the muscle injury heals. A referral for dry needling therapy is provided to address muscle tension and potentially reduce migraines. The patient is advised to follow up with a neurologist for migraine management and to explore preventative treatments. Trigger point injections without steroids are offered as an option for pain relief. Patient will consider TPIs if pain persists after dry needling. Patient was informed and verbally consented to the use of an ambient scribe for clinic note documentation during this visit. Orders: Orders PT Evaluation and Treatment 09/19/24 G89.29 - Other chronic pain, M54.2 - Cervicalgia, M79.18 - Myalgia, other site Medications: Changed From cyclobenzaprine 10 mg PO TID PRN 10 tabs 0RF muscle spasm To cyclobenzaprine 10 mg PO BID PRN 60 tabs 0RF muscle spasm Patient Instructions: - Take Flexeril as needed for muscle spasms. - Avoid Tylenol due to liver concerns. - Engage in low-impact exercises and core strengthening once the muscle injury heals. - Follow up with a neurologist for migraine management. - Consider dry needling therapy for muscle tension and migraine relief. - Schedule trigger point injections without steroids for pain relief. Coding Level of Care Code Est Pt Level 3 (37142) Complex EM visit Add On G2211 Diagnoses Myofascial pain M79.18 Chronic neck pain M54.2; G89.29 Migraine headache G43.909 Trapezius muscle strain S46.819A
== END 2024-09-19 14:53 | disposition home or self-care (01) ==
LOC: HO.PMC 13:52
PROVIDERS: PCP Registered Nurse; Visit Provider Registered Nurse Emergency
DX: M79.18 Myalgia, other site (principal); M54.2 Cervicalgia; G89.29 Other chronic pain; G43.909 Migraine, unspecified, not intractable, without status migrainosus; S46.819A Strain of other muscles, fascia and tendons at shoulder and upper arm level, unspecified arm, initial encounter
CPT/HCPCS: 99213

== ENCOUNTER 2024-09-30 13:24 | Emergency (ER) | payer BC, SELFPAY ==
--- NOTE | 2024-09-30 13:35 | ECG_ITS ---
Test Reason : CP Blood Pressure : */* mmHG Vent. Rate : 72 BPM Atrial Rate : 72 BPM P-R Int : 104 ms QRS Dur : 126 ms QT Int : 398 ms P-R-T Axes : 43 7 44 degrees QTcB Int : 435 ms Normal sinus rhythm with sinus arrhythmia Kewvj-Heuaepcjm-Wnclg Abnormal ECG When compared with ECG of 12-Oct-2022 17:07, No significant change was found Referred By: Malik Peterson Electronically Signed By: ALESSIA MCDERMOTT
--- NOTE | 2024-09-30 13:37 | PC.NURSE ---
Called from waiting room for EKG at this time. This RN was not notified by staff that the patient arrived for chest pain. EKG ordered, being collected at this time.
[2024-09-30 13:48] VITALS: BP 138/63; PULSE 73; RESP 18; TEMP 36.4; O2SAT 99; BMI 30.4
[2024-09-30 14:00] VITALS: PULSE 63; RESP 18; O2SAT 100
--- NOTE | 2024-09-30 14:20 | ED.CHESTPAIN ---
HPI - Chest Pain General Chief Complaint: Chest Pain Stated Complaint: Chest pain Time Seen by Provider: 09/30/24 19:33 Related Data Home Medications ?Medication ?Instructions ?Recorded ?Confirmed cholecalciferol (vitamin D3) 50 50 mcg PO DAILY 04/18/21 09/12/24 mcg (2,000 unit) capsule Previous Rx's ?Medication ?Instructions ?Recorded ondansetron 4 mg disintegrating 4 mg PO Q6-8H PRN nausea and 04/09/23 tablet vomiting #14 tabs lidocaine 5 % topical patch 1 patch topical DAILY #15 ea 11/04/23 gabapentin 300 mg capsule 300 mg PO TID #90 caps 02/29/24 ibuprofen 600 mg tablet 600 mg PO TID PRN fever or pain 03/28/24 #60 tabs cyclobenzaprine 10 mg tablet 10 mg PO BID PRN muscle spasm #60 09/19/24 tabs Allergies Allergy/AdvReac Type Severity Reaction Status Date / Time No Known Allergies Allergy Verified 09/30/24 13:49 PMFSH Past Medical History Medical History WPW (Ztncv-Hicdzuznq-Qjfge syndrome) Post-operative nausea and vomiting Back pain Anemia Lab test negative for COVID-19 virus Depression Hx of motion sickness Murmur Surgical History History of tonsillectomy H/O wisdom tooth extraction Family History Family History Maternal Grandfather No problems noted. Maternal Grandmother No problems noted. Social History Social History Alcohol intake: former Patient Tobacco Use Status: Current everyday Tobacco user Advance Directives: No Advance Directives Information Provided: No Current occupational status: unemployed Current occupation: right handed/ construction Physical Exam Vital Signs: Vital Signs: Last Vital Signs Temp 98.4 F 09/30/24 19:29 Pulse 57 09/30/24 19:29 Resp 16 09/30/24 19:29 BP 144/80 H 09/30/24 19:29 Pulse Ox 100 09/30/24 19:29 O2 Del Method Room Air 09/30/24 19:29 BMI result Body Mass Index 30.4 Course Course Course Narrative: RME: 34-year-old male history of Xdehj-Tkjufzkrs-Auufz syndrome and SVT presents to the ED for chest pain with lightheadedness patient began since 05:00 this morning. Patient states he was due for ablation 2 years ago but refused. Vital signs stable EKG labs ordered Medical Decision Making Medical Decision Making [facility] Narrative: Positive chest pain earlier with palpitation after taking an energy drink. Patient has no risk factor for ACS. He is 34 years old. He does have a history of WPW. His EKG interestingly has a significant delta wave with a shortened IN interval consistent with WPW. I reviewed his previous cardiology note which showed the same. Patient did not want ablation. He has a quality control inspector heading at [facility] for EP. Patient has had 2 sets of enzymes which were negative. I discussed the case with cardiology felt comfortable following up on outpatient basis as patient is now in a sinus pattern. Heart rate in the 60s. In no distress. Explained to patient the need to refrain from using energy drinks and to follow-up with his EP for possible ablation patient states understanding currently in stable condition with discharge Differential Diagnosis Differential Diagnoses: The differential diagnosis associated with the presentation includes WPW, ACS. , PE Admission/Observation Consideration of admission/observation: Escalation of care including admission/observation considered Consult Healthcare Provider Management of the patient was discussed with: Supervisor [employer] (Cardiology) Lab Data [facility] Lab Attestation statement: I reviewed the patient's lab results. 09/30/24 14:59 09/30/24 14:59 Labs: Lab Results 09/30/24 09/30/24 Range/Units 14:59 18:39 WBC 6.0 (4.8-10.8) X10*3/uL RBC 4.59 L (4.60-5.80) X10*6/uL Hgb 13.6 L (14.0-18.0) g/dl Hct 40.5 L (42.0-52.0) % MCV 88.2 (80.0-98.0) fL MCH 29.6 (27.0-33.0) pg MCHC 33.6 (31.0-36.0) g/dl RDW 11.7 (11.0-16.0) % Plt Count 265 (160-400) X10*3/uL MPV 10.2 (9.4-12.4) fL Immature Gran % (Auto) 0.3 (0.0-0.4) % Neut % (Auto) 57.9 (45-73) % Lymph % (Auto) 29.5 (20-40) % Williamson % (Auto) 9.8 (2-11) % Eos % (Auto) 1.7 (0-4) % Baso % (Auto) 0.8 (0-2) % Lymph # (Auto) 1.8 (1.2-4.9) X10*3/uL Williamson # (Auto) 0.6 (0.1-1.2) X10*3/uL Eos # (Auto) 0.1 (0.0-0.4) X10*3/uL Baso # (Auto) 0.1 (0.0-0.2) X10*3/uL Abs Immat Gran (auto) 0.02 (0.00-0.03) X10*3/uL Absolute Neuts (auto) 3.5 (2.0-8.3) x10*3/uL Absolute Nucleated RBC 0.000 (0.0-0.012) X10*3/uL Nucleated RBC % (auto) 0.0 (0.0-0.2) /100WBC PT 10.9 (10.9-12.4) SEC INR 1.0 (0.9-1.1) APTT 32.9 (26.7-34.1) SEC Sodium 140 (135-145) mmol/L Potassium 4.4 (3.3-5.1) mmol/L Chloride 103 (96-108) mmol/L Carbon Dioxide 30 H (22-29) mmol/L Anion Gap 11 L (12-20) BUN 13 (9-16) mg/dL Creatinine 1.08 (0.5-1.4) mg/dL Estim Creat Clear Calc 105.4 Estimated GFR > 60 Random Glucose 88 (60-115) mg/dL Calcium 9.6 (8.4-10.2) mg/dL Magnesium 2.1 (1.6-2.6) mg/dL Total Bilirubin 0.6 (0.0-1.0) mg/dL AST 31 (5-37) U/L ALT 44 H (0-40) U/L Alkaline Phosphatase 49 (39-117) U/L Troponin I High Sens < 2.7 < 2.7 (<3.5-35.0) ng/L B-Natriuretic Peptide < 10 (<100) pg/mL Total Protein 7.6 (6.5-8.0) g/dL Albumin 4.9 (3.5-5.0) g/dL TSH 0.81 (0.32-4.0) uIU/mL Independent Interpretation I performed an independent interpretation of an: EKG (Sinus heart rate was 70was short QRS is wide QTC is normal no acute ST segment elevation previous EKG was compared it was essentially the same) External Record Review External record reviewed: Office record (Outpatient Cardiology record reviewed) Chronic Conditions History of WPW Social Determinants Patient?s care significantly limited by Social Determinants of Health including: Problems related to primary support group Discharge Plan Discharge Clinical Impression: WPW (Mwgxq-Zqlmajvyx-Thvyf syndrome) Patient Disposition: Home, Self-Care Instructions: Tzazp-Dcpsiqvxu-Vcqsb Syndrome (ED) Prescriptions: No Action ondansetron 4 mg tablet,disintegrating 4 mg PO Q6-8H PRN (Reason: nausea and vomiting) Qty: 14 0RF lidocaine 5 % adhesive patch,medicated 1 patch topical DAILY Qty: 15 0RF Rx Instructions: leave on most painful area for up to 12 hrs cholecalciferol (vitamin D3) 50 mcg (2,000 unit) capsule 50 mcg PO DAILY gabapentin 300 mg capsule 300 mg PO TID Qty: 90 3RF cyclobenzaprine 10 mg tablet 10 mg PO BID PRN (Reason: muscle spasm) Qty: 60 0RF ibuprofen 600 mg tablet 600 mg PO TID PRN (Reason: fever or pain) Qty: 60 1RF Referrals: Ganga,Cara, PETROLEUM REFINERY OPERATOR [Primary Care Provider, Medical] Referral Note: Please follow-up with your quality control inspector heading for possible ablation Print Language: Irish
[2024-09-30 15:04] LABS: MANUAL DIFF FLAG NO
[2024-09-30 15:17] LABS: Hematocrit 40.5 % (42.0-52.0); Hemoglobin 13.6 g/dl (14.0-18.0); Imm Gran Abs Auto 0.02 X10*3/uL (0.00-0.03); Imm Gran Pct Auto 0.3 % (0.0-0.4); Lymphocytes Absolute Auto 1.8 X10*3/uL (1.2-4.9); Mean Corpuscular HGB Conc 33.6 g/dl (31.0-36.0); Mean Corpuscular Hemoglobin 29.6 pg (27.0-33.0); Mean Corpuscular Volume 88.2 fL (80.0-98.0); NRBC Abs Auto 0.000 X10*3/uL (0.0-0.012); NRBC Pct Auto 0.0 /100WBC (0.0-0.2); Platelet Count 265 X10*3/uL (160-400); Red Blood Count 4.59 X10*6/uL (4.60-5.80); White Blood Count 6.0 X10*3/uL (4.8-10.8)
[2024-09-30 15:26] LABS: INTERNATIONAL NORM RATIO 1.0 (0.9-1.1); Prothrombin Time 10.9 SEC (10.9-12.4)
[2024-09-30 15:28] LABS: B Type Natriuretic Peptide < 10 pg/mL (<100)
[2024-09-30 15:29] LABS: Partial Thromboplastin Time 32.9 SEC (26.7-34.1)
[2024-09-30 15:30] LABS: Alanine Aminotransferase 44 U/L (0-40); Albumin Level 4.9 g/dL (3.5-5.0); Alkaline Phosphatase 49 U/L (39-117); Anion Gap 11 (12-20); Aspartate Amino Transferase 31 U/L (5-37); Blood Urea Nitrogen 13 mg/dL (9-16); Calcium 9.6 mg/dL (8.4-10.2); Carbon Dioxide 30 mmol/L (22-29); Chloride 103 mmol/L (96-108); Creatinine Clr Calc Pharmacy 105.4; Estimated Glomerular Filt Rate > 60; Magnesium 2.1 mg/dL (1.6-2.6); Potassium 4.4 mmol/L (3.3-5.1); Sodium 140 mmol/L (135-145); Total Protein 7.6 g/dL (6.5-8.0)
[2024-09-30 15:34] LABS: Troponin-I High Sensitivity < 2.7 ng/L (<3.5-35.0)
--- OUTSIDE RECORDS SUMMARY | 2024-09-30 16:06 | XMS_ITS | Encounter Summary ---
Author Organization [employer] Address [address] [place] [address] [place] [address] Care Team Providers Care Editor City Name Role Phone Cara Schuler Primary Care Provider [phone] Encounter Details Date Type Department Care Team (Late st Contact Info) Description 07/18/2022 Abstract [facility] MEDICINE [address] [place] [phone] Cara Schuler FNP [address] [place] [address] Social History Tobacco Use Types Packs/Day Years [...] Description 10/17/2024 10:15 AM EDT Office Visit [facility] [address] [place] [phone] Cara Schuler FNP [address] [place] [address] documented as of this encounter Visit Diagnoses Not on filedocumented in this encounter Care Teams Editor City Relationship Specialty Start Date End Date Cara Schuler FNP [address] [place] [phone] PCP - General Family Medicine 10/03/21 documented as of this encounter
--- OUTSIDE RECORDS SUMMARY | 2024-09-30 16:06 | XMS_ITS | Clinical Summary ---
Author Organization [employer] [facility] Address [address] [place] [address] Care Team Providers Care Mold Closer Name Role Phone Gissel Gordon MD Primary [...] age to complete this topic Care Teams Mold Closer Relationship Specialty Start Date End Date Gissel Gordon MD [address] [place] [phone] PCP - General 02/12/23
--- OUTSIDE RECORDS SUMMARY | 2024-09-30 16:06 | XMS_ITS | Encounter Summary ---
Author Organization [employer] Address [address] [place] [address] [place], [place] [address] Care Team Providers Care Asphalt Coater Name Role Phone Cara Schuler Primary Care Provider [phone] Encounter Details Date Type Department Care Team (Late st Contact Info) Description 07/18/2022 Abstract [facility] MEDICINE [address] [place] [phone] Cara Schuler FNP [address] [place] [address] Social History Tobacco Use Types Packs/Day Years [...] Description 10/17/2024 10:15 AM EDT Office Visit [facility] MEDICINE [address] [place] [phone] Cara Schuler FNP [address] [place] [address] documented as of this encounter Visit Diagnoses Not on filedocumented in this encounter Care Teams Asphalt Coater Relationship Specialty Start Date End Date Cara Schuler FNP [address] [place] [phone] PCP - General Family Medicine 10/03/21 documented as of this encounter
--- OUTSIDE RECORDS SUMMARY | 2024-09-30 16:06 | XMS_ITS | Encounter Summary ---
Author Organization [employer] Address [address] [place] [address] [address] [address] Care Team Providers Care Washer Operator Name Role Phone Cara Schuler [facility] Primary Care Provider [phone] Encounter Details Date Type Department Care Team (Late st Contact Info) Description 07/18/2022 Telephone [facility] MEDICINE [address] [place] [address] [phone] Ganga, Cara [facility] [address] [place], [place] [phone] Social History Tobacco Use Types Packs/Day Years [...] get an ed followup. States was at [facility] back in June regarding heart condition and was advised to see his dr and a cardiology. Please call to clarify . documented in this encounter Plan of Treatment Upcoming Encounters Date Type Department Care Team (Late st Contact Info) Description 10/17/2024 10:15 AM EDT Office Visit [facility] MEDICINE [address] [place] [address] Cara Schuler FNP [address] [place] [address] documented as of this encounter Visit Diagnoses Not on filedocumented in this encounter Care Teams Washer Operator Relationship Specialty Start Date End Date Cara Schuler FNP [address] [place] [address] PCP - General Family Medicine 10/03/21 documented as of this encounter
--- OUTSIDE RECORDS SUMMARY | 2024-09-30 16:06 | XMS_ITS | Encounter Summary ---
Author Organization [employer] Address [address] [place] [address] [address], [place] [address] Care Team Providers Care Diesel Engine Assembler Name Role Phone Ganga Cara [facility] Primary Care Provider [phone] Reason for Visit * Reason Onset Date Comments Results 09/21/2022 Encounter Details Date Type Department Care Team ([facility] st Contact Info) Description 09/21/2022 Telephone [facility] MEDICINE [address] [place], [place] [phone] [facility] [address] [place] [address] Results Social History Tobacco Use Types Packs/Day [...] EDT Office Visit [facility] MEDICINE [address] [place] [address] Cara Schuler [facility] [address] [place] [address] documented as of this encounter Visit Diagnoses Not on filedocumented in this encounter Additional Health Concerns Assessment Noted Time PHQ-9 Depression Total Score: 0 09/01/19 23 3:57 PM EDT documented as of this encounter Care Teams Diesel Engine Assembler Relationship Specialty Start Date End Date Cara Schuler FNP [address] [place] [address] PCP - General Family Medicine 10/03/21 documented as of this encounter
--- OUTSIDE RECORDS SUMMARY | 2024-09-30 16:06 | XMS_ITS | Encounter Summary ---
Author Organization [employer] Address [address] [place] [address] [address] [address] Care Team Providers Care Wet Mix Operator Name Role Phone Cara Schuler Primary Care Provider [phone] Encounter Details Date Type Department Care Team (Latest Contact Info) Description 08/30/2020 Abstract [facility] CONVERSIONS Dental, Provider, DDS Social History [...] Care Team ( st Contact Info) Description 10/17/2024 10:15 AM EDT Office Visit [facility] MEDICINE [address] [place] [address] Cara Schuler FNP [address] [place] [address] documented as of this encounter Visit Diagnoses Not on filedocumented in this encounter Care Teams Wet Mix Operator Relationship Specialty Start Date End Date Cara Schuler FNP [address] [place] [address] PCP - General Family Medicine 10/03/21 documented as of this encounter
--- OUTSIDE RECORDS SUMMARY | 2024-09-30 16:06 | XMS_ITS | Encounter Summary ---
Author Organization [employer] Address [address] [facility] [address] [place] [address] Care Team Providers Care Director Of Labor And Delivery Name Role Phone Cara Schuler CADASTRAL ENGINEER Primary Care Provider [phone] Encounter Details Date Type Department Care Team ([facility] st Contact Info) Description 09/30/2024 Orders Only GENERIC EXTERNAL DATA DEPARTMENT Provider, [...] Description 10/17/2024 10:15 AM EDT Office Visit [facility] MEDICINE [address] [place] [address] [facility] [address] [place] [address] documented as of this encounter Procedures Procedure Name Priority Date/Time Associated Diagnosis Comments HIGH SENSITIVITY TROPONIN I Routine 09/30/2024 2:59 PM EDT TSH W/REFLEX TO FT4 Routine 09/30/2024 2 :59 PM EDT CBC WITH AUTO DIFFERENTIAL Routine 09/30/2024 2:59 PM EDT APTT Routine 09/30/2024 2:59 PM EDT PROTHROMBIN TIME-INR Routine 09/30/2024 2:59 PM EDT B TYPE NATRIURETIC PEPTIDE (BNP) Routine 09/30/2024 2:59 PM EDT MAGNESIUM Routine 09/30/2024 2:59 PM EDT COMPREHENSIVE METABOLIC PANEL Routine 09/30/2024 2:59 PM EDT documented in this encounter Results * TSH with Reflex to Free T4 (09/30/2024 2:59 PM EDT) Pathologist [facility] TSH reflex Free T4 0.81 0.32 - 4.0 uIU/mL [facility] 09/30/2024 2:59 PM EDT 09/30/2024 3:03 PM EDT us Generic External Data Provider LAB BLOOD ORDERAB LES Final Result Performing Organization Address [facility] Co de Phone Number [facility] [address] [place] [phone] * High Sensitivity Troponin I (09/30/2024 2:59 PM EDT) [facility] TROPONIN I HIGH SENSITIVITY <2.7 <3.5 - 35.0 ng/L [facility] Comment:The Lyons high sens itivity Troponin-I results should beused in conjunction with other diagnostic information suchas ECG, clinical observations and information, and patientsymptoms to aid in the diagnosis of NC. 09/30/2024 2:59 PM EDT 09/30/2024 3:03 PM EDT us Generic External Data Provider LAB BLOOD ORDERAB LES Final Result Performing Organization Address [facility] Co de Phone Number [facility] [address] [place] [phone] * Magnesium (09/30/2024 2:59 PM EDT) Pathologist [facility] Magnesium 2.1 1.6 - 2.6 mg/dL [facility] 09/30/2024 2:59 PM EDT 09/30/2024 3:03 PM EDT Generic External Data Provider LAB BLOOD ORDERAB LES Final Result Performing Organization Address [facility]/ZIP Co de Phone Number [facility] [address] [place] [address] [phone] * (ABNORMAL) Comprehensive Metabolic Panel (09/30/2024 2:59 PM EDT) Sodium 140 135 - 145 mmol/L [facility] Potassium 4.4 3.3 - 5.1 mmol/L [facility] Chloride 103 96 - 108 mmol/L [facility] Carbon Dioxide 30(H) 22 - 29 mmol/L [facility] Anion Gap 11(L) 12 - 20 [facility] Urea Nitrogen (BUN) 13 9 - 16 mg/dL [facility] Creatinine, Serum 1.08 0.5 - 1.4 mg/dL [facility] Creatinine Clr Calc Pharmacy 105.4 [facility] Comment:eGFR (calculated fro m the MDRD study equation) and eCrCl(calculated from the Cockcroft-Gault equation) are based ondifferent parameters and may not yield comparable results.If eCrCl result is absurd, please check patient'sheight/weight. Estimated Glomerular Filt Rate >60 [facility] Comment:Chronic Kidney Disea se: Estimated GFR < 60 mL/min/1.29x4Pffmwq Kidney Disease: Estimated GFR < 15 mL/min/1.73m2 Glucose 88 60 - 115 mg/dL [facility] Calcium 9.6 8.4 - 10.2 mg/dL [facility] Bilirubin, Total 0.6 0.0 - 1.0 mg/dL [facility] Aspartate Amino Transferase 31 5 - 37 U/L [facility] Alanine Aminotransferase 44(H) 0 - 40 U/L [facility] Total Protein 7.6 6.5 - 8.0 g/dL [facility] Albumin Level 4.9 3.5 - 5.0 g/dL [facility] Alkaline Phosphatase 49 39 - 117 U/L [facility] 09/30/2024 2:59 PM EDT 09/30/2024 3:03 PM EDT us Generic External Data Provider LAB BLOOD ORDERAB LES Final Result Performing Organization Address [facility] Co de Phone Number [facility] [address] [place] [phone] * Partial Thromboplastin Time, Activated (APTT) (09/30/2024 2:59 PM EDT) Partial Thromboplastin Time 32.9 26.7 - 34.1 SEC [facility] 09/30/2024 2:59 PM EDT 09/30/2024 3:03 PM EDT Generic External Data Provider LAB BLOOD ORDERAB LES Final Result Performing Organization Address [facility] de Phone Number [facility] [address] [place] [phone] * Prothrombin Time-INR (09/30/2024 2:59 PM EDT) Prothrombin Time 10.9 10.9 - 12.4 SEC [facility] INTERNATIONAL NORM RATIO 1.0 0.9 - 1.1 [facility] Comment:INTERNATIONAL NORMAL IZED RATIO (INR) REFERENCE RANGES Reference RangeFor patients not on anticoagulant therapy: 0.9 - 1.1INR ranges for oral anticoagulanttherapy:For prevention and treatment of venous thrombosis and pulmonary embolism: 2.0 - 3.0For acute myocardial infarction with aspirin therapy: 2.0 - 3.0For acute myocardial infarction without aspirin therapy: 3.0 - 4.0For patients with mechanical prosthetic heart valves: 2.5 - 3.5 09/30/2024 2:59 PM EDT 09/30/2024 3:03 PM EDT Generic External Data Provider LAB BLOOD ORDERAB LES Final Result Performing Organization Address [facility] Co de Phone Number [facility] [address] [place] [phone] * B Type Natriuretic Peptide (BNP) (09/30/2024 2:59 PM EDT) B Type Natriuretic Peptide <10 <100 pg/mL [facility] 09/30/2024 2:59 PM EDT 09/30/2024 3:03 PM EDT us Generic External Data Provider LAB BLOOD ORDERAB LES Final Result [facility] [address] [place], [place] [phone] * (ABNORMAL) CBC auto differential (09/30/2024 2:59 PM EDT) [facility] White Blood Count 6.0 4.8 - 10.8 X10*3/uL [facility] Red Blood Count 4.59(L) 4.60 - 5.80 X10*6/uL [facility] Hemoglobin 13.6(L) 14.0 - 18.0 g/dl [facility] Hematocrit 40.5(L) 42.0 - 52.0 % [facility] Mean Corpuscular Volume 88.2 80.0 - 98.0 fL [facility] Mean Corpuscular Hemoglobin 29.6 27.0 - 33.0 pg [facility] Mean Corpuscular HGB Conc 33.6 31.0 - 36.0 g/dl [facility] Red Cell Distribution Width 11.7 11.0 - 16.0 % [facility] Platelet Count 265 160 - 400 X10*3/uL [facility] Mean Platelet Volume 10.2 9.4 - 12.4 fL [facility] Neutrophils Percent Auto 57.9 45 - 73 % [facility] Imm Gran Pct Auto 0.3 0.0 - 0.4 % [facility] Lymphocytes Percent Auto 29.5 20 - 40 % [facility] Monocytes Percent Auto 9.8 2 - 11 % [facility] Eosinophils Percent Auto 1.7 0 - 4 % [facility] Basophils Percent Auto 0.8 0 - 2 % [facility] NRBC Pct Auto 0.0 0.0 - 0.2 /100WBC [facility] Neutrophils Absolute Auto 3.5 2.0 - 8.3 x10*3/uL [facility] Imm Gran Abs Auto 0.02 0.00 - 0.03 X10*3/uL [facility] Lymphocytes Absolute Auto 1.8 1.2 - 4.9 X10*3/uL [facility] Monocytes Absolute Auto 0.6 0.1 - 1.2 X10*3/uL [facility] Eosinophils Absolute Auto 0.1 0.0 - 0.4 X10*3/uL [facility] Basophils Absolute Auto 0.1 0.0 - 0.2 X10*3/uL [facility] NRBC Abs Auto 0.000 0.0 - 0.012 X10*3/uL [facility] 09/30/2024 2:59 PM EDT 09/30/2024 3:03 PM EDT us Generic External Data Provider LAB BLOOD ORDERAB LES Final Result [facility] [address] [place] [phone] [phone] documented in this encounter Visit Diagnoses Not on filedocumented in this encounter Additional Health Concerns Assessment Noted Time PHQ-9 Depression Total Score: 0 03/02/19 24 3:01 PM EST documented as of this encounter Care Teams Director Of Labor And Delivery Relationship Specialty Start Date End Date Cara Schuler FNP [address] [place] [phone] PCP - General Family Medicine 10/03/21 documented as of this encounter
--- OUTSIDE RECORDS SUMMARY | 2024-09-30 16:07 | XMS_ITS | Clinical Summary ---
Author Organization [employer] Address [address] [facility] [address] [place] [address] Care Team Providers Care Mononitrotoluene Operator Name Role Phone Cara Schuler RECLAIMER Primary Care Provider [phone] Allergies No known active allergies Medications cholecalciferol [...] to 30 doses. 30 tablet 4 Active ibuprofen 400 MG tablet Take 1 tablet (400 mg) by mouth every 6 (six) hours if needed for moderate pain or fever for up to 30 doses. 30 tablet 5 Active nicotine (Nicoderm CQ) 21 MG/24HR patch Place 1 patch on the skin 1 (one) time each day at the same time. 42 patch 1 5 Active nicotine polacrilex (Commit) 2 MG lozenge Dissolve 1 lozenge (2 mg) in the mouth if needed for smoking cessation. 100 lozenge 5 Active cyclobenzaprine (Flexeril) 10 MG tablet Take 1 tablet (10 mg) by mouth at bedtime for 10 days. 10 tablet 5 Active acetaminophen (Tylenol) 500 MG tablet Take 2 tablets (1,000 mg) by mouth every 6 (six) hours if needed for moderate pain or fever for up to 25 doses. 30 tablet 5 Active gabapentin (Neurontin) 300 MG capsuleIndicati ons:Chronic bilateral low back pain without sciatica Take 1 capsule (300 mg) by mouth every 6 (six) hours during the day. 90 capsule 1 5 Active Active Problems Problem Noted Date Diagnosed Date Chronic bilateral low back pain without sciatica 06/19/2024 Assessment & Plan (06/19/2024 1:52 PM EDT): Unclear if related to overuse as he was in the and currently works in construction. Advised regarding acupuncture clinic, take Tylenol as needed Joint pain 06/19/2024 Assessment & Plan (06/19/2024 1:52 PM EDT): Could be related to overuse, he used to be in the and go through extreme exercise. Advised regarding gentle exercise, stretching exercises as well. Take Tylenol as needed Elevated liver function tests 06/19/2024 Assessment & Plan (06/19/2024 1:53 PM EDT): Mild, will repeat LFTs and hepatitis profile Advised to avoid recreational substances or alcohol and follow-up with PCP Screen for STD (sexually transmitted disease) Assessment & Plan (06/19/2024 1:54 PM EDT): Order labs We discussed about STI prevention including use of condoms at all times PrEP, he is not interested in on PrEP at this time. Recurrent right knee instability 03/05/2023 Assessment & Plan (03/05/2023 9:37 AM EST): Concern for possible meniscal tear Will order MRI and pending results refer to ortho as indicated Encounter for preventative adult health care exa mination 11/29/2022 Overview (11/29/2022): Declines all vaccines Pt advised of risks of foregoing immunization including worsening disease severity, increased risk of transmission, and Patient works with metals/construction/building. Advised of tetanus risk. Declines Tdbooster Assessment & Plan (06/19/2024 1:53 PM EDT): Discussed with patient re increase fresh fruit and vegetable intake. Counseled re moderate exercise as tolerated, up to 20min/d Patient feels safe at home. Eye exam: UTD, next 1 due 2025 Lipids/FBS: Overdue, will order lipid profile Vaccinations: COVID, Td overdue, he declined immunizations today. Advised to have influenza immunization in the winter, I will check hepatitis titers. Dental visit: Overdue, advised to make an appointment with his dentist We discussed about protected intercourse, use of condoms. He agreed to STI testing Assessment & Plan (03/05/2023 9:50 AM EST): - Encouraged regular aerobic exercise within initial goal of 30 minute walk 3x/week - Encouraged balanced diet with a variety of fruits, vegetables, and lean meats. Chronic abdominal pain 10/26/2022 Overview (03/05/2023): Initial labs - CBC, CMP, TSH, CRP, sed rate, fecal calprotectin, and fecal pancreatic enzymes all WNL 10/2022. Assessment & Plan (03/05/2023 9:50 AM EST): Continue to monitor sx Follow up as scheduled with GI ED precautions reviewed to include worsening abdominal pain and fever Assessment & Plan (11/29/2022 1:12 PM EDT): Healthcare mainten Ygxmw-Srhhrdxll-Tzdva pattern 07/06/2020 Overview (10/26/2022): Xqjll-hoaoiifbf-Vusyb-reports previously seen by cardiac second operator who offered ablation which patient declined. No hx of syncope. No chest pain or palpitations Assessment & Plan (03/05/2023 9:46 AM EST): Pt agree to referral back to second operator for follow up. Will submit referral back to Dr. Vences at [facility] Resolved Problems Problem Noted Date Diagnosed Date Resolved Date Hospital discharge follow-up 07/26/2022 10/26/2022 Assessment & Plan (07/26/2022 4:32 PM EDT): Made appointment with PCP for TP and chronic conditions. Ordered Chest XR due to pervious pneumonia diagnosis on 06/15. Encounters Date Type Department Care Team Description 09/30/2024 Orders Only GENERIC EXTERNAL DATA DEPARTMENT Provider, Generic External Data 09/04/2024 Telephone [facility] [address] [place] [phone] Cara Schuler FNP chart prep 08/31/2024 Orders Only [facility] External Provider, [facility] 08/11/2024 11:15 AM EDT Telemedicine [facility] [address] [place] [address] Cara Schuler FNP Chronic bilateral low back pain without sciatica (Primary Dx) 08/11/2024 Travel from Last 3 Months Immunizations Immunization Administration Dates Next Due DTP 06/20/1995, 3,02/17/1991,12/18,1990 Hep A, Adult 12/10/2015 Hep B, adult 06/20/1995,10/24/1994,06/05/1994 Hib (PRP-T) 07/28/1991, 2,1990,06/19 IPV 12/10/2015 Influenza, IIV3, injectable 12/10/2015, 8,01/09/2003 MMR 06/20/1995,07/28/1991 Meningococcal MCV4P ACYW-135 12/10/2015,02/06/19 07 OPV, Unspecified 06/20/1995, 3,1990,06/19 Td (adult), 5 Lf tetanus tox oid, preservative free, adsorbed 07/08/2012 Td, Adsorbed, Preservative F ree, Adult Use, Lf Unspecified 03/07/2002 Tdap 12/10/2015,07/08/2012,12/05/2007 Varicella 02/14/2016, 6,12/05/2007,04/16 Social History Tobacco Use Types Packs/Day Years [...] 63 06/19/2024 9:48 AM EDT Temperature 36.7 C (98 F) 06/19/2024 9:48 AM EDT Respiratory Rate 17 [...] Description 10/17/2024 10:15 AM EDT Office Visit [facility] [address] [place], [place] [phone] [facility], [facility] [address] [place], [place] [phone] Health Maintenance Due Date Last Done Comments Alcohol/Substance Use Screening 2002 Family Planning (PISQ) 2005 HPV Vaccines (1 - Male 3-dose series) 2005 IPV Vaccines (2 of 3 - Adult catch-up series) 01/07/2016 12/10/2015, 06/20/1995, 03/29/1992, Additional history exists Dental Oral Exam 02/17/2021 08/16/2020 Dental Prophylaxis 03/03/2021 08/30/2020 Dental X-Ray: Bitewings 08/17/2021 08/16/2020 Dental X-Ray: Full Mouth 08/18/2023 08/16/2020 COVID-19 Vaccine ( season) 2023 Influenza Vaccine (#1) 2024 6, 12/05/2007, 01/09/2003 Depression Screening 06/19/2025 06/19/2024, 03/02/19 24 Disability Screening 06/19/2025 06/19/2024 SDOH Screening 06/19/2025 06/19/2024 Tobacco Screening 08/12/2025 08/12/2024 DTaP/Tdap/Td Vaccines (10 - Td or Tdap) 12/09/2025 12/10/2015, 07/08/2012, 07/08/2012, Additional history exists Zoster Vaccines (1 of [...] on patient's age to complete this topic HIV Screening Completed 06/19/2024, 05/2022, 07/20/2020 Hepatitis C Screening Completed 06/19/2024, 021 Meningococcal B Vaccine Aged Out No l onger eligible based on patient's age to complete this topic Pneumococcal Vaccine: Pediatrics (0 to 5 Years) and At-Risk Patients (6 to 49) Years Aged Out No longer eligible based on patient's age to complete this topic RSV under 20 months Aged Out No longe r eligible based on patient's age to complete this topic Rotavirus Vaccines Aged Out No longer eligible based on patient's age to complete this topic Procedures Procedure Name Priority Date/Time Associated Diagnosis Comments TSH W/REFLEX TO FT4 Routine 09/30/2024 2 :59 PM EDT HIGH SENSITIVITY TROPONIN I Routine 09/30/2024 2:59 PM EDT MAGNESIUM Routine 09/30/2024 2:59 PM EDT COMPREHENSIVE METABOLIC PANEL Routine 09/30/2024 2:59 PM EDT APTT Routine 09/30/2024 2:59 PM EDT PROTHROMBIN TIME-INR Routine 09/30/2024 2:59 PM EDT B TYPE NATRIURETIC PEPTIDE (BNP) Routine 09/30/2024 2:59 PM EDT CBC WITH AUTO DIFFERENTIAL Routine 09/30/2024 2:59 PM EDT MR PELVIS W AND WO CONTRAST Routine 08/31/2024 1:05 PM EDT XR PRE MRI SCREENING Routine 08/31/2024 12:54 PM EDT HEPATITIS PANEL, GENERAL Routine 06/19/2024 10:35 AM EDT Elevated liver function tests HIV 1/2 ANTIGEN/ANTIBODY, FOURTH GENERATION W/RFL Routine 06/19/2024 10:35 AM EDT Elevated liver function tests PROPHYLAXIS - ADULT Routine 08/30/2020 1 2:00 AM EDT INTRAORAL - COMPLETE SERIES OF RADIOGRAPHIC IMAGES Routine 08/16/2020 12:00 AM EDT COMPREHENSIVE ORAL EVALUATION - NEW OR ESTABLISHED PATIENT Routine 08/16/2020 12:00 AM EDT from Last 3 Months or Most Recently Relevant to Health Maintenance Results * High Sensitivity Troponin I (09/30/2024 2:59 PM EDT) TROPONIN I HIGH SENSITIVITY <2.7 <3.5 - 35.0 ng/L [facility] Comment:The [place] high sens itivity Troponin-I results should beused in conjunction with other diagnostic information suchas ECG, clinical observations and information, and patientsymptoms to aid in the diagnosis of MT. 09/30/2024 2:59 PM EDT 09/30/2024 3:03 PM EDT us Generic External Data Provider LAB BLOOD ORDERAB LES Final Result [facility] [address] [place] [phone] * TSH with Reflex to Free T4 (09/30/2024 2:59 PM EDT) TSH reflex Free T4 0.81 0.32 - 4.0 uIU/mL [facility] 09/30/2024 2:59 PM EDT 09/30/2024 3:03 PM EDT us Generic External Data Provider LAB BLOOD ORDERAB LES Final Result [facility] [address] [place] [phone] * (ABNORMAL) CBC auto differential (09/30/2024 2:59 PM EDT) White Blood Count 6.0 4.8 - 10.8 X10*3/uL [facility] Red Blood Count 4.59(L) 4.60 - 5.80 X10*6/uL [facility] Hemoglobin 13.6(L) 14.0 - 18.0 g/dl [facility] Hematocrit 40.5(L) 42.0 - 52.0 % [facility] Mean Corpuscular Volume 88.2 80.0 - 98.0 fL [facility] Mean Corpuscular Hemoglobin 29.6 27.0 - 33.0 pg [facility] Mean Corpuscular HGB Conc 33.6 31.0 - 36.0 g/dl [facility] Red Cell Distribution Width 11.7 11.0 - 16.0 % [facility] Platelet Count 265 160 - 400 X10*3/uL [facility] Mean Platelet Volume 10.2 9.4 - 12.4 fL [facility] Neutrophils Percent Auto 57.9 45 - 73 % [facility] Imm Gran Pct Auto 0.3 0.0 - 0.4 % [facility] Lymphocytes Percent Auto 29.5 20 - 40 % [facility] Monocytes Percent Auto 9.8 2 - 11 % [facility] Eosinophils Percent Auto 1.7 0 - 4 % [facility] Basophils Percent Auto 0.8 0 - 2 % [facility] NRBC Pct Auto 0.0 0.0 - 0.2 /100WBC [facility] Neutrophils Absolute Auto 3.5 2.0 - 8.3 x10*3/uL [facility] Imm Gran Abs Auto 0.02 0.00 - 0.03 X10*3/uL [facility] Lymphocytes Absolute Auto 1.8 1.2 - 4.9 X10*3/uL [facility] Monocytes Absolute Auto 0.6 0.1 - 1.2 X10*3/uL [facility] Eosinophils Absolute Auto 0.1 0.0 - 0.4 X10*3/uL [facility] Basophils Absolute Auto 0.1 0.0 - 0.2 X10*3/uL [facility] NRBC Abs Auto 0.000 0.0 - 0.012 X10*3/uL [facility] 09/30/2024 2:59 PM EDT 09/30/2024 3:03 PM EDT Generic External Data Provider LAB BLOOD ORDERAB LES Final Result Performing Organization Address City/[facility]/ZIP Co de Phone Number [facility] [address] [place] [phone] * Partial Thromboplastin Time, Activated (APTT) (09/30/2024 2:59 PM EDT) Partial Thromboplastin Time 32.9 26.7 - 34.1 SEC [facility] 09/30/2024 2:59 PM EDT 09/30/2024 3:03 PM EDT Generic External Data Provider LAB BLOOD ORDERAB LES Final Result Performing Organization Address [facility]/ZIP Co de Phone Number [facility] [address] [place] [phone] * Prothrombin Time-INR (09/30/2024 2:59 PM EDT) Prothrombin Time 10.9 10.9 - 12.4 SEC [facility] INTERNATIONAL NORM RATIO 1.0 0.9 - 1.1 [facility] Comment:INTERNATIONAL NORMAL IZED RATIO (INR) REFERENCE [...] ORDERAB LES Final Result Performing Organization Address [facility] Co de Phone Number [facility] [address] [place] [phone] * B Type Natriuretic Peptide (BNP) (09/30/2024 2:59 PM EDT) Pathologist [facility] B Type Natriuretic Peptide <10 <100 pg/mL [facility] 09/30/2024 2:59 PM EDT 09/30/2024 3:03 PM EDT Generic External Data Provider LAB BLOOD ORDERAB LES Final Result Performing Organization Address [facility] de Phone Number [facility] [address] [place] [phone] * Magnesium (09/30/2024 2:59 PM EDT) Pathologist [facility] Magnesium 2.1 1.6 - 2.6 mg/dL [facility] 09/30/2024 2:59 PM EDT 09/30/2024 3:03 PM EDT Generic External Data Provider LAB BLOOD ORDERAB LES Final Result Performing Organization Address [facility] Co de Phone Number [facility] [address] [place] [phone] * (ABNORMAL) Comprehensive Metabolic Panel (09/30/2024 2:59 PM EDT) Sodium 140 135 - 145 mmol/L [facility] Potassium 4.4 3.3 - 5.1 mmol/L [facility] Chloride 103 96 - 108 mmol/L [facility] Carbon Dioxide 30(H) 22 - 29 mmol/L [facility] Anion Gap 11(L) 12 - 20 [facility] Urea Nitrogen (BUN) 13 9 - 16 mg/dL [facility] Creatinine, Serum 1.08 0.5 - 1.4 mg/dL [facility] Creatinine Clr Calc Pharmacy 105.4 [facility] Comment:eGFR (calculated fro m the MDRD study equation) and eCrCl(calculated from the Cockcroft-Gault equation) are based ondifferent parameters and may not yield comparable results.If eCrCl result is absurd, please check patient'sheight/weight. Estimated Glomerular Filt Rate >60 [facility] Comment:Chronic Kidney Disea se: Estimated GFR < 60 mL/min/[id number] Kidney Disease: Estimated GFR < 15 mL/min/1.73m2 Glucose 88 60 - 115 mg/dL [facility] Calcium 9.6 8.4 - 10.2 mg/dL [facility] Bilirubin, Total 0.6 0.0 - 1.0 mg/dL [facility] Aspartate Amino Transferase 31 5 - 37 U/L [facility] Alanine Aminotransferase 44(H) 0 - 40 U/L [facility] Total Protein 7.6 6.5 - 8.0 g/dL [facility] Albumin Level 4.9 3.5 - 5.0 g/dL [facility] Alkaline Phosphatase 49 39 - 117 U/L [facility] 09/30/2024 2:59 PM EDT 09/30/2024 3:03 PM EDT us Generic External Data Provider LAB BLOOD ORDERAB LES Final Result [facility] [address] [place] [phone] * MR Pelvis w/ and w/o Contrast (08/31/2024 1:05 PM EDT) Anatomical Region Laterality Modality Body, Pelvis Magnetic Resonan ce 08/31/2024 1:05 PM EDT Narrative 09/01/2024 8:31 AM EDT [address] [address] Magnetic Resonance Report Signed Patient: Neymar Orozco MR#: [id number] : 1990 Acct:[id number] Age/Sex: 34 / M ADM Date: 08/31/24 Loc: HO.MRI Attending Dr: Bob Levy MD Ordering Physician: Bob Levy MD Date of Service: 08/31/24 Procedure(s): MR pelvis wo/w con Accession Number(s): [id number] cc: Bob Levy MD; [facility] EXAMINATION: MR PELVIS WITHOUT THEN WITH IV CONTRAST HISTORY: R10.31 - Right lower quadrant pain. TECHNIQUE: Axial T1, fat-suppressed T1, and fat-suppressed T2, and sagittal and coronal T2-weighted MR images of the pelvis were obtained. Subsequently, fat suppressed axial and sagittal T1-weighted images were obtained after the intravenous administration of 9 mL Gadavist. COMPARISON: Correlation is made with an unenhanced CT of the pelvis dated 05/17/2024. FINDINGS: There is mild asymmetry at the insertion of the rectus abdominal muscles on the pubic symphysis, the left being more prominent on the right. No abnormal muscular or bone marrow signal intensity is identified, however to suggest a tear. No inguinal hernia is identified. Bone marrow signal intensity is normal. There is no infiltrate or effusion. There is no ascites or pelvic lymphadenopathy. The urinary bladder and prostate are unremarkable. The visualized bowel loops are unremarkable. MR/MR pelvis wo/w con IMPRESSION: Mild asymmetry of the insertion of the rectus abdominal muscles, of certain significance, without evidence of a tear. Electronically signed by: Brendon Dubon MD 09/01/2024 08:29 AM EDT RP Dictated By: Brendon Dubon MD Signed By: <Electronically signed by Brendon Dubon MD in OV> 09/01/24 0829 DD/ 1305 TD/TT: 08/31/24 1335 Spiral Tube Winder Helper: Procedure Note Donotuseinterpreter, Image - 09/01/[address] [address] Magnetic Resonance Report Signed Patient: Buddy OrozcoonyMR#: [id number] : 1990Acct:[id number] Age/Sex: 34 / MADM Date: 08/31/24 Loc: HO.MRI Attending Dr: Bob Levy MD Ordering Physician: Bob Levy MD Date of Service: 08/31/24 Procedure(s): MR pelvis wo/w con Accession Number(s): [id number] cc: Bob Levy MD; [facility] EXAMINATION: MR PELVIS WITHOUT THEN WITH IV CONTRAST HISTORY: R10.31 - Right lower quadrant pain. TECHNIQUE: Axial T1, fat-suppressed T1, and fat-suppressed T2, and sagittal and coronal T2-weighted MR images of the pelvis were obtained. Subsequently, fat suppressed axial and sagittal T1-weighted images were obtained after the intravenous administration of 9 mL Gadavist. COMPARISON: Correlation is made with an unenhanced CT of the pelvis dated 05/17/2024. FINDINGS: There is mild asymmetry at the insertion of the rectus abdominal muscles on the pubic symphysis, the left being more prominent on the right. No abnormal muscular or bone marrow signal intensity is identified, however to suggest a tear. No inguinal hernia is identified. Bone marrow signal intensity is normal. There is no infiltrate or effusion. There is no ascites or pelvic lymphadenopathy. The urinary bladder and prostate are unremarkable. The visualized bowel loops are unremarkable. MR/MR pelvis wo/w con IMPRESSION: Mild asymmetry of the insertion of the rectus abdominal muscles, of certain significance, without evidence of a tear. Electronically signed by: Brendon Dubon MD 09/01/2024 08:29 AM EDT RP Dictated By: Brendon Dubon MD Signed By: <Electronically signed by Brendon Dubon MD in OV> 09/01/24 0829 DD/ 1305 TD/TT: 08/31/24 1335 Spiral Tube Winder Helper: [facility] External Provider IMG MRI PROCEDURES Final Result * XR PRE MRI SCREENING (08/31/2024 12:54 PM EDT) Anatomical Region Laterality Modality Abdomen Radiographic Debbi ging 08/31/2024 12:5 4 PM EDT Narrative 08/31/2024 12:56 PM EDT [place] [address] XRay Report Signed Patient: Neymar Orozco MR#: [id number] : 1990 Acct:[id number] Age/Sex: 34 / M ADM Date: 08/31/24 Loc: HO.MRI Attending Dr: Bob Levy MD Ordering Physician: Lamine Altamirano MD Date of Service: 08/31/24 Procedure(s): XR pre mri screening Accession Number(s): [id number] cc: Lamine Altamirano MD; [facility] CLINICAL HISTORY: Injury to eye R O foreign body orbits MRI Screening XR PRE MRI SCREENING Comparison: None provided Findings: No acute fractures. Paranasal sinuses and mastoids are clear. No radiopaque foreign body. IMPRESSION: 1. No metallic foreign bodies in the orbits. This document has been electronically signed by: Danilo Mcdaniel MD on 08/31/2024 12:54:47 Dictated By: Danilo Mcdaniel MD Signed By: <Electronically signed by Danilo Mcdaniel MD in OV> 08/31/24 1255 DD/ 1254 TD/TT: 08/31/24 1254 Spiral Tube Winder Helper: Procedure Note Donotamadeointerpreter, Image - 08/31/[address] [address] XRay Report Signed Patient: Buddy OrozcoonyMR#: [id number] : 1990Acct:[id number] Age/Sex: 34 / MADM Date: 08/31/24 Loc: HO.MRI Attending Dr: Bob Levy MD Ordering Physician: Lamine Altamirano MD Date of Service: 08/31/24 Procedure(s): XR pre mri screening Accession Number(s): [id number] cc: Lamine Altamirano MD; [facility] CLINICAL HISTORY: Injury to eye R O foreign body orbits MRI Screening XR PRE MRI SCREENING Comparison: None provided Findings: No acute fractures. Paranasal sinuses and mastoids are clear. No radiopaque foreign body. IMPRESSION: 1. No metallic foreign bodies in the orbits. This document has been electronically signed by: Danilo Mcdaniel MD on 08/31/2024 12:54:47 Dictated By: Danilo Mcdaniel MD Signed By: <Electronically signed by Danilo Mcdaniel MD in OV> 08/31/24 1255 DD/ 1254 TD/TT: 08/31/24 1254 Spiral Tube Winder Helper: [facility] External Provider IMG XR PROCEDURES Edited Result - Final * Hepatitis Panel, General (06/19/2024 10:35 AM EDT) Hepatitis A IgM Nonreactive Nonreactive [facility] Comment:IgM antibodies to [place] V not detected; does not exclude earlyacute or recovered HAV infection. ~Hepatitis B Surface Antibody REACTIVE Nonreactive [facility] Comment:REACTIVE: > 11.99 mI U/mL Hepatitis B Core Antibody Nonreactive Nonreactive [facility] Hepatitis C Antibody Nonreactive Nonreactive [facility] Comment:Antibodies to HCV no t detected; does not exclude early acuteHCV infection. Hepatitis B Surface Ag Negative Negative [facility] Blood 06/19/2024 10:3 5 AM EDT 06/19/2024 11:40 AM EDT Gissel Gordon MD LAB BLOOD ORDERABLES Fin al Result Performing Organization Address [facility]/ZIP Co de Phone Number [facility] [address] [place] [phone] * HIV-1/2 Antigen and Antibodies, Fourth Generation, with Reflexes (06/19/2024 10:35 AM EDT) [facility] HIV AB/AG Nonreactive Nonreactive [facility] Comment:HIV-1 p24 Ag and/or HIV-1/HIV-2 Ab not detected.A test result that is nonreactive does not exclude thepossibility of exposure to or infection with HIV-1 and/orHIV-2. Nonreactive results in this assay for individualswith prior exposure to HIV-1 and/or HIV-2 may be due toantigen and antibody levels that are below the limit ofdetection of this assay.The [employer] HIV Ag/Ab Combo assay result andsupplemental assay results should be interpreted inconjunction with the patient's clinical presentation,history and other laboratory results. If the results areinconsistent with clinical evidence, additional testing issuggested to confirm the result. Blood Venous blood specimen / Unknown 06/19/2024 10:35 AM EDT 06/19/2024 11:40 AM EDT us Gissel Gordon MD LAB BLOOD ORDERABLES Fin al Result Performing Organization Address City/[facility]/ZIP Co de Phone Number [facility] [address] [place] [phone] from Last 3 Months or Most Recently Relevant to Health Maintenance Insurance [facility] AD[place] Care Teams Mononitrotoluene Operator Relationship Specialty Start Date End Date Cara Schuler FNP [address] [place] [phone] PCP - General Family Medicine 10/03/21
[2024-09-30 18:10] VITALS: BP 140/75; PULSE 54; RESP 10; TEMP 36.9; O2SAT 100
[2024-09-30 19:06] LABS: Troponin-I High Sensitivity < 2.7 ng/L (<3.5-35.0)
[2024-09-30 19:29] VITALS: BP 144/80; PULSE 57; RESP 16; TEMP 36.9; O2SAT 100
[2024-09-30 20:46] VITALS: BP 144/80; PULSE 57; RESP 16; TEMP 36.9; O2SAT 100
== END 2024-09-30 20:50 | disposition home or self-care (01) ==
PROVIDERS: Physician Assistant; Emergency Provider Emergency Medicine Emergency Medical Services; PCP Registered Nurse
DX: R07.89 Other chest pain (principal); I45.6 Pre-excitation syndrome; R06.02 Shortness of breath; F17.210 Nicotine dependence, cigarettes, uncomplicated; Z79.899 Other long term (current) drug therapy
CPT/HCPCS: 36415; 80053; 83735; 83880; 84443; 84484; 85025; 85610; 85730; 93005; 99283; 99285

== ENCOUNTER → 2024-09-30 13:35 | Outpatient (BNV) | payer BC, SELFPAY | PROVIDERS: Emergency Provider Emergency Medicine Emergency Medical Services; PCP Registered Nurse; Visit Provider Internal Medicine | DX: I49.9 Cardiac arrhythmia, unspecified (principal); I45.6 Pre-excitation syndrome | CPT/HCPCS: 93010 ==